=== PATIENT | male | born 1950 | race Caucasian/White ===

== ENCOUNTER 2017-11-10 05:37 | Outpatient (CLI) | payer MEDICARE ==
[~2017-11-10] VITALS: Ht 185.4 cm; Wt 94.3 kg
[~2017-11-10 05:37] MED LIST: AMIT25TA9 PO; DOXA4TAB2 PO; DULO60CA6 PO; GEMF600T3 PO; HYDR-3063 PO; MELO-195 PO; PRAV10TA PO; ROSU5TAB PO
[2017-11-10] MEDS ORDERED: DULO60CA58 PO (13:01)
[2017-11-10] MEDS ORDERED: BUPR150T14 PO (13:01)
[2017-11-10] MEDS ORDERED: GABA-486 PO (13:01)
[2017-11-10] MEDS ORDERED: PRAV40TA2 PO (13:01)
[2017-11-10] MEDS ORDERED: AMIT25TA9 PO (13:01)
[2017-11-10] MEDS ORDERED: MORP30CA16 PO (13:01)
[2017-11-10] MEDS ORDERED: OMEP20TA33 PO (13:03)
== END 2017-11-10 13:07 | disposition home or self-care (01) ==
LOC: PREOP 05:37
PROVIDERS: ATTEND Surgery
DX: Z01.818 Encounter for other preprocedural examination (principal)

== ENCOUNTER 2017-11-17 08:22 | Day surgery (SDC) | payer MEDICARE ==
[~2017-11-17] VITALS: Ht 185.4 cm; Wt 94.3 kg
[~2017-11-17 08:22] MED LIST changes: +BUPR150T14 PO; +DULO60CA58 PO; +GABA-486 PO; +MORP30CA16 PO; +OMEP20TA33 PO; +PRAV40TA2 PO
[2017-11-17] MEDS ORDERED: LACTATED RINGERS 1,000 ML IV ONE (08:30)
[2017-11-17] MEDS ORDERED: LACTATED RINGERS 1,000 ML IV STA (08:40)
[2017-11-17 08:51] VITALS: BP 163/99
--- OUTSIDE RECORDS SUMMARY | 2017-11-17 08:52 | XMS REPORT | Clinical Summary ---
Author Author [facility] Organization [facility] Address Unknown Phone Unavailable Care Team Providers Care Dairy Chemist Name Role Phone Unverified, Unverified PCP Unavailable Jovita Grey MD Unavailable Source Comments Some departments are not documenting in the electronic medical record. If you do not see the information that you expected, contact Release of Information in the Health Information Management department at [phone] for further assistance in locating additional records.[facility] Allergies Active Allergy Reactions Severity Noted Date Comments Metoclopramide Low 06/24/2006 Allergy recorded in SMS: REGLAN~Reactions: ANAPHYLAXIS~NERVOUSNESS Current Medications Prescription Sig. Disp. Refills Start End Date Status Date meloxicam (MOBIC) 7.5 mg Take 7.5 mg by mouth Active tablet daily. DULOXETINE HCL (CYMBALTA Take by mouth. Active PO) BUPROPION HCL (WELLBUTRIN Take by mouth. Active PO) MORPHINE SULFATE Take by mouth. Active (MORPHINE PO) AMITRIPTYLINE HCL Take by mouth. Active (AMITRIPTYLINE PO) PRAVASTATIN SODIUM Take by mouth. Active (PRAVASTATIN PO) DOXIDAN (BISACODYL) PO Take by mouth. 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) 10/31/2014 Pain in joint, pelvic region and thigh 04/14/2007 Closed fracture of unspecified part of femur 04/14/2007 Social History Tobacco Use Types Packs/Day Years Used Date Former Smoker Cigarettes 0.25 40 Smokeless Tobacco: Never Used Alcohol Use Drinks/Week oz/Week Comments Yes 5 Cans of 3.0 beer Sex Assigned at Date Recorded Not on file Last Filed Vital Signs Vital Sign Reading Time Taken Blood Pressure 127/68 10/25/2014 1:57 PM CDT Pulse 85 10/25/2014 1:57 PM CDT Temperature - - Respiratory Rate 16 10/25/2014 1:57 PM CDT Oxygen Saturation - - Inhaled Oxygen - - Concentration Weight 93.4 kg (206 lb) 10/25/2014 1:57 PM CDT Height 185.4 cm (6' 1") 10/25/2014 1:57 PM CDT Body Mass Index 27.18 10/25/2014 1:57 PM CDT Plan of Treatment Health Maintenance Due Date Last Done Comments HEPATITIS C SCREENING 1950 PHYSICAL (COMPREHENSIVE) 1957 EXAM PERTUSSIS VACCINE 1961 TETANUS VACCINE 06/11/1967 COLORECTAL CANCER 2000 SCREENING SHINGLES RECOMBINANT 2000 VACCINE (1 of 2) ABDOMINAL AORTIC ANEURYSM 06/11/2015 SCREENING PNEUMONIA (PCV13/PPSV23) 06/11/2015 VACCINES (1 of 2 - PCV13) INFLUENZA VACCINE 11/30/2017 Results Not on filefrom Last 3 Months
--- OUTSIDE RECORDS SUMMARY | 2017-11-17 08:52 | XMS REPORT ---
Author Author LILIBETH DUARTE Organization [facility] Address [address] [place] [address] Care Team Providers Care Still Operator Name Role Phone LILIBETH DUARTE Unavailable PROBLEMS Type Condition ICD9-CM Code EGH53-DB Code Onset Dates Condition Status SNOMED Code Problem Other chronic pain G89.29 Active 18027462 Problem Reactive depression F32.9 Active 61045036 Problem Back pain M54.9 Active 338070053 Problem Hypertension I10 Active 09696119 Problem Hyperlipidemia E78.5 Active 23876910 ALLERGIES No Information ENCOUNTERS Encounter Location Date Diagnosis [facility] [id number] [place] [address] 37702- 2023 Sep, Back pain M54.9 [facility] [id number] [place] [address] 69961- 6951 Aug, [facility] [id number] [place] [address] 79381- 1285 Aug, [facility] [id number] [place] [address] 17190- 4043 Aug, Back pain M54.9 [facility] [id number] [place] [address] 40452- 1401 Jul, Back pain M54.9 and Medicare annual wellness visit, initial Z00.00 [facility] [id number] [place] [address] 99581- 6350 June, Back pain M54.9 [facility] [id number] [place] [address] 31311- 1734 May, Back pain M54.9 [facility] [id number] [place] [address] 50566- 9564 May, Medicare annual wellness visit, initial Z00.00 ; Hypertension I10 ; Hyperlipidemia E78.5 and Reactive depression F32.9 [facility] [address] 67981- 7716 Apr, Back pain M54.9 [facility] [id number] [place] [address] 58386- 1836 Apr, Back pain M54.9 [facility] [address] 00654- 6932 Apr, Back pain M54.9 ; Other chronic pain G89.29 and Pain in left leg M79.605 [place] [address] 41984- 1243 Mar, Back pain M54.9 [facility] [address] 34732- 7880 Mar, Acute prostatitis N41.0 [facility] [id number] [place] [address] 55352- 2869 Jan, Back pain M54.9 [facility] [address] 15636- 2154 Dec, Back pain M54.[address] [facility] [id number] [place] [address] 39502- 5802 15 Dec, [address] [facility] [id number] [place] [address] 68284- 7694 Nov, Back pain M54.9 [facility] [address] 14171- 8156 22 Oct, [address] [facility] [id number] [place] [address] 23087- 254 19 Oct, [address] [facility] [address] 33483- 6450 Oct, [facility] [id number] [place] [address] 17567- 1557 Sep, Back pain M54.9 ; Acute prostatitis N41.0 ; Hypertension I10 ; Gross hematuria R31.0 and Reactive depression F32.9 [facility] [id number] [place] [address] 47988- 8760 Sep, [facility] [address] 10216- 4581 Sep, Back pain M54.9 [facility] [id number] [place] [address] 84910- 7841 Aug, Back pain M54.9 [facility] [id number] [place] [address] 50891- 9327 Jul, Back pain M54.9 [facility] [address] 91407- 9347 June, Back pain M54.9 [facility] [id number] [place] [address] 39791- 3489 June, Acute prostatitis N41.0 [facility] [id number] [place] [address] 51019- 0479 June, Back pain M54.9 [facility] [id number] [place] [address] 56679- 2645 Apr, Back pain M54.9 [facility] [id number] [place] [address] 20742- 7554 14 Apr, 2016 Hypertension I10 and Back pain M54.9 [facility] [id number] [place] [address] 11529- 3183 07 Apr, [address] [facility] [id number] [place] [address] 78734- 3535 Apr, Back pain M54.9 and Sprain of ligaments of lumbar spine, initial encounter S33.5XXA [facility] [id number] [place] [address] 48295- 9856 08 Apr, [address] [facility] [id number] [place] [address] 51768- 6106 Mar, Acute pain of left hip M25.552 [facility] [id number] [place] [address] 83672- 3316 Mar, [facility] [id number] [place] [address] 57277 2543 Mar, Acute pain of left hip M25.552 [facility] [address] 26340- 1251 Mar, Back pain M54.9 [facility] [id number] [place] [address] 95476- 7626 Jan, Reactive depression F32.9 [facility] [address] 52268- 8029 Jan, Back pain M54.9 ; Hypertension I10 and Reactive depression F32.9 [facility] [id number] [place] [address] 35754- 3640 Jan, Back pain M54.9 [facility] [id number] [place] [address] 70881- 5842 Dec, [facility] [id number] [place] [address] 55535- 8358 Dec, [facility] [id number] [place] [address] 12510- 5382 Nov, [facility] [id number] [place] [address] 45460- 0946 Oct, [facility] [id number] [place] [address] 75747- 5769 Oct, [facility] [id number] [place] [address] 70881- 7233 Oct, [facility] [address] [place] [address] 10632- 4884 Sep, [facility] [id number] [place] [address] 22068- 6701 Sep, [facility] [id number] [place] [address] 80747- 9201 Sep, Visit for TB skin test Z11.1 ; Back pain M54.[address] [facility] [id number] [place] [address] 72729- 1368 Aug, Back pain M54.9 [facility] [id number] [place] [address] 96633- 9336 Jul, Back pain M54.9 [facility] [id number] [place] [address] 98641- 2467 Jul, [facility] [id number] [place] [address] 55536- 6473 Jul, [facility] [id number] [place] [address] 29183- 5713 Jul, Back pain M54.9 [facility] [id number] [place] [address] 27551- 4889 May, Back pain M54.9 [facility] [id number] [place] [address] 60019- 3052 May, Back pain M54.9 ; Hypertension I10 [address]9 [facility] [id number] [place] [address] 32811- 1269 Apr, Back pain M54.9 [facility] [id number] [place] [address] 65219- 9587 Apr, Back pain M54.9 [facility] [id number] [place] [address] 24802- 4337 Apr, [facility] [address] [facility] [id number] [address]- 2763 Mar, Back pain M54.9 [facility] [address] [facility] [id number] [address]- 2115 Jan, [facility] [address] [place] [address] 00878- 5049 Jan, Dyspepsia R10.13 [facility] [address] [facility] [id number][place] [address]- 5538 Jan, [facility] [address] [facility] [id number] [place] [address] 16013- 3907 Jan, [facility] [address] [place] [address] 73450- 6639 Dec, Back pain M54.[address] [facility] [id number] [place] [address] 39337- 3362 Dec, [facility] [address] [address]- 8949 Nov, [facility] [address] [place] [address] 69285- 0775 Oct, [facility] [address] [address]- 9737 Sep, [facility] [address] [address]- 6924 Sep, [facility] [address] [address]- 9045 Sep, Lumbar strain 847.2 [facility] [address] [address]- 1352 Aug, [facility] [address] [address]- 8020 Aug, [facility] [address] [address]- 9444 Aug, [facility] [address] [id number] [address] Jul, Dental examination V72.2 [facility] [address] [id number], [place] [address]- 6642 Jul, [facility] [address] [id number][place] [address]- 5241 Jul, Acute bronchitis 466.0 and Lumbar strain 847.2 [facility] [address] [id number], [place] [address]- 5650 Jul, [facility] [address] [id number], [place] [address]- 6581 Jul, [facility] [address] [id number][place] [address]- 3156 June, Acute bronchitis 466.0 and Lumbar strain 847.2 [facility] [address] [id number][place] [address]- 0165 June, [facility] [address] [id number], [place] [address]- 0770 June, [facility] [address] [id number], [place] [address]- 5943 June, [facility] [address] [id number], [place] [address]- 2473 May, [facility] [address] [id number], [place] [address]- 6210 May, [facility] [address] [id number][place] [address]- 9777 Apr, [facility] [address] [id number], [place] [address]- 3911 Apr, [facility] [address] [id number], [place] [address]- 9537 Apr, [facility] [address] [id number] [place] [address]- 4136 13 Apr, 2014 [facility] [address] [id number] [place] [address]- 4436 17 Apr, 2011 [facility] [address] [id number] [place] [address]- 2546 17 Apr, 2011 [facility] [address] [id number] [place] [address] 2546 15 Apr, 2011 [facility] [address] [facility] [id number] [place] [address] 2546 14 Apr, 2011 [facility] [address] [facility] [id number] [place] [id number] 06 Apr, 2011 [facility] [id number] [address]- 2546 06 Apr, 2011 [facility] [address] [id number] [place] [address] 2546 02 Apr, 2011 [facility] [address] [id number] [place] [address]- 8028 Mar, [facility] [address] [id number] [place] [address]- 2576 Mar, [facility] [address] [id number] [address]- 0776 16 Mar, 2011 [facility] [address] [id number] [place] [address] 2546 16 Mar, 2011 [facility] [address] [id number] [place] [address] 2546 Mar, [facility] [place] [facility] [address] [id number] [place] [address]- 8636 Jan, [facility] [place] [facility] [address] [facility] [id number] [place] [address]- 2546 Jan, [facility] [place] [facility] [address] [id number] [place] [address]- 7155 12 Jan, 2011 [facility] [address] [facility] [id number], [place] [address]- 9344 08 Dec, 2010 [facility] [address] [facility] [id number], [place] [address]- 9278 11 Nov, 2010 [facility] [address] [facility] [id number][place] [address]- 7986 13 Oct, 2010 [facility] [address] [facility] [id number], [place] [address]- 0529 14 Jan, 2010 [facility] [address] [facility] [id number][place] [address]- 6870 [address], 2009 [facility] [address] [facility] [id number], [place] [address]- 0043 15 Nov, 2009 [facility] [address] [facility] [id number], [place] [address]- 1094 15 Nov, 2009 [facility] [address] [facility] [id number][place] [address]- 3937 Sep, [facility] [address] [facility] [id number] [address]- 2799 Jan, [facility] [address] [facility] [id number], [place] [address]- 7188 Dec, [facility] [address] [facility] [id number][place] [address]- 5873 10 Aug, 2008 IMMUNIZATIONS No Known Immunizations SOCIAL HISTORY Never Assessed REASON FOR VISIT Refill request PLAN OF CARE VITAL SIGNS MEDICATIONS Medication Instructions Dosage Frequency Start Date End Date Duration Status Viagra 100 MG TAKE ONE TABLET BY MOUTH ONCE DAILY NEEDED 30 Active RESULTS No Results PROCEDURES No Known procedures INSTRUCTIONS MEDICATIONS ADMINISTERED No Known Medications MEDICAL (GENERAL) HISTORY Type Description Date Medical History hyperlipidemia Medical History impotence Medical History chronic pain Medical History hypertension Medical History osteoarthritis Medical History depression Medical History kidney stones Surgical History tonsillectomy Surgical History bladder surgery Surgical History spine surgery Surgical History ortho surrgeries x7 on hip, back, left leg, left wrist Hospitalization History surgeries
--- OUTSIDE RECORDS SUMMARY | 2017-11-17 08:53 | XMS REPORT ---
Author Author LILIBETH DUARTE Organization [facility] Address [address] [place] [address] Care Team Providers Care Nylon Winder Name Role Phone LILIBETH DUARTE Unavailable PROBLEMS Type Condition ICD9-CM Code HFB22-DZ Code Onset Dates Condition Status SNOMED Code Problem Other chronic pain G89.29 Active 73355996 Problem Reactive depression F32.9 Active 51508259 Problem Back pain M54.9 Active 836472218 Problem Hypertension I10 Active 43666388 Problem Hyperlipidemia E78.5 Active 24861349 ALLERGIES No Information ENCOUNTERS Encounter Location Date Diagnosis [facility] [id number] [place] [address] 48476- 0866 Sep, Back pain M54.9 [facility] [id number] [place] [address] 63020- 6696 Aug, [facility] [id number] [place] [address] 59932- 2762 Aug, [facility] [id number] [place] [address] 40611- 4047 Aug, Back pain M54.9 [facility] [id number] [place] [address] 15446- 0763 Jul, Back pain M54.9 and Medicare annual wellness visit, initial Z00.00 [facility] [id number] [place] [address] 01618- 3636 June, Back pain M54.9 [facility] [id number] [place] [address] 43980- 4112 May, Back pain M54.9 [facility] [id number] [place] [address] 32452- 9159 May, Medicare annual wellness visit, initial Z00.00 ; Hypertension I10 ; Hyperlipidemia E78.5 and Reactive depression F32.9 [facility] [address] 35621- 3343 Apr, Back pain M54.9 [facility] [id number] [place] [address] 09178- 1996 Apr, Back pain M54.9 [facility] [address] 43299- 4589 Apr, Back pain M54.9 ; Other chronic pain G89.29 and Pain in left leg M79.605 [address] 48831- 2121 Mar, Back pain M54.9 [facility] [address] 01488- 8314 Mar, Acute prostatitis N41.0 [facility] [id number] [place] [address] 49611- 5043 Jan, Back pain M54.9 [facility] [address] 83363- 1601 Dec, Back pain M54.9 and Hypertension I10 [facility] [id number] [place] [address] 68233- 3818 15 Dec, 2016 Back pain M54.9 [facility] [id number] [place] [address] 41679- 6768 Nov, Back pain M54.9 [facility] [address] 08928- 6716 22 Oct, 2016 Back pain M54.9 [facility] [id number] [place] [address] 91620- 2540 19 Oct, 2016 Abnormal LFTs R79.89 [facility] [address] 46834- 8155 Oct, [facility] [id number] [place] [address] 65115- 0852 Sep, Back pain M54.9 ; Acute prostatitis N41.0 ; Hypertension I10 ; Gross hematuria R31.0 and Reactive depression F32.9 [facility] [id number] [place] [address] 06167- 5499 Sep, [facility] [address] 59762- 5477 Sep, Back pain M54.9 [facility] [id number] [place] [address] 74524- 0217 Aug, Back pain M54.9 [facility] [id number] [place] [address] 76368- 0479 Jul, Back pain M54.9 [facility] [address] 07031- 4780 June, Back pain M54.9 [facility] [id number] [place] [address] 32803- 7651 June, Acute prostatitis N41.0 [facility] [id number] [place] [address] 89674- 8121 June, Back pain M54.9 [facility] [id number] [place] [address] 56016- 4423 Apr, Back pain M54.9 [facility] [id number] [place] [address] 45295- 4522 14 Apr, 2016 Hypertension I10 and Back pain M54.9 [facility] [id number] [place] [address] 45534- 0871 07 Apr, 2016 Back pain M54.9 [facility] [id number] [place] [address] 72417- 5550 Apr, Back pain M54.9 and Sprain of ligaments of lumbar spine, initial encounter S33.5XXA [facility] [id number] [place] [address] 43392- 3678 08 Apr, 2016 Back pain M54.9 [facility] [id number] [place] [address] 63891- 4746 Mar, Acute pain of left hip M25.552 [facility] [id number] [place] [address] 53255- 6186 Mar, [facility] [id number] [place] [address] 61578 2540 Mar, Acute pain of left hip M25.552 [facility] [address] 36018- 3663 Mar, Back pain M54.9 [facility] [id number] [place] [address] 45640- 8816 Jan, Reactive depression F32.9 [facility] [address] 20407- 1908 Jan, Back pain M54.9 ; Hypertension I10 and Reactive depression F32.9 [facility] [id number] [place] [address] 83498- 2265 Jan, Back pain M54.9 [facility] [id number] [place] [address] 36407- 4453 Dec, [facility] [id number] [place] [address] 24027- 7107 Dec, [facility] [id number] [place] [address] 95295- 0727 Nov, [facility] [id number] [place] [address] 14992- 7016 Oct, [facility] [id number] [place] [address] 29717- 2841 Oct, [facility] [id number] [place] [address] 98185- 9168 Oct, [facility] [address] [place] [address] 16359- 8789 Sep, [facility] [id number] [place] [address] 97486- 5572 Sep, [facility] [id number] [place] [address] 90182- 2225 Sep, Visit for TB skin test Z11.1 ; Back pain M54.9 and Hypertension I10 [facility] [id number] [place] [address] 73983- 7018 Aug, Back pain M54.9 [facility] [id number] [place] [address] 69031- 6728 Jul, Back pain M54.9 [facility] [id number] [place] [address] 08023- 4790 Jul, [facility] [id number] [place] [address] 62833- 9336 Jul, [facility] [id number] [place] [address] 61648- 7903 Jul, Back pain M54.9 [facility] [id number] [place] [address] 52391- 4893 May, Back pain M54.9 [facility] [id number] [place] [address] 07999- 7666 May, Back pain M54.9 ; Hypertension I10 and Eczema L30.9 [facility] [id number] [place] [address] 10042- 7696 Apr, Back pain M54.9 [facility] [id number] [place] [address] 74715- 8161 Apr, Back pain M54.9 [facility] [id number] [place] [address] 43877- 4739 Apr, [facility] [address] [facility] [id number] [address]- 8292 Mar, Back pain M54.9 [facility] [address] [facility] [id number] [address]- 2325 Jan, [facility] [address] [place] [address] 57069- 4450 Jan, Dyspepsia R10.13 [facility] [address] [facility] [id number], [place] [address]- 4571 Jan, [facility] [address] [facility] [id number] [place] [address] 24362- 7269 Jan, [facility] [address] [place] [address] 36254- 4141 Dec, Back pain M54.9 and Hyperlipidemia E78.5 [facility] [id number] [place] [address] 10521- 6292 Dec, [facility] [address] [address]- 9957 Nov, [facility] [address] [place] [address] 48698- 8576 Oct, [facility] [address] [address]- 9687 Sep, [facility] [address] [address]- 2321 Sep, [facility] [address] [address]- 3837 Sep, Lumbar strain 847.2 [facility] [address] [address]- 8040 Aug, [facility] [address] [address]- 6411 Aug, [facility] [address] [address]- 9020 Aug, [facility] [address] [id number] [id number] Jul, Dental examination V72.2 [facility] [address] [id number] [address]- 8707 Jul, [facility] [address] [id number][place] [address]- 2947 Jul, Acute bronchitis 466.0 and Lumbar strain 847.2 [facility] [address] [id number] [address]- 9227 Jul, [facility] [address] [id number] [address]- 5439 Jul, [facility] [address] [id number][place] [address]- 6899 June, Acute bronchitis 466.0 and Lumbar strain 847.2 [facility] [address] [id number][place] [address]- 6179 June, [facility] [address] [id number][place] [address]- 9772 June, [facility] [address] [id number], [place] [address]- 4306 June, [facility] [address] [id number], [place] [address]- 0891 May, [facility] [address] [id number], [place] [address]- 5300 May, [facility] [address] [id number], [place] [address]- 9670 Apr, [facility] [address] [id number][place] [address]- 1280 Apr, [facility] [address] [id number], [place] [address]- 6901 Apr, [facility] [address] [id number] [place] [address]- 5206 13 Apr, 2014 [facility] [address] [id number] [place] [address]- 5106 17 Apr, 2011 [facility] [address] [id number] [place] [address]- 2546 17 Apr, 2011 [facility] [address] [id number] [place] [address] 2546 15 Apr, 2011 [facility] [address] [facility] [id number] [place] [address] 2546 14 Apr, [address] [facility] [address] [facility] [id number] [place] [id number] 06 Apr, 2011 [facility] [address] [id number] [place] [address]- 2546 06 Apr, 2011 [facility] [address] [id number] [place] [address] 2546 02 Apr, 2011 [facility] [address] [id number] [place] [address]- 3433 Mar, [facility] [address] [id number] [place] [address]- 6806 Mar, [facility] [address] [id number] [place] [address]- 5056 16 Mar, 2011 [facility] [address] [id number] [place] [address] 2546 16 Mar, 2011 [facility] [address] [id number] [place] [address] 2546 Mar, [facility] [place] [facility] [address] [id number] [place] [address]- 2496 Jan, [facility] [place] [facility] [address] [facility] [id number] [place] [address]- 2546 Jan, [facility] [place] [facility] [address] [id number] [place] [address]- 4213 12 Jan, 2011 [facility] [address] [address]- 7456 08 Dec, 2010 [facility] [address], [place] [address]- 0542 11 Nov, 2010 [facility] [address], [place] [address]- 0948 13 Oct, 2010 [facility] [id number] [address]- 4669 14 Jan, 2010 [facility] [address], [place] [address]- 3929 15 Dec, 2009 [facility] [id number] [place] [address] 03651- 6590 15 Nov, 2009 [facility] [address] [address]- 0990 Nov, [facility] [id number] [place] [address] 72513- 4815 Sep, [facility] [address], [place] [address]- 4148 Jan, [facility] [address] [address]- 1107 Dec, [facility] [address], [place] [address]- 2386 Aug, IMMUNIZATIONS No Known Immunizations SOCIAL HISTORY Never Assessed REASON FOR VISIT Medication refill request PLAN OF CARE VITAL SIGNS MEDICATIONS Medication Instructions Dosage Frequency Start Date End Date Duration Status Neurontin 100 mg Orally Three times a day 1 capsule 8h 16 May, 2017 30 day(s) Active Amitriptyline HCl 25 MG Orally Once a day 1 tablet 24h 30 Active MS Contin 30 MG Orally, every 12 hrs 1 tablet 12h 22 Jul, 2017 28 days Active RESULTS No Results PROCEDURES No Known [...]
--- OUTSIDE RECORDS SUMMARY | 2017-11-17 08:53 | XMS REPORT ---
Author Author LILIBETH DUARTE Organization [facility] Address [address] [place] [address] Care Team Providers Care Corporate Analyst Name Role Phone LILIBETH DUARTE Unavailable PROBLEMS Type Condition ICD9-CM Code BSM20-ME Code Onset Dates Condition Status SNOMED Code Problem Other chronic pain G89.29 Active 68795994 Problem Reactive depression F32.9 Active 78711627 Problem Back pain M54.9 Active 554090434 Problem Hypertension I10 Active 71326527 Problem Hyperlipidemia E78.5 Active 47374272 ALLERGIES No Information ENCOUNTERS Encounter Location Date Diagnosis [facility] [id number] [place] [address] 54738- 6930 Sep, Back pain M54.9 [facility] [id number] [place] [address] 56325- 6207 Aug, [facility] [id number] [place] [address] 01873- 9038 Aug, [facility] [id number] [place] [address] 73560- 9820 Aug, Back pain M54.9 [facility] [id number] [place] [address] 26685- 3882 Jul, Back pain M54.9 and Medicare annual wellness visit, initial Z00.00 [facility] [id number] [place] [address] 11747- 0125 June, Back pain M54.9 [facility] [id number] [place] [address] 47196- 7567 May, Back pain M54.9 [facility] [id number] [place] [address] 87439- 2262 May, Medicare annual wellness visit, initial Z00.00 ; Hypertension I10 ; Hyperlipidemia E78.5 and Reactive depression F32.9 [facility] [address] 78614- 7794 Apr, Back pain M54.9 [facility] [id number] [place] [address] 13773- 5346 Apr, Back pain M54.9 [facility] [address] 65267- 9404 Apr, Back pain M54.9 ; Other chronic pain G89.29 and Pain in left leg M79.605 [place] [address] 70297- 7893 Mar, Back pain M54.9 [facility] [address] 93430- 0144 Mar, Acute prostatitis N41.0 [facility] [id number] [place] [address] 21279- 0048 Jan, Back pain M54.9 [facility] [address] 31309- 5250 Dec, Back pain M54.9 and Hypertension I10 [facility] [id number] [place] [address] 95307- 9333 15 Dec, 2016 Back pain M54.9 [facility] [id number] [place] [address] 23069- 2884 Nov, Back pain M54.9 [facility] [address] 22376- 0106 22 Oct, 2016 Back pain M54.9 [facility] [id number] [place] [address] 92687- 2541 19 Oct, 2016 Abnormal LFTs R79.89 [facility] [address] 22952- 5482 Oct, [facility] [id number] [place] [address] 09205- 9958 Sep, Back pain M54.9 ; Acute prostatitis N41.0 ; Hypertension I10 ; Gross hematuria R31.0 and Reactive depression F32.9 [facility] [id number] [place] [address] 78819- 3166 Sep, [facility] [address] 52299- 9942 Sep, Back pain M54.9 [facility] [id number] [place] [address] 10575- 9069 Aug, Back pain M54.9 [facility] [id number] [place] [address] 79339- 4215 Jul, Back pain M54.9 [facility] [address] 34504- 7512 June, Back pain M54.9 [facility] [id number] [place] [address] 96853- 6375 June, Acute prostatitis N41.0 [facility] [id number] [place] [address] 55352- 7530 June, Back pain M54.9 [facility] [id number] [place] [address] 84553- 6898 Apr, Back pain M54.9 [facility] [id number] [place] [address] 23154- 9367 14 Apr, 2016 Hypertension I10 and Back pain M54.9 [facility] [id number] [place] [address] 70712- 5533 07 Apr, 2016 Back pain M54.9 [facility] [id number] [place] [address] 76695- 6140 Apr, Back pain M54.9 and Sprain of ligaments of lumbar spine, initial encounter S33.5XXA [facility] [id number] [place] [address] 25821- 9944 08 Apr, 2016 Back pain M54.9 [facility] [id number] [place] [address] 69280- 6226 Mar, Acute pain of left hip M25.552 [facility] [id number] [place] [address] 88154- 0336 Mar, [facility] [id number] [place] [address] 57147 2548 Mar, Acute pain of left hip M25.552 [facility] [address] 91639- 7006 Mar, Back pain M54.9 [facility] [id number] [place] [address] 67900- 7036 Jan, Reactive depression F32.9 [facility] [address] 31849- 1989 Jan, Back pain M54.9 ; Hypertension I10 and Reactive depression F32.9 [facility] [id number] [place] [address] 40785- 2020 Jan, Back pain M54.9 [facility] [id number] [place] [address] 51846- 9946 Dec, [facility] [id number] [place] [address] 89115- 9805 Dec, [facility] [id number] [place] [address] 72446- 3092 Nov, [facility] [id number] [place] [address] 50713- 6616 Oct, [facility] [id number] [place] [address] 73432- 0678 Oct, [facility] [id number] [place] [address] 64417- 7037 Oct, [facility] [id number] [place] [address] 16455- 9655 Sep, [facility] [id number] [place] [address] 00408- 8543 Sep, [facility] [id number] [place] [address] 01917- 5516 Sep, Visit for TB skin test Z11.1 ; Back pain M54.9 and Hypertension I10 [facility] [id number] [place] [address] 19747- 4705 Aug, Back pain M54.9 [facility] [id number] [place] [address] 31459- 1191 Jul, Back pain M54.9 [facility] [id number] [place] [address] 84799- 1452 Jul, [facility] [id number] [place] [address] 98045- 9820 Jul, [facility] [id number] [place] [address] 00889- 1172 Jul, Back pain M54.9 [facility] [id number] [place] [address] 18939- 8190 May, Back pain M54.9 [facility] [id number] [place] [address] 20379- 8928 May, Back pain M54.9 ; Hypertension I10 and Eczema L30.9 [facility] [id number] [place] [address] 61756- 9514 Apr, Back pain M54.9 [facility] [id number] [place] [address] 91489- 7753 Apr, Back pain M54.9 [facility] [id number] [place] [address] 24303- 3738 Apr, [facility] [address] [facility] [id number] [place] [address]- 3326 Mar, Back pain M54.9 [facility] [address] [facility] [id number] [place] [address]- 57[address] Jan, [facility] [id number] [place] [address] 89025- 3149 Jan, Dyspepsia R10.13 [facility] [address] [facility] [id number] [place] [address]- 6613 Jan, [facility] [address] [facility] [id number] [place] [address] 16170- 5625 Jan, [facility] [id number] [place] [address] 14048- 3849 Dec, Back pain M54.9 and Hyperlipidemia E78.5 [facility] [id number] [place] [address] 93725- 3827 Dec, [facility] [address] [address]- 3161 Nov, [facility] [id number] [place] [address] 07310- 4089 Oct, [facility] [address] [address]- 2073 Sep, [facility] [address] [address]- 1145 Sep, [facility] [address] [address]- 2964 Sep, Lumbar strain 847.2 [facility] [address] [address]- 5171 Aug, [facility] [address] [address]- 6527 Aug, [facility] [address] [address]- 8316 Aug, [facility] [address] [id number] [place] [id number] Jul, Dental examination V72.2 [facility] [address] [id number] [place] [address]- 6080 Jul, [facility] [address] [id number] [place] [address]- 4173 Jul, Acute bronchitis 466.0 and Lumbar strain 847.2 [facility] [address] [id number] [place] [address]- 1209 Jul, [facility] [address] [id number] [place] [address]- 1336 Jul, [facility] [address] [id number] [place] [address]- 2831 June, Acute bronchitis 466.0 and Lumbar strain 847.2 [facility] [address] [id number] [place] [address]- 2854 June, [facility] [address] [id number] [place] [address]- 6375 June, [facility] [address] [id number] [place] [address]- 8409 June, [facility] [address] [id number] [place] [address]- 9935 May, [facility] [address] [id number] [place] [address]- 8673 May, [facility] [address] [id number] [place] [address]- 4953 Apr, [facility] [address] [id number] [place] [address]- 8089 Apr, [facility] [address] [id number] [place] [address]- 1237 Apr, [facility] [address] [id number] [place] [address]- 1476 13 Apr, 2014 [facility] [address] [id number] [place] [address]- 2226 17 Apr, 2011 [facility] [address] [id number] [place] [address]- 2546 17 Apr, 2011 [facility] [address] [id number] [place] [address] 2546 15 Apr, 2011 [facility] [address] [facility] [id number] [place] [address] 2546 14 Apr, 2011 [facility] [address] [facility] [id number] [place] [id number] 06 Apr, 2011 [facility] [address] [id number] [address]- 2546 06 Apr, 2011 [facility] [address] [id number] [place] [address] 2546 02 Apr, 2011 [facility] [address] [id number] [place] [address]- 3267 Mar, [facility] [address] [id number] [place] [address]- 8576 Mar, [facility] [address] [id number] [address]- 4606 16 Mar, 2011 [facility] [address] [id number] [place] [address] 2546 16 Mar, 2011 [facility] [address] [id number] [place] [address] 2546 Mar, [facility] [place] [facility] [address] [id number] [place] [address]- 5446 Jan, [facility] [place] [facility] [address] [facility] [id number] [place] [address]- 2546 Jan, [facility] [place] [facility] [address] [id number] [place] [address]- 2315 12 Jan, 2011 [facility] [address] [facility] [id number] [place] [address]- 5474 08 Dec, 2010 [facility] [address] [facility] [id number] [place] [address]- 3051 11 Nov, 2010 [facility] [address] [facility] [id number] [place] [address]- 5771 13 Oct, 2010 [facility] [address] [facility] [id number] [place] [address]- 5493 14 Jan, 2010 [facility] [address] [facility] [id number] [place] [address]- 8054 15 Dec, 2009 [facility] [address] [facility] [id number] [place] [address]- 0641 15 Nov, 2009 [facility] [address] [facility] [id number] [place] [address]- 3819 15 Nov, 2009 [facility] [address] [address]- 9161 Sep, [facility] [address] [facility] [id number] [place] [address]- 1922 Jan, [facility] [address] [address]- 9007 10 Dec, 2008 [facility] [address] [id number] [address]- 1491 10 Aug, 2008 IMMUNIZATIONS No Known Immunizations SOCIAL HISTORY Never Assessed REASON FOR VISIT Needs referral PLAN OF CARE VITAL SIGNS MEDICATIONS Unknown Medications RESULTS No Results PROCEDURES No Known procedures [...]
--- OUTSIDE RECORDS SUMMARY | 2017-11-17 08:53 | XMS REPORT ---
Author Author LILIBETH DUARTE Organization [facility] Address [address] [place] [address] Care Team Providers Care Guest Experience Specialist Name Role Phone LILIBETH DUARTE Unavailable PROBLEMS Type Condition ICD9-CM Code RCZ07-FR Code Onset Dates Condition Status SNOMED Code Problem Other chronic pain G89.29 Active 41898042 Problem Reactive depression F32.9 Active 21607828 Problem Back pain M54.9 Active 402240462 Problem Hypertension I10 Active 30064075 Problem Hyperlipidemia E78.5 Active 31814794 ALLERGIES No Information ENCOUNTERS Encounter Location Date Diagnosis [facility] [id number] [place] [address] 73464- 0377 Sep, Back pain M54.9 [facility] [id number] [place] [address] 08528- 7394 Aug, [facility] [id number] [place] [address] 48414- 6014 Aug, [facility] [id number] [place] [address] 90496- 6976 Aug, Back pain M54.9 [facility] [id number] [place] [address] 05316- 2325 Jul, Back pain M54.9 and Medicare annual wellness visit, initial Z00.00 [facility] [id number] [place] [address] 33873- 8927 June, Back pain M54.9 [facility] [id number] [place] [address] 60677- 4391 May, Back pain M54.9 [facility] [id number] [place] [address] 65864- 6199 May, Medicare annual wellness visit, initial Z00.00 ; Hypertension I10 ; Hyperlipidemia E78.5 and Reactive depression F32.9 [facility] [address] 46274- 2364 Apr, Back pain M54.9 [facility] [id number] [place] [address] 00224- 4946 Apr, Back pain M54.9 [facility] [address] 35574- 0672 Apr, Back pain M54.9 ; Other chronic pain G89.29 and Pain in left leg M79.605 [address] 71976- 0531 Mar, Back pain M54.9 [facility] [address] 53025- 7602 Mar, Acute prostatitis N41.0 [facility] [id number] [place] [address] 06215- 2783 Jan, Back pain M54.9 [facility] [address] 07660- 7829 Dec, Back pain M54.9 and Hypertension I10 [facility] [id number] [place] [address] 05354- 3194 15 Dec, 2016 Back pain M54.9 [facility] [id number] [place] [address] 55705- 3633 Nov, Back pain M54.9 [facility] [address] 81448- 0236 22 Oct, 2016 Back pain M54.9 [facility] [id number] [place] [address] 25059- 2540 19 Oct, 2016 Abnormal LFTs R79.89 [facility] [address] 29490- 8071 Oct, [facility] [id number] [place] [address] 46178- 8334 Sep, Back pain M54.9 ; Acute prostatitis N41.0 ; Hypertension I10 ; Gross hematuria R31.0 and Reactive depression F32.9 [facility] [id number] [place] [address] 41268- 9996 Sep, [facility] [address] 51922- 9320 Sep, Back pain M54.9 [facility] [id number] [place] [address] 24584- 0610 Aug, Back pain M54.9 [facility] [id number] [place] [address] 49886- 3436 Jul, Back pain M54.9 [facility] [address] 53999- 5223 June, Back pain M54.9 [facility] [id number] [place] [address] 88845- 7643 June, Acute prostatitis N41.0 [facility] [id number] [place] [address] 83702- 7958 June, Back pain M54.9 [facility] [id number] [place] [address] 19328- 8763 Apr, Back pain M54.9 [facility] [id number] [place] [address] 73912- 6623 14 Apr, 2016 Hypertension I10 and Back pain M54.9 [facility] [id number] [place] [address] 72350- 2208 07 Apr, 2016 Back pain M54.9 [facility] [id number] [place] [address] 36614- 3234 Apr, Back pain M54.9 and Sprain of ligaments of lumbar spine, initial encounter S33.5XXA [facility] [id number] [place] [address] 87811- 2853 08 Apr, 2016 Back pain M54.9 [facility] [id number] [place] [address] 38605- 3686 Mar, Acute pain of left hip M25.552 [facility] [id number] [place] [address] 71034- 0496 Mar, [facility] [id number] [place] [address] 66260 2548 Mar, Acute pain of left hip M25.552 [facility] [address] 52944- 3191 Mar, Back pain M54.9 [facility] [id number] [place] [address] 12490- 2336 Jan, Reactive depression F32.9 [facility] [address] 37816- 7463 Jan, Back pain M54.9 ; Hypertension I10 and Reactive depression F32.9 [facility] [id number] [place] [address] 76870- 8341 Jan, Back pain M54.9 [facility] [id number] [place] [address] 80901- 9646 Dec, [facility] [id number] [place] [address] 23820- 8408 Dec, [facility] [id number] [place] [address] 51127- 7390 Nov, [facility] [id number] [place] [address] 64791- 3536 Oct, [facility] [id number] [place] [address] 56951- 7089 Oct, [facility] [id number] [place] [address] 23760- 1082 Oct, [facility] [id number] [place] [address] 49913- 0931 Sep, [facility] [id number] [place] [address] 92458- 7324 Sep, [facility] [id number] [place] [address] 72438- 0495 Sep, Visit for TB skin test Z11.1 ; Back pain M54.9 and Hypertension I10 [facility] [id number] [place] [address] 74247- 2307 Aug, Back pain M54.9 [facility] [id number] [place] [address] 51078- 9069 Jul, Back pain M54.9 [facility] [id number] [place] [address] 26947- 5283 Jul, [facility] [id number] [place] [address] 85993- 5119 Jul, [facility] [id number] [place] [address] 91218- 3251 Jul, Back pain M54.9 [facility] [id number] [place] [address] 45883- 5638 May, Back pain M54.9 [facility] [id number] [place] [address] 82443- 2678 May, Back pain M54.9 ; Hypertension I10 and Eczema L30.9 [facility] [id number] [place] [address] 24754- 0064 Apr, Back pain M54.9 [facility] [id number] [place] [address] 28090- 2907 Apr, Back pain M54.9 [facility] [id number] [place] [address] 16839- 8099 Apr, [facility] [address] [facility] [id number] [address]- 9877 Mar, Back pain M54.9 [facility] [address] [facility] [id number] [address]- 2689 Jan, [facility] [id number] [place] [address] 87854- 6400 Jan, Dyspepsia R10.13 [facility] [address] [facility] [id number] [place] [address]- 2724 Jan, [facility] [address] [facility] [id number] [place] [address] 83214- 1512 Jan, [facility] [id number] [place] [address] 46704- 1996 Dec, Back pain M54.9 and Hyperlipidemia E78.5 [facility] [id number] [place] [address] 61916- 1089 Dec, [facility] [address] [address]- 3714 Nov, [facility] [id number] [place] [address] 95418- 7048 Oct, [facility] [address] [address]- 9077 Sep, [facility] [address] [address]- 3556 Sep, [facility] [address] [address]- 3385 Sep, Lumbar strain 847.2 [facility] [address] [address]- 0936 Aug, [facility] [address] [address]- 6483 Aug, [facility] [address] [address]- 1993 Aug, [facility] [address] [id number] [place] [id number] Jul, Dental examination V72.2 [facility] [address] [id number] [place] [address]- 5713 Jul, [facility] [address] [id number] [address]- 3365 Jul, Acute bronchitis 466.0 and Lumbar strain 847.2 [facility] [address] [id number] [place] [address]- 0929 Jul, [facility] [address] [id number] [address]- 4764 Jul, [facility] [address] [id number] [place] [address]- 7376 June, Acute bronchitis 466.0 and Lumbar strain 847.2 [facility] [address] [id number] [place] [address]- 2247 June, [facility] [address] [id number] [place] [address]- 6972 June, [facility] [address] [id number] [place] [address]- 2677 June, [facility] [address] [id number] [place] [address]- 3978 May, [facility] [address] [id number] [place] [address]- 9504 May, [facility] [address] [id number] [address]- 0433 Apr, [facility] [address] [id number] [place] [address]- 3964 Apr, [facility] [address] [id number] [place] [address]- 3792 Apr, [facility] [address] [id number] [place] [address]- 0496 13 Apr, 2014 [facility] [address] [id number] [place] [address]- 1426 17 Apr, 2011 [facility] [address] [id number] [place] [address]- 2546 17 Apr, 2011 [facility] [address] [id number] [place] [address] 2546 15 Apr, 2011 [facility] [address] [facility] [id number] [place] [address] 2546 14 Apr, 2011 [facility] [id number] [place] [id number] 06 Apr, 2011 [facility] [id number] [place] [address]- 2546 06 Apr, 2011 [facility] [address] [id number] [place] [address] 2546 02 Apr, 2011 [facility] [address] [id number] [place] [address]- 2296 Mar, [facility] [address] [id number] [place] [address]- 4896 Mar, [facility] [id number] [place] [address]- 1986 16 Mar, 2011 [facility] [address] [id number] [place] [address] 2546 16 Mar, 2011 [facility] [address] [id number] [place] [address] 2546 Mar, [facility] [place] [facility] [address] [id number] [place] [address]- 6956 Jan, [facility] [place] [facility] [address] [facility] [id number] [place] [address]- 2546 Jan, [facility] [place] [facility] [address] [id number] [place] [address]- 3763 12 Jan, 2011 [facility] [address] [facility] [id number] [place] [address]- 3079 08 Dec, 2010 [facility] [address] [facility] [id number] [place] [address]- 5563 11 Nov, 2010 [facility] [address] [facility] [id number] [address]- 1015 13 Oct, 2010 [facility] [address] [facility] [id number] [address]- 9527 14 Jan, 2010 [facility] [address] [facility] [id number] [place] [address]- 9431 15 Dec, 2009 [facility] [address] [facility] [id number] [place] [address]- 8257 15 Nov, 2009 [facility] [address] [facility] [id number] [address]- 7006 Nov, [facility] [address] [address]- 4712 Sep, [facility] [address] [facility] [id number] [place] [address]- 7147 Jan, [facility] [address] [address]- 6362 Dec, [facility] [id number] [address]- 3829 Aug, IMMUNIZATIONS No Known Immunizations SOCIAL HISTORY Never Assessed REASON FOR VISIT Controlled Med Refill PLAN OF CARE VITAL SIGNS MEDICATIONS Medication Instructions Dosage Frequency Start Date End Date Duration Status MS Contin 30 MG Orally, every 12 hrs 1 tablet 12h 20 Aug, 2017 28 days Active RESULTS No Results [...]
--- OUTSIDE RECORDS SUMMARY | 2017-11-17 08:54 | XMS REPORT ---
Author Author LILIBETH DUARTE Organization [facility] Address [address] [place] [address] Care Team Providers Care Salesperson Parts Name Role Phone LILIBETH DUARTE Unavailable PROBLEMS Type Condition ICD9-CM Code LWR29-HT Code Onset Dates Condition Status SNOMED Code Problem Other chronic pain G89.29 Active 74335588 Problem Reactive depression F32.9 Active 01162212 Problem Back pain M54.9 Active 179793896 Problem Hypertension I10 Active 29137417 Problem Hyperlipidemia E78.5 Active 00566719 ALLERGIES No Information ENCOUNTERS Encounter Location Date Diagnosis [place] [address] [id number] [place] [address] 40058- 8344 Aug, [facility] [id number] [place] [address] 93977- 0476 Aug, [facility] [id number] [place] [address] 63288- 6000 Aug, Back pain M54.9 [facility] [id number] [place] [address] 46013- 7282 Jul, Back pain M54.9 and Medicare annual wellness visit, initial Z00.00 [facility] [id number] [place] [address] 95755- 3354 23 Jun, 2017 Back pain M54.9 [facility] [id number] [place] [address] 44752- 2178 23 May, 2017 Back pain M54.9 [facility] [id number] [place] [address] 00689- 8232 16 May, 2017 Medicare annual wellness visit, initial Z00.00 ; Hypertension I10 ; Hyperlipidemia E78.5 and Reactive depression F32.9 [facility] [id number] [place] [address] 87575- 7572 Apr, Back pain M54.9 [facility] [id number] [place] [address] 31152 2546 Apr, Back pain M54.9 [facility] [id number] [place] [address] 29060 2546 Apr, Back pain M54.9 ; Other chronic pain G89.29 and Pain in left leg M79.605 [facility] [id number] [place] [address] 51405- 3228 Mar, Back pain M54.9 [facility] [id number] [place] [address] 67014- 7706 Mar, Acute prostatitis N41.0 [facility] [id number] [place] [address] 99835- 8002 Jan, Back pain M54.9 [facility] [id number] [place] [address] 44403 2548 Dec, Back pain M54.9 and Hypertension I10 [facility] [id number] [place] [address] 97232- 7909 Dec, Back pain M54.9 [facility] [id number] [place] [address] 05870- 5016 Nov, Back pain M54.9 [facility] [id number] [place] [address] 98866 2546 Oct, Back pain M54.9 [facility] [id number] [place] [address] 59680- 7036 Oct, Abnormal LFTs R79.89 [facility] [id number] [place] [address] 36196- 2546 Oct, [facility] [id number] [place] [address] 11140- 2546 Sep, Back pain M54.9 ; Acute prostatitis N41.0 ; Hypertension I10 ; Gross hematuria R31.0 and Reactive depression F32.9 [facility] [address] 02207- 9218 Sep, [facility] [address] 01509- 0148 Sep, Back pain M54.9 [facility] [address] 43318- 6603 Aug, Back pain M54.9 [facility] [address] 38840- 3542 Jul, Back pain M54.9 [facility] [address] 56379- 7975 June, Back pain M54.9 [facility] [address] 11721- 6199 June, Acute prostatitis N41.0 [facility] [address] 21045- 6194 June, Back pain M54.9 [facility] [address] 46405- 3013 Apr, Back pain M54.9 [facility] [address] [place] [id number] [place] [address] 08116- 9456 Apr, Hypertension I10 and Back pain M54.9 [facility] [id number] [place] [address] 31460- 6805 Apr, Back pain M54.9 [facility] [address] 24478- 3549 Apr, Back pain M54.9 and Sprain of ligaments of lumbar spine, initial encounter S33.5XXA [facility] [address] 70550- 3156 08 Apr, 2016 Back pain M54.9 [facility] [address] [facility] [id number] [place] [address]- 1899 Mar, Acute pain of left hip M25.552 [facility] [address] [place] [id number] [place] [address], [place] [address]- 2416 Mar, [facility] [id number] [place] [address], [place] [address]- 9086 Mar, Acute pain of left hip M25.552 [facility] [address] [place] [id number] [place] [address], [place] [address]- 2038 Mar, Back pain M54.9 [facility] [id number] [place] [address], [place] [address]- 2846 Jan, Reactive depression F32.9 [facility] [id number] [place] [address], [place] [address]- 6046 Jan, Back pain M54.9 ; Hypertension I10 and Reactive depression F32.9 [facility] [id number] [place] [address] 71544- 1705 Jan, Back pain M54.9 [facility] [address] [place] [id number] [place] [address], [place] [address]- 5490 Dec, [facility] [id number] [place] [address] 44495- 9199 Dec, [facility] [id number] [place] [address] 74068- 5552 14 Dec, 2015 [facility] [address] [place] [id number] [place] [address] 69756 2546 29 Nov, 2015 [facility] [address] [place] [id number] [place] [address] 12517 2546 29 Nov, 2015 [facility] [address] [facility] [id number] [place] [address] 00840 2546 16 Nov, 2015 [facility] [address] [place] [id number] [place] [address] 35071- 2720 Sep, [facility] [address] [place] [id number] [place] [address] 21392- 7042 Sep, [facility] [address] [place] [id number] [place] [address] 27436- 4333 Sep, Visit for TB skin test Z11.1 ; Back pain M54.9 and Hypertension I10 [facility] [address] 00711- 2544 Aug, Back pain M54.9 [facility] [address] [place] [id number] [place] [address] 56536- 1001 Jul, Back pain M54.9 [facility] [address] [id number] [place] [address] 21126- 3278 Jul, [facility] [address] [place] [id number] [place] [address] 02023- 0237 Jul, [facility] [id number] [place] [address] 45405- 9021 Jul, Back pain M54.9 [facility] [address] [place] [id number] [place] [address] 65090- 8575 May, Back pain M54.9 [facility] [id number] [place] [address] 24425- 4112 May, Back pain M54.9 ; Hypertension I10 and Eczema L30.9 [facility] [id number] [place] [address] 27313- 2079 Apr, Back pain M54.9 [facility] [address] [place] [id number] [place] [address] 87492- 5250 Apr, Back pain M54.9 [facility] [address] [place] [id number] [place] [address] 47438- 7087 Apr, [facility] [id number] [place] [address] 52916- 3500 Mar, Back pain M54.9 [facility] [address] [facility] [id number] [address]- 5949 Jan, [facility] [address] [facility] [id number] [place] [address] 33170- 6416 Jan, Dyspepsia R10.13 [facility] [address] [facility] [id number], [place] [address]- 6188 Jan, [facility] [address] [facility] [id number] [place] [address] 87579- 5048 Jan, [facility] [address] [facility] [id number] [place] [address] 56669- 2956 Dec, Back pain M54.9 and Hyperlipidemia E78.5 [facility] [address] [place] [id number] [address]- 3123 Dec, [facility] [id number] [place] [address] 49845- 0335 Nov, [facility] [address] [facility] [id number][place] [address]- 4852 Oct, [facility] [id number] [place] [address] 16274- 0793 Sep, [facility] [address] [address] [id number] [address]- 0884 Sep, [facility] [id number] [address]- 0168 Sep, Lumbar strain 847.2 [facility] [address] [facility] [id number][place] [address]- 1692 Aug, [facility] [id number]- 4695 Aug, [facility] [address] [facility] [id number], [place] [address]- 5976 Aug, [facility] [address] [id number] [id number] Jul, Dental examination V72.2 [facility] [address] [id number] [address]- 2333 Jul, [facility] [address] [id number]- 3115 Jul, Acute bronchitis 466.0 and Lumbar strain 847.2 [facility] [address] [id number]- 4223 Jul, [facility] [address] [id number], [place] [address]- 1975 Jul, [facility] [address] [id number], [place] [address]- 8348 June, Acute bronchitis 466.0 and Lumbar strain 847.2 [facility] [address] [id number][place] [address]- 1512 June, [facility] [address] [id number], [place] [address]- 6022 June, [facility] [address] [id number], [place] [address]- 6175 June, [facility] [address] [id number], [place] [address]- 3244 May, [facility] [address] [id number], [place] [address]- 0368 May, [facility] [address] [id number], [place] [address]- 9478 Apr, [facility] [address] [id number], [place] [address]- 7706 Apr, [facility] [address] [id number], [place] [address]- 7187 Apr, [facility] [address] [id number], [place] [address]- 6268 Apr, [facility] [address] [id number] [place] [address]- 9046 17 Apr, 2011 [facility] [address] [id number] [place] [address]- 2196 17 Apr, 2011 [facility] [address] [id number] [place] [address] 2546 15 Apr, 2011 [facility] [address] [id number] [place] [address]- 0746 14 Apr, [address] [facility] [address] [id number] [place] [id number] Apr, [facility] [address] [id number] [place] [address]- 2436 Apr, [facility] [address] [id number] [place] [address]- 2546 Apr, [facility] [address] [id number] [place] [address]- 0919 Mar, [facility] [address] [id number] [place] [address]- 8443 Mar, [facility] [address] [id number] [place] [address]- 0706 Mar, [facility] [address] [id number] [place] [address]- 7764 16 Mar, 2011 [facility] [address] [id number] [place] [address]- 3861 Mar, [facility] [address] [id number] [place] [address]- 6769 Jan, [facility] [place] [facility] [address] [id number] [place] [address]- 9615 Jan, [facility] [place] [facility] [address] [id number] [place] [address]- 3336 12 Jan, 2011 [facility] [address] [id number] [place] [address]- 1373 08 Dec, 2010 [facility] [address] [facility] [id number], [place] [address]- 5432 11 Nov, 2010 [facility] [address] [facility] [id number], [place] [address]- 3506 13 Oct, 2010 [facility] [address] [facility] [id number], [place] [address]- 7500 14 Jan, 2010 [facility] [address] [facility] [id number], [place] [address]- 1474 Dec, [facility] [address] [facility] [id number], [place] [address]- 6708 Nov, [facility] [address] [facility] [id number], [place] [address]- 4509 Nov, [facility] [address] [address]- 9252 Sep, [facility] [address] [address]- 2779 Jan, [facility] [address] [address]- 1665 Dec, [facility] [address] [id number] [address]- 5500 Aug, IMMUNIZATIONS No Known Immunizations SOCIAL HISTORY Never Assessed REASON FOR VISIT Controlled Med Refill PLAN OF CARE VITAL SIGNS MEDICATIONS Medication Instructions Dosage Frequency Start Date End Date Duration Status MS Contin 30 MG Orally, every 12 hrs 1 tablet 12h May, 28 days Active RESULTS No Results PROCEDURES [...]
--- OUTSIDE RECORDS SUMMARY | 2017-11-17 08:54 | XMS REPORT ---
Author Author LILIBETH DUARTE Organization [facility] Address [address] [place] [address] Care Team Providers Care Banking Attorney Name Role Phone LILIBETH DUARTE Unavailable PROBLEMS Type Condition ICD9-CM Code RYA87-DD Code Onset Dates Condition Status SNOMED Code Problem Other chronic pain G89.29 Active 27765414 Problem Reactive depression F32.9 Active 47836112 Problem Back pain M54.9 Active 311523344 Problem Hypertension I10 Active 33473992 Problem Hyperlipidemia E78.5 Active 72042930 ALLERGIES No Information ENCOUNTERS Encounter Location Date Diagnosis [facility] [id number] [place] [address] 70923- 6596 Sep, Back pain M54.9 [facility] [id number] [place] [address] 62245- 9456 Aug, [facility] [id number] [place] [address] 41008- 1946 Aug, [facility] [id number] [place] [address] 70195- 7941 Aug, Back pain M54.9 [facility] [id number] [place] [address] 22042- 8769 Jul, Back pain M54.9 and Medicare annual wellness visit, initial Z00.00 [facility] [id number] [place] [address] 04293- 1434 June, Back pain M54.9 [facility] [id number] [place] [address] 27864- 2031 May, Back pain M54.9 [facility] [id number] [place] [address] 90936- 8283 May, Medicare annual wellness visit, initial Z00.00 ; Hypertension I10 ; Hyperlipidemia E78.5 and Reactive depression F32.9 [facility] [address] 86394- 3096 Apr, Back pain M54.9 [facility] [id number] [place] [address] 54093- 7416 Apr, Back pain M54.9 [facility] [address] 35332- 2175 Apr, Back pain M54.9 ; Other chronic pain G89.29 and Pain in left leg M79.605 [place] [address] 74914- 9611 Mar, Back pain M54.9 [facility] [address] 89845- 4110 Mar, Acute prostatitis N41.0 [facility] [id number] [place] [address] 58144- 9023 Jan, Back pain M54.9 [facility] [address] 82302- 4198 Dec, Back pain M54.9 and Hypertension I10 [facility] [id number] [place] [address] 93972- 9790 15 Dec, 2016 Back pain M54.9 [facility] [id number] [place] [address] 20447- 8001 Nov, Back pain M54.9 [facility] [address] 05471- 9026 22 Oct, 2016 Back pain M54.9 [facility] [id number] [place] [address] 13070- 2540 19 Oct, 2016 Abnormal LFTs R79.89 [facility] [address] 99168- 3501 Oct, [facility] [id number] [place] [address] 09038- 9385 Sep, Back pain M54.9 ; Acute prostatitis N41.0 ; Hypertension I10 ; Gross hematuria R31.0 and Reactive depression F32.9 [facility] [id number] [place] [address] 48866- 4147 Sep, [facility] [address] 76080- 1102 Sep, Back pain M54.9 [facility] [id number] [place] [address] 40050- 3824 Aug, Back pain M54.9 [facility] [id number] [place] [address] 64930- 5242 Jul, Back pain M54.9 [facility] [address] 15595- 1409 June, Back pain M54.9 [facility] [id number] [place] [address] 87177- 4526 June, Acute prostatitis N41.0 [facility] [id number] [place] [address] 28602- 0643 June, Back pain M54.9 [facility] [id number] [place] [address] 14627- 9850 Apr, Back pain M54.9 [facility] [id number] [place] [address] 76365- 3367 14 Apr, 2016 Hypertension I10 and Back pain M54.9 [facility] [id number] [place] [address] 00254- 1082 07 Apr, 2016 Back pain M54.9 [facility] [id number] [place] [address] 05147- 9925 Apr, Back pain M54.9 and Sprain of ligaments of lumbar spine, initial encounter S33.5XXA [facility] [id number] [place] [address] 12948- 2457 08 Apr, 2016 Back pain M54.9 [facility] [id number] [place] [address] 89758- 3136 Mar, Acute pain of left hip M25.552 [facility] [id number] [place] [address] 89332- 9076 Mar, [facility] [id number] [place] [address] 66260 2544 Mar, Acute pain of left hip M25.552 [facility] [address] 98393- 1242 Mar, Back pain M54.9 [facility] [id number] [place] [address] 70363- 4376 Jan, Reactive depression F32.9 [facility] [address] 33081- 4162 Jan, Back pain M54.9 ; Hypertension I10 and Reactive depression F32.9 [facility] [id number] [place] [address] 16136- 9463 Jan, Back pain M54.9 [facility] [id number] [place] [address] 33686- 1807 Dec, [facility] [id number] [place] [address] 78138- 8840 Dec, [facility] [id number] [place] [address] 76779- 7945 Nov, [facility] [id number] [place] [address] 25340- 5336 Oct, [facility] [id number] [place] [address] 99468- 4376 Oct, [facility] [id number] [place] [address] 24257- 8634 Oct, [facility] [id number] [place] [address] 48574- 8963 Sep, [facility] [id number] [place] [address] 24374- 6554 Sep, [facility] [id number] [place] [address] 77883- 8533 Sep, Visit for TB skin test Z11.1 ; Back pain M54.9 and Hypertension I10 [facility] [id number] [place] [address] 63394- 0015 Aug, Back pain M54.9 [facility] [id number] [place] [address] 37661- 1057 Jul, Back pain M54.9 [facility] [id number] [place] [address] 93732- 0760 Jul, [facility] [id number] [place] [address] 61914- 7892 Jul, [facility] [id number] [place] [address] 74597- 8137 Jul, Back pain M54.9 [facility] [id number] [place] [address] 22885- 3874 May, Back pain M54.9 [facility] [id number] [place] [address] 24148- 8087 May, Back pain M54.9 ; Hypertension I10 and Eczema L30.9 [facility] [id number] [place] [address] 91517- 7140 Apr, Back pain M54.9 [facility] [id number] [place] [address] 94848- 2792 Apr, Back pain M54.9 [facility] [id number] [place] [address] 24301- 5696 Apr, [facility] [address] [facility] [id number], [place] [address]- 0697 Mar, Back pain M54.9 [facility] [address] [facility] [id number], [place] [address]- 6225 Jan, [facility] [id number] [place] [address] 46615- 1876 Jan, Dyspepsia R10.13 [facility] [address] [facility] [id number], [place] [address]- 5467 Jan, [facility] [address] [facility] [id number] [place] [address] 99027- 6125 Jan, [facility] [id number] [place] [address] 24556- 2002 Dec, Back pain M54.9 and Hyperlipidemia E78.5 [facility] [id number] [place] [address] 47715- 4587 Dec, [facility] [address] [address]- 6798 Nov, [facility] [id number] [place] [address] 19135- 2259 Oct, [facility] [address] [address]- 1598 Sep, [facility] [address] [address]- 8138 Sep, [facility] [address] [address]- 9593 Sep, Lumbar strain 847.2 [facility] [address] [address]- 1020 Aug, [facility] [address] [address]- 7301 Aug, [facility] [address] [address]- 9480 Aug, [facility] [address] [id number] [id number] Jul, Dental examination V72.2 [facility] [address] [id number], [place] [address]- 2571 Jul, [facility] [address] [id number], [place] [address]- 1344 Jul, Acute bronchitis 466.0 and Lumbar strain 847.2 [facility] [address] [id number], [place] [address]- 9709 Jul, [facility] [address] [id number], [place] [address]- 1283 Jul, [facility] [address] [id number], [place] [address]- 4556 June, Acute bronchitis 466.0 and Lumbar strain 847.2 [facility] [address] [id number], [place] [address]- 5257 June, [facility] [address] [id number], [place] [address]- 5357 June, [facility] [address] [id number], [place] [address]- 0359 June, [facility] [address] [id number], [place] [address]- 6914 May, [facility] [address] [id number], [place] [address]- 9257 May, [facility] [address] [id number], [place] [address]- 2979 Apr, [facility] [address] [id number], [place] [address]- 1511 Apr, [facility] [address] [id number], [place] [address]- 3377 Apr, [facility] [address] [id number] [place] [address]- 9936 13 Apr, 2014 [facility] [address] [id number] [place] [address]- 4406 17 Apr, 2011 [facility] [address] [id number] [place] [address]- 2546 17 Apr, 2011 [facility] [address] [id number] [place] [address] 2546 15 Apr, 2011 [facility] [address] [facility] [id number] [place] [address] 2546 14 Apr, 2011 [facility] [place] [address] [facility] [id number] [place] [id number] 06 Apr, 2011 [facility] [id number] [place] [address]- 2546 06 Apr, 2011 [facility] [address] [id number] [place] [address] 2546 02 Apr, 2011 [facility] [address] [id number] [place] [address]- 9267 Mar, [facility] [address] [id number] [place] [address]- 1736 Mar, [facility] [id number] [place] [address]- 9326 16 Mar, 2011 [facility] [address] [id number] [place] [address] 2546 16 Mar, 2011 [facility] [address] [id number] [place] [address] 2546 Mar, [facility] [place] [facility] [address] [id number] [place] [address]- 9826 Jan, [facility] [place] [facility] [address] [facility] [id number] [place] [address]- 2546 Jan, [facility] [place] [facility] [address] [id number] [place] [address]- 0696 12 Jan, 2011 [facility] [address] [facility] [id number], [place] [address]- 6153 08 Dec, 2010 [facility] [address] [facility] [id number], [place] [address]- 6278 11 Nov, 2010 [facility] [address] [facility] [id number], [place] [address]- 6126 13 Oct, 2010 [facility] [address] [facility] [id number], [place] [address]- 0638 14 Jan, 2010 [facility] [address] [facility] [id number], [place] [address]- 8519 15 Dec, 2009 [facility] [address] [facility] [id number] [place] [address] 05194- 5042 15 Nov, 2009 [facility] [address] [facility] [id number], [place] [address]- 9029 15 Nov, 2009 [facility] [address], [place] [address]- 1196 Sep, [facility] [address] [facility] [id number], [place] [address]- 8100 Jan, [facility] [address], [place] [address]- 4118 Dec, [facility] [id number], [place] [address]- 4525 Aug, IMMUNIZATIONS No Known Immunizations SOCIAL HISTORY Never Assessed REASON FOR VISIT Controlled Med Refill PLAN OF CARE VITAL SIGNS MEDICATIONS Medication Instructions Dosage Frequency Start Date End Date Duration Status MS Contin 30 MG Orally, every 12 hrs 1 tablet 12h June, 28 days Active RESULTS No Results PROCEDURES [...]
--- OUTSIDE RECORDS SUMMARY | 2017-11-17 08:55 | XMS REPORT ---
Author Author BIANCA GALARZA [facility] e[employer] Address Unknown Phone Unavailable Care Team Providers Care Leasing Professional Name Role Phone BIANCA GALARZA Unavailable Allergies No Known Allergies Problems Problem Type Condition Code Onset Dates Condition Status Problem Hypertension I10 Active Problem Hyperlipidemia E78.5 Active Problem Back pain M54.9 Active Medications Medication Code System Code Instructions Start Date End Date Status Dosage MS Contin [facility] [id number] 30 MG Orally, every 12 hrs May 11, 2014 1 tablet Results No Known Results Summary Purpose eClinicalWorks Submission
--- OUTSIDE RECORDS SUMMARY | 2017-11-17 08:55 | XMS REPORT ---
Author Author BIANCA GALARZA Organization [facility] Address [address] [place] [address] Care Team Providers Care Job Placement Counselor Name Role Phone BIANCA GALARZA Unavailable PROBLEMS Type Condition ICD9-CM Code VQW58-MM Code Onset Dates Condition Status SNOMED Code Problem Other chronic pain G89.29 Active 82579037 Problem Reactive depression F32.9 Active 76150344 Problem Back pain M54.9 Active 588099806 Problem Hypertension I10 Active 59717639 Problem Hyperlipidemia E78.5 Active 67048508 ALLERGIES No Information ENCOUNTERS Encounter Location Date Diagnosis [place] [address] [address] May, Back pain M54.9 [place] [address] [place] [id number] [place] [address] 33467- 6878 May, Medicare annual wellness visit, initial Z00.00 ; Hypertension I10 ; Hyperlipidemia E78.5 and Reactive depression F32.9 [place] [id number] [place] [address] 28196- 5809 Apr, Back pain M54.9 [place] [address] [place] [id number] [place] [address] 69176- 9214 Apr, Back pain M54.9 [place] [address] [place] [id number] [place] [address] 75599- 2656 Apr, Back pain M54.9 ; Other chronic pain G89.29 and Pain in left leg M79.605 [place] [address] [place] [id number] [place] [address] 98115- 4621 Mar, Back pain M54.9 [place] [address] [place] [id number] [place] [address] 91220- 0288 Mar, Acute prostatitis N41.0 [facility] [address] [place] [id number] [place] [address] 90714- 2918 Jan, Back pain M54.9 [facility] [address] [place] [id number] [place] [address] 72638- 8917 Dec, Back pain M54.9 and Hypertension I10 [facility] [address] 07986- 8195 Dec, Back pain M54.9 [facility] [address] [place] [id number] [place] [address] 52676- 6080 Nov, Back pain M54.9 [facility] [address] [place] [id number] [place] [address] 15512- 3432 Oct, Back pain M54.9 [facility] [address] [place] [id number] [place] [address] 42689- 8337 Oct, Abnormal LFTs R79.89 [facility] [address] [place] [id number] [place] [address] 02184- 0191 Oct, [facility] [address] [place] [id number] [place] [address] 52739- 2195 Sep, Back pain M54.9 ; Acute prostatitis N41.0 ; Hypertension I10 ; Gross hematuria R31.0 and Reactive depression F32.9 [facility] [address] [place] [id number] [place] [address] 53768- 6110 Sep, [facility] [address] [place] [id number] [place] [address] 64663- 9553 Sep, Back pain M54.9 [facility] [address] [place] [id number] [place] [address] 00882- 1087 Aug, Back pain M54.9 [facility] [address] [place] [id number] [place] [address] 01745- 6268 Jul, Back pain M54.9 [facility] [address] [place] [id number] [place] [address] 85492- 3486 June, Back pain M54.9 [facility] [address] [place] [id number] [place] [address] 85486- 7006 June, Acute prostatitis N41.0 [facility] [address] [place] [id number] [place] [address] 64977 2546 June, Back pain M54.9 [facility] [address] [place] [id number] [place] [address] 09827 2546 Apr, Back pain M54.9 [facility] [address] [place] [id number] [place] [address] 28501- 8196 Apr, Hypertension I10 and Back pain M54.9 [facility] [address] [place] [id number] [place] [address] 45540- 2546 Apr, Back pain M54.9 [facility] [address] 58438- 0690 Apr, Back pain M54.9 and Sprain of ligaments of lumbar spine, initial encounter S33.5XXA [facility] [address] [place] [id number] [place] [address] 25818- 3974 Apr, Back pain M54.9 [facility] [address] [place] [id number] [place] [address] 80618- 7496 Mar, Acute pain of left hip M25.552 [facility] [address] [place] [id number] [place] [address] 76387 2546 Mar, [facility] [address] [place] [id number] [place] [address] 30008 2546 Mar, Acute pain of left hip M25.552 [facility] [address] [place] [id number] [place] [address] 17453 2546 Mar, Back pain M54.9 [facility] [address] [place] [id number] [place] [address] 23875- 3222 Jan, Reactive depression F32.9 [facility] [address] [facility] [id number] [place] [address] 20656- 2193 Jan, Back pain M54.9 ; Hypertension I10 and Reactive depression F32.9 [facility] [address] [facility] [id number] [place] [address] 55259- 2994 Jan, Back pain M54.9 [facility] [address] [facility] [id number] [place] [address] 03948- 7815 Dec, [facility] [address] [facility] [id number] [place] [address] 83733- 5899 Dec, [facility] [address] [place] [id number] [place] [address] 95017- 6062 Nov, [facility] [address] [place] [id number] [place] [address] 08338- 6462 Oct, [facility] [address] [place] [id number] [place] [address] 73967- 2020 Oct, [facility] [address] [place] [id number] [place] [address] 80792- 3640 16 Nov, 2015 [facility] [address] [place] [id number] [place] [address] 61112- 4480 Sep, [facility] [id number] [place] [address] 75645- 2549 Sep, [facility] [address] [place] [id number] [place] [address] 34385- 5594 Sep, Visit for TB skin test Z11.1 ; Back pain M54.9 and Hypertension I10 [facility] [address] [place] [id number] [place] [address] 48860- 5016 Aug, Back pain M54.9 [facility] [address] [place] [id number] [place] [address] 53610- 7890 Jul, Back pain M54.9 [facility] [address] [place] [id number] [place] [address] 79177- 5246 Jul, [facility] [address] [place] [id number] [place] [address] 80066- 6238 Jul, [facility] [address] [place] [id number] [place] [address] 11520- 9601 Jul, Back pain M54.9 [facility] [address] 66728- 0666 May, Back pain M54.9 [facility] [address] 90445- 3905 May, Back pain M54.9 ; Hypertension I10 and Eczema L30.9 [facility] [address] [place] [id number] [place] [address] 37673- 3098 Apr, Back pain M54.9 [facility] [address] [place] [id number] [place] [address] 84051- 9423 Apr, Back pain M54.9 [facility] [address] [place] [id number] [place] [address] 96186- 4789 Apr, [facility] [address] [place] [id number] [place] [address] 92546- 2825 Mar, Back pain M54.9 [facility] [address] [place] [id number] [place] [address] 28337- 9352 Jan, [facility] [address] [place] [id number] [place] [address] 00352- 6116 Jan, Dyspepsia R10.13 [facility] [address] [place] [id number] [place] [address] 60839- 3065 Jan, [facility] [address] [place] [id number] [place] [address] 47134- 0001 Jan, [facility] [address] [place] [id number] [place] [address] 30886- 8653 Dec, Back pain M54.9 and Hyperlipidemia E78.5 [facility] [address] [id number] [address]- 1522 Dec, [facility] [address] [id number] [address]- 7159 Nov, [facility] [address] [id number] [address]- 2260 Oct, [facility] [address] [id number] [address]- 1499 Sep, [facility] [address] [id number] [address]- 8541 Sep, [facility] [address] [id number] [address]- 8463 Sep, Lumbar strain 847.2 [facility] [address] [id number] [address]- 6215 Aug, [facility] [address] [id number] [address]- 8613 Aug, [facility] [address] [id number] [address]- 4721 Aug, [facility] [address] [id number] [id number] Jul, Dental examination V72.2 [facility] [address] [id number] [address]- 6031 Jul, [facility] [address] [id number], [place] [address]- 8612 Jul, Acute bronchitis 466.0 and Lumbar strain 847.2 [facility] [address] [id number] 2262 Jul, [facility] [address] [id number] [address]- 6587 Jul, [facility] [address] [id number], [place] [address]- 5225 June, Acute bronchitis 466.0 and Lumbar strain 847.2 [facility] [address] [id number] [place] [address]- 3182 June, [facility] [address] [id number] [address]- 7908 June, [facility] [address] [id number] [address]- 4951 June, [facility] [address] [id number] [address]- 9345 May, [facility] [address] [id number] [place] [address]- 2268 May, [facility] [address] [id number] [address]- 5761 Apr, [facility] [address] [id number] [address]- 9613 Apr, [facility] [address] [id number] [address]- 8954 Apr, [facility] [address] [id number] [address]- 9902 Apr, [facility] [address] [facility] [id number] [address]- 4157 Apr, [facility] [address] [id number] [address]- 0025 Apr, [facility] [address] [id number] [address]- 6345 Apr, [facility] [address] [facility] [id number] [address]- 8093 Apr, [facility] [address] [id number][place] [id number] Apr, [facility] [address] [place] [id number] [address]- 6278 Apr, [facility] [place] [facility] [address] [id number] [place] [address]- 0256 02 Apr, 2011 [facility] [place] [facility] [address] [id number] [place] [address]- 9669 Mar, [facility] [place] [facility] [address] [id number] [place] [address]- 0766 Mar, [facility] [place] [facility] [address] [id number] [place] [address]- 9346 Mar, [facility] [place] [facility] [address] [id number] [place] [address]- 4346 Mar, [facility] [place] [facility] [address] [id number] [place] [address]- 7626 Mar, [facility] [place] [facility] [address] [id number] [place] [address]- 5138 Jan, [facility] [place] [facility] [address] [id number] [place] [address]- 8509 13 Jan, 2011 [facility] [place] [facility] [address] [id number] [place] [address]- 9707 12 Jan, 2011 [facility] [place] [facility] [address] [id number] [place] [address]- 0753 08 Dec, 2010 [facility] [place] [facility] [address] [id number] [place] [address]- 2257 11 Nov, 2010 [facility] [place] [facility] [address] [id number] [place] [address]- 5870 13 Oct, 2010 [facility] [place] [facility] [address] [id number] [place] [address]- 7416 14 Jan, 2010 [facility] [place] [facility] [address] [id number] [place] [address]- 5657 15 Dec, 2009 [facility] [place] [facility] [address] [id number] [place] [address]- 1956 15 Nov, 2009 [facility] [place] [facility] [address] [id number] [place] [address]- 3996 Nov, [facility] [address] [facility] [id number] [address]- 4533 Sep, [facility] [address] [place] [id number] [address]- 0116 Jan, [facility] [address] [place] [id number] [address]- 1200 Dec, [facility] [address] [place] [id number] [address]- 1326 Aug, IMMUNIZATIONS No Known Immunizations SOCIAL HISTORY Never Assessed REASON FOR VISIT abnormal LFT PLAN OF CARE VITAL SIGNS MEDICATIONS Unknown [...]
--- OUTSIDE RECORDS SUMMARY | 2017-11-17 08:55 | XMS REPORT ---
Author Author LILIBETH DUARTE Organization [facility] Address [address] [place] [address] Care Team Providers Care Physicist [employer] Name Role Phone LILIBETH DUARTE Unavailable PROBLEMS Type Condition ICD9-CM Code MJZ42-KG Code Onset Dates Condition Status SNOMED Code Problem Other chronic pain G89.29 Active 52868225 Problem Reactive depression F32.9 Active 46901315 Problem Back pain M54.9 Active 496045386 Problem Hypertension I10 Active 82660474 Problem Hyperlipidemia E78.5 Active 16159786 ALLERGIES Substance Reaction Event Type Date Status Reglan Unknown Drug Allergy May, Active ENCOUNTERS Encounter Location Date Diagnosis [facility] [id number] [place] [address] 66437- 7665 Aug, [facility] [id number] [place] [address] 18246- 6952 Aug, [facility] [id number] [place] [address] 20016- 3303 Aug, Back pain M54.9 [facility] [id number] [place] [address] 75613- 1820 Jul, Back pain M54.9 and Medicare annual wellness visit, initial Z00.00 [facility] [id number] [place] [address] 82763- 8824 June, Back pain M54.9 [facility] [id number] [place] [address] 45922- 2041 May, Back pain M54.9 [facility] [id number] [place] [address] 46150- 4202 May, Medicare annual wellness visit, initial Z00.00 ; Hypertension I10 ; Hyperlipidemia E78.5 and Reactive depression F32.9 [facility] [id number] [place] [address] 23959- 5963 Apr, Back pain M54.9 [facility] [id number] [place] [address] 68706 2546 Apr, Back pain M54.9 [facility] [id number] [place] [address] 72095- 7977 Apr, Back pain M54.9 ; Other chronic pain G89.29 and Pain in left leg M79.605 [facility] [id number] [place] [address] 95753- 1713 Mar, Back pain M54.9 [facility] [id number] [place] [address] 12860- 1601 Mar, Acute prostatitis N41.0 [facility] [address] 22299- 2907 Jan, Back pain M54.9 [facility] [id number] [place] [address] 49791- 5761 Dec, Back pain M54.9 and Hypertension I10 [facility] [id number] [place] [address] 14162- 9405 15 Dec, 2016 Back pain M54.9 [facility] [id number] [place] [address] 21970- 3656 18 Nov, 2016 Back pain M54.9 [facility] [id number] [place] [address] 47156- 0723 22 Oct, 2016 Back pain M54.9 [facility] [address] 07678- 2547 19 Oct, 2016 Abnormal LFTs R79.89 [facility] [id number] [place] [address] 63533- 2549 06 Oct, 2016 [facility] [address] 47020- 4918 Sep, Back pain M54.9 ; Acute prostatitis N41.0 ; Hypertension I10 ; Gross hematuria R31.0 and Reactive depression F32.9 [facility] [id number] [place] [address] 40814- 9183 Sep, [facility] [address] 08087- 7008 Sep, Back pain M54.9 [facility] [address] 55084- 7212 Aug, Back pain M54.9 [facility] [address] 86001- 9111 Jul, Back pain M54.9 [facility] [address] 64585- 9499 June, Back pain M54.9 [facility] [address] 58889- 4334 June, Acute prostatitis N41.0 [facility] [address] 51153- 1273 June, Back pain M54.9 [facility] [address] 43739- 3187 Apr, Back pain M54.9 [facility] [address] 13460- 7019 14 Apr, 2016 Hypertension I10 and Back pain M54.9 [facility] [address] 88687- 6024 07 Apr, 2016 Back pain M54.9 [facility] [address] 54530- 4193 Apr, Back pain M54.9 and Sprain of ligaments of lumbar spine, initial encounter S33.5XXA [facility] [address] 99049- 2228 Apr, Back pain M54.9 [facility] [id number] [place] [address] 57963- 8776 Mar, Acute pain of left hip M25.552 [facility] [id number] [place] [address] 01407- 5426 Mar, [facility] [id number] [place] [address] 67038- 9580 Mar, Acute pain of left hip M25.552 [facility] [id number] [place] [address] 96855- 6613 Mar, Back pain M54.9 [facility] [id number] [place] [address] 22225- 1995 Jan, Reactive depression F32.9 [facility] [id number] [place] [address] 92280- 2495 Jan, Back pain M54.9 ; Hypertension I10 and Reactive depression F32.9 [facility] [id number] [place] [address] 38916- 2851 Jan, Back pain M54.9 [facility] [id number] [place] [address] 99898- 3698 Dec, [facility] [address] [address]- 9454 Dec, [facility] [id number] [place] [address] 53230- 2836 14 Dec, 2015 [facility] [id number] [place] [address] 64385- 2196 29 Nov, 2015 [facility] [id number] [place] [address] 16977- 4280 29 Nov, 2015 [facility] [address] [address]- 6048 16 Nov, 2015 [facility] [id number] [address]- 6662 Sep, [facility] [id number] [place] [address] 75456- 3478 Sep, [facility] [id number] [place] [address] 56094- 6380 Sep, Visit for TB skin test Z11.1 ; Back pain M54.9 and Hypertension I10 [facility] [id number] [place] [address] 60877- 2631 Aug, Back pain M54.9 [facility] [id number] [place] [address] 96061- 5780 Jul, Back pain M54.9 [facility] [id number] [place] [address] 50339- 9082 Jul, [facility] [id number] [place] [address] 15658- 5437 Jul, [facility] [id number] [place] [address] 76551- 1747 Jul, Back pain M54.9 [facility] [id number] [place] [address] 06920- 8617 May, Back pain M54.9 [facility] [id number] [place] [address] 93953- 9315 May, Back pain M54.9 ; Hypertension I10 and Eczema L30.9 [facility] [id number] [place] [address] 55365- 2076 Apr, Back pain M54.9 [facility] [id number] [place] [address] 77437- 9955 Apr, Back pain M54.9 [facility] [id number] [place] [address] 46476- 0147 Apr, [facility] [id number] [place] [address] 95437- 9057 Mar, Back pain M54.9 [facility] [address] [facility] [id number] [address]- 0425 Jan, [facility] [id number] [place] [address] 62523- 4410 Jan, Dyspepsia R10.13 [facility] [address] [facility] [id number] [place] [address] 56215- 4462 Jan, [facility] [address] [facility] [id number] [place] [address] 19322- 0155 Jan, [facility] [id number] [place] [address] 67514- 6009 Dec, Back pain M54.9 and Hyperlipidemia E78.5 [facility] [address] [address]- 1330 Dec, [facility] [id number] [place] [address] 39562- 8793 Nov, [facility] [id number] [address]- 4424 Oct, [facility] [id number] [place] [address] 57846- 4745 Sep, [facility] [address] [address]- 5648 Sep, [facility] [address] [address]- 9192 Sep, Lumbar strain 847.2 [facility] [id number] [address]- 1409 Aug, [facility] [id number] 1317 Aug, [facility] [id number] [address]- 8915 Aug, [facility] [address] [id number] [address] 29 Jul, 2014 Dental examination V72.2 [facility] [address] [id number] [address]- 8194 Jul, [facility] [address] [id number] [place] [address]- 0774 Jul, Acute bronchitis 466.0 and Lumbar strain 847.2 [facility] [address] [id number] [address]- 4587 Jul, [facility] [address] [id number] [address]- 5122 Jul, [facility] [address] [id number] [address]- 7619 June, Acute bronchitis 466.0 and Lumbar strain 847.2 [facility] [address] [id number] [address]- 5126 June, [facility] [address] [id number] [address]- 8149 June, [facility] [address] [id number] [place] [address]- 6250 June, [facility] [address] [id number] [address]- 1611 May, [facility] [address] [id number] [place] [address]- 1595 May, [facility] [address] [id number] [place] [address]- 7299 Apr, [facility] [address] [id number] [place] [address]- 6263 Apr, [facility] [address] [id number] [place] [address]- 2002 Apr, [facility] [address] [id number] [place] [address]- 9573 Apr, [facility] [place] [facility] [address] [id number] [place] [address]- 4427 17 Apr, 2011 [facility] [place] [facility] [address] [id number] [place] [address]- 6086 17 Apr, 2011 [facility] [address] [id number] [place] [address]- 7616 15 Apr, 2011 [facility] [address] [id number] [place] [address]- 4793 14 Apr, [address] [facility] [address] [id number] [id number] Apr, [facility] [address] [id number] [place] [address]- 2506 Apr, [facility] [address] [id number] [place] [address]- 3619 Apr, [facility] [address] [id number] [place] [address]- 1365 Mar, [facility] [place] [facility] [address] [id number] [place] [address]- 1075 Mar, [facility] [address] [facility] [id number] [place] [address]- 1600 Mar, [facility] [address] [id number] [place] [address]- 1400 Mar, [facility] [place] [facility] [address] [id number] [place] [address]- 7511 Mar, [facility] [place] [facility] [address] [id number] [place] [address]- 2428 Jan, [facility] [place] [facility] [address] [id number] [place] [address]- 5058 Jan, [facility] [place] [facility] [address] [id number] [place] [address]- 8286 Jan, [facility] [place] [facility] [address] [id number] [place] [address]- 9309 08 Dec, 2010 [facility] [address] [address]- 7710 11 Nov, 2010 [facility] [address] [address]- 6089 13 Oct, 2010 [facility] [address] [address]- 2057 14 Jan, 2010 [facility] [id number] [place] [address] 16034- 8979 15 Dec, 2009 [facility] [id number] [place] [address] 31807- 9459 15 Nov, 2009 [facility] [id number] [place] [address] 88890- 6944 15 Nov, 2009 [facility] [id number] [place] [address] 86538- 6396 Sep, [facility] [address] [address]- 1312 Jan, [facility] [address] [address]- 4674 10 Dec, 2008 [facility] [address] [address]- 1023 10 Aug, 2008 IMMUNIZATIONS No Known Immunizations SOCIAL HISTORY Never Assessed REASON FOR VISIT Medicare AWV - Initial Visit----DBennettRN, anxiety and depression since losing son 3 years ago PLAN OF CARE VITAL SIGNS Height 72 in 2017-06-15 Weight 214 lbs 2017-06-15 Temperature 98.0 degrees Fahrenheit 2017-06-15 Heart Rate 110 bpm 2017-06-15 Respiratory Rate 20 2017-06-15 BMI 29.02 kg/m2 2017-06-15 Blood pressure systolic 140 mmHg 2017-06-15 Blood pressure diastolic 84 mmHg 2017-06-15 MEDICATIONS Medication Instructions Dosage Frequency Start Date End Date Duration Status Aspirin 325 MG Orally 3 times a day as needed 1 tablet Active Prevacid 15 mg Orally twice a day 1 capsule 12h Active Multivitamin Adult - Active Diclofenac Sodium 75 MG Orally Twice a day 1 tablet with food or milk 12h 19 Apr, 2017 Jul, 30 day(s) Not-Taking Gemfibrozil 600 MG 1 tablet 12h Active Neurontin 100 mg Orally Three times a day 1 capsule 8h May, 30 day(s) Active MS Contin 30 MG Orally, every 12 hrs 1 tablet 12h Apr, 28 days Active Probiotic - Active Viagra 100 MG TAKE ONE TABLET BY MOUTH ONCE DAILY NEEDED 30 Active Amitriptyline HCl 25 MG Orally Once a day 1 tablet 24h 30 Active BuPROPion HCl ER (SR) 150 MG TAKE ONE TABLET BY MOUTH ONCE DAILY 30 Active Cymbalta 60 mg Orally Twice a day 1 capsule 12h 30 Active Pravastatin Sodium 40 MG TAKE ONE TABLET BY MOUTH ONCE DAILY 30 Active RESULTS No Results PROCEDURES Procedure Date Ordered Result Body Site ANNUAL ALMA DELIA VST; PERSNL PPS INIT June 15, 2017 FALL RISK ASSESSMENT DOCD June 15, 2017 [facility] VISIT ESTABLISHED PATIENT June 15, 2017 PT TOBACCO SCREEN RCVD TLK June 15, 2017 INSTRUCTIONS MEDICATIONS ADMINISTERED No Known Medications MEDICAL [...]
--- OUTSIDE RECORDS SUMMARY | 2017-11-17 08:55 | XMS REPORT ---
Author Author BAINCA GALARZA Organization [facility] Address [address] [place] [address] Care Team Providers Care Order Detailer Name Role Phone BIANCA GALARZA Unavailable PROBLEMS Type Condition ICD9-CM Code UUT72-DC Code Onset Dates Condition Status SNOMED Code Problem Other chronic pain G89.29 Active 68877897 Problem Reactive depression F32.9 Active 93159783 Problem Back pain M54.9 Active 528782457 Problem Hypertension I10 Active 57571864 Problem Hyperlipidemia E78.5 Active 54969902 ALLERGIES No Information ENCOUNTERS Encounter Location Date Diagnosis [place] [address] [address] 21 Jul, 2017 Back pain M54.9 and Medicare annual wellness visit, initial Z00.00 [place] [address] [place] [id number] [place] [address] 13403- 2765 23 Jun, 2017 Back pain M54.9 [facility] [address] [place] [place] [id number] [place] [address] 72304- 7229 23 May, 2017 Back pain M54.9 [place] [address] [place] [id number] [place] [address] 15637- 3826 16 May, 2017 Medicare annual wellness visit, initial Z00.00 ; Hypertension I10 ; Hyperlipidemia E78.5 and Reactive depression F32.9 [facility] [address] [place] [id number] [place] [address] 94455- 8277 Apr, Back pain M54.9 [facility] [address] [address]- [address] 23 Apr, 2017 Back pain M54.9 [place] [address] [address]- 5227 Apr, Back pain M54.9 ; Other chronic pain G89.29 and Pain in left leg M79.605 [facility] [address] [place] [id number] [place] [address] 66790- 9727 Mar, Back pain M54.9 [facility] [address] [place] [id number] [place] [address] 59932- 1711 Mar, Acute prostatitis N41.0 [facility] [address] [address]- [address]23 Jan, Back pain M54.9 [facility] [address] 57894- 1705 Dec, Back pain M54.9 and Hypertension I10 [facility] [address] [address]129- 3137 Dec, Back pain M54.9 [facility] [address] 39166- 7714 Nov, Back pain M54.9 [facility] [address] 08746- 4039 Oct, Back pain M54.9 [facility] [address] [place] [id number] [place] [address] 12907- 9566 Oct, Abnormal LFTs R79.89 [facility] [address] [address]167- 1732 Oct, [facility] [address] [place] [id number] [place] [address] 31044- 5775 Sep, Back pain M54.9 ; Acute prostatitis N41.0 ; Hypertension I10 ; Gross hematuria R31.0 and Reactive depression F32.9 [facility] [address] [place] [id number] [place] [address] 58477- 0596 Sep, [facility] [address] [place] [id number] [place] [address] 69861- 6951 Sep, Back pain M54.9 [facility] [address] [place] [id number] [place] [address] 15048- 3220 Aug, Back pain M54.9 [facility] [address] [place] [id number] [place] [address] 97481- 8220 Jul, Back pain M54.9 [facility] [address] [place] [id number] [place] [address] 22683- 3431 June, Back pain M54.9 [facility] [address] [place] [id number] [place] [address] 06173- 1825 June, Acute prostatitis N41.0 [facility] [address] 86795- 9641 June, Back pain M54.9 [facility] [address] [place] [id number] [place] [address] 14992- 8130 Apr, Back pain M54.9 [facility] [address] [place] [id number] [place] [address] 55692- 6864 Apr, Hypertension I10 and Back pain M54.9 [facility] [address] [place] [id number] [place] [address] 44500- 5035 Apr, Back pain M54.9 [facility] [address] [place] [id number] [place] [address] 71705- 9360 Apr, Back pain M54.9 and Sprain of ligaments of lumbar spine, initial encounter S33.5XXA [facility] [address] [place] [id number] [place] [address] 88566- 1917 Apr, Back pain M54.9 [facility] [address] [place] [id number] [place] [address] 36565- 6232 Mar, Acute pain of left hip M25.552 [facility] [address] [place] [id number] [place] [address] 56427- 4774 Mar, [facility] [address] [place] [id number] [place] [address] 30828- 8416 Mar, Acute pain of left hip M25.552 [facility] [id number] [place] [address] 94645- 0794 Mar, Back pain M54.9 [facility] [address] [place] [id number] [place] [address] 60034- 6863 Jan, Reactive depression F32.9 [facility] [address] [place] [id number] [place] [address] 68010- 1306 Jan, Back pain M54.9 ; Hypertension I10 and Reactive depression F32.9 [facility] [address] [place] [id number] [place] [address] 73813- 6122 Jan, Back pain M54.9 [facility] [address] [place] [id number] [place] [address] 03343- 9852 Dec, [facility] [address] [place] [id number] [place] [address] 52253- 9162 Dec, [facility] [id number] [place] [address] 75802- 5361 Nov, [facility] [address] [place] [id number] [place] [address] 36419- 5758 Oct, [facility] [id number] [place] [address] 62133- 6173 Oct, [facility] [address] [place] [id number] [place] [address] 39450- 2011 16 Nov, 2015 [facility] [id number] [place] [address] 33474- 4403 Sep, [facility] [address] [place] [id number] [place] [address] 78190- 2399 Sep, [facility] [address] [address]- 5309 Sep, Visit for TB skin test Z11.1 ; Back pain M54.9 and Hypertension I10 [facility] [address] [place] [id number] [place] [address] 35250- 3928 Aug, Back pain M54.9 [facility] [address] 14297- 9295 Jul, Back pain M54.9 [facility] [address] [place] [id number] [place] [address] 75770- 8620 Jul, [facility] [address] 58972- 2513 Jul, [facility] [address] [place] [id number] [place] [address] 64842- 0830 Jul, Back pain M54.9 [facility] [address] [place] [id number] [place] [address] 40149- 3960 May, Back pain M54.9 [facility] [address] 37165- 9916 May, Back pain M54.9 ; Hypertension I10 and Eczema L30.9 [facility] [address] [place] [id number] [place] [address] 21621- 7752 Apr, Back pain M54.9 [facility] [address] [place] [id number] [place] [address] 38291- 3546 Apr, Back pain M54.9 [facility] [address] [place] [id number] [place] [address] 19769- 3952 Apr, [facility] [address] [place] [id number] [place] [address] 39056- 2123 Mar, Back pain M54.9 [facility] [address] [place] [id number] [place] [address] 52202- 9854 Jan, [facility] [address] [place] [id number] [place] [address] 36930- 5113 04 Jan, 2015 Dyspepsia R10.13 [facility] [address] [place] [id number] [place] [address] 41013- 1206 Jan, [facility] [address] [facility] [id number] [address]- 4321 Jan, [facility] [address] [facility] [id number] [address]- 1564 Dec, Back pain M54.9 and Hyperlipidemia E78.5 [facility] [address] [id number] [address]- 1340 Dec, [facility] [address] [id number] [address]- 4618 Nov, [facility] [address] [id number] [address]- 6683 Oct, [facility] [address] [id number] [address]- 1070 Sep, [facility] [address] [place] [address] 17011- 0142 Sep, [facility] [address] [address]- 9577 Sep, Lumbar strain 847.2 [facility] [address] [address]- 4493 Aug, [facility] [address] [address]- 8147 Aug, [facility] [address] [id number] [address]- 0277 Aug, [facility] [address] [id number] [place] [id number] Jul, Dental examination V72.2 [facility] [address] [id number] [address]- 5526 Jul, [facility] [address] [place] [id number] [address]- 9951 Jul, Acute bronchitis 466.0 and Lumbar strain 847.2 [facility] [address] [id number] [address]- 5267 Jul, [facility] [address] [id number] [address]- 1857 Jul, [facility] [address] [id number] [address]- 4592 June, Acute bronchitis 466.0 and Lumbar strain 847.2 [facility] [address] [id number] [address]- 5606 June, [facility] [address] [id number] [address]- 6815 June, [facility] [address] [id number] [address]- 1123 June, [facility] [address] [facility] [id number] [address]- 8373 May, [facility] [address] [id number] [address]- 3475 May, [facility] [address] [id number] [address]- 9952 Apr, [facility] [address] [facility] [id number] [address]- 2005 Apr, [facility] [address] [id number] [address]- 3230 Apr, [facility] [address] [id number] [address]- 8357 Apr, [facility] [address] [id number] [place] [address]- 2629 Apr, [facility] [address] [id number] [address]- 3314 17 Apr, 2011 [facility] [address] [id number] [address]- 3373 15 Apr, 2011 [facility] [address] [id number] [place] [address]- 7997 14 Apr, 2011 [facility] [address] [id number] [place] [id number] 06 Apr, 2011 [facility] [address] [facility] [id number] [place] [address]- 9396 06 Apr, 2011 [facility] [address] [facility] [id number] [place] [address]- 9366 02 Apr, 2011 [facility] [address] [id number] [place] [address]- 9175 23 Mar, 2011 [facility] [address] [id number] [place] [address]- 5594 Mar, [facility] [address] [facility] [id number] [place] [address]- 8342 16 Mar, 2011 [facility] [address] [id number] [place] [address]- 5082 16 Mar, 2011 [facility] [address] [id number] [address]- 6320 Mar, [facility] [address] [id number] [place] [address]- 4997 Jan, [facility] [address] [facility] [id number] [address]- 3365 Jan, [facility] [address] [id number] [place] [address]- 5234 12 Jan, 2011 [facility] [place] [facility] [address] [facility] [id number] [address]- 7836 08 Dec, 2010 [facility] [address] [id number] [place] [address]- 0694 11 Nov, 2010 [facility] [place] [facility] [address] [facility] [id number] [address]- 8016 13 Oct, 2010 [facility] [address] [id number] [address]- 5369 14 Jan, 2010 [facility] [address] [place] [place] [id number] [address]- 4146 15 Dec, 2009 [facility] [address] [id number] [address]- 0012 Nov, [facility] [address] [address]- 7587 Nov, [facility] [address] [address]- 2033 Sep, [facility] [address] [id number] [address]- 3098 Jan, [facility] [address] [id number] [address]- 5223 Dec, [facility] [address] [id number] [address]- 1958 Aug, IMMUNIZATIONS No Known Immunizations SOCIAL HISTORY Never Assessed REASON FOR VISIT Controlled Med Refill PLAN OF CARE VITAL SIGNS MEDICATIONS Medication Instructions Dosage Frequency Start Date End Date Duration Status MS Contin 30 MG Orally, every 12 hrs 1 tablet 12h Apr, 28 days Active RESULTS No Results PROCEDURES [...]
--- OUTSIDE RECORDS SUMMARY | 2017-11-17 08:55 | XMS REPORT ---
Author Author BIANCA GALARZA [facility] e[employer] Address Unknown Phone Unavailable Care Team Providers Care Syrup Machine Laborer Name Role Phone BIANCA GALARZA Unavailable Allergies No Known Allergies Problems Problem Type Condition Code Onset Dates Condition Status Problem Hypertension I10 Active Problem Hyperlipidemia E78.5 Active Problem Back pain M54.9 Active Medications Medication Code System Code Instructions Start Date End Date Status Dosage MS Contin [facility] [address]-45 30 MG Orally, every 12 hrs May 11, 2014 1 tablet Results No Known Results Summary Purpose eClinicalWorks Submission
--- OUTSIDE RECORDS SUMMARY | 2017-11-17 08:55 | XMS REPORT ---
Author Author BIANCA GALARZA [facility] e[employer] Address Unknown Phone Unavailable Care Team Providers Care Vp Revenue Cycle Name Role Phone BIANCA GALARZA Unavailable Allergies No Known Allergies Problems Problem Type Condition Code Onset Dates Condition Status Problem Hypertension I10 Active Problem Hyperlipidemia E78.5 Active Problem Back pain M54.9 Active Medications Medication Code System Code Instructions Start Date End Date Status Dosage MS Contin [facility] [address]-91 30 MG Orally, every 12 hrs May 11, 2014 1 tablet Results No Known Results Summary Purpose eClinicalWorks Submission
--- OUTSIDE RECORDS SUMMARY | 2017-11-17 08:55 | XMS REPORT ---
Author Author BIANCA GALARZA [facility] Address [address] [place] [address] Care Team Providers Care Porcelain Enamel Installer Name Role Phone BIANCA GALARZA Unavailable PROBLEMS Type Condition ICD9-CM Code [id number] Code Onset Dates Condition Status SNOMED Code Problem Reactive depression F32.9 Active 29640508 Problem Hypertension I10 Active 86340122 Problem Hyperlipidemia E78.5 Active 43074765 Problem Back pain M54.9 Active 938461864 ALLERGIES No Information SOCIAL HISTORY Never Assessed PLAN OF CARE VITAL SIGNS MEDICATIONS Medication Instructions Dosage Frequency Start Date End Date Duration Status MS Contin 30 MG Orally, every 12 hrs 1 tablet 12h June, 28 days Active RESULTS No Results PROCEDURES No Known procedures IMMUNIZATIONS No Known Immunizations MEDICAL (GENERAL) HISTORY Type Description Date Medical History hyperlipidemia Medical History impotence Medical History chronic pain Medical History hypertension Medical History osteoarthritis Medical History depression Surgical History tonsillectomy Surgical History bladder surgery Surgical History spine surgery Surgical History ortho surrgeries x7 on hip, back, left leg, left wrist Hospitalization History surgeries
--- OUTSIDE RECORDS SUMMARY | 2017-11-17 08:56 | XMS REPORT ---
Author Author LILIBETH DUARTE Organization [facility] Address [address] [place] [address] Care Team Providers Care Residential Manager Name Role Phone LILIBETH DUARTE Unavailable PROBLEMS Type Condition ICD9-CM Code [id number] Code Onset Dates Condition Status SNOMED Code Problem Other chronic pain G89.29 Active 53866267 Problem Reactive depression F32.9 Active 00780751 Problem Back pain M54.9 Active 115492027 Problem Hypertension I10 Active 33143047 Problem Hyperlipidemia E78.5 Active 64750566 ALLERGIES No Information ENCOUNTERS Encounter Location Date Diagnosis [place] [id number] [place] [address] 49398- 3955 Jul, Back pain M54.9 and Medicare annual wellness visit, initial Z00.00 [place] [id number] [place] [address] 23060- 9386 23 Jun, 2017 Back pain M54.9 [place] [address] [place] [id number] [place] [address] 73677- 2228 23 May, 2017 Back pain M54.9 [place] [id number] [place] [address] 69502- 7926 16 May, 2017 Medicare annual wellness visit, initial Z00.00 ; Hypertension I10 ; Hyperlipidemia E78.5 and Reactive depression F32.9 [facility] [address] [place] [address] 81153- 0457 Apr, Back pain M54.9 [facility] [address] [place] [id number] [place] [address] 60105- 0889 Apr, Back pain M54.9 [place] [address] [place] [id number] [place] [address] 01607- 9229 Apr, Back pain M54.9 ; Other chronic pain G89.29 and Pain in left leg M79.605 [facility] [address] [address]37- 9358 Mar, Back pain M54.9 [facility] [address] 88926- 0636 Mar, Acute prostatitis N41.0 [facility] [address] 29138- 9361 Jan, Back pain M54.9 [facility] [address] 31092- 5582 Dec, Back pain M54.9 and Hypertension I10 [facility] [address] 43122- 2264 Dec, Back pain M54.9 [facility] [address] 00511- 0443 Nov, Back pain M54.9 [facility] [address] 05609- 9957 Oct, Back pain M54.9 [facility] [address] 30049- 2857 Oct, Abnormal LFTs R79.89 [place] [address] 88696- 4038 Oct, [facility] [address] 44475- 1859 Sep, Back pain M54.9 ; Acute prostatitis N41.0 ; Hypertension I10 ; Gross hematuria R31.0 and Reactive depression F32.9 [facility] [address] 83733- 2135 Sep, [facility] [address] 63323- 5614 Sep, Back pain M54.9 [facility] [address] [place] [id number] [place] [address] 99406- 4676 Aug, Back pain M54.9 [facility] [address] [place] [id number] [place] [address] 43740- 7666 Jul, Back pain M54.9 [facility] [address] [place] [id number] [place] [address] 73289- 3426 June, Back pain M54.9 [facility] [address] [place] [id number] [place] [address] 35207- 1374 June, Acute prostatitis N41.0 [facility] [address] 68819- 3424 June, Back pain M54.9 [facility] [address] [place] [id number] [place] [address] 44696- 1696 Apr, Back pain M54.9 [facility] [address] 87997- 6612 Apr, Hypertension I10 and Back pain M54.9 [facility] [address] 98933- 1963 Apr, Back pain M54.9 [facility] [address] [place] [id number] [place] [address] 84961- 3908 Apr, Back pain M54.9 and Sprain of ligaments of lumbar spine, initial encounter S33.5XXA [facility] [address] [place] [id number] [place] [address] 47483- 7761 Apr, Back pain M54.9 [facility] [address] [place] [id number] [place] [address] 02418- 5380 Mar, Acute pain of left hip M25.552 [facility] [address] [place] [id number] [place] [address] 45308- 3439 Mar, [facility] [address] 11185- 4331 Mar, Acute pain of left hip M25.552 [facility] [address] [place] [address] 57370- 6747 Mar, Back pain M54.9 [facility] [address] [place] [id number] [place] [address] 03371- 7717 Jan, Reactive depression F32.9 [facility] [address] [place] [id number] [place] [address] 74334- 5799 Jan, Back pain M54.9 ; Hypertension I10 and Reactive depression F32.9 [facility] [address] [place] [id number] [place] [address] 29923- 9779 Jan, Back pain M54.9 [facility] [address] [place] [id number] [place] [address] 88492- 3680 Dec, [facility] [address] [place] [id number] [place] [address] 55284- 7323 Dec, [facility] [address] [place] [id number] [place] [address] 63671- 5260 Nov, [facility] [address] [place] [id number] [place] [address] 48377- 1343 Oct, [facility] [address] [place] [address] 42441- 0988 Oct, [facility] [address] [place] [address] 95163- 5272 16 Nov, 2015 [facility] [address] [place] [address] 48671- 7494 Sep, [facility] [address] [place] [id number] [place] [address] 40994- 4870 Sep, [facility] [address] [place] [address] 21122- 5673 Sep, Visit for TB skin test Z11.1 ; Back pain M54.9 and Hypertension I10 [facility] [address] [place] [id number] [place] [address] 12381- 6029 Aug, Back pain M54.9 [facility] [address] [place] [id number] [place] [address] 25742- 5968 Jul, Back pain M54.9 [facility] [address] [place] [address] 37815- 5559 Jul, [facility] [address] [place] [id number] [place] [address] 24592- 4064 Jul, [facility] [address] [place] [id number] [place] [address] 70687- 8121 Jul, Back pain M54.9 [facility] [address] [place] [id number] [place] [address] 75570- 0386 May, Back pain M54.9 [facility] [address] [place] [id number] [place] [address] 24750- 9357 May, Back pain M54.9 ; Hypertension I10 and Eczema L30.9 [facility] [address] [place] [id number] [place] [address] 39973- 0433 Apr, Back pain M54.9 [facility] [address] [place] [id number] [place] [address] 76588- 8637 Apr, Back pain M54.9 [facility] [address] [place] [id number] [place] [address] 70974- 8953 Apr, [facility] [address] [place] [id number] [place] [address] 90021- 8814 Mar, Back pain M54.9 [facility] [address] [place] [id number] [place] [address] 15448- 6000 Jan, [facility] [address] [place] [id number] [place] [address] 70840- 6187 Jan, Dyspepsia R10.13 [facility] [address] [place] [id number] [place] [address] 25636- 6032 Jan, [facility] [address] [facility] [id number], [place] [address]- 7922 Jan, [facility] [address] [id number][place] 5520 Dec, Back pain M54.9 and Hyperlipidemia E78.5 [facility] [address] [id number], [place] [address]- 6350 Dec, [facility] [address] [id number], [place] [address]- 6267 Nov, [facility] [address] [id number] 2856 Oct, [facility] [address] [id number]- 9687 Sep, [facility] [address] [id number], [place] [address]- 9513 Sep, [facility] [address] [id number], [place] [address]- 0262 Sep, Lumbar strain 847.2 [facility] [address] [address]- 0048 Aug, [facility] [address], [place] [address]- 8862 Aug, [facility] [address] [id number], [place] [address]- 6451 Aug, [facility] [address] [id number][place] [id number] Jul, Dental examination V72.2 [facility] [address] [id number], [place] [address]- 1429 Jul, [facility] [address] [id number], [place] [address]- 1387 Jul, Acute bronchitis 466.0 and Lumbar strain 847.2 [facility] [address] [id number], [place] [address]- 5572 Jul, [facility] [address] [id number], [place] [address]- 9000 Jul, [facility] [address], [place] [address]- 4576 June, Acute bronchitis 466.0 and Lumbar strain 847.2 [facility] [address] [id number], [place] [address]- 9064 June, [facility] [address] [id number], [place] [address]- 3391 June, [facility] [address], [place] [address]- 2903 June, [facility] [address], [place] [address]- 9692 May, [facility] [address], [place] [address]- 5640 May, [facility] [address] [place] [id number] [address]- 0947 Apr, [facility] [address], [place] [address]- 9012 Apr, [facility] [address], [place] [address]- 2750 Apr, [facility] [address], [place] [address]- 2368 Apr, [facility] [address] [facility] [id number], [place] [address]- 0676 Apr, [facility] [address] [facility] [id number], [place] [address]- 2545 Apr, [facility] [address] [place] [id number] [address]- 9808 15 Apr, 2011 [facility] [address], [place] [address]- 5764 14 Apr, 2011 [facility] [address] [id number] [id number] Apr, [facility] [address] [facility] [id number], [place] [address]- 3786 06 Apr, 2011 [facility] [address] [facility] [id number] [place] [address]- 4976 Apr, [facility] [address] [facility] [id number], [place] [address]- 1606 Mar, [facility] [address] [id number] [place] [address]- 4920 Mar, [facility] [address] [facility] [id number], [place] [address]- 5670 Mar, [facility] [address] [place] [id number], [place] [address]- 6408 Mar, [facility] [address] [place] [id number], [place] [address]- 3476 Mar, [facility] [address] [place] [id number], [place] [address]- 6211 Jan, [facility] [address] [place] [id number], [place] [address]- 4314 Jan, [facility] [address] [place] [id number], [place] [address]- 4856 12 Jan, 2011 [facility] [place] [facility] [address] [facility] [id number], [place] [address]- 7245 08 Dec, 2010 [facility] [place] [facility] [address] [facility] [id number], [place] [address]- 2896 11 Nov, 2010 [facility] [place] [facility] [address] [facility] [id number], [place] [address]- 0136 13 Oct, 2010 [facility] [place] [facility] [address] [facility] [id number], [place] [address]- 7970 14 Jan, 2010 [facility] [place] [facility] [address] [place] [id number] [address]- 8936 15 Dec, 2009 [facility] [address] [place] [id number], [place] [address]- 0501 15 Nov, 2009 [facility] [address] [place] [id number], [place] [address]- 5369 Nov, [facility] [address] [place] [id number], [place] [address]- 1525 Sep, [facility] [address] [place] [id number], [place] [address]- 4878 Jan, [facility] [address], [place] [address]- 9922 Dec, [facility] [address] [place] [id number], [place] [address]- 7979 Aug, IMMUNIZATIONS No Known Immunizations SOCIAL HISTORY Never Assessed REASON FOR VISIT Controlled Med Refill 04/24/17 PLAN OF CARE VITAL SIGNS MEDICATIONS Medication [...]
--- OUTSIDE RECORDS SUMMARY | 2017-11-17 08:56 | XMS REPORT ---
Author Author BIANCA GALARZA [facility] eClinicalWorks Address Unknown Phone Unavailable Care Team Providers Care Costumer Assistant Name Role Phone BIANCA GALARZA Unavailable Allergies, Adverse Reactions, Alerts Substance Reaction Event Type Reglan Info Not Available Drug Allergy Problems Problem Type Condition Code Onset Dates Condition Status Problem Hypertension I10 Active Problem Hyperlipidemia E78.5 Active Problem Back pain M54.9 Active Assessment Dyspepsia R10.13 Active Medications Medication Code System Code Instructions Start Date End Date Status Dosage Gemfibrozil [facility] 29179029846 600 MG TAKE ONE TABLET BY MOUTH TWICE DAILY Amitriptyline HCl [facility] 39437180197 25 MG TAKE ONE TABLET BY MOUTH DAILY Meloxicam [facility] 68627393316 15 MG TAKE ONE TABLET BY MOUTH DAILY ProAir HFA [facility] [address]-05 108 (90 Base) MCG/ACT Inhalation every 4 hrs August 03, 2014 2 puffs as needed pravastatin [facility] [address]-34 40 mg Apr 14, 2014 1 tablet by Oral route 1 time per day MS Contin [facility] [address]-16 30 MG Orally, every 12 hrs May 11, 2014 1 tablet Wellbutrin SR [facility] [address]-39 150 MG Orally Apr 14, 2014 1 Tablet Cymbalta [facility] 39176155103 60 MG TAKE ONE CAPSULE BY MOUTH TWICE DAILY Lopid [facility] [address]-75 600 mg Apr 14, 2014 1 tablet by Oral route 2 times per day Nexium [facility] [address]-73 40 MG Orally Once a day Feb 02, 2015 1 capsule Viagra [facility] 54305368341 100 Orally Once a day 1 tablet as needed Procedures Procedure Coding System Code Date Office Visit, Est Pt., Level 2 CPT-4 05364 Feb 02, 2015 [facility] VISIT ESTABLISHED PATIENT CPT-4 G0467 Feb 02, 2015 Vital Signs Date/Time: Feb 02, 2015 Temperature 98.0 F Weight 200.0 lbs Height 72 in BMI 27.12 Index Blood Pressure Diastolic 90 mmHg Blood Pressure Systolic 170 mmHg Cardiac Monitoring Heart Rate 112 bpm Results No Known Results Summary Purpose eClinicalWorks Submission
--- OUTSIDE RECORDS SUMMARY | 2017-11-17 08:56 | XMS REPORT ---
Author Author BIANCA GALARZA [facility] eClinicalWorks Address Unknown Phone Unavailable Care Team Providers Care Plc Programmer Name Role Phone BIANCA GALARZA CP Unavailable Allergies No Known Allergies Problems Problem Type Condition Code Onset Dates Condition Status Problem Hypertension I10 Active Problem Hyperlipidemia E78.5 Active Problem Back pain M54.9 Active Medications No Known Medications Results No Known Results Summary Purpose eClinicalWorks Submission
--- OUTSIDE RECORDS SUMMARY | 2017-11-17 08:56 | XMS REPORT ---
Author Author BIANCA GALARZA [facility] eClinicalWorks Address Unknown Phone Unavailable Care Team Providers Care Spaghetti Press Helper Name Role Phone BIANCA GALARZA Unavailable Allergies No Known Allergies Problems Problem Type Condition Code Onset Dates Condition Status Problem Hypertension I10 Active Problem Hyperlipidemia E78.5 Active Problem Back pain M54.9 Active Medications Medication Code System Code Instructions Start Date End Date Status Dosage MS Contin [facility] [address]-02 30 MG Orally, every 12 hrs May 11, 2014 1 tablet Results No Known Results Summary Purpose eClinicalWorks Submission
--- OUTSIDE RECORDS SUMMARY | 2017-11-17 08:56 | XMS REPORT ---
Author Author BIANCA GALARZA [facility] eClinicalWorks Address Unknown Phone Unavailable Care Team Providers Care Accounting Reconciliation Clerk Name Role Phone BIANCA GALARZA CP Unavailable Allergies No Known Allergies Problems Problem Type Condition Code Onset Dates Condition Status Problem Hypertension I10 Active Problem Hyperlipidemia E78.5 Active Problem Back pain M54.9 Active Medications No Known Medications Results No Known Results Summary Purpose eClinicalWorks Submission
--- OUTSIDE RECORDS SUMMARY | 2017-11-17 08:56 | XMS REPORT ---
Author Author BIANCA GALARZA [facility] Address [address] [place] [address] Care Team Providers Care Jewel Waxer Name Role Phone BIANCA GALARZA Unavailable PROBLEMS Type Condition ICD9-CM Code IOD76-HQ Code Onset Dates Condition Status SNOMED Code Problem Back pain M54.9 Active 243317439 Problem Hypertension I10 Active 45702756 Problem Hyperlipidemia E78.5 Active 24074081 ALLERGIES Unknown Allergies SOCIAL HISTORY No smoking Hx information available PLAN OF CARE VITAL SIGNS MEDICATIONS Medication Instructions Dosage Frequency Start Date End Date Duration Status Amitriptyline HCl 25 MG Orally Once a day 1 tablet 24h Active RESULTS No Results PROCEDURES No Known procedures IMMUNIZATIONS No Known Immunizations
--- OUTSIDE RECORDS SUMMARY | 2017-11-17 08:56 | XMS REPORT ---
Author Author BIANCA GALARZA [facility] eClinicalWorks Address Unknown Phone Unavailable Care Team Providers Care Superintendent [employer] Name Role Phone BIANCA GALARZA CP Unavailable Allergies No Known Allergies Problems Problem Type Condition Code Onset Dates Condition Status Problem Hypertension I10 Active Problem Hyperlipidemia E78.5 Active Problem Back pain M54.9 Active Medications No Known Medications Results No Known Results Summary Purpose eClinicalWorks Submission
--- OUTSIDE RECORDS SUMMARY | 2017-11-17 08:56 | XMS REPORT ---
Author Author BIANCA GALARZA Organization [employer] Address Unknown Phone Unavailable Care Team Providers Care Digital Media Associate Name Role Phone BIANCA GALARZA CP Unavailable Allergies No Known Allergies Problems Problem Type Condition Code Onset Dates Condition Status Problem Hypertension I10 Active Problem Hyperlipidemia E78.5 Active Problem Back pain M54.9 Active Assessment Back pain M54.9 Active Medications Medication Code System Code Instructions Start Date End Date Status Dosage MS Contin [facility] [address]-85 30 MG Orally, every 12 hrs May 11, 2014 1 tablet Results No Known Results Summary Purpose eClinicalWorks Submission
--- OUTSIDE RECORDS SUMMARY | 2017-11-17 08:56 | XMS REPORT ---
Author Author BIANCA GALARZA [facility] eClinicalWorks Address Unknown Phone Unavailable Care Team Providers Care Counseling Director Name Role Phone BIANCA GALARZA Unavailable Allergies, Adverse Reactions, Alerts Substance Reaction Event Type Reglan Info Not Available Drug Allergy Problems Problem Type Condition Code Onset Dates Condition Status Problem Hypertension I10 Active Problem Hyperlipidemia E78.5 Active Problem Back pain M54.9 Active Assessment Back pain M54.9 Active Assessment Hyperlipidemia E78.5 Active Medications Medication Code System Code Instructions Start Date End Date Status Dosage Lopid [facility] [address]-46 600 mg Apr 14, 2014 1 tablet by Oral route 2 times per day pravastatin [facility] [address]-44 40 mg Apr 14, 2014 1 tablet by Oral route 1 time per day Meloxicam [facility] 10189396359 15 MG TAKE ONE TABLET BY MOUTH DAILY Cymbalta [facility] 95298470910 60 MG TAKE ONE CAPSULE BY MOUTH TWICE DAILY Viagra [facility] [address]-08 100 MG Orally Once a day July 14, 2014 1 tablet as needed ProAir HFA [facility] [address]-30 108 (90 Base) MCG/ACT Inhalation every 4 hrs August 03, 2014 2 puffs as needed Amitriptyline HCl [facility] 69608922380 25 MG TAKE ONE TABLET BY MOUTH DAILY Wellbutrin SR [facility] [address]-25 150 MG Orally Apr 14, 2014 1 Tablet Gemfibrozil [facility] 34130227110 600 MG TAKE ONE TABLET BY MOUTH TWICE DAILY MS Contin [facility] [address]-09 30 MG Orally, must be seen for more refills every 12 hrs May 11, 2014 1 tablet Procedures Procedure Coding System Code Date Office Visit, Est Pt., Level 3 CPT-4 77052 Jan 15, 2015 [facility] VISIT ESTABLISHED PATIENT CPT-4 G0467 Jan 15, 2015 Vital Signs Date/Time: Jan 15, 2015 Temperature 97.4 F Weight 202.9 lbs Height 72 in BMI 27.52 Index Blood Pressure Diastolic 80 mmHg Blood Pressure Systolic 140 mmHg Cardiac Monitoring Heart Rate 100 bpm Results No Known Results Summary Purpose eClinicalWorks Submission
--- OUTSIDE RECORDS SUMMARY | 2017-11-17 08:56 | XMS REPORT ---
Author Author LILIBETH DUARTE [facility] Address [address] [place] [address] Care Team Providers Care Financial Engineer Name Role Phone LILIBETH DUARTE Unavailable PROBLEMS Type Condition ICD9-CM Code BZV04-LH Code Onset Dates Condition Status SNOMED Code Problem Reactive depression F32.9 Active 79133011 Problem Hypertension I10 Active 96537680 Problem Hyperlipidemia E78.5 Active 33422291 Problem Back pain M54.9 Active 255250746 ALLERGIES Unknown Allergies SOCIAL HISTORY No smoking Hx information available PLAN OF CARE VITAL SIGNS MEDICATIONS Unknown Medications RESULTS No Results PROCEDURES No Known procedures IMMUNIZATIONS No Known Immunizations
--- OUTSIDE RECORDS SUMMARY | 2017-11-17 08:56 | XMS REPORT ---
Author Author BIANCA GALARZA Organization eClinicalWorks Address Unknown Phone Unavailable Care Team Providers Care Signal Inspector Name Role Phone BIANCA GALARZA Unavailable Allergies No Known Allergies Problems Problem Type Condition Code Onset Dates Condition Status Problem Hypertension I10 Active Problem Hyperlipidemia E78.5 Active Problem Back pain M54.9 Active Assessment Back pain M54.9 Active Medications Medication Code System Code Instructions Start Date End Date Status Dosage MS Contin [facility] [address]-51 30 MG Orally, must be seen for more refills every 12 hrs May 11, 2014 1 tablet Results No Known Results Summary Purpose eClinicalWorks Submission
--- OUTSIDE RECORDS SUMMARY | 2017-11-17 08:57 | XMS REPORT ---
Author Author BIANCA GALARZA Organization [facility] Address [address] [place] [address] Care Team Providers Care Special Assets Officer Name Role Phone BIANCA GALARZA Unavailable PROBLEMS Type Condition ICD9-CM Code VUP36-VN Code Onset Dates Condition Status SNOMED Code Problem Other chronic pain G89.29 Active 52726521 Problem Reactive depression F32.9 Active 26150216 Problem Back pain M54.9 Active 557109109 Problem Hypertension I10 Active 59095752 Problem Hyperlipidemia E78.5 Active 21542059 ALLERGIES Substance Reaction Event Type Date Status Reglan Unknown Drug Allergy Sep, Active ENCOUNTERS Encounter Location Date Diagnosis [place] [id number] [place] [address] 78381- 9339 May, Back pain M54.9 [place] [address] [place] [id number] [place] [address] 59061- 9157 May, Medicare annual wellness visit, initial Z00.00 ; Hypertension I10 ; Hyperlipidemia E78.5 and Reactive depression F32.9 [place] [address] [address] Apr, Back pain M54.9 [facility] [id number] [place] [address] 78144- 0600 Apr, Back pain M54.9 [facility] [id number] [place] [address] 52657- 3903 Apr, Back pain M54.9 ; Other chronic pain G89.29 and Pain in left leg M79.605 [facility] [address] [place] [address] 84482- 9740 Mar, Back pain M54.9 [place] [address] [place] [address] [id number] [place] [address] 42958- 5101 Mar, Acute prostatitis N41.0 [facility] [address] [address]- 0932 Jan, Back pain M54.9 [facility] [address] 8[address]- 8554 Dec, Back pain M54.9 and Hypertension I10 [facility] [address] 54957- 2271 Dec, Back pain M54.9 [facility] [address] [address]- 1647 Nov, Back pain M54.9 [facility] [address] 89429- 5860 Oct, Back pain M54.9 [facility] [address] 41067- 4674 Oct, Abnormal LFTs R79.89 [facility] [address] 90363- 5399 Oct, [facility] [address] 62878- 9757 Sep, Back pain M54.9 ; Acute prostatitis N41.0 ; Hypertension I10 ; Gross hematuria R31.0 and Reactive depression F32.9 [facility] [id number] [place] [address] 78446- 9487 Sep, [facility] [id number] [place] [address] 66845- 2509 Sep, Back pain M54.9 [facility] [id number] [place] [address] 46367- 7965 Aug, Back pain M54.9 [facility] [address] 83250- 1623 Jul, Back pain M54.9 [facility] [id number] [place] [address] 56444- 9052 June, Back pain M54.9 [facility] [id number] [place] [address] 43679- 2146 June, Acute prostatitis N41.0 [facility] [id number] [place] [address] 14955- 9096 June, Back pain M54.9 [facility] [id number] [place] [address] 16216- 9016 Apr, Back pain M54.9 [facility] [id number] [place] [address] 73768- 2426 Apr, Hypertension I10 and Back pain M54.9 [facility] [id number] [place] [address] 27294- 4565 Apr, Back pain M54.9 [facility] [id number] [place] [address] 08561- 6347 Apr, Back pain M54.9 and Sprain of ligaments of lumbar spine, initial encounter S33.5XXA [facility] [id number] [place] [address] 84578- 3474 Apr, Back pain M54.9 [facility] [id number] [place] [address] 14460- 0636 Mar, Acute pain of left hip M25.552 [facility] [id number] [place] [address] 77685- 2549 Mar, [facility] [id number] [place] [address] 14207- 5599 Mar, Acute pain of left hip M25.552 [facility] [address] [place] [address] 65483- 0089 Mar, Back pain M54.9 [facility] [address] [place] [address] [place] [address] 3472 Jan, Reactive depression F32.9 [facility] [id number] [place] [address] 16346- 8347 Jan, Back pain M54.9 ; Hypertension I10 and Reactive depression F32.9 [facility] [address] [place] [address] 11946- 0206 Jan, Back pain M54.9 [facility] [id number] [place] [address] 48684- 3064 Dec, [facility] [address] [place] [address] [id number] [place] [address], [place] [address]- 8004 Dec, [facility] [id number] [place] [address] 56664- 4034 Nov, [facility] [id number] [place] [address] 16420- 5325 Oct, [facility] [id number] [place] [address] 42805- 2545 Oct, [facility] [id number] [place] [address], [place] [address]- 5504 16 Nov, 2015 [facility] [address] [address]- 8928 Sep, [facility] [address] [place] [address] 85619- 9250 Sep, [facility] [address] [address]- 2549 Sep, Visit for TB skin test Z11.1 ; Back pain M54.9 and Hypertension I10 [facility] [address] [id number] [address]- 2663 Aug, Back pain M54.9 [facility] [address] [address]- 0253 Jul, Back pain M54.9 [facility] [address] [address]- 6545 Jul, [facility] [id number] [place] [address] 23542- 3418 Jul, [facility] [id number] [place] [address] 60007 2546 Jul, Back pain M54.9 [facility] [address] [id number] [place] [address] 10475 2546 May, Back pain M54.9 [facility] [id number] [place] [address] 84237- 9123 May, Back pain M54.9 ; Hypertension I10 and Eczema L30.9 [facility] [id number] [place] [address] 34060- 2365 Apr, Back pain M54.9 [facility] [id number] [place] [address] 85226- 7496 Apr, Back pain M54.9 [facility] [id number] [place] [address] 72245- 3799 Apr, [facility] [id number] [place] [address] 60345- 3801 Mar, Back pain M54.9 [facility] [address] [place] [address] 42073- 3521 Jan, [facility] [id number] [place] [address] 23505- 0200 Jan, Dyspepsia R10.13 [facility] [address] [place] [address] 56459- 6565 Jan, [facility] [address] [place] [address] 37757- 0149 Jan, [facility] [address] [place] [address] 20780- 2445 Dec, Back pain M54.9 and Hyperlipidemia E78.5 [facility] [address] [id number] [address]- 2339 Dec, [facility] [address] [id number], [place] [address]- 3204 Nov, [facility] [address] [id number], [place] [address]- 9079 Oct, [facility] [address] [id number], [place] [address]- 6021 Sep, [facility] [address] [id number], [place] [address]- 1341 Sep, [facility] [id number] [address]- 2411 Sep, Lumbar strain 847.2 [facility] [address], [place] [address]- 7317 Aug, [facility] [address] [id number], [place] [address]- 1089 Aug, [facility] [address], [place] [address]- 6205 Aug, [facility] [id number] [id number] Jul, Dental examination V72.2 [facility] [address] [id number], [place] [address]- 9636 Jul, [facility] [id number], [place] [address]- 4601 Jul, Acute bronchitis 466.0 and Lumbar strain 847.2 [facility] [address] [id number], [place] [address]- 9364 Jul, [facility] [id number], [place] [address]- 1709 Jul, [facility] [address] [id number], [place] [address]- 8555 June, Acute bronchitis 466.0 and Lumbar strain 847.2 [facility] [address], [place] [address]- 3904 June, [facility] [address], [place] [address]- 7185 June, [facility] [address], [place] [address]- 2984 June, [facility] [address] [facility] [id number][place] [address]- 6097 May, [facility] [address], [place] [address]- 2390 May, [facility] [address], [place] [address]- 7145 Apr, [facility] [address], [place] [address]- 3838 Apr, [facility] [id number] [address]- 5530 Apr, [facility] [address], [place] [address]- 7454 Apr, [facility] [address], [place] [address]- 3491 Apr, [facility] [address], [place] [address]- 0588 Apr, [facility] [id number], [place] [address]- 0966 15 Apr, 2011 [facility] [id number], [place] [address]- 0265 14 Apr, 2011 [facility] [address] [id number] [id number] Apr, [facility] [id number], [place] [address]- 7860 06 Apr, 2011 [facility] [place] [facility] [address] [id number] [place] [address]- 3611 Apr, [facility] [place] [facility] [address] [id number] [place] [address]- 0386 Mar, [facility] [place] [facility] [address] [facility] [id number] [place] [address]- 9046 Mar, [facility] [place] [facility] [address] [id number] [place] [address]- 3064 Mar, [facility] [place] [facility] [address] [id number] [place] [address]- 4641 Mar, [facility] [place] [facility] [address] [facility] [id number] [place] [address]- 9513 Mar, [facility] [place] [facility] [address] [id number] [place] [address]- 1946 Jan, [facility] [place] [facility] [address] [id number], [place] [address]- 4557 13 Jan, 2011 [facility] [place] [facility] [address] [id number], [place] [address]- 0472 12 Jan, 2011 [facility] [place] [facility] [address] [facility] [id number] [place] [address]- 1366 08 Dec, 2010 [facility] [place] [facility] [address] [id number], [place] [address]- 0339 11 Nov, 2010 [facility] [place] [facility] [address] [id number], [place] [address]- 5083 13 Oct, 2010 [facility] [place] [facility] [address] [id number], [place] [address]- 7503 14 Jan, 2010 [facility] [place] [facility] [address] [facility] [id number], [place] [address]- 9936 15 Dec, 2009 [facility] [place] [facility] [address] [facility] [id number], [place] [address]- 4246 15 Nov, 2009 [facility] [place] [facility] [address] [facility] [id number][place] [address] 5894 15 Nov, 2009 [facility] [address] [facility] [id number], [place] [address]- 4889 Sep, [facility] [address] [facility] [id number], [place] [address]- 8923 Jan, [place] [address] [facility] [id number], [place] [address]- 9145 Dec, [facility] [address] [facility] [id number], [place] [address]- 8251 10 Aug, 2008 IMMUNIZATIONS No Known Immunizations SOCIAL HISTORY Never Assessed REASON FOR VISIT blood in urine- Jovani. Phillip STOCKTON, Stated he has been taking Mobic and a lot of ibuproben, educated pt not to do both Motrin and mobic-states having a lot of break through pain--- Meaghan Fisher RN, Pt also c/o depression- PLAN OF CARE Activity Details Follow Up 3 Months Reason: VITAL SIGNS Height 72 in 2016-10-28 Weight 211 lbs 2016-10-28 Temperature 97.9 degrees Fahrenheit 2016-10-28 Heart Rate 90 bpm 2016-10-28 Respiratory Rate 24 2016-10-28 BMI 28.61 kg/m2 2016-10-28 Blood pressure systolic 152 mmHg 2016-10-28 Blood pressure diastolic 80 mmHg 2016-10-28 MEDICATIONS Medication Instructions Dosage Frequency Start Date End Date Duration Status Meloxicam 15 MG Orally Once a day 1 tablet 24h 30 Active Bactrim DS 800-160 MG Orally Twice a day 1 tablet 12h June, 14 days Active Viagra 100 Orally Once a day 1 tablet as needed 24h 3 Active MS Contin 30 MG Orally, every 12 hrs 1 tablet 12h Sep, 28 days Active Amitriptyline HCl 25 MG Orally Once a day 1 tablet 24h 30 Active Gemfibrozil 600 MG TAKE ONE TABLET BY MOUTH TWICE DAILY 30 Active pravastatin 40 mg by oral route Once a day 1 tablet 24h Apr, Active Wellbutrin SR 150 MG Orally Once a day 1 Tablet 24h 13 Apr, 2014 Active Triamcinolone Acetonide 0.1 % Externally Twice a day 1 application to affected area 12h May, Active Nexium 40 MG Orally Once a day 1 capsule 24h 30 Active Cymbalta 60 mg Orally Twice a day 1 capsule 12h 30 Active RESULTS Name Result Date Reference Range AMERITOX 2016-10-28 CMP 2016-10-28 Glucose, Serum 114 65-99 BUN 21 8-27 Creatinine, Serum 0.79 0.76-1.27 eGFR If NonAfricn Am 94 >59 eGFR If Africn Am 108 >59 BUN/Creatinine Ratio 27 10-24 Sodium, Serum 138 134-144 Potassium, Serum 4.9 3.5-5.2 Chloride, Serum 94 96-106 Carbon Dioxide, Total 26 18-29 Calcium, Serum 10.5 8.6-10.2 Protein, Total, Serum 8.0 6.0-8.5 Albumin, Serum 5.0 3.6-4.8 Globulin, Total 3.0 1.5-4.5 A/G Ratio 1.7 1.2-2.2 Bilirubin, Total 0.3 0.0-1.2 Alkaline Phosphatase, S 79 39-117 AST (SGOT) 44 0-40 ALT (SGPT) 50 0-44 PROCEDURES Procedure Date Ordered Result Body Site No Charge Oct 28, 2016 URINALYSIS, AUTO, W/O SCOPE Oct 28, 2016 VENIPUNCT, ROUTINE* Oct 28, 2016 LAB [facility] Oct 28, 2016 [facility] VISIT ESTABLISHED PATIENT Oct 28, 2016 INSTRUCTIONS MEDICATIONS ADMINISTERED No Known Medications MEDICAL [...]
--- OUTSIDE RECORDS SUMMARY | 2017-11-17 08:57 | XMS REPORT ---
Author Author BIANCA GALARZA Organization [employer] Address Unknown Phone Unavailable Care Team Providers Care Cane Piler Name Role Phone BIANCA GALARZA CP Unavailable Allergies No Known Allergies Problems Problem Type Condition Code Onset Dates Condition Status Problem Hypertension I10 Active Problem Hyperlipidemia E78.5 Active Problem Back pain M54.9 Active Assessment Back pain M54.9 Active Medications Medication Code System Code Instructions Start Date End Date Status Dosage MS Contin [facility] [address]-82 30 MG Orally, every 12 hrs May 11, 2014 1 tablet Results No Known Results Summary Purpose [employer] Submission
--- OUTSIDE RECORDS SUMMARY | 2017-11-17 08:57 | XMS REPORT ---
Author Author LILIBETH DUARTE [facility] Address [address] [place] [address] Care Team Providers Care Learning Services Coordinator Name Role Phone LILIBETH DUARTE Unavailable PROBLEMS Type Condition ICD9-CM Code ZSO69-SE Code Onset Dates Condition Status SNOMED Code Problem Reactive depression F32.9 Active 42461957 Problem Hypertension I10 Active 15960524 Problem Hyperlipidemia E78.5 Active 41484854 Problem Back pain M54.9 Active 593294299 ALLERGIES Unknown Allergies SOCIAL HISTORY No smoking Hx information available PLAN OF CARE VITAL SIGNS MEDICATIONS Medication Instructions Dosage Frequency Start Date End Date Duration Status Sadler 5-325 MG Orally every 6 hrs 1 tablet as needed 6h Mar, Active RESULTS No Results PROCEDURES No Known procedures IMMUNIZATIONS No Known Immunizations
--- OUTSIDE RECORDS SUMMARY | 2017-11-17 08:57 | XMS REPORT ---
Author Author BIANCA GALARZA [facility] Address [address] [place] [address] Care Team Providers Care Gate Attendant Name Role Phone BIANCA GALARZA Unavailable PROBLEMS Type Condition ICD9-CM Code XAV13-UD Code Onset Dates Condition Status SNOMED Code Problem Reactive depression F32.9 Active 60813144 Problem Back pain M54.9 Active 459189132 Problem Hypertension I10 Active 85582183 Problem Hyperlipidemia E78.5 Active 93682514 ALLERGIES Substance Reaction Event Type Date Status Reglan Unknown Drug Allergy Jan, Active SOCIAL HISTORY No smoking Hx information available PLAN OF CARE Activity Details Follow Up 3 Months Reason: VITAL SIGNS Height 72 in 2016-02-19 Weight 207 lbs 2016-02-19 Temperature 98.6 degrees Fahrenheit 2016-02-19 Heart Rate 94 bpm 2016-02-19 Respiratory Rate 18 2016-02-19 BMI 28.07 kg/m2 2016-02-19 Blood pressure systolic 164 mmHg 2016-02-19 Blood pressure diastolic 86 mmHg 2016-02-19 MEDICATIONS Medication Instructions Dosage Frequency Start Date End Date Duration Status ProAir HFA 108 (90 Base) MCG/ACT Inhalation every 4 hrs 2 puffs as needed 4h 04 Jul, 2014 Active Amitriptyline HCl 25 MG Orally Once a day 1 tablet 24h Active BuPROPion HCl (SR) 150 MG Orally Twice a day 1 tablet 12h 30 Active Pravastatin Sodium 40 MG TAKE ONE TABLET BY MOUTH ONCE DAILY 30 Active Viagra 100 Orally Once a day 1 tablet as needed 24h 3 Active Cymbalta 60 MG TAKE ONE CAPSULE BY MOUTH TWICE DAILY 30 Active MS Contin 30 MG Orally, must be seen for more refills every 12 hrs 1 tablet 12h 15 Jan, 2016 Active Nexium 40 MG Orally Once a day 1 capsule 24h 30 Active Meloxicam 15 MG TAKE ONE TABLET BY MOUTH ONCE DAILY 30 Active Gemfibrozil 600 MG TAKE ONE TABLET BY MOUTH TWICE DAILY 30 Active RESULTS No Results PROCEDURES Procedure Date Ordered Related Diagnosis Body Site [facility] VISIT ESTABLISHED PATIENT Feb 19, 2016 Office Visit, Est Pt., Level 3 Feb 19, 2016 IMMUNIZATIONS No Known Immunizations
--- OUTSIDE RECORDS SUMMARY | 2017-11-17 08:57 | XMS REPORT ---
Author Author BIANCA GALARZA [facility] [employer] Address Unknown Phone Unavailable Care Team Providers Care Marble Helper Name Role Phone BIANCA GALARZA Unavailable Allergies, Adverse Reactions, Alerts Substance Reaction Event Type Reglan Info Not Available Drug Allergy Problems Problem Type Condition Code Onset Dates Condition Status Problem Hypertension I10 Active Problem Hyperlipidemia E78.5 Active Problem Back pain M54.9 Active Assessment Hypertension I10 Active Assessment Visit for TB skin test Z11.1 Active Assessment Back pain M54.9 Active Medications Medication Code System Code Instructions Start Date End Date Status Dosage Amitriptyline HCl [facility] 49510063484 25 MG TAKE ONE TABLET BY MOUTH ONCE DAILY ProAir HFA [facility] [address]-12 108 (90 Base) MCG/ACT Inhalation every 4 hrs August 03, 2014 2 puffs as needed Nexium ND 24025626041 40 MG Orally Once a day 1 capsule Meloxicam [facility] 40986876166 15 MG TAKE ONE TABLET BY MOUTH ONCE DAILY MS Contin [facility] [address]-67 30 MG Orally, must be seen for more refills every 12 hrs May 11, 2014 1 tablet Pravastatin Sodium ND 90719112719 40 MG TAKE ONE TABLET BY MOUTH ONCE DAILY Gemfibrozil ND 09676760096 600 MG TAKE ONE TABLET BY MOUTH TWICE DAILY BuPROPion HCl (SR) ND 48090632855 150 MG TAKE ONE TABLET BY MOUTH ONCE DAILY Viagra ND 60967108373 100 Orally Once a day 1 tablet as needed Cymbalta ND 61827773040 60 MG TAKE ONE CAPSULE BY MOUTH TWICE DAILY Procedures Procedure Coding System Code Date [facility] VISIT ESTABLISHED PATIENT CPT-4 G0467 Oct 02, 2015 Office Visit, Est Pt., Level 2 CPT-4 79123 Oct 02, 2015 TB INTRADERMAL TEST CPT-4 50012 Oct 02, 2015 Vital Signs Date/Time: Oct 02, 2015 Cardiac Monitoring Heart Rate 88 bpm Weight 210 lbs Height 72 in BMI 28.48 Index Blood Pressure Diastolic 88 mmHg Blood Pressure Systolic 162 mmHg Results No Known Results Summary Purpose [employer] Submission
--- OUTSIDE RECORDS SUMMARY | 2017-11-17 08:57 | XMS REPORT ---
Author Author BIANCA GALARZA [facility] Address [address] [place] [address] Care Team Providers Care Flatbed Press Operator Name Role Phone BIANCA GALARZA Unavailable PROBLEMS Type Condition ICD9-CM Code [id number] Code Onset Dates Condition Status SNOMED Code Problem Reactive depression F32.9 Active 87156134 Problem Hypertension I10 Active 84626490 Problem Hyperlipidemia E78.5 Active 64843748 Problem Back pain M54.9 Active 725878299 ALLERGIES Substance Reaction Event Type Date Status Reglan Unknown Drug Allergy June, Active SOCIAL HISTORY Never Assessed PLAN OF CARE Activity Details Follow Up Regular appt Reason: VITAL SIGNS Height 72 in 2016-07-11 Weight 208.0 lbs 2016-07-11 Temperature 98.4 degrees Fahrenheit 2016-07-11 Heart Rate 100 bpm 2016-07-11 Respiratory Rate 22 2016-07-11 BMI 28.21 kg/m2 2016-07-11 Blood pressure systolic 144 mmHg 2016-07-11 Blood pressure diastolic 85 mmHg 2016-07-11 MEDICATIONS Medication Instructions Dosage Frequency Start Date End Date Duration Status Meloxicam 15 MG Orally Once a day 1 tablet 24h Active pravastatin 40 mg by oral route Once a day 1 tablet 24h Apr, Active Pravastatin Sodium 40 MG TAKE ONE TABLET BY MOUTH ONCE DAILY 30 Active Triamcinolone Acetonide 0.1 % Externally Twice a day 1 application to affected area 12h May, Active Nexium 40 MG Orally Once a day 1 capsule 24h 30 Active Gemfibrozil 600 MG TAKE ONE TABLET BY MOUTH TWICE DAILY 30 Active Amitriptyline HCl 25 MG Orally Once a day 1 tablet 24h 30 Active MS Contin 30 MG Orally, every 12 hrs 1 tablet 12h June, 28 days Active Cymbalta 60 mg Orally Twice a day 1 capsule 12h 30 Active Viagra 100 Orally Once a day 1 tablet as needed 24h 3 Active Wellbutrin SR 150 MG Orally Once a day 1 Tablet 24h Apr, Active Bactrim DS 800-160 MG Orally Twice a day 1 tablet 12h 12 Jun, 2016June 14 days Active BuPROPion HCl (SR) 150 MG Orally Twice a day 1 tablet 12h 30 Active RESULTS Name Result Date Reference Range UA LONG DIP (IN HOUSE) 2016-07-11 Lot # [id number] Exp date 04/2017 Clarity Clear Color Yellow Odor No GLU Negative AISHWARYA Negative KET Negative SG 1.025 BLO Negative pH 6.0 Protein Negative URO 0.2 NIT Negative ÓSCAR Negative Lot # [id number] Exp date PROCEDURES Procedure Date Ordered Result Body Site [facility] VISIT ESTABLISHED PATIENT July 11, 2016 URINALYSIS, AUTO, W/O SCOPE July 11, 2016 IMMUNIZATIONS No Known Immunizations MEDICAL (GENERAL) HISTORY Type Description Date Medical History hyperlipidemia Medical History impotence Medical History chronic pain Medical History hypertension Medical History osteoarthritis Medical History depression Surgical History tonsillectomy Surgical History bladder surgery Surgical History spine surgery Surgical History ortho surrgeries x7 on hip, back, left leg, left wrist Hospitalization History surgeries
--- OUTSIDE RECORDS SUMMARY | 2017-11-17 08:57 | XMS REPORT ---
Author Author WESLY RENNER [facility] Address [address] [place] [address] Care Team Providers Care Lead Java Software Engineer Name Role Phone WESLY RENNER Unavailable PROBLEMS Type Condition ICD9-CM Code [id number] Code Onset Dates Condition Status SNOMED Code Problem Reactive depression F32.9 Active 24054631 Problem Back pain M54.9 Active 243744509 Problem Hypertension I10 Active 20812192 Problem Hyperlipidemia E78.5 Active 48297594 ALLERGIES Unknown Allergies SOCIAL HISTORY No smoking Hx information available PLAN OF CARE Activity Details Follow Up prn Reason:Depression VITAL SIGNS MEDICATIONS Unknown Medications RESULTS No Results PROCEDURES Procedure Date Ordered Related Diagnosis Body Site Psych diagnostic evaluation, new patient Feb 19, 2016 IMMUNIZATIONS No Known Immunizations
--- OUTSIDE RECORDS SUMMARY | 2017-11-17 08:58 | XMS REPORT ---
Author Author LILIBETH DUARTE Organization [facility] Address [address] [place] [address] Care Team Providers Care Perfume Compounder Name Role Phone LILIBETH DUARTE Unavailable PROBLEMS Type Condition ICD9-CM Code GGI61-FM Code Onset Dates Condition Status SNOMED Code Problem Other chronic pain G89.29 Active 35670040 Problem Reactive depression F32.9 Active 00757692 Problem Back pain M54.9 Active 646084999 Problem Hypertension I10 Active 00492730 Problem Hyperlipidemia E78.5 Active 94080845 ALLERGIES Substance Reaction Event Type Date Status Reglan Unknown Drug Allergy Dec, Active ENCOUNTERS Encounter Location Date Diagnosis [place] [address] [place] [address] 69468- 7884 June, Back pain M54.9 [place] [address] [place] [address] 57656- 9641 May, Back pain M54.9 [place] [address] [place] [id number] [place] [address] 02650- 7817 May, Medicare annual wellness visit, initial Z00.00 ; Hypertension I10 ; Hyperlipidemia E78.5 and Reactive depression F32.9 [place] [address] [place] [address] 34409- 9988 Apr, Back pain M54.9 [place] [address] [place] [address] 80502- 3834 Apr, Back pain M54.9 [place] [address] [place] [id number] [place] [address] 36286- 5173 Apr, Back pain M54.9 ; Other chronic pain G89.29 and Pain in left leg M79.605 [place] [address] [place] [id number] [place] [address] 57991- 0515 Mar, Back pain M54.9 [facility] [address] [place] [id number] [place] [address] 93859- 2662 Mar, Acute prostatitis N41.0 [facility] [address] [place] [id number] [place] [address] 20465- 3374 Jan, Back pain M54.9 [facility] [address] [address]35- 1368 Dec, Back pain M54.9 and Hypertension I10 [facility] [address] [place] [id number] [place] [address] 94408- 0439 Dec, Back pain M54.9 [facility] [address] [place] [id number] [place] [address] 80096- 7463 Nov, Back pain M54.9 [facility] [address] [place] [id number] [place] [address] 80327- 3211 Oct, Back pain M54.9 [facility] [address] [place] [id number] [place] [address] 19943- 5450 Oct, Abnormal LFTs R79.89 [facility] [address] [place] [id number] [place] [address] 14444- 7173 Oct, [facility] [address] [place] [id number] [place] [address] 67120- 0729 Sep, Back pain M54.9 ; Acute prostatitis N41.0 ; Hypertension I10 ; Gross hematuria R31.0 and Reactive depression F32.9 [facility] [address] [place] [id number] [place] [address] 20325- 3146 Sep, [facility] [address] [place] [id number] [place] [address] 30848- 5796 Sep, Back pain M54.9 [facility] [address] [place] [id number] [place] [address] 91867- 0972 Aug, Back pain M54.9 [facility] [address] [place] [id number] [place] [address] 74356- 9584 Jul, Back pain M54.9 [facility] [address] [place] [id number] [place] [address] 93408- 2896 June, Back pain M54.9 [facility] [address] [place] [id number] [place] [address] 90982- 2236 June, Acute prostatitis N41.0 [facility] [address] [place] [id number] [place] [address] 01538- 2386 June, Back pain M54.9 [facility] [address] 35733- 3946 Apr, Back pain M54.9 [facility] [address] [place] [id number] [place] [address] 76869- 9711 Apr, Hypertension I10 and Back pain M54.9 [facility] [address] [place] [id number] [place] [address] 08974- 7218 Apr, Back pain M54.9 [facility] [address] [place] [id number] [place] [address] 71111- 5818 Apr, Back pain M54.9 and Sprain of ligaments of lumbar spine, initial encounter S33.5XXA [facility] [address] [place] [id number] [place] [address] 97400- 4380 Apr, Back pain M54.9 [facility] [address] [place] [id number] [place] [address] 31257- 2541 Mar, Acute pain of left hip M25.552 [facility] [address] [place] [id number] [place] [address] 44314- 9806 Mar, [facility] [address] [place] [id number] [place] [address] 81738- 5816 Mar, Acute pain of left hip M25.552 [facility] [address] [place] [id number] [place] [address] 78135- 6510 Mar, Back pain M54.9 [facility] [address] [place] [id number] [place] [address] 20127- 6142 Jan, Reactive depression F32.9 [facility] [address] [place] [id number] [place] [address] 61112- 3486 Jan, Back pain M54.9 ; Hypertension I10 and Reactive depression F32.9 [facility] [address] [place] [id number] [place] [address] 89055- 2026 Jan, Back pain M54.9 [facility] [address] [place] [id number] [place] [address] 80274- 8896 Dec, [facility] [address] [place] [id number] [place] [address] 00365- 3222 Dec, [facility] [address] [place] [id number] [place] [address] 94619- 2322 Nov, [facility] [address] [place] [id number] [place] [address] 91718- 0206 Oct, [facility] [address] [place] [id number] [place] [address] 86249- 9422 29 Nov, 2015 [facility] [address] [place] [address] 55782- 7641 16 Nov, 2015 [facility] [address] [place] [address] 34920- 8993 Sep, [facility] [address] [place] [address] 93800- 6663 Sep, [facility] [address] [place] [id number] [place] [address] 49792- 5090 Sep, Visit for TB skin test Z11.1 ; Back pain M54.9 and Hypertension I10 [facility] [address] [place] [address] 68866- 8235 Aug, Back pain M54.9 [facility] [address] [place] [id number] [place] [address] 87701- 9546 28 Aug, 2015 Back pain M54.9 [facility] [address] [place] [id number] [place] [address] 79654- 9616 Jul, [facility] [address] [place] [id number] [place] [address] 14053- 4312 Jul, [facility] [address] 77534- 9844 Jul, Back pain M54.9 [facility] [address] [place] [id number] [place] [address] 16499- 4171 May, Back pain M54.9 [facility] [address] [place] [id number] [place] [address] 04261- 9339 May, Back pain M54.9 ; Hypertension I10 and Eczema L30.9 [facility] [address] [place] [id number] [place] [address] 70115- 3942 Apr, Back pain M54.9 [facility] [address] [place] [id number] [place] [address] 64418- 3272 Apr, Back pain M54.9 [facility] [address] [place] [id number] [place] [address] 72243- 5244 Apr, [facility] [address] [place] [id number] [place] [address] 46049- 7097 Mar, Back pain M54.9 [facility] [address] [place] [id number] [place] [address] 93583- 3207 Jan, [facility] [address] [place] [id number] [place] [address] 71845- 2094 Jan, Dyspepsia R10.13 [facility] [address] [place] [id number] [place] [address] 77230- 1247 Jan, [facility] [address] [place] [id number] [place] [address] 07204- 8918 Jan, [facility] [address] [id number], [place] [address]- 9115 Dec, Back pain M54.9 and Hyperlipidemia E78.5 [facility] [address] [id number], [place] [address]- 7167 Dec, [facility] [address] [id number][place] [address]- 6118 Nov, [facility] [address] [id number], [place] [address]- 1124 Oct, [facility] [address] [id number], [place] [address]- 2415 Sep, [facility] [address] [id number], [place] [address]- 7634 Sep, [facility] [address] [id number], [place] [address]- 8627 Sep, Lumbar strain 847.2 [facility] [address] [id number], [place] [address]- 1038 Aug, [facility] [address] [place] [address] 74291- 6063 Aug, [facility] [address] [place] [address] [id number], [place] [address]- 1529 Aug, [facility] [address] [id number][place] [id number] Jul, Dental examination V72.2 [facility] [address] [id number], [place] [address]- 0020 Jul, [facility] [address] [id number], [place] [address]- 4626 Jul, Acute bronchitis 466.0 and Lumbar strain 847.2 [facility] [address] [id number], [place] [address]- 4254 Jul, [facility] [address] [id number], [place] [address]- 6885 Jul, [facility] [address] [id number], [place] [address]- 4484 June, Acute bronchitis 466.0 and Lumbar strain 847.2 [facility] [address] [id number], [place] [address]- 6056 June, [facility] [address] [id number], [place] [address]- 0055 June, [facility] [address] [id number] [address] 67[address] June, [facility] [address] [id number] [address]- 3795 May, [facility] [address] [address] [id number] [address]- 6528 May, [facility] [address] [id number] [address]- 4834 Apr, [facility] [address] [id number] [address]- 4216 Apr, [facility] [address] [id number] [address]- 5309 Apr, [facility] [address] [id number] [address]- 5850 Apr, [facility] [address] [facility] [id number], [place] [address]- 9958 Apr, [facility] [address] [facility] [id number]- 9329 17 Apr, [address] [facility] [address] [facility] [id number], [place] [address]- 9990 15 Apr, [address] [facility] [address] [place] [id number] 6534 14 Apr, 2011 [facility] [address] [id number] [id number] Apr, [facility] [place] [facility] [address] [id number] [place] [address]- 4260 Apr, [facility] [place] [facility] [address] [id number] [place] [address]- 6506 Apr, [facility] [place] [facility] [address] [id number] [place] [address]- 4598 Mar, [facility] [place] [facility] [address] [id number] [place] [address]- 7738 Mar, [facility] [place] [facility] [address] [id number] [place] [address]- 9985 Mar, [facility] [place] [facility] [address] [id number] [place] [address]- 2354 Mar, [facility] [place] [facility] [address] [id number] [place] [address]- 7467 Mar, [facility] [place] [facility] [address] [id number] [place] [address]- 5095 Jan, [facility] [place] [facility] [address] [id number] [place] [address]- 8157 Jan, [facility] [place] [facility] [address] [id number] [place] [address]- 7543 Jan, [facility] [place] [facility] [address] [id number], [place] [address]- 7254 08 Dec, 2010 [facility] [place] [facility] [address] [id number], [place] [address]- 6567 11 Nov, 2010 [facility] [place] [facility] [address] [id number] [place] [address]- 1182 13 Oct, 2010 [facility] [place] [facility] [address] [id number], [place] [address]- 3143 14 Jan, 2010 [facility] [place] [facility] [address] [id number] [place] [address]- 0529 15 Dec, 2009 [facility] [place] [facility] [address] [facility] [id number][place] [address] 3040 Nov, [facility] [address] [id number], [place] [address]- 9103 Nov, [facility] [address]65100[place], [place] [address]- 9088 Sep, [facility] [address] [id number], [place] [address]- 7612 Jan, [facility] [address] [id number], [place] [address]- 3610 Dec, [facility] [address]65[address], [place] [address]- 2730 Aug, IMMUNIZATIONS No Known Immunizations SOCIAL HISTORY Never Assessed REASON FOR VISIT Transition of Care, PT saw an Urioligist in [place] and was told he has some small kidney stones-Jorge A GUTIERREZ PLAN OF CARE VITAL SIGNS Height 72 in 2017-01-26 Weight 214.2 lbs 2017-01-26 Temperature 98.6 degrees Fahrenheit 2017-01-26 Heart Rate 74 bpm 2017-01-26 Respiratory Rate 22 2017-01-26 BMI 29.05 kg/m2 2017-01-26 Blood pressure systolic 138 mmHg 2017-01-26 Blood pressure diastolic 78 mmHg 2017-01-26 MEDICATIONS Medication Instructions Dosage Frequency Start Date End Date Duration Status BuPROPion HCl ER (SR) 150 MG 1 tablet in the morning 24h 30 Active Gemfibrozil 600 MG 1 tablet 12h Active Nexium 40 MG Orally Once a day 1 capsule 24h 30 Active Amitriptyline HCl 25 MG Orally Once a day 1 tablet 24h 30 Active Meloxicam 15 MG Orally Once a day 1 tablet 24h 30 Not-Taking Cymbalta 60 mg Orally Twice a day 1 capsule 12h 30 Active Viagra 100 mg 1 tablet as needed 24h 3 Active Pravastatin Sodium 40 mg Orally Once a day 1 tablet 24h 27 Dec, 2016 30 day(s) Active MS Contin 30 MG Orally, every 12 hrs 1 tablet 12h 16 Dec, 2016 28 days Active RESULTS No Results PROCEDURES Procedure Date Ordered Result Body Site [facility] VISIT ESTABLISHED PATIENT Jan 26, 2017 INSTRUCTIONS MEDICATIONS ADMINISTERED No Known Medications [...]
--- OUTSIDE RECORDS SUMMARY | 2017-11-17 08:58 | XMS REPORT ---
Author Author BIANCA GALARZA [facility] Address [address] [place] [address] Care Team Providers Care Pattern Ruler Name Role Phone BIANCA GALARZA Unavailable PROBLEMS Type Condition ICD9-CM Code IAQ60-FP Code Onset Dates Condition Status SNOMED Code Problem Back pain M54.9 Active 709185447 Problem Hypertension I10 Active 25738561 Problem Hyperlipidemia E78.5 Active 20963820 ALLERGIES Unknown Allergies SOCIAL HISTORY No smoking Hx information available PLAN OF CARE VITAL SIGNS MEDICATIONS Medication Instructions Dosage Frequency Start Date End Date Duration Status MS Contin 30 MG Orally, every 12 hrs 1 tablet 12h 12 Apr, 2014 Active RESULTS No Results PROCEDURES No Known procedures IMMUNIZATIONS No Known Immunizations
--- OUTSIDE RECORDS SUMMARY | 2017-11-17 08:58 | XMS REPORT ---
Author Author BIANCA GALARZA Organization [facility] Address [address] [place] [address] Care Team Providers Care Associate Art Director Name Role Phone BIANCA GALARZA Unavailable PROBLEMS Type Condition ICD9-CM Code BBM90-OK Code Onset Dates Condition Status SNOMED Code Problem Other chronic pain G89.29 Active 48907552 Problem Reactive depression F32.9 Active 71369594 Problem Back pain M54.9 Active 535959156 Problem Hypertension I10 Active 76316530 Problem Hyperlipidemia E78.5 Active 79107651 ALLERGIES No Information ENCOUNTERS Encounter Location Date Diagnosis [place] [address] [address]- [address] May, Medicare annual wellness visit, initial Z00.00 [place] [address] [place] [id number] [place] [address] 03368- 8428 Apr, Back pain M54.9 [place] [address] [place] [id number] [place] [address] 48449- 7674 Apr, Back pain M54.9 [facility] [address] [place] [id number] [place] [address] 38875- 0886 Apr, Back pain M54.9 ; Other chronic pain G89.29 and Pain in left leg M79.605 [facility] [id number] [place] [address] 14984- 4883 Mar, Back pain M54.9 [facility] [address] 20977- 1217 Mar, Acute prostatitis N41.0 [facility] [address] [place] [id number] [place] [address] 11476- 1642 Jan, Back pain M54.9 [facility] [address] [place] [id number] [place] [address] 70981- 1357 27 Dec, 2016 Back pain M54.9 and Hypertension I10 [facility] [address] [place] [id number] [place] [address] 20234- 3825 15 Dec, 2016 Back pain M54.9 [facility] [address] [place] [id number] [place] [address] 47310- 3584 18 Nov, 2016 Back pain M54.9 [facility] [address] 70091- 1847 22 Oct, 2016 Back pain M54.9 [facility] [address] 68656- 1281 19 Oct, 2016 Abnormal LFTs R79.89 [facility] [address] 74376- 8237 Oct, [facility] [address] 33575- 8099 Sep, Back pain M54.9 ; Acute prostatitis N41.0 ; Hypertension I10 ; Gross hematuria R31.0 and Reactive depression F32.9 [facility] [address] [place] [id number] [place] [address] 65448- 6057 Sep, [facility] [address] [place] [id number] [place] [address] 96270- 7791 Sep, Back pain M54.9 [facility] [address] [place] [id number] [place] [address] 13552- 1079 Aug, Back pain M54.9 [facility] [address] [place] [id number] [place] [address] 05861- 0221 Jul, Back pain M54.9 [facility] [address] [place] [id number] [place] [address] 74811- 5544 June, Back pain M54.9 [facility] [address] [place] [id number] [place] [address] 69062- 9545 June, Acute prostatitis N41.0 [facility] [address] [place] [id number] [place] [address] 75658- 5867 June, Back pain M54.9 [facility] [address] [place] [id number] [place] [address] 61351- 5756 Apr, Back pain M54.9 [facility] [address] [place] [id number] [place] [address] 32009- 0729 Apr, Hypertension I10 and Back pain M54.9 [facility] [address] [place] [id number] [place] [address] 73892- 9411 Apr, Back pain M54.9 [facility] [address] [place] [id number] [place] [address] 36039- 5470 Apr, Back pain M54.9 and Sprain of ligaments of lumbar spine, initial encounter S33.5XXA [facility] [address] 59410- 8518 Apr, Back pain M54.9 [facility] [address] [place] [id number] [place] [address] 59238- 5034 Mar, Acute pain of left hip M25.552 [facility] [address] [place] [id number] [place] [address] 27769- 8158 Mar, [facility] [address] [place] [id number] [place] [address] 99359- 7851 Mar, Acute pain of left hip M25.552 [facility] [address] [place] [id number] [place] [address] 48782- 3956 Mar, Back pain M54.9 [facility] [address] [place] [id number] [place] [address] 96548- 6506 Jan, Reactive depression F32.9 [facility] [address] [place] [id number] [place] [address] 52091- 2546 Jan, Back pain M54.9 ; Hypertension I10 and Reactive depression F32.9 [facility] [address] [facility] [id number] [address]- 9902 Jan, Back pain M54.9 [facility] [address] [facility] [id number] [address]- 0968 Dec, [facility] [address] [id number] [address]- 5331 Dec, [facility] [address] [facility] [id number] [place] [address] 61705- 4946 Nov, [facility] [address] [facility] [id number] [place] [address] 58001- 1893 Oct, [facility] [address] [place] [id number] [place] [address] 39311- 7980 Oct, [facility] [address] [place] [id number] [place] [address] 73883- 1142 Oct, [facility] [id number] [place] [address] 41744- 0830 Sep, [facility] [id number] [place] [address] 73385- 3127 Sep, [facility] [address] [address]- 9023 Sep, Visit for TB skin test Z11.1 ; Back pain M54.9 and Hypertension I10 [facility] [address] [address]- 2484 Aug, Back pain M54.9 [facility] [address] [place] [id number] [address]- 2208 Jul, Back pain M54.9 [facility] [address] [place] [id number] [address]- 8394 Jul, [facility] [address] [address]- 8892 Jul, [facility] [address] [place] [id number] [place] [address] 63292- 1984 Jul, Back pain M54.9 [facility] [address] 09939- 0146 May, Back pain M54.9 [facility] [address] [place] [id number] [place] [address] 20092 254 May, Back pain M54.9 ; Hypertension I10 and Eczema L30.9 [facility] [address] [place] [id number] [place] [address] 67223 2543 Apr, Back pain M54.9 [facility] [address] 11077- 7703 Apr, Back pain M54.9 [facility] [address] 52013- 5815 Apr, [facility] [address] 91507- 7240 Mar, Back pain M54.9 [facility] [address] [place] [id number] [place] [address] 30437- 7962 Jan, [facility] [address] [place] [id number] [place] [address] 35351- 9758 Jan, Dyspepsia R10.13 [facility] [address] [place] [id number] [place] [address] 50899 2547 Jan, [facility] [address] [place] [id number] [place] [address] 85450- 2542 Jan, [facility] [address] [place] [id number] [place] [address] 00809- 7340 Dec, Back pain M54.9 and Hyperlipidemia E78.5 [facility] [address] [place] [id number] [place] [address] 07086- 254 Dec, [facility] [address] [place] [id number] [place] [address] 85696- 9853 Nov, [facility] [address] [id number] [address]- 6911 Oct, [facility] [address] [id number] [address]- 3469 Sep, [facility] [address] [id number] [address]- 1540 Sep, [facility] [address] [id number] [place] [address]- 7697 Sep, Lumbar strain 847.2 [facility] [address] [id number] [address]- 2320 Aug, [facility] [address] [id number] [place] [address]- 1652 Aug, [facility] [address] [id number] [place] [address]- 7992 Aug, [facility] [address] [id number] [id number] Jul, Dental examination V72.2 [facility] [address] [id number] [place] [address]- 5814 Jul, [facility] [address] [id number] [place] [address]- 9030 Jul, Acute bronchitis 466.0 and Lumbar strain 847.2 [facility] [address] [id number] [place] [address]- 9405 Jul, [facility] [address] [id number] [place] [address]- 6435 Jul, [facility] [address] [id number] [place] [address]- 2703 June, Acute bronchitis 466.0 and Lumbar strain 847.2 [facility] [address] [id number] [place] [address]- 6053 June, [facility] [address] [id number] [place] [address]- 6056 June, [facility] [address] [id number] [place] [address]- 6589 June, [facility] [address] [id number] [place] 8182 14 May, 2014 [facility] [address] [id number] [place] [address]- 9856 May, [facility] [address] [id number] [place] [address]- 1622 Apr, [facility] [address] [id number] [place] [address]- 9966 Apr, [facility] [address] [facility] [id number] [place] [address]- 3576 Apr, [facility] [address] [place] [address]- 3946 Apr, [facility] [address] [facility] [id number] [place] [address]- 5596 Apr, [facility] [address] [place] [address]- 0397 Apr, [facility] [address] [place] [id number] [place] [address]- 8328 15 Apr, 2011 [facility] [address] [place] [id number] [place] [address]- 4516 14 Apr, [address] [facility] [address] [id number] [id number] Apr, [facility] [address] [place] [id number] [place] [address]- 6126 Apr, [facility] [place] [facility] [address] [facility] [id number] [place] [address]- 3066 Apr, [facility] [address] [place] [id number] [address]- 0669 Mar, [facility] [place] [facility] [address] [id number] [place] [address]- 1432 Mar, [facility] [place] [facility] [address] [id number] [place] [address]- 0200 Mar, [facility] [place] [facility] [address] [id number] [place] [address]- 5679 16 Mar, 2011 [facility] [place] [facility] [address] [id number] [place] [address]- 7101 Mar, [facility] [place] [facility] [address] [id number] [place] [address]- 0704 23 Jan, 2011 [facility] [place] [facility] [address] [id number] [place] [address]- 9256 13 Jan, 2011 [facility] [place] [facility] [address] [id number] [place] [address]- 9263 12 Jan, 2011 [facility] [place] [facility] [address] [id number] [place] [address]- 0548 08 Dec, 2010 [facility] [place] [facility] [address] [id number] [place] [address]- 3539 11 Nov, 2010 [facility] [place] [facility] [address] [id number] [place] [address]- 4016 13 Oct, 2010 [facility] [place] [facility] [address] [id number] [place] [address]- 5992 14 Jan, 2010 [facility] [place] [facility] [address] [id number] [place] [address]- 4465 15 Dec, 2009 [facility] [place] [facility] [address] [id number] [place] [address]- 0937 15 Nov, 2009 [facility] [place] [facility] [address] [id number] [place] [address]- 6575 15 Nov, 2009 [facility] [place] [facility] [address] [id number] [place] [address]- 8012 11 Sep, 2009 [facility] [place] [facility] [address] [id number] [place] [address]- 7737 Jan, [facility] [address] [facility] [id number] [place] 3467 Dec, [facility] [address] [facility] [id number] [place] [address]- 2090 10 Aug, 2008 IMMUNIZATIONS No Known Immunizations SOCIAL HISTORY Never Assessed REASON FOR VISIT Morphine 08/28 PLAN OF CARE VITAL SIGNS MEDICATIONS Medication Instructions Dosage Frequency Start Date End Date Duration Status MS Contin 30 MG Orally, every 12 hrs 1 tablet 12h 29 Jul, 2016 28 days Active RESULTS No Results [...]
--- OUTSIDE RECORDS SUMMARY | 2017-11-17 08:58 | XMS REPORT ---
Author Author LILIBETH DUARTE Organization [facility] Address [address] [place] [address] Care Team Providers Care Art Education Professor Name Role Phone LILIBETH DUARTE Unavailable PROBLEMS Type Condition ICD9-CM Code [id number] Code Onset Dates Condition Status SNOMED Code Problem Other chronic pain G89.29 Active 00809402 Problem Reactive depression F32.9 Active 47452507 Problem Back pain M54.9 Active 695170517 Problem Hypertension I10 Active 16977626 Problem Hyperlipidemia E78.5 Active 04121748 ALLERGIES No Information ENCOUNTERS Encounter Location Date Diagnosis [place] [id number] [place] [address] 50502- 0874 June, Back pain M54.9 [place] [id number] [place] [address] 05873- 1763 May, Back pain M54.9 [place] [id number] [place] [address] 95882- 5547 May, Medicare annual wellness visit, initial Z00.00 ; Hypertension I10 ; Hyperlipidemia E78.5 and Reactive depression F32.9 [place] [id number] [place] [address] 13040- 9725 Apr, Back pain M54.9 [place] [id number] [place] [address] 22824- 2608 Apr, Back pain M54.9 [place] [id number] [place] [address] 29896- 4261 Apr, Back pain M54.9 ; Other chronic pain G89.29 and Pain in left leg M79.605 [place] [id number] [place] [address] 74712- 8489 Mar, Back pain M54.9 [facility] [id number] [place] [address] 16792- 1197 Mar, Acute prostatitis N41.0 [facility] [id number] [place] [address] 37614- 1791 Jan, Back pain M54.9 [facility] [id number] [place] [address] 57600- 2974 Dec, Back pain M54.9 and Hypertension I10 [facility] [id number] [place] [address] 06475- 1891 Dec, Back pain M54.9 [facility] [id number] [place] [address] 64062- 7732 Nov, Back pain M54.9 [facility] [id number] [place] [address] 27645- 6374 Oct, Back pain M54.9 [facility] [id number] [place] [address] 89986- 8660 Oct, Abnormal LFTs R79.89 [facility] [address] [address]- 7341 06 Oct, 2016 [facility] [id number] [place] [address] 85137- 4972 Sep, Back pain M54.9 ; Acute prostatitis N41.0 ; Hypertension I10 ; Gross hematuria R31.0 and Reactive depression F32.9 [facility] [id number] [place] [address] 50021- 0826 Sep, [facility] [id number] [place] [address] 74584- 9922 Sep, Back pain M54.9 [facility] [id number] [place] [address] 67255- 3548 Aug, Back pain M54.9 [facility] [id number] [place] [address] 46254- 4645 Jul, Back pain M54.9 [facility] [id number] [place] [address] 10809- 1556 June, Back pain M54.9 [facility] [id number] [place] [address] 60457- 4276 June, Acute prostatitis N41.0 [facility] [id number] [place] [address] 30129- 5253 June, Back pain M54.9 [facility] [id number] [place] [address] 11470- 2886 Apr, Back pain M54.9 [facility] [id number] [place] [address] 34487- 3605 Apr, Hypertension I10 and Back pain M54.9 [facility] [id number] [place] [address] 86677- 1343 Apr, Back pain M54.9 [facility] [id number] [place] [address] 87449- 3476 Apr, Back pain M54.9 and Sprain of ligaments of lumbar spine, initial encounter S33.5XXA [facility] [id number] [place] [address] 27895- 6267 Apr, Back pain M54.9 [facility] [id number] [place] [address] 02072- 5077 Mar, Acute pain of left hip M25.552 [facility] [id number] [place] [address] 89535- 8086 Mar, [facility] [id number] [place] [address] 88137- 6744 Mar, Acute pain of left hip M25.552 [facility] [id number] [place] [address] 83352- 9207 Mar, Back pain M54.9 [facility] [id number] [place] [address] 06921- 7455 Jan, Reactive depression F32.9 [facility] [id number] [place] [address] 59781- 3063 Jan, Back pain M54.9 ; Hypertension I10 and Reactive depression F32.9 [facility] [id number] [place] [address] 86996- 5024 Jan, Back pain M54.9 [facility] [id number] [place] [address] 23916- 7828 Dec, [facility] [id number] [place] [address] 85074- 0395 Dec, [facility] [id number] [place] [address] 17088- 8907 Nov, [facility] [id number] [place] [address] 10630- 4404 Oct, [facility] [id number] [place] [address] 44433- 9196 Oct, [facility] [id number] [place] [address] 45569- 1038 16 Nov, 2015 [facility] [id number] [place] [address] 91189- 1620 Sep, [facility] [id number] [place] [address] 52483- 7763 Sep, [facility] [id number] [place] [address] 05382- 6791 Sep, Visit for TB skin test Z11.1 ; Back pain M54.9 and Hypertension I10 [facility] [id number] [place] [address] 28457- 8323 Aug, Back pain M54.9 [facility] [id number] [place] [address] 83648- 0630 Jul, Back pain M54.9 [facility] [id number] [place] [address] 11278- 6309 Jul, [facility] [id number] [place] [address] 26207- 6866 Jul, [facility] [id number] [place] [address] 36977- 0086 Jul, Back pain M54.9 [facility] [id number] [place] [address] 66436- 1342 May, Back pain M54.9 [facility] [address] 48999- 1576 May, Back pain M54.9 ; Hypertension I10 and Eczema L30.9 [facility] [id number] [place] [address] 83907- 7535 Apr, Back pain M54.9 [facility] [id number] [place] [address] 53729- 9513 Apr, Back pain M54.9 [facility] [id number] [place] [address] 30609- 9722 Apr, [facility] [id number] [place] [address] 88883- 8870 Mar, Back pain M54.9 [facility] [id number] [place] [address] 59985- 3363 Jan, [facility] [id number] [place] [address] 11718- 2899 Jan, Dyspepsia R10.13 [facility] [id number] [place] [address] 13544- 7578 Jan, [facility] [id number] [place] [address] 10541- 1372 Jan, [facility] [address] [place] [address]- 4653 Dec, Back pain M54.9 and Hyperlipidemia E78.5 [facility] [id number] [place] [address] 01442- 6437 Dec, [facility] [address] [id number] [address]- 0780 Nov, [facility] [id number] [place] [address] 66019- 7371 Oct, [facility] [id number] [place] [address] 97245- 9905 Sep, [facility] [id number] [place] [address] 65878- 8518 Sep, [facility] [address] [address]- 9438 Sep, Lumbar strain 847.2 [facility] [id number] [place] [address] 41016- 2361 Aug, [facility] [id number] [place] [address] 45630- 3069 Aug, [facility] [address] [address]- 4150 Aug, [facility] [address] [id number] [id number] Jul, Dental examination V72.2 [facility] [address] [id number], [place] [address]- 4537 Jul, [facility] [address] [id number], [place] [address]- 5055 Jul, Acute bronchitis 466.0 and Lumbar strain 847.2 [facility] [address] [id number], [place] [address]- 2451 Jul, [facility] [address], [place] [address]- 4187 Jul, [facility] [address] [facility] [id number][place] [address]- 1641 June, Acute bronchitis 466.0 and Lumbar strain 847.2 [facility] [address] [facility] [id number][place] [address]- 9969 June, [facility] [address] [address]- 1538 June, [facility] [address] [facility] [id number][place] [address]- 8357 June, [facility] [address] [facility] [id number][place] [address]- 2422 May, [facility] [address], [place] [address]- 9552 May, [facility] [address], [place] [address]- 9739 Apr, [facility] [address], [place] [address]- 9060 Apr, [facility] [address], [place] [address]- 8859 Apr, [facility] [address], [place] [address]- 3007 Apr, [facility] [address], [place] [address]- 9009 Apr, [facility] [id number] [address]- 1769 Apr, [facility] [id number], [place] [address]- 6625 Apr, [facility] [id number], [place] [address]- 6119 14 Apr, 2011 [place] [address] [facility] [id number] [id number] 06 Apr, 2011 [facility] [address] [id number] [place] [address]- 7012 06 Apr, 2011 [facility] [place] [facility] [address] [id number] [place] [address]- 7576 Apr, [facility] [place] [facility] [address] [id number] [place] [address]- 2205 Mar, [facility] [place] [facility] [address] [id number] [place] [address]- 7507 Mar, [facility] [place] [facility] [address] [id number] [place] [address]- 2233 Mar, [facility] [place] [facility] [address] [id number] [place] [address]- 5541 Mar, [facility] [address] [id number] [place] [address]- 8120 Mar, [facility] [address] [id number] [place] [address]- 2498 Jan, [facility] [address] [id number] [place] [address]- 9037 Jan, [facility] [address] [id number] [place] [address]- 7607 Jan, [facility] [place] [facility] [address] [id number] [place] [address]- 2073 08 Dec, 2010 [facility] [address] [id number] [place] [address]- 0289 11 Nov, 2010 [facility] [place] [facility] [address] [id number] [place] [address]- 6131 13 Oct, 2010 [facility] [place] [facility] [address] [id number] [place] [address]- 9751 14 Jan, 2010 [facility] [place] [facility] [address] [id number] [place] [address]- 3997 15 Dec, 2009 [facility] [place] [facility] [address] [id number] [place] [address]- 7312 Nov, [facility] [address] [facility] [id number] [place] [address]- 2546 Nov, [facility] [id number] [address]- 2546 Sep, [facility] [address] [facility] [id number][place] [address]- 2546 Jan, [facility] [id number], [place] [address]- 2546 Dec, [facility] [address] [facility] [id number][place] [address]- 2546 Aug, IMMUNIZATIONS No Known Immunizations SOCIAL HISTORY Never Assessed REASON FOR VISIT Controlled Med Refill PLAN OF CARE VITAL SIGNS MEDICATIONS Medication Instructions Dosage Frequency Start Date End Date Duration Status MS Contin 30 MG Orally, every 12 hrs 1 tablet 12h Jan, 28 days Active RESULTS No Results PROCEDURES [...]
--- OUTSIDE RECORDS SUMMARY | 2017-11-17 08:59 | XMS REPORT ---
Author Author BIANCA GALARZA [facility] Address [address] [place] [address] Care Team Providers Care Automobile Radio Repairer Name Role Phone BIANCA GALARZA Unavailable PROBLEMS Type Condition ICD9-CM Code HTX71-SN Code Onset Dates Condition Status SNOMED Code Problem Reactive depression F32.9 Active 22783034 Problem Hypertension I10 Active 64881953 Problem Hyperlipidemia E78.5 Active 80063040 Problem Back pain M54.9 Active 539618039 ALLERGIES No Information SOCIAL HISTORY Never Assessed PLAN OF CARE VITAL SIGNS MEDICATIONS Medication Instructions Dosage Frequency Start Date End Date Duration Status MS Contin 30 MG Orally, every 12 hrs 1 tablet 12h Jul, 28 days Active RESULTS No Results PROCEDURES [...]
--- OUTSIDE RECORDS SUMMARY | 2017-11-17 08:59 | XMS REPORT ---
Author Author LILIBETH DUARTE Organization [facility] Address [address] [place] [address] Care Team Providers Care Mold Release Worker Name Role Phone LILIBETH DUARTE Unavailable PROBLEMS Type Condition ICD9-CM Code PNS60-BW Code Onset Dates Condition Status SNOMED Code Problem Other chronic pain G89.29 Active 85885757 Problem Reactive depression F32.9 Active 26844809 Problem Back pain M54.9 Active 803078250 Problem Hypertension I10 Active 67343201 Problem Hyperlipidemia E78.5 Active 34414344 ALLERGIES No Information ENCOUNTERS Encounter Location Date Diagnosis [place] [address] [place] [address] 06738- 8611 Jul, Back pain M54.9 and Medicare annual wellness visit, initial Z00.00 [place] [address] [place] [address] 17720- 7092 23 Jun, 2017 Back pain M54.9 [facility] [address] [place] [id number] [place] [address] 40809- 9618 23 May, 2017 Back pain M54.9 [place] [address] [place] [address] 11169- 5500 16 May, 2017 Medicare annual wellness visit, initial Z00.00 ; Hypertension I10 ; Hyperlipidemia E78.5 and Reactive depression F32.9 [facility] [address] [place] [address] 29833- 5381 Apr, Back pain M54.9 [facility] [address] [place] [id number] [place] [address] 76571- 7599 Apr, Back pain M54.9 [place] [address] [place] [id number] [place] [address] 62450- 2654 Apr, Back pain M54.9 ; Other chronic pain G89.29 and Pain in left leg M79.605 [facility] [address] 20138- 5200 Mar, Back pain M54.9 [facility] [address] 38735- 3492 Mar, Acute prostatitis N41.0 [facility] [address] 09416- 9397 Jan, Back pain M54.9 [facility] [address] 55303- 2227 Dec, Back pain M54.9 and Hypertension I10 [facility] [address] 65416- 9846 Dec, Back pain M54.9 [facility] [address] 60474- 8828 Nov, Back pain M54.9 [facility] [address] 45054- 1632 Oct, Back pain M54.9 [facility] [address] 05854- 7636 Oct, Abnormal LFTs R79.89 [place] [address] 20512- 3485 Oct, [facility] [address] 96050- 3366 Sep, Back pain M54.9 ; Acute prostatitis N41.0 ; Hypertension I10 ; Gross hematuria R31.0 and Reactive depression F32.9 [facility] [address] 94558- 6599 Sep, [facility] [address] 11244- 8666 Sep, Back pain M54.9 [facility] [address] [place] [id number] [place] [address] 08608- 7994 Aug, Back pain M54.9 [facility] [address] [place] [id number] [place] [address] 66040- 0396 Jul, Back pain M54.9 [facility] [address] [place] [id number] [place] [address] 95037- 1486 June, Back pain M54.9 [facility] [address] [place] [id number] [place] [address] 15826- 6405 June, Acute prostatitis N41.0 [facility] [address] 16972- 7180 June, Back pain M54.9 [facility] [address] [place] [id number] [place] [address] 00802- 9486 Apr, Back pain M54.9 [facility] [address] 71534- 2485 Apr, Hypertension I10 and Back pain M54.9 [facility] [address] 86956- 5546 Apr, Back pain M54.9 [facility] [address] [place] [id number] [place] [address] 74854- 9938 Apr, Back pain M54.9 and Sprain of ligaments of lumbar spine, initial encounter S33.5XXA [facility] [address] [place] [id number] [place] [address] 53971- 0633 Apr, Back pain M54.9 [facility] [address] [place] [id number] [place] [address] 68542- 5248 Mar, Acute pain of left hip M25.552 [facility] [address] [place] [id number] [place] [address] 47634- 2116 Mar, [facility] [address] 88315- 9836 Mar, Acute pain of left hip M25.552 [facility] [address] [place] [address] 28252- 2332 Mar, Back pain M54.9 [facility] [address] [place] [id number] [place] [address] 74434- 8973 Jan, Reactive depression F32.9 [facility] [address] [place] [id number] [place] [address] 77653- 3737 Jan, Back pain M54.9 ; Hypertension I10 and Reactive depression F32.9 [facility] [address] [place] [id number] [place] [address] 89286- 0102 Jan, Back pain M54.9 [facility] [address] [place] [id number] [place] [address] 06112- 3651 Dec, [facility] [address] [place] [id number] [place] [address] 10472- 3421 Dec, [facility] [address] [place] [id number] [place] [address] 61222- 4924 Nov, [facility] [address] [place] [id number] [place] [address] 05995- 0209 Oct, [facility] [address] [place] [address] 91350- 4979 Oct, [facility] [address] [place] [address] 97300- 9547 16 Nov, 2015 [facility] [address] [place] [address] 10418- 2724 Sep, [facility] [address] [place] [id number] [place] [address] 54935- 0943 Sep, [facility] [address] [place] [address] 10189- 5358 Sep, Visit for TB skin test Z11.1 ; Back pain M54.9 and Hypertension I10 [facility] [address] [place] [id number] [place] [address] 72424- 2677 Aug, Back pain M54.9 [facility] [address] [place] [id number] [place] [address] 31323- 1214 Jul, Back pain M54.9 [facility] [address] [place] [address] 42345- 3587 Jul, [facility] [address] [place] [id number] [place] [address] 46236- 3956 Jul, [facility] [address] [place] [id number] [place] [address] 04617- 2751 Jul, Back pain M54.9 [facility] [address] [place] [id number] [place] [address] 83539- 4667 May, Back pain M54.9 [facility] [address] [place] [id number] [place] [address] 94762- 3108 May, Back pain M54.9 ; Hypertension I10 and Eczema L30.9 [facility] [address] [place] [id number] [place] [address] 09566- 4234 Apr, Back pain M54.9 [facility] [address] [place] [id number] [place] [address] 80670- 1537 Apr, Back pain M54.9 [facility] [address] [place] [id number] [place] [address] 27435- 8883 Apr, [facility] [address] [place] [id number] [place] [address] 50171- 7061 Mar, Back pain M54.9 [facility] [address] [place] [id number] [place] [address] 93084- 0683 Jan, [facility] [address] [place] [id number] [place] [address] 50842- 5906 Jan, Dyspepsia R10.13 [facility] [address] [place] [id number] [place] [address] 52869- 2593 Jan, [facility] [address] [facility] [id number] [address]- 7487 Jan, [facility] [address] [id number] 8750 Dec, Back pain M54.9 and Hyperlipidemia E78.5 [facility] [address] [id number] [address]- 7542 Dec, [facility] [address] [id number] [address]- 5276 Nov, [facility] [address] [id number] 9365 Oct, [facility] [address] [id number] 8364 Sep, [facility] [address] [id number][place] [address]- 6522 Sep, [facility] [address] [id number] [address]- 7218 Sep, Lumbar strain 847.2 [facility] [address] [address]- 2746 Aug, [facility] [address] [address]- 3635 Aug, [facility] [address] [id number] [address]- 8449 Aug, [facility] [address] [id number][place] [id number] Jul, Dental examination V72.2 [facility] [address] [id number] [address]- 9496 Jul, [facility] [address] [id number] [address]- 4225 Jul, Acute bronchitis 466.0 and Lumbar strain 847.2 [facility] [address] [id number][place] [address]- 8844 Jul, [facility] [address] [id number][place] [address]- 2026 Jul, [facility] [address] [address]- 4481 June, Acute bronchitis 466.0 and Lumbar strain 847.2 [facility] [address] [id number] [address]- 1579 June, [facility] [address] [id number][place] [address]- 4530 June, [facility] [address] [address]- 9080 June, [facility] [address] [address]- 7369 May, [facility] [address] [address]- 9507 May, [facility] [address] [place] [id number] [address]- 3065 Apr, [facility] [address] [address]- 7982 Apr, [facility] [address] [address]- 5430 Apr, [facility] [address] [address]- 1592 Apr, [facility] [address] [facility] [id number][place] [address]- 7412 Apr, [facility] [address] [facility] [id number][place] [address]- 7928 Apr, [facility] [address] [place] [address] [id number] [address]- 2902 15 Apr, 2011 [facility] [address] [address]- 1571 14 Apr, 2011 [facility] [address] [id number][place] [id number] Apr, [facility] [address] [facility] [id number][place] [address]- 7816 06 Apr, 2011 [facility] [address] [facility] [id number] [place] [address]- 8346 Apr, [facility] [address] [facility] [id number][place] [address]- 2314 Mar, [facility] [address] [id number] [place] [address]- 3642 Mar, [facility] [address] [facility] [id number][place] [address]- 6478 Mar, [facility] [address] [place] [id number] [address]- 6732 Mar, [facility] [address] [place] [id number] [address]- 9162 Mar, [facility] [address] [place] [id number] [address]- 1940 Jan, [facility] [address] [place] [id number] [address]- 8925 Jan, [facility] [address] [place] [address] [id number] [address]- 2634 12 Jan, 2011 [facility] [place] [facility] [address] [facility] [id number] [address]- 9016 08 Dec, 2010 [facility] [place] [facility] [address] [facility] [id number][place] [address]- 2059 11 Nov, 2010 [facility] [place] [facility] [address] [facility] [id number] [address]- 8115 13 Oct, 2010 [facility] [place] [facility] [address] [facility] [id number][place] [address]- 5840 14 Jan, 2010 [facility] [place] [facility] [address] [place] [address] [id number] [address]- 3686 15 Dec, 2009 [facility] [address] [address] [id number] [address]- 4138 15 Nov, 2009 [facility] [address] [place] [address] [id number] [address]- 2329 Nov, [facility] [address] [place] [address] [id number] [address]- 5080 Sep, [facility] [address] [address] [id number] [address]- 0554 Jan, [facility] [address] [address]- 3105 Dec, [facility] [address] [place] [address] [id number] [address]- 4502 10 Aug, 2008 IMMUNIZATIONS No Known Immunizations SOCIAL HISTORY Never Assessed REASON FOR VISIT Triage PLAN OF CARE VITAL SIGNS MEDICATIONS Medication Instructions Dosage Frequency Start Date End Date Duration Status Bactrim DS 800-160 MG Orally Twice a day 1 tablet 12h 12 Jun, 2016 7 Apr, 2017 14 days Active RESULTS No Results PROCEDURES No [...]
--- OUTSIDE RECORDS SUMMARY | 2017-11-17 08:59 | XMS REPORT ---
Author Author BIANCA GALARZA [facility] eClinicalWorks Address Unknown Phone Unavailable Care Team Providers Care Blow Mold Operator Name Role Phone BIANCA GALARZA CP Unavailable Allergies, Adverse Reactions, Alerts Substance Reaction Event Type Reglan Info Not Available Drug Allergy Problems Problem Type Condition Code Onset Dates Condition Status Problem Hypertension I10 Active Problem Hyperlipidemia E78.5 Active Problem Back pain M54.9 Active Assessment Eczema L30.9 Active Assessment Back pain M54.9 Active Assessment Hypertension I10 Active Medications Medication Code System Code Instructions Start Date End Date Status Dosage Gemfibrozil FORMERLY NAMED [facility] 96327349168 600 MG TAKE ONE TABLET BY MOUTH TWICE DAILY BuPROPion HCl (SR) FORMERLY NAMED [facility] 85204870712 150 MG TAKE ONE TABLET BY MOUTH ONCE DAILY Wellbutrin SR FORMERLY NAMED [facility] [address]-92 150 MG Orally Apr 14, 2014 1 Tablet Cymbalta FORMERLY NAMED [facility] 76538002280 60 MG TAKE ONE CAPSULE BY MOUTH TWICE DAILY MS Contin FORMERLY NAMED [facility] [address]-06 30 MG Orally, every 12 hrs May 11, 2014 1 tablet Meloxicam FORMERLY NAMED [facility] 18052467075 15 MG TAKE ONE TABLET BY MOUTH ONCE DAILY Nexium ND 73433584883 40 MG Orally Once a day 1 capsule ProAir HFA FORMERLY NAMED [facility] [address]-09 108 (90 Base) MCG/ACT Inhalation every 4 hrs August 03, 2014 2 puffs as needed Triamcinolone Acetonide FORMERLY NAMED [facility] [address]-01 0.1 % Externally Twice a day June 08, 2015 1 application to affected area Amitriptyline HCl ND 54611956079 25 MG TAKE ONE TABLET BY MOUTH ONCE DAILY Pravastatin Sodium ND 56800308177 40 MG TAKE ONE TABLET BY MOUTH ONCE DAILY Viagra ND 32794696616 100 Orally Once a day 1 tablet as needed Procedures Procedure Coding System Code Date Office Visit, Est Pt., Level 3 CPT-4 72941 June 08, 2015 [facility] VISIT ESTABLISHED PATIENT CPT-4 G0467 June 08, 2015 Vital Signs Date/Time: June 08, 2015 Temperature 98.1 F Weight 203 lbs Height 72 in BMI 27.53 Index Blood Pressure Diastolic 90 mmHg Blood Pressure Systolic 178 mmHg Cardiac Monitoring Heart Rate 100 bpm Results No Known Results Summary Purpose eClinicalWorks Submission
--- OUTSIDE RECORDS SUMMARY | 2017-11-17 08:59 | XMS REPORT ---
Author Author LILIBETH DUARTE Organization [facility] Address [address] [place] [address] Care Team Providers Care Second Butler Name Role Phone LILIBETH DUARTE Unavailable PROBLEMS Type Condition ICD9-CM Code JQC11-CK Code Onset Dates Condition Status SNOMED Code Problem Other chronic pain G89.29 Active 44546863 Problem Reactive depression F32.9 Active 38144898 Problem Back pain M54.9 Active 227394968 Problem Hypertension I10 Active 65710089 Problem Hyperlipidemia E78.5 Active 80020688 ALLERGIES No Information ENCOUNTERS Encounter Location Date Diagnosis [place] [id number] [place] [address] 24357- 3478 Jul, Back pain M54.9 and Medicare annual wellness visit, initial Z00.00 [place] [id number] [place] [address] 92831- 2565 23 Jun, 2017 Back pain M54.9 [facility] [address] [place] [id number] [place] [address] 79026- 5103 23 May, 2017 Back pain M54.9 [place] [id number] [place] [address] 60652- 7801 16 May, 2017 Medicare annual wellness visit, initial Z00.00 ; Hypertension I10 ; Hyperlipidemia E78.5 and Reactive depression F32.9 [facility] [id number] [place] [address] 93072- 4720 Apr, Back pain M54.9 [facility] [id number] [place] [address] 33175- 9509 Apr, Back pain M54.9 [place] [address] [place] [id number] [place] [address] 68784- 0093 Apr, Back pain M54.9 ; Other chronic pain G89.29 and Pain in left leg M79.605 [facility] [address] 52373- 8210 Mar, Back pain M54.9 [facility] [address] 26193- 4540 Mar, Acute prostatitis N41.0 [facility] [address] 29419- 8706 Jan, Back pain M54.9 [facility] [address] 36766- 0157 Dec, Back pain M54.9 and Hypertension I10 [facility] [address] 27882- 6344 Dec, Back pain M54.9 [facility] [address] 28534- 9595 Nov, Back pain M54.9 [facility] [address] 47339- 9261 Oct, Back pain M54.9 [facility] [address] 43511- 2157 Oct, Abnormal LFTs R79.89 [place] [address] 10035- 1224 Oct, [facility] [address] 78241- 1511 Sep, Back pain M54.9 ; Acute prostatitis N41.0 ; Hypertension I10 ; Gross hematuria R31.0 and Reactive depression F32.9 [facility] [address] 07755- 7621 Sep, [facility] [address] 66884- 7700 Sep, Back pain M54.9 [facility] [address] [id number] [place] [address] 10801- 3987 Aug, Back pain M54.9 [facility] [id number] [place] [address] 34396- 7266 Jul, Back pain M54.9 [facility] [id number] [place] [address] 60487- 6126 June, Back pain M54.9 [facility] [id number] [place] [address] 38185- 2681 June, Acute prostatitis N41.0 [facility] [address] 34452- 7701 June, Back pain M54.9 [facility] [id number] [place] [address] 54736- 4879 Apr, Back pain M54.9 [facility] [address] 23996- 7586 Apr, Hypertension I10 and Back pain M54.9 [facility] [address] 15759- 5803 Apr, Back pain M54.9 [facility] [id number] [place] [address] 03632- 9543 Apr, Back pain M54.9 and Sprain of ligaments of lumbar spine, initial encounter S33.5XXA [facility] [address] [id number] [place] [address] 22776- 8917 Apr, Back pain M54.9 [facility] [id number] [place] [address] 16243- 3038 Mar, Acute pain of left hip M25.552 [facility] [address] [id number] [place] [address] 67032- 9234 Mar, [facility] [address] 28812- 3905 Mar, Acute pain of left hip M25.552 [facility] [id number] [place] [address] 95346- 0024 Mar, Back pain M54.9 [facility] [address] [id number] [place] [address] 47590- 0419 Jan, Reactive depression F32.9 [facility] [address] [id number] [place] [address] 63339- 2216 Jan, Back pain M54.9 ; Hypertension I10 and Reactive depression F32.9 [facility] [address] [place] [id number] [place] [address] 17586- 4904 Jan, Back pain M54.9 [facility] [address] [id number] [place] [address] 67441- 4262 Dec, [facility] [address] [id number] [place] [address] 20242- 9797 Dec, [facility] [address] [id number] [place] [address] 12565- 4265 Nov, [facility] [id number] [place] [address] 84501- 1078 Oct, [facility] [id number] [place] [address] 48676- 8502 Oct, [facility] [address] [place] [address] 33296- 6098 16 Nov, 2015 [facility] [id number] [place] [address] 60227- 8076 Sep, [facility] [address] [id number] [place] [address] 17521- 8853 Sep, [facility] [address] [place] [address] 99422- 0155 Sep, Visit for TB skin test Z11.1 ; Back pain M54.9 and Hypertension I10 [facility] [address] [place] [id number] [place] [address] 07340- 2982 Aug, Back pain M54.9 [facility] [id number] [place] [address] 60130- 1688 Jul, Back pain M54.9 [facility] [address] [place] [address] 26477- 0434 Jul, [facility] [address] [id number] [place] [address] 89599- 2639 Jul, [facility] [address] [id number] [place] [address] 72875- 1684 Jul, Back pain M54.9 [facility] [address] [id number] [place] [address] 48341- 7220 May, Back pain M54.9 [facility] [address] [id number] [place] [address] 97670- 7227 May, Back pain M54.9 ; Hypertension I10 and Eczema L30.9 [facility] [address] [place] [id number] [place] [address] 25607- 6476 Apr, Back pain M54.9 [facility] [address] [id number] [place] [address] 22427- 6209 Apr, Back pain M54.9 [facility] [address] [place] [id number] [place] [address] 09652- 5029 Apr, [facility] [id number] [place] [address] 74575- 6479 Mar, Back pain M54.9 [facility] [id number] [place] [address] 26885- 4867 Jan, [facility] [id number] [place] [address] 55202- 4160 Jan, Dyspepsia R10.13 [facility] [address] [id number] [place] [address] 00201- 1191 Jan, [facility] [address] [facility] [id number] [address]- 3708 Jan, [facility] [id number] [address] [place] [address]24 Dec, Back pain M54.9 and Hyperlipidemia E78.5 [facility] [address] [id number] [address]- 3675 Dec, [facility] [address] [id number] [address]- 0562 Nov, [facility] [id number] [address] [place] 6257 Oct, [facility] [id number] [address] [place] 3358 Sep, [facility] [address] [id number] [address]- 6406 Sep, [facility] [address] [id number] [address]- 0242 Sep, Lumbar strain 847.2 [facility] [address] [address]- 4341 Aug, [facility] [address] [address]- 9468 Aug, [facility] [address] [id number] [address]- [address] Aug, [facility] [id number] COURT [place] [id number] Jul, Dental examination V72.2 [facility] [address] [id number] [address]- 5202 Jul, [facility] [address] [id number] [address]- 2845 Jul, Acute bronchitis 466.0 and Lumbar strain 847.2 [facility] [address] [id number] [address]- 0083 Jul, [facility] [address] [id number] [address]- 0711 Jul, [facility] [address] [address]- 7592 June, Acute bronchitis 466.0 and Lumbar strain 847.2 [facility] [address] [id number] [address]- 6695 June, [facility] [address] [id number] [address]- 0355 June, [facility] [address] [address]- 2592 June, [facility] [address] [address]- 0260 May, [facility] [address] [address]- 2369 May, [facility] [address] [place] [id number] [address]- 4556 Apr, [facility] [address] [address]- 3550 Apr, [facility] [address] [address]- 2733 Apr, [facility] [address] [address]- 8578 Apr, [facility] [address] [facility] [id number] [address]- 1208 Apr, [facility] [address] [facility] [id number] [address]- 8670 Apr, [facility] [address] [place] [id number] [address]- 2101 15 Apr, 2011 [facility] [address] [address]- 3068 14 Apr, 2011 [facility] [address] [id number] [place] [id number] Apr, [facility] [address] [facility] [id number] [place] [address]- 0656 06 Apr, 2011 [facility] [address] [facility] [id number] [place] [address]- 3456 Apr, [facility] [address] [facility] [id number] [address]- 4382 Mar, [facility] [address] [id number] [place] [address]- 8583 Mar, [facility] [address] [facility] [id number] [address]- 5874 Mar, [facility] [address] [place] [place] [id number] [address]- 4174 Mar, [facility] [address] [place] [id number] [address]- 7847 Mar, [facility] [address] [place] [id number] [address]- 5894 Jan, [facility] [address] [id number] [address]- 7083 Jan, [facility] [address] [id number] [address]- 4617 12 Jan, 2011 [facility] [place] [facility] [address] [facility] [id number] [place] [address]- 2225 08 Dec, 2010 [facility] [place] [facility] [address] [facility] [id number] [address]- 8502 11 Nov, 2010 [facility] [place] [facility] [address] [facility] [id number] [address]- 9029 13 Oct, 2010 [facility] [place] [facility] [address] [facility] [id number] [address]- 8302 14 Jan, 2010 [facility] [place] [facility] [id number] [address]- 8546 15 Dec, 2009 [facility] [address] [id number] [address]- 0938 15 Nov, 2009 [facility] [address] [address]- 1166 Nov, [facility] [address] [place] [place] [id number] [address]- 2282 Sep, [facility] [address] [address]- 6579 Jan, [facility] [address] [address]- 0641 Dec, [facility] [address] [id number] [address]- 9401 10 Aug, 2008 IMMUNIZATIONS No Known Immunizations SOCIAL HISTORY Never Assessed REASON FOR VISIT Controlled Refill Request PLAN OF CARE VITAL SIGNS MEDICATIONS Medication Instructions Dosage Frequency Start Date End Date Duration Status MS Contin 30 MG Orally, every 12 hrs 1 tablet 12h 25 Mar, 2017 28 days Active RESULTS No Results [...]
--- OUTSIDE RECORDS SUMMARY | 2017-11-17 08:59 | XMS REPORT ---
Author Author BIANCA GALARZA Organization [facility] Address [address] [place] [address] Care Team Providers Care Housekeeping/Laundry Name Role Phone BIANCA GALARZA Unavailable PROBLEMS Type Condition ICD9-CM Code FDL83-CT Code Onset Dates Condition Status SNOMED Code Problem Other chronic pain G89.29 Active 46261833 Problem Reactive depression F32.9 Active 55579266 Problem Back pain M54.9 Active 937007048 Problem Hypertension I10 Active 78710175 Problem Hyperlipidemia E78.5 Active 74102646 ALLERGIES No Information ENCOUNTERS Encounter Location Date Diagnosis [place] [address] [address] May, Medicare annual wellness visit, initial Z00.00 [place] [address] [place] [id number] [place] [address] 29010- 6600 Apr, Back pain M54.9 [place] [address] [address]- [address]27 Apr, Back pain M54.9 [facility] [address] [place] [id number] [place] [address] 57030- 6341 Apr, Back pain M54.9 ; Other chronic pain G89.29 and Pain in left leg M79.605 [facility] [id number] [place] [address] 71115- 4243 Mar, Back pain M54.9 [facility] [address] [address]- 1606 Mar, Acute prostatitis N41.0 [facility] [address] [place] [id number] [place] [address] 26545- 0627 Jan, Back pain M54.9 [facility] [address] [place] [id number] [place] [address] 16361- 3674 27 Dec, 2016 Back pain M54.9 and Hypertension I10 [facility] [address] [place] [id number] [place] [address] 92541- 5409 15 Dec, 2016 Back pain M54.9 [facility] [address] [place] [id number] [place] [address] 17738- 9546 18 Nov, 2016 Back pain M54.9 [facility] [address] 40275- 7569 22 Oct, 2016 Back pain M54.9 [facility] [address] 03544- 6369 19 Oct, 2016 Abnormal LFTs R79.89 [facility] [address] [address]- 4229 Oct, [facility] [address] 20697- 0238 Sep, Back pain M54.9 ; Acute prostatitis N41.0 ; Hypertension I10 ; Gross hematuria R31.0 and Reactive depression F32.9 [facility] [address] [place] [id number] [place] [address] 85962- 8176 Sep, [facility] [address] [place] [id number] [place] [address] 05340- 8590 Sep, Back pain M54.9 [facility] [address] [place] [id number] [place] [address] 78025- 3912 Aug, Back pain M54.9 [facility] [address] [place] [id number] [place] [address] 82504- 3914 Jul, Back pain M54.9 [facility] [address] [place] [id number] [place] [address] 07568- 6670 June, Back pain M54.9 [facility] [address] [place] [id number] [place] [address] 39031- 3479 June, Acute prostatitis N41.0 [facility] [address] [place] [id number] [place] [address] 11627- 3368 June, Back pain M54.9 [facility] [address] [place] [id number] [place] [address] 82994- 8546 Apr, Back pain M54.9 [facility] [address] [place] [id number] [place] [address] 33209- 4041 Apr, Hypertension I10 and Back pain M54.9 [facility] [address] [place] [id number] [place] [address] 93326- 1005 Apr, Back pain M54.9 [facility] [address] [place] [id number] [place] [address] 53214- 2563 Apr, Back pain M54.9 and Sprain of ligaments of lumbar spine, initial encounter S33.5XXA [facility] [address] [address]- 1978 Apr, Back pain M54.9 [facility] [address] [place] [id number] [place] [address] 78330- 6665 Mar, Acute pain of left hip M25.552 [facility] [address] [place] [id number] [place] [address] 67141- 3892 Mar, [facility] [address] [place] [id number] [place] [address] 66572- 0162 Mar, Acute pain of left hip M25.552 [facility] [address] [place] [id number] [place] [address] 48341- 5623 Mar, Back pain M54.9 [facility] [address] [place] [id number] [place] [address] 28154- 9026 Jan, Reactive depression F32.9 [facility] [address] [place] [id number] [place] [address] 87479- 2546 Jan, Back pain M54.9 ; Hypertension I10 and Reactive depression F32.9 [facility] [address] [facility] [id number] [address]- 0638 Jan, Back pain M54.9 [facility] [address] [facility] [id number] [address]- 8292 Dec, [facility] [address] [id number] [address]- 2616 Dec, [facility] [address] [facility] [id number] [place] [address] 63326- 8574 Nov, [facility] [address] [facility] [id number] [place] [address] 16042- 7156 Oct, [facility] [address] [place] [id number] [place] [address] 25966- 0358 Oct, [facility] [address] [place] [id number] [place] [address] 74517- 6624 Oct, [facility] [address] [place] [address] 47659- 5945 Sep, [facility] [address] [place] [address] 21144- 0693 Sep, [facility] [address] [address]- 9520 Sep, Visit for TB skin test Z11.1 ; Back pain M54.9 and Hypertension I10 [facility] [address] [address]- 5476 Aug, Back pain M54.9 [facility] [address] [id number] [address]- 6493 Jul, Back pain M54.9 [facility] [address] [id number] [address]- 8671 Jul, [facility] [address] [address]- 5434 Jul, [facility] [address] [place] [id number] [place] [address] 41635- 0173 Jul, Back pain M54.9 [facility] [address] 93410- 9306 May, Back pain M54.9 [facility] [address] [place] [id number] [place] [address] 14783 2547 May, Back pain M54.9 ; Hypertension I10 and Eczema L30.9 [facility] [address] [place] [id number] [place] [address] 00192 254 Apr, Back pain M54.9 [facility] [address] 02916- 2063 Apr, Back pain M54.9 [facility] [address] 60181- 5206 Apr, [facility] [address] 85351- 0553 Mar, Back pain M54.9 [facility] [address] [place] [id number] [place] [address] 75611- 3484 Jan, [facility] [address] [place] [id number] [place] [address] 08179- 9434 Jan, Dyspepsia R10.13 [facility] [address] [place] [id number] [place] [address] 18738 2544 Jan, [facility] [address] [place] [id number] [place] [address] 38004- 2543 Jan, [facility] [address] [place] [id number] [place] [address] 91147- 8214 Dec, Back pain M54.9 and Hyperlipidemia E78.5 [facility] [address] [place] [id number] [place] [address] 99883- 254 Dec, [facility] [address] [place] [id number] [place] [address] 11079- 8751 Nov, [facility] [address] [id number] [address]- 8751 Oct, [facility] [address] [id number] [address]- 9107 Sep, [facility] [address] [id number] [address]- 4071 Sep, [facility] [address] [id number] [address]- 8903 Sep, Lumbar strain 847.2 [facility] [address] [id number] [place] [address]- 7407 Aug, [facility] [address] [id number] [address]- 7152 Aug, [facility] [address] [id number] [address]- 4725 Aug, [facility] [address] [id number] [place] [address] Jul, Dental examination V72.2 [facility] [address] [id number] [address]- 2011 Jul, [facility] [address] [id number] [address]- 7771 Jul, Acute bronchitis 466.0 and Lumbar strain 847.2 [facility] [address] [id number] [place] [address]- 8483 Jul, [facility] [address] [id number] [address]- 0021 Jul, [facility] [address] [id number] [place] [address]- 3788 June, Acute bronchitis 466.0 and Lumbar strain 847.2 [facility] [address] [id number] [address]- 9004 June, [facility] [address] [id number] [place] [address]- 3614 June, [facility] [address] [id number] [place] [address]- 0064 June, [facility] [address] [id number] [place] [address]482 14 May, 2014 [facility] [address] [id number] [place] [address]- 2145 May, [facility] [address] [id number] [place] [address]- 0915 Apr, [facility] [address] [id number] [place] [address]- 6290 Apr, [facility] [address] [facility] [id number] [place] [address]- 4819 Apr, [facility] [address] [place] [address]- 6374 Apr, [facility] [address] [facility] [id number] [place] [address]- 4935 Apr, [facility] [address] [place] [address]- 5272 Apr, [facility] [address] [place] [id number] [place] [address]- 1788 15 Apr, 2011 [facility] [address] [place] [id number] [place] [address]- 2316 14 Apr, [address] [facility] [address] [id number] Apr, [facility] [address] [place] [id number] [place] [address]- 8316 Apr, [facility] [place] [facility] [address] [facility] [id number] [place] [address]- 3336 Apr, [facility] [address] [address] [id number] [address]- 2737 Mar, [facility] [place] [facility] [address] [id number] [place] [address]- 9390 Mar, [facility] [place] [facility] [address] [id number] [place] [address]- 0731 Mar, [facility] [place] [facility] [address] [id number] [place] [address]- 4493 16 Mar, 2011 [facility] [place] [facility] [address] [id number] [place] [address]- 4949 Mar, [facility] [place] [facility] [address] [id number] [place] [address]- 0831 23 Jan, 2011 [facility] [place] [facility] [address] [id number] [place] [address]- 7371 13 Jan, 2011 [facility] [place] [facility] [address] [id number] [place] [address]- 9323 12 Jan, 2011 [facility] [place] [facility] [address] [id number] [place] [address]- 2316 08 Dec, 2010 [facility] [place] [facility] [address] [id number] [place] [address]- 5751 11 Nov, 2010 [facility] [place] [facility] [address] [id number] [address]- 0475 13 Oct, 2010 [facility] [place] [facility] [address] [id number] [place] [address]- 3528 14 Jan, 2010 [facility] [place] [facility] [address] [id number] [address]- 1488 15 Dec, 2009 [facility] [place] [facility] [address] [id number] [place] [address]- 2013 15 Nov, 2009 [facility] [place] [facility] [address] [id number] [place] [address]- 8039 15 Nov, 2009 [facility] [place] [facility] [address] [id number] [place] [address]- 8362 11 Sep, 2009 [facility] [place] [facility] [address] [id number] [place] [address]89 Jan, [facility] [address] [facility] [id number] [place] [address]- 5115 Dec, [facility] [address] [facility] [id number] [address]- 2996 Aug, IMMUNIZATIONS No Known Immunizations SOCIAL HISTORY Never Assessed REASON FOR VISIT Morphine 09/25 PLAN OF CARE VITAL SIGNS MEDICATIONS Medication Instructions Dosage Frequency Start Date End Date Duration Status MS Contin 30 MG Orally, every 12 hrs 1 tablet 12h 27 Aug, 2016 28 days Active RESULTS No Results [...]
[2017-11-17] MEDS ORDERED: ceFAZolin 2 GM IV Premixed 50 ML IV ONE (09:00)
--- OUTSIDE RECORDS SUMMARY | 2017-11-17 09:00 | XMS REPORT ---
Author Author BIANCA GALARZA Organization [facility] Address [address] [place] [address] Care Team Providers Care Boom Truck Driver Name Role Phone BIANCA GALARZA Unavailable PROBLEMS Type Condition ICD9-CM Code [id number] Code Onset Dates Condition Status SNOMED Code Problem Other chronic pain G89.29 Active 54855271 Problem Reactive depression F32.9 Active 97221843 Problem Back pain M54.9 Active 210099301 Problem Hypertension I10 Active 18811809 Problem Hyperlipidemia E78.5 Active 48743608 ALLERGIES No Information ENCOUNTERS Encounter Location Date Diagnosis [place] [address] [address] May, Back pain M54.9 [place] [address] [place] [id number] [place] [address] 79109- 7288 May, Medicare annual wellness visit, initial Z00.00 ; Hypertension I10 ; Hyperlipidemia E78.5 and Reactive depression F32.9 [place] [id number] [place] [address] 47564- 5583 Apr, Back pain M54.9 [place] [address] [place] [id number] [place] [address] 35675- 9712 Apr, Back pain M54.9 [place] [address] [place] [id number] [place] [address] 99922- 5490 Apr, Back pain M54.9 ; Other chronic pain G89.29 and Pain in left leg M79.605 [place] [address] [place] [id number] [place] [address] 89828- 4873 Mar, Back pain M54.9 [place] [address] [place] [id number] [place] [address] 83981- 2435 Mar, Acute prostatitis N41.0 [facility] [address] [place] [id number] [place] [address] 58128- 5969 Jan, Back pain M54.9 [facility] [address] [place] [id number] [place] [address] 46886- 0730 Dec, Back pain M54.9 and Hypertension I10 [facility] [address] [address]- 4530 Dec, Back pain M54.9 [facility] [address] [place] [id number] [place] [address] 98681- 2218 Nov, Back pain M54.9 [facility] [address] [place] [id number] [place] [address] 14885- 1294 Oct, Back pain M54.9 [facility] [address] [place] [id number] [place] [address] 04239- 5825 Oct, Abnormal LFTs R79.89 [facility] [address] [place] [id number] [place] [address] 66948- 9446 Oct, [facility] [address] [place] [id number] [place] [address] 83177- 3683 Sep, Back pain M54.9 ; Acute prostatitis N41.0 ; Hypertension I10 ; Gross hematuria R31.0 and Reactive depression F32.9 [facility] [address] [place] [id number] [place] [address] 50878- 6266 Sep, [facility] [address] [place] [id number] [place] [address] 81667- 0090 Sep, Back pain M54.9 [facility] [address] [place] [id number] [place] [address] 52589- 0793 Aug, Back pain M54.9 [facility] [address] [place] [id number] [place] [address] 83428- 9903 Jul, Back pain M54.9 [facility] [address] [place] [id number] [place] [address] 21733- 4328 June, Back pain M54.9 [facility] [address] [place] [id number] [place] [address] 25983- 1596 June, Acute prostatitis N41.0 [facility] [address] [place] [id number] [place] [address] 09356 2546 June, Back pain M54.9 [facility] [address] [place] [id number] [place] [address] 47772 2546 Apr, Back pain M54.9 [facility] [address] [place] [id number] [place] [address] 97318- 3286 Apr, Hypertension I10 and Back pain M54.9 [facility] [address] [place] [id number] [place] [address] 85740- 2546 Apr, Back pain M54.9 [facility] [address] 49531- 7555 Apr, Back pain M54.9 and Sprain of ligaments of lumbar spine, initial encounter S33.5XXA [facility] [address] [place] [id number] [place] [address] 22190- 6781 Apr, Back pain M54.9 [facility] [address] [place] [id number] [place] [address] 27597- 0156 Mar, Acute pain of left hip M25.552 [facility] [address] [place] [id number] [place] [address] 93161 2546 Mar, [facility] [address] [place] [id number] [place] [address] 02977 2546 Mar, Acute pain of left hip M25.552 [facility] [address] [place] [id number] [place] [address] 85283 2546 Mar, Back pain M54.9 [facility] [address] [place] [id number] [place] [address] 10429- 9045 Jan, Reactive depression F32.9 [facility] [address] [facility] [id number] [place] [address] 41832- 1415 Jan, Back pain M54.9 ; Hypertension I10 and Reactive depression F32.9 [facility] [address] [facility] [id number] [place] [address] 76499- 4778 Jan, Back pain M54.9 [facility] [address] [facility] [id number] [place] [address] 58572- 7451 Dec, [facility] [address] [facility] [id number] [place] [address] 81052- 5996 Dec, [facility] [address] [place] [id number] [place] [address] 43929- 5082 Nov, [facility] [address] [place] [id number] [place] [address] 70698- 3872 Oct, [facility] [address] [place] [id number] [place] [address] 86103- 9737 Oct, [facility] [address] [place] [id number] [place] [address] 89800- 9727 16 Nov, 2015 [facility] [address] [place] [id number] [place] [address] 92877- 3901 Sep, [facility] [id number] [place] [address] 55036- 5365 Sep, [facility] [address] [place] [id number] [place] [address] 85651- 2629 Sep, Visit for TB skin test Z11.1 ; Back pain M54.9 and Hypertension I10 [facility] [address] [place] [id number] [place] [address] 17517- 1195 Aug, Back pain M54.9 [facility] [address] [place] [id number] [place] [address] 38203- 5520 Jul, Back pain M54.9 [facility] [address] [place] [id number] [place] [address] 80271- 4298 Jul, [facility] [address] [place] [id number] [place] [address] 42017- 3221 Jul, [facility] [address] [place] [id number] [place] [address] 16362- 9874 Jul, Back pain M54.9 [facility] [address] 75268- 8533 May, Back pain M54.9 [facility] [address] 77405- 3160 May, Back pain M54.9 ; Hypertension I10 and Eczema L30.9 [facility] [address] [place] [id number] [place] [address] 58241- 0350 Apr, Back pain M54.9 [facility] [address] [place] [id number] [place] [address] 41363- 9733 Apr, Back pain M54.9 [facility] [address] [place] [id number] [place] [address] 88964- 1487 Apr, [facility] [address] [place] [id number] [place] [address] 44059- 2141 Mar, Back pain M54.9 [facility] [address] [place] [id number] [place] [address] 75886- 2752 Jan, [facility] [address] [place] [id number] [place] [address] 75710- 8468 Jan, Dyspepsia R10.13 [facility] [address] [place] [id number] [place] [address] 66120- 3608 Jan, [facility] [address] [place] [id number] [place] [address] 76028- 0550 Jan, [facility] [address] [place] [id number] [place] [address] 83158- 9926 Dec, Back pain M54.9 and Hyperlipidemia E78.5 [facility] [address] [id number] [address]- 0487 Dec, [facility] [address] [id number] [place] [address]- 1887 Nov, [facility] [address] [id number] [place] [address]- 9784 Oct, [facility] [address] [id number] [place] [address]- 7557 Sep, [facility] [address] [id number] [place] [address]- 0912 Sep, [facility] [address] [id number] [place] [address]- 0352 Sep, Lumbar strain 847.2 [facility] [address] [id number] [place] [address]- 3614 Aug, [facility] [address] [id number] [place] [address]- 2222 Aug, [facility] [address] [id number] [place] [address]- 2389 Aug, [facility] [address] [id number] [place] [id number] Jul, Dental examination V72.2 [facility] [address] [id number] [place] [address]- 4929 Jul, [facility] [address] [id number] [place] [address]- 2915 Jul, Acute bronchitis 466.0 and Lumbar strain 847.2 [facility] [address] [id number] [place] 7887 Jul, [facility] [address] [id number] [place] [address]- 4931 Jul, [facility] [address] [id number] [place] [address]- 8169 June, Acute bronchitis 466.0 and Lumbar strain 847.2 [facility] [address] [id number] [place] [address]- 7846 June, [facility] [address] [id number] [place] [address]- 1819 June, [facility] [address] [id number] [place] [address]- 0114 June, [facility] [address] [id number] [place] [address]- 1617 May, [facility] [address] [id number] [place] [address]- 0533 May, [facility] [address] [id number] [place] [address]- 2937 Apr, [facility] [address] [id number] [place] [address]- 2145 Apr, [facility] [address] [id number] [place] [address]- 9333 Apr, [facility] [address] [id number] [place] [address]- 1917 Apr, [facility] [address] [facility] [id number] [place] [address]- 2644 Apr, [facility] [address] [id number] [place] [address]- 1188 Apr, [facility] [address] [id number] [place] [address]- 8084 Apr, [facility] [address] [facility] [id number] [place] [address]- 2704 Apr, [facility] [address] [id number] [id number] Apr, [facility] [address] [place] [id number] [place] [address]- 8943 Apr, [facility] [place] [facility] [address] [id number] [place] [address]- 2846 02 Apr, 2011 [facility] [place] [facility] [address] [id number] [place] [address]- 0577 Mar, [facility] [place] [facility] [address] [id number] [place] [address]- 3016 Mar, [facility] [place] [facility] [address] [id number] [place] [address]- 4056 Mar, [facility] [place] [facility] [address] [id number] [place] [address]- 2386 Mar, [facility] [place] [facility] [address] [id number] [place] [address]- 2135 Mar, [facility] [place] [facility] [address] [id number] [place] [address]- 6365 Jan, [facility] [place] [facility] [address] [id number] [place] [address]- 3350 13 Jan, 2011 [facility] [place] [facility] [address] [id number] [place] [address]- 6781 12 Jan, 2011 [facility] [place] [facility] [address] [id number] [place] [address]- 2611 08 Dec, 2010 [facility] [place] [facility] [address] [id number] [place] [address]- 0253 11 Nov, 2010 [facility] [place] [facility] [address] [id number] [place] [address]- 7133 13 Oct, 2010 [facility] [place] [facility] [address] [id number] [place] [address]- 4774 14 Jan, 2010 [facility] [place] [facility] [address] [id number] [place] [address]- 1308 15 Dec, 2009 [facility] [place] [facility] [address] [id number] [place] [address]- 1856 15 Nov, 2009 [facility] [place] [facility] [address] [id number] [place] [address]- 0678 Nov, [facility] [address] [facility] [id number] [place] [address]- 3802 Sep, [facility] [address] [place] [id number] [place] [address]- 3206 Jan, [facility] [address] [place] [id number] [place] [address]- 0959 Dec, [facility] [address] [place] [id number] [place] [address]- 6048 Aug, IMMUNIZATIONS No Known Immunizations SOCIAL HISTORY Never Assessed REASON FOR VISIT Lab Results PLAN OF CARE VITAL SIGNS MEDICATIONS Unknown [...]
--- OUTSIDE RECORDS SUMMARY | 2017-11-17 09:00 | XMS REPORT ---
Author Author LILIBETH DUARTE [facility] [address] Address [address] [place] [address] Care Team Providers Care Animal Care Specialist Name Role Phone FELICIA LILIBETH Unavailable PROBLEMS Type Condition ICD9-CM Code [id number] Code Onset Dates Condition Status SNOMED Code Problem Reactive depression F32.9 Active 79839132 Problem Hypertension I10 Active 48190397 Problem Hyperlipidemia E78.5 Active 53638820 Problem Back pain M54.9 Active 772245595 ALLERGIES Substance Reaction Event Type Date Status Reglan Unknown Drug Allergy Mar, Active SOCIAL HISTORY No smoking Hx information available PLAN OF CARE VITAL SIGNS Height 72 in 2016-03-24 Weight 212 lbs 2016-03-24 Temperature 98.4 degrees Fahrenheit 2016-03-24 Heart Rate 84 bpm 2016-03-24 Respiratory Rate 18 2016-03-24 BMI 28.75 kg/m2 2016-03-24 Blood pressure systolic 160 mmHg 2016-03-24 Blood pressure diastolic 102 mmHg 2016-03-24 MEDICATIONS Medication Instructions Dosage Frequency Start Date End Date Duration Status Triamcinolone Acetonide 0.1 % Externally Twice a day 1 application to affected area 12h 08 Jun, 2015 Active BuPROPion HCl (SR) 150 MG Orally Twice a day 1 tablet 12h 30 Active Gemfibrozil 600 MG TAKE ONE TABLET BY MOUTH TWICE DAILY 30 Active Viagra 100 Orally Once a day 1 tablet as needed 24h 3 Active Cymbalta 60 MG TAKE ONE CAPSULE BY MOUTH TWICE DAILY 30 Active Amitriptyline HCl 25 MG Orally Once a day 1 tablet 24h 30 Active Meloxicam 15 MG TAKE ONE TABLET BY MOUTH ONCE DAILY 30 Active MS Contin 30 MG Orally, every 12 hrs 1 tablet 12h Mar, Active Pravastatin Sodium 40 MG TAKE ONE TABLET BY MOUTH ONCE DAILY 30 Active Nexium 40 MG Orally Once a day 1 capsule 24h 30 Active [place] 5-325 MG Orally every 6 hrs 1 tablet as needed 6h Mar, Active RESULTS Name Result Date Reference Range Xray : Hip, Left 2 views (IN HOUSE) 2016-03-24 PROCEDURES Procedure Date Ordered Related Diagnosis Body Site X-RAY EXAM HIP UNI 2-3 VIEWS Mar 24, 2016 [facility] V[facility]IT ESTABLISHED PATIENT Mar 24, 2016 Office Visit, Est Pt., Level 3 Mar 24, 2016 IMMUNIZATIONS No Known Immunizations
--- OUTSIDE RECORDS SUMMARY | 2017-11-17 09:00 | XMS REPORT ---
Author Author BIANCA GALARZA [facility] [employer] Address Unknown Phone Unavailable Care Team Providers Care Frothing Machine Operator Name Role Phone BIANCA GALARZA CP Unavailable Allergies No Known Allergies Problems Problem Type Condition Code Onset Dates Condition Status Problem Hypertension I10 Active Problem Hyperlipidemia E78.5 Active Problem Back pain M54.9 Active Medications No Known Medications Results No Known Results Summary Purpose eClinicalWorks Submission
--- OUTSIDE RECORDS SUMMARY | 2017-11-17 09:00 | XMS REPORT ---
Author Author BIANCA GALARZA Organization [facility] Address [address] [place] [address] Care Team Providers Care Barrel Tester And Drainer Name Role Phone BIANCA GALARZA Unavailable PROBLEMS Type Condition ICD9-CM Code [id number] Code Onset Dates Condition Status SNOMED Code Problem Reactive depression F32.9 Active 15788173 Problem Hypertension I10 Active 07457402 Problem Hyperlipidemia E78.5 Active 73900571 Problem Back pain M54.9 Active 466237780 ALLERGIES No Information SOCIAL HISTORY Never Assessed PLAN OF CARE VITAL SIGNS MEDICATIONS Medication Instructions Dosage Frequency Start Date End Date Duration Status Wellbutrin SR 150 MG Orally Once a day 1 Tablet 24h Apr, Active pravastatin 40 mg by oral route Once a day 1 tablet 24h Apr, Active Amitriptyline HCl 25 MG Orally Once a day 1 tablet 24h 30 Active Lopid 600 MG Orally Twice a day 1 tablet 12h Apr, Active Cymbalta 60 mg Orally Twice a day 1 capsule 12h 30 Active Meloxicam 15 MG Orally Once [...]
--- OUTSIDE RECORDS SUMMARY | 2017-11-17 09:00 | XMS REPORT ---
Author Author BIANCA GALARZA [facility] [employer] Address Unknown Phone Unavailable Care Team Providers Care Cherry Picker Operator Name Role Phone BIANCA GALARZA Unavailable Allergies No Known Allergies Problems Problem Type Condition Code Onset Dates Condition Status Problem Hypertension I10 Active Problem Hyperlipidemia E78.5 Active Problem Back pain M54.9 Active Medications Medication Code System Code Instructions Start Date End Date Status Dosage MS Contin [facility] [id number] 30 MG Orally, every 12 hrs May 11, 2014 1 tablet Results No Known Results Summary Purpose eClinicalWorks Submission
--- OUTSIDE RECORDS SUMMARY | 2017-11-17 09:00 | XMS REPORT ---
Author Author BIANCA GALARZA [facility] Address [address] [place] [address] Care Team Providers Care Fractionation Supervisor Name Role Phone BIANCA GALARZA Unavailable PROBLEMS Type Condition ICD9-CM Code [id number] Code Onset Dates Condition Status SNOMED Code Problem Back pain M54.9 Active 869956785 Problem Hypertension I10 Active 46774951 Problem Hyperlipidemia E78.5 Active 60870880 ALLERGIES Unknown Allergies SOCIAL HISTORY No smoking Hx information available PLAN OF CARE VITAL SIGNS MEDICATIONS Medication Instructions Dosage Frequency Start Date End Date Duration Status BuPROPion HCl (SR) 150 MG Orally Twice a day 1 tablet 12h 30 Active Meloxicam 15 MG TAKE ONE TABLET BY MOUTH ONCE DAILY 30 Active RESULTS No Results PROCEDURES No Known procedures IMMUNIZATIONS No Known Immunizations
--- OUTSIDE RECORDS SUMMARY | 2017-11-17 09:00 | XMS REPORT ---
Author Author BIANCA GALARZA [facility] Address [address] [place] [address] Care Team Providers Care Saw Runner Name Role Phone BIANCA GALARZA Unavailable PROBLEMS Type Condition ICD9-CM Code OMM73-CD Code Onset Dates Condition Status SNOMED Code Problem Reactive depression F32.9 Active 74947720 Problem Hypertension I10 Active 02840213 Problem Hyperlipidemia E78.5 Active 44449843 Problem Back pain M54.9 Active 462378967 ALLERGIES No Information SOCIAL HISTORY Never Assessed PLAN OF CARE VITAL SIGNS MEDICATIONS Medication Instructions Dosage Frequency Start Date End Date Duration Status MS Contin 30 MG Orally, every 12 hrs 1 tablet 12h Apr, May, 28 days Active RESULTS No Results [...]
--- OUTSIDE RECORDS SUMMARY | 2017-11-17 09:01 | XMS REPORT | Continuity of Care Document ---
Author Author [facility] Address Unknown Phone Unavailable Allergies Active Description Code Type Severity Reaction Onset Reported/Identified Relationship to Patient Clinical Status Yes Reglan Drug Allergy N/A N/A 10/10/2009 Yes metoclopramide [id number] Drug Allergy Mild N/A 03/08/2013 Medications There is no data. Problems Date Dx Coded Attending Type Code Diagnosis Diagnosed By 10/14/2007 MICHELL DURBIN, BIANCA V74.1 Screening Examination For Pulmonary Tuberculosis 10/14/2007 BIANCA GALARZA MD V74.1 Screening Examination For Pulmonary Tuberculosis 10/15/2007 MICHELL DURBIN, BIANCA 272.4 HYPERLIPIDEMIA UNSPECIFIED 10/15/2007 MICHELL DURBIN, BIANCA 272.4 HYPERLIPIDEMIA UNSPECIFIED 10/29/2007 MICHELL DURBIN, BIANCA 272.0 HYPERCHOLESTEROLEMIA PURE 10/29/2007 MICHELL DURBIN, BIANCA 465.9 Upper Respiratory Infection 10/29/2007 MICHELL DURBIN, BIANCA 272.0 HYPERCHOLESTEROLEMIA PURE 10/29/2007 MICHELL DURBIN, BIANCA 465.9 Upper Respiratory Infection 11/29/2007 MICHELL DURBIN, BIANCA 486 Pneumonia Unspecified 11/29/2007 MICHELL DURBIN, BIANCA 486 Pneumonia Unspecified 12/09/2007 BIANCA GALARZA MD 786.50 Chest Pain 12/09/2007 MICHELL DURBIN, BIANCA 786.50 Chest Pain 09/08/2008 MICHELL DURBIN, BIANCA 296.90 MOOD DISORDER 09/08/2008 MICHELL DURBIN, BIANCA 302.72 IMPOTENCE 09/08/2008 BIANCA GALARZA MD 296.90 MOOD DISORDER 09/08/2008 MICHELL DURBIN, BIANCA 302.72 IMPOTENCE 03/28/2009 MICHELL DURBIN, BIANCA V58.69 MEDICATION HIGH RISK 03/28/2009 MICHELL DURBIN, BIANCA V58.69 MEDICATION HIGH RISK 10/10/2009 BIANCA GALARZA MD 338.4 PAIN CHRONIC SYNDROME 10/10/2009 MICHELL DURBIN, BIANCA 338.4 PAIN CHRONIC SYNDROME 12/14/2009 MICHELL DURBIN, BIANCA 401.9 HYPERTENSION, UNSPECIFIED ESSENTIAL 12/14/2009 MICHELL DURBIN, BIANCA 401.9 HYPERTENSION, UNSPECIFIED ESSENTIAL 11/12/2010 MICHELL DURBIN, BIANCA 599.0 URINARY TRACT INFECTION SITE NOT SPECIFIED 11/12/2010 MICHELL DURBIN, BIANCA 599.0 URINARY TRACT INFECTION SITE NOT SPECIFIED 03/12/2011 MICHELL DURBIN, BIANCA 466.0 ACUTE BRONCHITIS 03/12/2011 MICHELL DURBIN, BIANCA 466.0 ACUTE BRONCHITIS 03/08/2013 HARRISON NUÑEZ DO Ot 562.10 03/08/2013 HARRISON NUÑEZ DO Ot V76.51 10/14/2013 GALEN DURBIN, ALEX Robert Ot V54.9 10/14/2013 GALEN DURBIN, ALEX Robert Ot V57.1 09/11/2014 HARSHAL DC, LARA Hahn Ot 722.51 09/11/2014 HARSHAL DC, LARA J Ot 722.52 09/11/2014 HARSHAL DC, LARA J Ot 737.30 09/11/2014 HARSHAL DC, LARA J Ot 756.12 09/11/2014 HARRISON NUÑEZ DO Ot V72.84 09/11/2014 LIBBY DURBIN, HARRY R Ot 786.2 09/11/2014 LIBBY DURBIN, HARRY R Ot 793.19 09/11/2014 LIBBY DURBIN, HARRY R Ot 356.9 09/11/2014 LIBBY DURBIN, HARRY R Ot 723.4 09/11/2014 LIBBY DURBIN, HARRY R Ot 353.2 09/11/2014 MICHELL DURBIN, BIANCA Ashby Ot 847.2 09/11/2014 MICHELL DURBIN, BIANCA Ashby Ot E000.8 09/11/2014 MICHELL DURBIN, BIANCA Ashby Ot E928.9 09/11/2014 MICHELL DURBIN, BIANCA Ashby Ot V57.1 09/11/2014 MICHELL DURBIN, BIANCA Ashby Ot 847.2 09/11/2014 MICHELL DURBIN, BIANCA Ashby Ot E000.8 09/11/2014 MICHELL DURBIN, BIANCA Ashby Ot E928.9 09/11/2014 MICHELL DURBIN, BIANCA Ashby Ot V57.1 09/12/2014 MICHELL DURBIN, BIANCA Ashby Ot 847.2 09/12/2014 MICHELL DURBIN, BIANCA Ashby Ot E000.8 09/12/2014 MICHELL DURBIN, BIANCA Ashby Ot E928.9 09/12/2014 MICHELL DURBIN, BIANCA Ashby Ot V57.1 10/06/2014 MICHELL DURBIN, BIANCA Ashby Ot 847.2 10/06/2014 MICHELL DURBIN, BIANCA Ashby Ot E000.8 10/06/2014 MICHELL DURBIN, BIANCA Ashby Ot E928.9 10/06/2014 MICHELL DURBIN, BIANCA Ashby Ot V57.1 11/10/2017 NUÑEZHARRISON ARIAS DO Ot Z01.818 ENCOUNTER FOR OTHER PREPROCEDURAL EXAMIN Procedures There is no data. Results Test Result Range Comp. Metabolic Panel (14) - 10/28/16 12:00 Glucose, Serum 114 mg/dL 65-99 BUN 21 mg/dL 8-27 Creatinine, Serum 0.79 mg/dL 0.76-1.27 eGFR If NonAfricn Am 94 mL/min/1.73 >59 eGFR If Africn Am 108 mL/min/1.73 >59 BUN/Creatinine Ratio 27 10-24 Sodium, Serum 138 mmol/L 134-144 Potassium, Serum 4.9 mmol/L 3.5-5.2 Chloride, Serum 94 mmol/L 96-106 Carbon Dioxide, Total 26 mmol/L 18-29 Calcium, Serum 10.5 mg/dL 8.6-10.2 Protein, Total, Serum 8.0 g/dL 6.0-8.5 Albumin, Serum 5.0 g/dL 3.6-4.8 Globulin, Total 3.0 g/dL 1.5-4.5 A/G Ratio 1.7 1.2-2.2 Bilirubin, Total 0.3 mg/dL 0.0-1.2 Alkaline Phosphatase, S 79 IU/L 39-117 AST (SGOT) 44 IU/L 0-40 ALT (SGPT) 50 IU/L 0-44 CMP - 10/28/16 12:00 Glucose, Serum 114 mg/dL 65-99 BUN 21 mg/dL 8-27 Creatinine, Serum 0.79 mg/dL 0.76-1.27 eGFR If NonAfricn Am 94 mL/min/1.73 >59 eGFR If Africn Am 108 mL/min/1.73 >59 BUN/Creatinine Ratio 27 10-24 Sodium, Serum 138 mmol/L 134-144 Potassium, Serum 4.9 mmol/L 3.5-5.2 Chloride, Serum 94 mmol/L 96-106 Carbon Dioxide, Total 26 mmol/L 18-29 Calcium, Serum 10.5 mg/dL 8.6-10.2 Protein, Total, Serum 8.0 g/dL 6.0-8.5 Albumin, Serum 5.0 g/dL 3.6-4.8 Globulin, Total 3.0 g/dL 1.5-4.5 A/G Ratio 1.7 1.2-2.2 Bilirubin, Total 0.3 mg/dL 0.0-1.2 Alkaline Phosphatase, S 79 IU/L 39-117 AST (SGOT) 44 IU/L 0-40 ALT (SGPT) 50 IU/L 0-44 Encounters ACCT No. Visit Date/Time Discharge Status Pt. Type Provider Facility Loc./Unit Complaint [id number] 05/11/2014 15:11:00 05/11/2014 23:59:59 CLS Outpatient BIANCA GALARZA MD [id number] 04/14/2014 15:46:00 04/14/2014 23:59:59 CLS Outpatient BIANCA GALARZA MD [id number] 10/29/2016 12:09:00 Document Registration [id number] 11/10/2017 05:37:00 11/10/2017 13:07:00 DIS Outpatient HARRISON NUÑEZ DO [facility] PREOP COLONOSCOPY [id number] 10/06/2014 14:37:00 10/06/2014 15:32:00 DIS Outpatient BIANCA GALARZA MD [facility] REHAB [id number] 03/16/2014 15:11:00 03/16/2014 23:59:59 CLS Outpatient HARRY SOUZA MD [facility] RAD [id number] 03/07/2014 16:50:00 03/07/2014 23:59:59 CLS Outpatient HARRY SOUZA MD [facility] RAD [id number] 02/27/2014 08:17:00 02/27/2014 23:59:59 CLS Outpatient HARRY SOUZA MD [facility] RAD [id number] 08/15/2013 15:30:00 10/14/2013 08:55:00 DIS Outpatient GALEN DURBIN, ALEX Robert [facility] REHAB [id number] 08/15/2013 10:58:00 08/15/2013 23:59:59 CLS Outpatient LIBBY DURBIN, HARRY Asencio [facility] RAD [id number] 03/08/2013 12:21:00 03/08/2013 17:25:00 DIS Outpatient HARRISON NUÑEZ DO [facility] SD [id number] 03/03/2013 09:26:00 03/03/2013 23:59:59 CLS Outpatient HARRISON NUÑEZ DO [facility] PREOP [id number] 01/17/2013 15:54:00 01/17/2013 23:59:59 CLS Outpatient LARA CAPUTO DC [facility] RAD [id number] 11/17/2017 08:45:00 PEN Preadmit HARRISON NUÑEZ DO [facility] ENDO CHANGE IN BOWEL HABITS/CONSTIPATION [id number] 06/15/2017 16:00:00 06/15/2017 23:59:59 CLS Outpatient LILIBETH DUARTE APRN [facility] [id number] 10/28/2016 10:40:00 Document Registration [id number] 10/07/2014 05:17:21 ACT Document Registration
--- OUTSIDE RECORDS SUMMARY | 2017-11-17 09:01 | XMS REPORT ---
Author Author BIANCA GALARZA Organization [employer] Address Unknown Phone Unavailable Care Team Providers Care Contract Programmer Name Role Phone BIANCA GALARZA CP Unavailable Allergies No Known Allergies Problems Problem Type Condition ICD-9 Code Onset Dates Condition Status Problem Acute bronchitis 466.0 Active Medications Medication Code System Code Instructions Start Date End Date Status Dosage pravastatin [facility] [address]-29 40 mg Apr 14, 2014 1 tablet by Oral route 1 time per day Results No Known Results Summary Purpose [employer] Submission
--- OUTSIDE RECORDS SUMMARY | 2017-11-17 09:01 | XMS REPORT ---
Author Author BIANCA GALARZA [facility] Address [address] [place] [address] Care Team Providers Care Casual Shoe Inspector Name Role Phone BIANCA GALARZA Unavailable PROBLEMS Type Condition ICD9-CM Code [id number] Code Onset Dates Condition Status SNOMED Code Problem Reactive depression F32.9 Active 77874580 Problem Back pain M54.9 Active 510809210 Problem Hypertension I10 Active 75922309 Problem Hyperlipidemia E78.5 Active 73861631 ALLERGIES Unknown Allergies SOCIAL HISTORY No smoking Hx information available PLAN OF CARE VITAL SIGNS MEDICATIONS Medication Instructions Dosage Frequency Start Date End Date Duration Status MS Contin 30 MG Orally, must be seen for more refills every 12 hrs 1 tablet 12h 15 Jan, 2016 Active RESULTS No Results PROCEDURES No Known procedures IMMUNIZATIONS No Known Immunizations
--- OUTSIDE RECORDS SUMMARY | 2017-11-17 09:01 | XMS REPORT ---
Author Author BIANCA GALARZA [facility] Address [address] [place] [address] Care Team Providers Care Gun Fitter Name Role Phone BIANCA GALARZA Unavailable PROBLEMS Type Condition ICD9-CM Code [id number] Code Onset Dates Condition Status SNOMED Code Problem Reactive depression F32.9 Active 10032995 Problem Hypertension I10 Active 52974497 Problem Hyperlipidemia E78.5 Active 31397680 Problem Back pain M54.9 Active 616697847 ALLERGIES Substance Reaction Event Type Date Status Reglan Unknown Drug Allergy Apr, Active SOCIAL HISTORY Never Assessed PLAN OF CARE Activity Details Follow Up 3 Months Reason: VITAL SIGNS Height 72 in 2016-05-13 Weight 214.3 lbs 2016-05-13 Temperature 98.7 degrees Fahrenheit 2016-05-13 Heart Rate 86 bpm 2016-05-13 Respiratory Rate 20 2016-05-13 BMI 29.06 kg/m2 2016-05-13 Blood pressure systolic 148 mmHg 2016-05-13 Blood pressure diastolic 96 mmHg 2016-05-13 MEDICATIONS Medication Instructions Dosage Frequency Start Date End Date Duration Status Triamcinolone Acetonide 0.1 % Externally Twice a day 1 application to affected area 12h May, Active pravastatin 40 mg by oral route Once a day 1 tablet 24h Apr, Active Pravastatin Sodium 40 MG TAKE ONE TABLET BY MOUTH ONCE DAILY 30 Active BuPROPion HCl (SR) 150 MG Orally Twice a day 1 tablet 12h 30 Active Meloxicam 15 MG Orally Once a day 1 tablet 24h Active Gemfibrozil 600 MG TAKE ONE TABLET BY MOUTH TWICE DAILY 30 Active Viagra 100 Orally Once a day 1 tablet as needed 24h 3 Active Wellbutrin SR 150 MG Orally Once a day 1 Tablet 24h Apr, Active Amitriptyline HCl 25 MG Orally Once a day 1 tablet 24h 30 Active Nexium 40 MG Orally Once a day 1 capsule 24h 30 Active MS Contin 30 MG Orally, every 12 hrs 1 tablet 12h 09 Apr, 2016 May, 28 days Active Cymbalta 60 mg Orally Twice a day 1 capsule 12h 30 Active RESULTS No Results PROCEDURES Procedure Date Ordered Result Body Site [facility] VISIT ESTABLISHED PATIENT May 13, 2016 IMMUNIZATIONS No Known Immunizations MEDICAL (GENERAL) HISTORY Type Description Date Medical History hyperlipidemia Medical History impotence Medical History chronic pain Medical History hypertension Medical History osteoarthritis Medical History depression Surgical History tonsillectomy Surgical History bladder surgery Surgical History spine surgery Surgical History ortho surrgeries x7 on hip, back, left leg, left wrist Hospitalization History surgeries
--- OUTSIDE RECORDS SUMMARY | 2017-11-17 09:01 | XMS REPORT ---
Author Author BIANCA GALARZA [facility] [employer] Address Unknown Phone Unavailable Care Team Providers Care Executive Chairman Name Role Phone BIANCA GALARZA CP Unavailable Allergies No Known Allergies Problems Problem Type Condition Code Onset Dates Condition Status Problem Acute bronchitis 466.0 Active Medications Medication Code System Code Instructions Start Date End Date Status Dosage MS Contin [facility] [address]-37 30 MG Orally every 12 hrs May 11, 2014 1 tablet Results No Known Results Summary Purpose [employer] Submission
--- OUTSIDE RECORDS SUMMARY | 2017-11-17 09:01 | XMS REPORT ---
Author Author BIANCA GALARZA [facility] Address [address] [place] [address] Care Team Providers Care Tape Making Machine Operator Name Role Phone BIANCA GALARZA Unavailable PROBLEMS Type Condition ICD9-CM Code [id number] Code Onset Dates Condition Status SNOMED Code Problem Reactive depression F32.9 Active 42770731 Problem Hypertension I10 Active 11169129 Problem Hyperlipidemia E78.5 Active 78795297 Problem Back pain M54.9 Active 504154880 ALLERGIES No Information SOCIAL HISTORY Never Assessed PLAN OF CARE VITAL SIGNS MEDICATIONS Medication Instructions Dosage Frequency Start Date End Date Duration Status MS Contin 30 MG Orally, every 12 hrs 1 tablet 12h Apr, Active RESULTS No Results PROCEDURES No Known [...]
--- OUTSIDE RECORDS SUMMARY | 2017-11-17 09:01 | XMS REPORT ---
Author Author BIANCA GALARZA Organization [facility] Address [address] [place] [address] Care Team Providers Care Mining Helper Name Role Phone BIANCA GALARZA Unavailable PROBLEMS Type Condition ICD9-CM Code ENZ15-WR Code Onset Dates Condition Status SNOMED Code Problem Other chronic pain G89.29 Active 67872786 Problem Reactive depression F32.9 Active 58882955 Problem Back pain M54.9 Active 876024476 Problem Hypertension I10 Active 71284667 Problem Hyperlipidemia E78.5 Active 40449288 ALLERGIES No Information ENCOUNTERS Encounter Location Date Diagnosis [place] [address] [address] May, Back pain M54.9 [place] [address] [place] [id number] [place] [address]2013- 4064 May, Medicare annual wellness visit, initial Z00.00 ; Hypertension I10 ; Hyperlipidemia E78.5 and Reactive depression F32.9 [place] [id number] [place] [address] 13781- 9721 Apr, Back pain M54.9 [place] [address] [place] [id number] [place] [address] 95794- 9858 Apr, Back pain M54.9 [place] [address] [place] [id number] [place] [address] 04992- 1042 Apr, Back pain M54.9 ; Other chronic pain G89.29 and Pain in left leg M79.605 [place] [address] [place] [id number] [place] [address] 86154- 6313 Mar, Back pain M54.9 [place] [address] [place] [id number] [place] [address] 64438- 2418 Mar, Acute prostatitis N41.0 [facility] [id number] [place] [address] 73799- 0802 Jan, Back pain M54.9 [facility] [address] [place] [id number] [place] [address] 83209- 7729 Dec, Back pain M54.9 and Hypertension I10 [facility] [address] 6[address]- 5[address] Dec, Back pain M54.9 [facility] [address] [place] [id number] [place] [address] 94815- 8280 Nov, Back pain M54.9 [facility] [address] [id number] [place] [address] 06905- 0581 Oct, Back pain M54.9 [facility] [address] [id number] [place] [address] 33713- 1041 Oct, Abnormal LFTs R79.89 [facility] [address] [id number] [place] [address] 60125- 0233 Oct, [facility] [address] [id number] [place] [address] 72723- 0655 Sep, Back pain M54.9 ; Acute prostatitis N41.0 ; Hypertension I10 ; Gross hematuria R31.0 and Reactive depression F32.9 [facility] [address] [id number] [place] [address] 62436- 2260 Sep, [facility] [address] [id number] [place] [address] 30859- 5743 Sep, Back pain M54.9 [facility] [address] [id number] [place] [address] 46410- 9809 Aug, Back pain M54.9 [facility] [address] [id number] [place] [address] 67103- 1769 Jul, Back pain M54.9 [facility] [address] [id number] [place] [address] 56589- 5911 June, Back pain M54.9 [facility] [address] [id number] [place] [address] 86206- 7906 June, Acute prostatitis N41.0 [facility] [address] [place] [id number] [place] [address] 50641 2546 June, Back pain M54.9 [facility] [address] [id number] [place] [address] 64355 2546 Apr, Back pain M54.9 [facility] [address] [place] [id number] [place] [address] 48616- 0186 Apr, Hypertension I10 and Back pain M54.9 [facility] [address] [place] [id number] [place] [address] 84387- 2546 Apr, Back pain M54.9 [facility] [address] 56393- 0400 Apr, Back pain M54.9 and Sprain of ligaments of lumbar spine, initial encounter S33.5XXA [facility] [address] [place] [id number] [place] [address] 11991- 2724 Apr, Back pain M54.9 [facility] [address] [place] [id number] [place] [address] 38942- 1026 Mar, Acute pain of left hip M25.552 [facility] [address] [place] [id number] [place] [address] 01932 2546 Mar, [facility] [address] [place] [id number] [place] [address] 02449 2546 Mar, Acute pain of left hip M25.552 [facility] [address] [id number] [place] [address] 17428 2546 Mar, Back pain M54.9 [facility] [address] [place] [id number] [place] [address] 09045- 0634 Jan, Reactive depression F32.9 [facility] [address] [facility] [id number] [place] [address] 47443- 1592 Jan, Back pain M54.9 ; Hypertension I10 and Reactive depression F32.9 [facility] [address] [facility] [id number] [place] [address] 00516- 8671 Jan, Back pain M54.9 [facility] [address] [facility] [id number] [place] [address] 99978- 7975 Dec, [facility] [address] [facility] [id number] [place] [address] 21862- 7992 Dec, [facility] [address] [place] [id number] [place] [address] 00265- 2976 Nov, [facility] [address] [place] [id number] [place] [address] 04878- 5114 Oct, [facility] [address] [id number] [place] [address] 52361- 3078 Oct, [facility] [address] [place] [id number] [place] [address] 69845- 1561 16 Nov, 2015 [facility] [address] [place] [id number] [place] [address] 09785- 7131 Sep, [facility] [address] [place] [address] 20961- 9859 Sep, [facility] [address] [place] [id number] [place] [address] 72388- 1614 Sep, Visit for TB skin test Z11.1 ; Back pain M54.9 and Hypertension I10 [facility] [address] [place] [id number] [place] [address] 94571- 6764 Aug, Back pain M54.9 [facility] [address] [place] [id number] [place] [address] 83651- 1616 Jul, Back pain M54.9 [facility] [address] [id number] [place] [address] 19496- 9652 Jul, [facility] [address] [id number] [place] [address] 00534- 4815 Jul, [facility] [address] [id number] [place] [address] 41023- 4256 Jul, Back pain M54.9 [facility] [address] 04632- 4360 May, Back pain M54.9 [facility] [address] 19740- 9260 May, Back pain M54.9 ; Hypertension I10 and Eczema L30.9 [facility] [address] [place] [id number] [place] [address] 99272- 5126 Apr, Back pain M54.9 [facility] [address] [place] [id number] [place] [address] 26331- 2937 Apr, Back pain M54.9 [facility] [address] [place] [id number] [place] [address] 97803- 9608 Apr, [facility] [address] [place] [id number] [place] [address] 51724- 6719 Mar, Back pain M54.9 [facility] [address] [place] [id number] [place] [address] 64513- 7551 Jan, [facility] [address] [place] [id number] [place] [address] 39840- 4713 Jan, Dyspepsia R10.13 [facility] [address] [place] [id number] [place] [address] 34741- 7283 Jan, [facility] [address] [place] [id number] [place] [address] 58103- 3271 Jan, [facility] [address] [place] [id number] [place] [address] 27696- 3221 Dec, Back pain M54.9 and Hyperlipidemia E78.5 [facility] [address] [id number], [place] [address]- 9720 Dec, [facility] [address] [id number], [place] [address]- 2908 Nov, [facility] [address] [id number], [place] [address]- 3187 Oct, [facility] [address] [id number], [place] [address]- 5186 Sep, [facility] [address] [id number], [place] [address]- 4764 Sep, [facility] [address] [id number], [place] [address]- 3005 Sep, Lumbar strain 847.2 [facility] [address] [id number], [place] [address]- 6240 Aug, [facility] [address] [id number], [place] [address]- 4459 Aug, [facility] [address] [id number], [place] [address]- 7196 Aug, [facility] [address] [id number] [id number] Jul, Dental examination V72.2 [facility] [address] [id number], [place] [address]- 2872 Jul, [facility] [address] [id number], [place] [address]- 4617 Jul, Acute bronchitis 466.0 and Lumbar strain 847.2 [facility] [address] [id number] 9592 Jul, [facility] [address] [id number], [place] [address]- 6243 Jul, [facility] [address] [id number], [place] [address]- 6283 June, Acute bronchitis 466.0 and Lumbar strain 847.2 [facility] [address] [id number] [place] [address]- 6202 June, [facility] [address] [id number], [place] [address]- 4179 June, [facility] [address] [id number], [place] [address]- 9802 June, [facility] [address] [id number], [place] [address]- 7318 May, [facility] [address] [id number] [place] [address]- 9576 May, [facility] [address] [id number], [place] [address]- 5534 Apr, [facility] [address] [id number], [place] [address]- 4331 Apr, [facility] [address] [id number], [place] [address]- 4312 Apr, [facility] [address] [id number], [place] [address]- 4730 Apr, [facility] [address] [facility] [id number], [place] [address]- 7003 Apr, [facility] [address] [id number], [place] [address]- 3331 Apr, [facility] [address] [id number], [place] [address]- 2008 Apr, [facility] [address] [facility] [id number], [place] [address]- 9024 Apr, [facility] [address] [id number] [id number] Apr, [facility] [address] [place] [id number], [place] [address]- 2522 Apr, [facility] [place] [facility] [address] [id number] [place] [address]- 8646 02 Apr, 2011 [facility] [place] [facility] [address] [id number] [place] [address]- 7246 Mar, [facility] [place] [facility] [address] [id number] [place] [address]- 8016 Mar, [facility] [place] [facility] [address] [id number] [place] [address]- 9896 Mar, [facility] [place] [facility] [address] [id number] [place] [address]- 0726 Mar, [facility] [place] [facility] [address] [id number] [place] [address]- 1220 Mar, [facility] [place] [facility] [address] [id number] [place] [address]- 3130 Jan, [facility] [place] [facility] [address] [id number] [place] [address]- 3235 13 Jan, 2011 [facility] [place] [facility] [address] [id number] [place] [address]- 8256 12 Jan, 2011 [facility] [place] [facility] [address] [id number] [place] [address]- 2263 08 Dec, 2010 [facility] [place] [facility] [address] [id number] [place] [address]- 9893 11 Nov, 2010 [facility] [place] [facility] [address] [id number] [place] [address]- 6469 13 Oct, 2010 [facility] [place] [facility] [address] [id number] [place] [address]- 7928 14 Jan, 2010 [facility] [place] [facility] [address] [id number] [place] [address]- 6392 15 Dec, 2009 [facility] [place] [facility] [address] [id number] [place] [address]- 2386 15 Nov, 2009 [facility] [place] [facility] [address] [id number] [place] [address]- 3908 Nov, [facility] [address] [facility] [id number], [place] [address]- 2546 Sep, [facility] [address] [facility] [id number], [place] [address]- 2546 Jan, [facility] [address] [facility] [id number], [place] [address]- 2546 Dec, [facility] [address] [place] [id number], [place] [address]- 2546 10 Aug, 2008 IMMUNIZATIONS No Known Immunizations SOCIAL HISTORY Never Assessed REASON FOR VISIT Morphine 11/21 PLAN OF CARE VITAL SIGNS MEDICATIONS Medication Instructions Dosage Frequency Start Date End Date Duration Status MS Contin 30 MG Orally, every 12 hrs 1 tablet 12h 22 Oct, 2016 28 days Active RESULTS No Results [...]
--- OUTSIDE RECORDS SUMMARY | 2017-11-17 09:01 | XMS REPORT ---
Author Author BIANCA GALARZA Organization [employer] Address Unknown Phone Unavailable Care Team Providers Care It Administrative Assistant Name Role Phone BIANCA GALARZA CP Unavailable Allergies No Known Allergies Problems Problem Type Condition Code Onset Dates Condition Status Problem Acute bronchitis 466.0 Active Medications Medication Code System Code Instructions Start Date End Date Status Dosage MS Contin [facility] [address]-79 30 MG Orally, must be seen for more refills every 12 hrs May 11, 2014 1 tablet Results No Known Results Summary Purpose [employer] Submission
[2017-11-17] MEDS ORDERED: MIDAZOLAM 2 MG/2 ML (VERSED) VIAL ONE (09:35)
[2017-11-17] MEDS ORDERED: PROPOFOL INJECTION 50 ML IV ONE (09:35)
--- NOTE | 2017-11-17 10:24 | Progress Note-Post Operative ---
Post-Operative Progess Note Surgeon (s)/Boiler Plant Operator (s) Surgeon HARRISON NUÑEZ DO Boiler Plant Operator: na Pre-Operative Diagnosis constipation, change in bowel habits Post-Operative Diagnosis diverticulosis Procedure & Operative Findings Date of Procedure 11/17/17 Procedure Performed/Findings colonoscopy Anesthesia Type per [facility] Estimated Blood Loss Estimated blood loss (mL): none Specimens/Packing Specimens Removed none HARRISON NUÑEZ DO Nov 17, 2017 10:24
--- NOTE | 2017-11-17 10:27 | Discharge Inst-Simple/Standard ---
Discharge Inst-Standard Patient Instructions/Follow Up Plan of Care/Instructions/FU: follow up as needed with Dr. Lindo Activity as Tolerated: Yes Discharge Diet: Regular Diet (high fiber) HARRISON LINDO DO Nov 17, 2017 10:27
[2017-11-17 10:30] VITALS: BP 151/79
[2017-11-17 11:10] VITALS: BP 151/79
--- NOTE | 2017-11-17 11:18 | Anesthesia-General Post-Op ---
MAC Patient Condition Mental Status/LOC: Same as Preop Cardiovascular: Satisfactory Nausea/Vomiting: Absent Respiratory: Satisfactory Pain: Controlled Complications: Absent Post Op Complications Complications None Follow Up Care/Instructions Patient Instructions None needed. Anesthesiology Discharge Order Discharge Order Patient was seen after the procedure and he was doing well, no complaints, stable vital signs, no apparent adverse anesthesia problems. MICHAEL ROMO DO Nov 17, 2017 11:18
--- NOTE | 2017-11-17 15:52 | OPERATIVE REPORT ---
DATE OF SERVICE: 11/17/2017 PREOPERATIVE DIAGNOSIS: Change in bowel habits, constipation. PROCEDURE: Colonoscopy. SURGEON: Harrison Lindo DO ANESTHESIA: Per MDA. ESTIMATED BLOOD LOSS: None. COMPLICATIONS: None. INDICATIONS: The patient is a 67-year-old male with change in bowel habits, constipation. He understands risks and benefits and wished to proceed with procedure. Consent was signed in the chart. DESCRIPTION OF PROCEDURE: The patient was taken to the endoscopy suite, placed in the left lateral recumbent position. Timeout was performed. Digital rectal exam was performed. There were no palpable polyps, masses or ulcerations. The scope was inserted in the rectum and advanced all the way to the cecum with minimal difficulty. Prep was adequate. Scope was then slowly retracted back. There were no polyps, masses or ulcerations within the cecum, ascending, transverse, descending and sigmoid colon. Throughout the left side of colon, lufjmus-tb-egrdywsw amount of diverticulosis present. Once in the rectum, scope was retroflexed noting no other pathology. Scope was returned to its normal position, slowly withdrawn until completely removed. The patient tolerated procedure well without any complications, taken to recovery room in stable condition. RECOMMENDATIONS: The patient will need repeat colonoscopy for routine guidelines. The patient recommended high fiber diet. If he has continued issues, he should be seen at that time and we will have him follow up on an as needed basis. Followup with your regular physician on a regular basis. Job ID: [id number] DocumentID: [id number] Dictated Date: 11/17/2017 10:31:29 Manufacturers Representative Date: 11/17/2017 15:52:36 Dictated By: HARRISON LINDO DO
== END 2017-11-17 11:15 | disposition home or self-care (01) ==
LOC: ENDO 08:22
PROVIDERS: ATTEND Surgery
DX: R19.4 Change in bowel habit (principal); K59.00 Constipation, unspecified; K21.9 Gastro-esophageal reflux disease without esophagitis; Z87.891 Personal history of nicotine dependence; Z79.899 Other long term (current) drug therapy

== ENCOUNTER 2018-09-17 11:23 | Inpatient (IN) | payer MEDICARE ==
[~2018-09-17] VITALS: Ht 182.9 cm; Wt 94.0 kg
[2018-09-17] VITALS (15 sets, daily range): BP systolic 109–153; BP diastolic 58–90
[2018-09-17] MEDS ORDERED: LACTATED RINGERS 1,000 ML IV ONE (11:30)
--- NOTE | 2018-09-17 11:53 | ED General ---
General Stated Complaint: SOB Source of Information: Patient Exam Limitations: No Limitations (LARA MONTES MD) History of Present Illness Date Seen by Provider: Sep 17, 2018 Time Seen by Provider: 11:33 Initial Comments Here with report of short of breath, nausea, vomiting, abdominal pain and chest pain. Onset this morning and pain became quite severe. He presented to the [facility] short of breath, diaphoretic and weak. They called EMS and sent here. EMS did establish an IV and gave him 4 mg of Zofran IV for nausea and vomiting. Patient states that his pain is central and throughout his chest as well as his back. Worse when sitting up and better when laying down. Denies diarrhea. Not had anything like this before. Arrives diaphoretic and in moderate distress. He has not had pain medicine. Was noted to be hypotensive on multiple checks. EMS has normal saline 1 L bolus running currently. She states he is actually feeling better now. He was started on prazosin for hypertension in his first dose was apparently today. Timing/Duration: 4-6 Hours, Changing Over Time Severity: Moderate, Severe Associated Systoms: Chest Pain; No Cough; Diaphoresis; No Fever/Chills; Headaches, Nausea/Vomiting, Shortness of Air, Weakness (LARA MONTES MD) Allergies and Home Medications Allergies Coded Allergies: metoclopramide (Unverified Allergy, Mild, 03/08/13) Home Medications Amitriptyline HCl 25 Mg Tablet, 25 MG PO DAILY, (Reported) Bupropion HCl 150 Mg Tablet.er, 150 MG PO DAILY, (Reported) Duloxetine HCl 60 Mg Capsule.dr, 60 MG PO BID, (Reported) Gabapentin 100 Mg Capsule, 100 MG PO TID, (Reported) Morphine Sulfate 30 Mg Cap.er.pel, 30 MG PO BID, (Reported) Omeprazole Magnesium 20 Mg Tablet.dr, 20 MG PO DAILY, (Reported) Pravastatin Sodium 40 Mg Tablet, 40 MG PO DAILY, (Reported) Patient Home Medication List Home Medication List Reviewed: Yes (LARA MONTES MD) Review of Systems Review of Systems Constitutional: see HPI; No chills, No fever EENTM: no symptoms reported Respiratory: see HPI, short of breath; No wheezing Cardiovascular: chest pain; No edema, No Hx of Intervention Gastrointestinal: abdominal pain, nausea, vomiting Genitourinary: no symptoms reported Musculoskeletal: see HPI, back pain, muscle pain Skin: no symptoms reported Psychiatric/Neurological: No Symptoms Reported (LARA MONTES MD) All Other Systems Reviewed Negative Unless Noted: Yes (LARA MONTES MD) Past Ezkdtvz-Sucuga-Rdtzss Hx Past Med/Social Hx: Reviewed Nursing Past Med/Soc Hx (LARA MONTES MD) Patient Social History Alcohol Use: Occasionally Uses Alcohol Beverage of Choice: Beer Recreational Drug Use: No Smoking Status: Former Smoker Type Used: Cigarettes Former Smoker, Quit: Nov 11, 2007 Recent Foreign Travel: No Contact w/Someone Who Travel: No Recent Hopitalizations: No (LARA MONTES MD) Immunizations Up To Date Date of Influenza Vaccine: Dec 15, 2016 (LARA MONTES MD) Seasonal Allergies Seasonal Allergies: Yes (LARA MONTES MD) Past Medical History Surgeries: Yes Orthopedic Respiratory: No Cardiac: Yes High Cholesterol, Hypertension Neurological: No Reproductive Disorders: No Sexually Transmitted Disease: No HIV/AIDS: No Gastrointestinal: Yes Gastroesophageal Reflux, Chronic Constipation Musculoskeletal: Yes Arthritis, Chronic Back Pain, Fractures Loss of Vision: Bilateral Hearing Impairment: Denies Psychosocial: Yes Anxiety, Depression Adverse Reaction/Blood Tranf: No (N/A) (LARA MONTES MD) Family Medical History Reviewed Nursing Family Hx (LARA MONTES MD) Physical Exam-Suspected Sepsis Physical Exam Vital Signs Capillary Refill : (LARA MONTES MD) Height, Weight, BMI Height: 6'1.00" Weight: 208lbs. 0.0oz. 94.768330lg; 27.4 BMI Method: General Appearance: No Apparent Distress, WD/WN HEENT: PERRL/EOMI, Pharynx Normal Neck: Non Tender, Supple Respiratory: Lungs Clear, Normal Breath Sounds Cardiovascular: Regular Rate, Rhythm, No Murmur Gastrointestinal: No Organomegaly, No Pulsatile Mass, Soft, Tenderness (suprapubic and bilateral upper quadrants) Back: Normal Inspection, No Vertebral Tenderness Extremity: Normal Inspection, Normal Range of Motion, Non Tender, No Calf Tende rness Neurologic/Psychiatric: Alert, Oriented x3 Reflexes: 1+ Knee (R), 1+ Knee (L), 1+ Ankle (R), 1+ Ankle (L) Skin: diaphoresis, pallor (LARA MONTES MD) Procedures/Interventions Lumen: triple Central Line Procedure: betadine prep, sterile drapes applied, sterile dressing applied Position: internal jugular (R) Anesthesia: local Post Position: sutured, good blood return, position confirmed w/ CXR (TORSTEN LAM APRN) Progress/Results/Core Measures Suspected Sepsis SIRS Temperature: Pulse: Respiratory Rate: Laboratory Tests 09/17/18 12:10: White Blood Count 8.2 Blood Pressure / Mean: 09/17/18 12:10: Lactic Acid Level 2.74*H Laboratory Tests 09/17/18 12:10: Creatinine 1.28, INR Comment 1.0, Platelet Count 249, Total Bilirubin 0.3 (LARA MONTES MD) Results/Orders Vital Signs/I&O Capillary Refill : (LARA MONTES MD) Progress Note : Progress Note Seen and evaluated. IV by EMS. Unable to draw from that. Patient very diaphoretic. Multiple attempts at repeat IV dye and an unsuccessful. Central line placed due to emergent conditions but patient consented. Initial blood pressure 60 systolic and that is slightly improving. Central line placement Torsten Lam APRN under ultrasound guidance. Patient does have multiple con cerning findings which may be a different etiology. Patient does have the severe abdominal pain or back pain. Bedside ultrasound done and does not elucidate aortic aneurysm in the abdomen although windows grossly obscured by a and only partial visualization of the aorta was noted by me. Patient was started on new medication and this could be allergic or action. We will get further imaging. We will go ahead and give Pepcid 20 mg IV, Solu-Medrol 125 mg IV and Benadryl 25 mg IV in case this is an allergic reaction. Full laboratory workup including blood cultures and lactic acid will be done. EKG ordered. We will get chest x-ray after central line. 1216: Concerns about possible widening of the mediastinum on chest x-ray although portable. Given his presentation and profound hypotension, we will go ahead and get CT chest, abdomen and pelvis angiogram study. I did escort patient to the CT scanner and discussed with radiologist at that time. 1245: A does not look like there is any dissection. Concerns now turned towards anaphylaxis as a cause and we will treat as such. I did discuss the case with Dr. Card at 1256: We will go ahead and give epinephrine 0.3 mg IM and see if this improves his symptoms as well. 1355: Patient is somewhat improved. Given his profound hypotension and severity of symptoms as well as if this is anaphylaxis. It is from oral medications, we will admit patient to the ICU and continue IV fluids and monitoring. All of this was discussed with the patient and family who agree. 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 We will continue that so he will not withdraw. Blood pressure currently 109/53 and heart rate of 86. Patient overall doing better. There is no findings concerning for sepsis or infectious etiology so sepsis protocol will not be pursued further at this point. He did have blood cultures drawn and lactic acid was elevated. I do believe lactic acid was elevated due to profound hypotension. Case is discussed with Dr. Buenrostro at 1308 and she accepts patient for admission for [facility]. We will admit observation status at this point with possibility for changes needed. (ALRA MONTES MD) ECG Initial ECG Impression Date: Sep 17, 2018 Initial ECG Impression Time: 11:26 Initial ECG Rate: 92 Initial ECG Rhythm: Normal Sinus (LARA MONTES MD) Diagnostic Imaging Diagonstic Imaging: Xray Plain Films/CT/US/NM/MRI: chest Comments [facility], [place] NAME: KIERSTEN GRACIA [facility] REC#: [id number] PT STATUS: REG ER : 1950 PHYSICIAN: LARA MONTES MD ADMIT DATE: 09/17/18/ER Draft Date of Exam:09/17/18 CHEST 1 VIEW, AP/PA ONLY Indication: Central line placement. Time of exam: 12:14 PM Correlation is made with prior study from 08/15/2013. Right IJ line has tip overlying the SVC. Minimal subsegmental atelectasis left base is noted. Otherwise lungs are clear. No effusion or pneumothorax is seen. Impression: Right IJ line placement. No pneumothorax is detected. Dictated on workstation # [id number] Dict: 09/17/18 1242 Trans: 09/17/18 1244 CVB [id number] Interpreted by: KALYN OMALLEY MD Electronically signed by: [facility]: CT Plain Films/CT/US/NM/MRI: chest, abdomen, pelvis Comments [facility] [place], [place] NAME: KIERSTEN GRACIA [facility] REC#: [id number] PT STATUS: REG ER : 1950 PHYSICIAN: LARA MONTES MD ADMIT DATE: 09/17/18/ER Draft Date of Exam:09/17/18 CT ANGIO CHST/ABD/PELV W PROCEDURE: CT angiography of the chest with contrast and CT abdomen and pelvis with contrast. TECHNIQUE: Multiple contiguous axial images were obtained through the chest, abdomen and pelvis after administration of intravenous contrast. Reconstructed MIP CT angiography acquisitions of the aorta were then performed. Auto Exposure Controls were utilized during the CT exam to meet ALARA standards for radiation dose reduction. INDICATION: Abdominal aortic aneurysm. FINDINGS: No comparison available. Heart size is normal. There is no pericardial effusion. The ascending aorta is normal in caliber with multiple areas of pulsation artifact but no dissection flap seen. No pulmonary embolism is seen. Heart size is normal. There are severe coronary artery calcifications. No axillary, supraclavicular or mediastinal lymphadenopathy. The abdominal aorta is normal in caliber without aneurysm. There is tortuosity of the iliac arteries without aneurysm or stenosis. The celiac, superior mesenteric artery, bilateral renal arteries and inferior mesenteric artery. Liver is steatotic. Gallbladder is normal. No focal liver lesions are seen. No biliary ductal dilation. Pancreas, spleen and adrenal glands are normal. Kidneys enhance symmetrically without focal lesion. No hydronephrosis. Urinary bladder is normal. There is a fat-containing left inguinal hernia. There are no dilated loops of large or small bowel. There is some diverticulosis without diverticulitis. No free fluid or air. No abdominal or pelvic lymphadenopathy. There has been a left total hip arthroplasty. There are no suspicious osseous lesions. IMPRESSION: 1. No evidence for acute aortic syndrome, no abdominal aortic aneurysm. Dictated on workstation # [id number] Dict: 09/17/18 1253 Trans: 09/17/18 1301 CVB [id number] Interpreted by: ALEX KEYES MD Electronically signed by: (LARA MONTES MD) Departure Communication (Admissions) Time/Spoke to Admitting Phy: 13:08 Time/Spoke to Consulting Phy: 12:56 (LARA MONTES MD) Impression Primary Impression: Anaphylaxis Qualified Codes: T78.2XXA - Anaphylactic shock, unspecified, initial encounter Additional Impression: Hypotension Qualified Codes: I95.9 - Hypotension, unspecified Disposition: 09 ADMITTED INPATIENT Condition: Stable (ERASED) Admissions Decision to Admit Reason: Admit from ER (General) Decision to Admit/Date: Sep 17, 2018 Time/Decision to Admit Time: 12:56 (LARA MONTES MD) Departure-Patient Inst. Referrals: BIANCA GALARZA MD (PCP) Primary Care Physician [facility] (Family) Primary Care Physician LARA MONTES MD Sep 17, 2018 11:53 TORSTEN LAM APRN Sep 17, 2018 12:05
--- NOTE | 2018-09-17 12:00 | NUR ---
CENTRAL LINE PLACED AT THIS TIME BY Jean Marie SYKES, PT ADALID WELL
[2018-09-17] MEDS ORDERED: FAMOTIDINE 20MG/2ML IV (PEPCID) IV STA (12:04)
[2018-09-17] MEDS ORDERED: methylPREDNISolone 125 MG (Solu-MEDROL) VIAL IV STA (12:04)
[2018-09-17] MEDS ORDERED: diphenhydrAMINE 50 MG/ML INJ (BENADRYL) IV STA (12:04)
[2018-09-17 12:26] LABS: BASOPHILS % (AUTO) 0 % (0-10); EOSINOPHILS # (AUTO) 0.1 10^3/uL (0.0-0.3); EOSINOPHILS % (AUTO) 1 % (0-10); HEMATOCRIT 34 % (40-54); HEMOGLOBIN 11.3 G/DL (13.3-17.7); LYMPHOCYTES # (AUTO) 1.4 X 10^3 (1.0-4.0); LYMPHOCYTES % (AUTO) 17 % (12-44); MEAN CORPUSCULAR HEMOGLOBIN 29 PG (25-34); MEAN CORPUSCULAR HGB CONC 33 G/DL (32-36); MEAN CORPUSCULAR VOLUME 87 FL (80-99); MONOCYTES # (AUTO) 0.6 X 10^3 (0.0-1.0); MONOCYTES % (AUTO) 8 % (0-12); NEUTROPHILS # (AUTO) 6.1 X 10^3 (1.8-7.8); NEUTROPHILS % (AUTO) 75 % (42-75); PLATELET COUNT 249 10^3/uL (130-400); RED CELL DISTRIBUTION WIDTH 14.5 % (10.0-14.5); WHITE BLOOD COUNT 8.2 10^3/uL (4.3-11.0)
[2018-09-17 12:43] LABS: ALANINE AMINOTRANSFERASE 46 U/L (0-55); ALBUMIN 4.1 GM/DL (3.2-4.5); ALKALINE PHOSPHATASE 50 U/L (40-136); BILIRUBIN,TOTAL 0.3 MG/DL (0.1-1.0); BUN/CREATININE RATIO 20; CALCIUM 9.5 MG/DL (8.5-10.1); CARBON DIOXIDE 24 MMOL/L (21-32); CHLORIDE 103 MMOL/L (98-107); CREATININE SERUM 1.28 MG/DL (0.60-1.30); GFR ESTIMATED 56; GLUCOSE 116 MG/DL (70-105); LIPASE 58 U/L (8-78); MAGNESIUM 2.1 MG/DL (1.8-2.4); POTASSIUM 3.8 MMOL/L (3.6-5.0); SODIUM 137 MMOL/L (135-145); TOTAL PROTEIN 6.4 GM/DL (6.4-8.2)
[2018-09-17 12:45] LABS: PROTHROMBIN TIME PATIENT 13.6 SEC (12.2-14.7)
--- NOTE | 2018-09-17 12:45 | Diagnostic Imaging Report ---
Indication: Central line placement. Time of exam: 12:14 PM Correlation is made with prior study from 08/15/2013. Right IJ line has tip overlying the SVC. Minimal subsegmental atelectasis left base is noted. Otherwise lungs are clear. No effusion or pneumothorax is seen. Impression: Right IJ line placement. No pneumothorax is detected. Dictated by: Dictated on workstation # [id number]
[2018-09-17] MEDS ORDERED: NS 100 ML (IVPB) BAG IV ONE (13:00)
[2018-09-17] MEDS ORDERED: HOLD METFORMIN - RECEIVED CONTRAST 20 ML VIAL IV SCH (13:00)
[2018-09-17] MEDS ORDERED: IOHEXOL 350 MG/ML 100 ML (OMNIPAQUE 350) VIAL IV ONE (13:00)
[2018-09-17] MEDS ORDERED: CATHETER FLUSH 10 ML SYR IV PRN ×2 (13:00→15:15)
--- NOTE | 2018-09-17 13:00 | NUR ---
PT STATES HE IS FEELING MUCH BETTER, SYMPTOMS DO APPEAR TO HAVE IMPROVED, PT IS NO LONGER DIAPHORETIC, PT'S BREATHING RATE HAS IMPROVED, PT SHOWS NO S/S OF DISTRESS, PT HAS NO C/O NEEDS AT THIS TIME, WILL CONTINUE TO MONITOR
--- NOTE | 2018-09-17 13:01 | Diagnostic Imaging Report ---
PROCEDURE: CT angiography of the chest with contrast and CT abdomen and pelvis with contrast. TECHNIQUE: Multiple contiguous axial images were obtained through the chest, abdomen and pelvis after administration of intravenous contrast. Reconstructed MIP CT angiography acquisitions of the aorta were then performed. Auto Exposure Controls were utilized during the CT exam to meet ALARA standards for radiation dose reduction. INDICATION: Abdominal aortic aneurysm. FINDINGS: No comparison available. Heart size is normal. There is no pericardial effusion. The ascending aorta is normal in caliber with multiple areas of pulsation artifact but no dissection flap seen. No pulmonary embolism is seen. Heart size is normal. There are severe coronary artery calcifications. No axillary, supraclavicular or mediastinal lymphadenopathy. The abdominal aorta is normal in caliber without aneurysm. There is tortuosity of the iliac arteries without aneurysm or stenosis. The celiac, superior mesenteric artery, bilateral renal arteries and inferior mesenteric artery. Liver is steatotic. Gallbladder is normal. No focal liver lesions are seen. No biliary ductal dilation. Pancreas, spleen and adrenal glands are normal. Kidneys enhance symmetrically without focal lesion. No hydronephrosis. Urinary bladder is normal. There is a fat-containing left inguinal hernia. There are no dilated loops of large or small bowel. There is some diverticulosis without diverticulitis. No free fluid or air. No abdominal or pelvic lymphadenopathy. There has been a left total hip arthroplasty. There are no suspicious osseous lesions. IMPRESSION: 1. No evidence for acute aortic syndrome, no abdominal aortic aneurysm. Dictated by: Dictated on workstation # [id number]
[2018-09-17] MEDS ORDERED: EPINEPHrine INJECTION 1 MG/ML AMP IM ONE (13:15)
[2018-09-17 14:36] LABS: BILIRUBIN,URINE NEGATIVE (NEGATIVE); CLARITY,URINE CLEAR; COLOR,URINE YELLOW; GLUCOSE, URINE (UA) NEGATIVE (NEGATIVE); KETONES,URINE NEGATIVE (NEGATIVE); LEUKOCYTE ESTERASE ,URINE NEGATIVE (NEGATIVE); NITRITE,URINE NEGATIVE (NEGATIVE); PH,URINE 6.5 (5-9); PROTEIN,URINE 2+ (NEGATIVE); UROBILINOGEN,URINE NORMAL (NORMAL)
[2018-09-17 14:43] LABS: BACTERIA,URINE NEGATIVE /HPF; SQUAMOUS EPITHELIAL CELL,UR 0-2 /HPF; WBC,URINE 0-2 /HPF
--- NOTE | 2018-09-17 14:50 | NUR ---
KIERSTEN GRACIA admitted to room CU10-1, with an admitting diagnosis of PROFOUND HYPOTENSION AND ANAPHYLAXIS, on 09/17/18 from ER via BED, accompanied by STAFF.KIERSTEN GRACIA introduced to surroundings, call light, bed controls, phone, TV, temperature control, lights, meal times, smoking policy, visitor policy, side rail policy, bathrooms and showers. Patient Rights given to patient in the handbook. KIERSTEN GRACIA verbalizes understanding that [facility] is not responsible for the loss or damage to any personal effects or valuables that are kept in the patients posession during their hospitalization. The following Patient Care Plans were discussed with the PATIENT: Discharge Planning, INEFFECTIVE BREATHING PATTERN, IMPAIRED GAS EXCHANGE, and DECREASED CARDIAC OUTPUT. KIERSTEN GRACIA verbalizes understanding of Interdisciplinary Patient Education. Patient and/or family were informed about the Rapid Response Team and its purpose.
[2018-09-17] MEDS ORDERED: diphenhydrAMINE 50 MG/ML INJ (BENADRYL) IV PRN (15:15)
[2018-09-17] MEDS ORDERED: ONDANSETRON 4 MG/2 ML (SDV) Z0FRAN IV PRN (15:15)
[2018-09-17] MEDS ORDERED: MORP-34 PO (15:18)
[2018-09-17] MEDS ORDERED: LISI10TA2 PO (15:20)
[2018-09-17] MEDS ORDERED: PRAZ2CAP2 PO (15:20)
[2018-09-17] MEDS ORDERED: GLUC-144 PO (15:24)
[2018-09-17] MEDS ORDERED: TURM500C4 PO (15:24)
[2018-09-17] MEDS ORDERED: AMIT50TA3 PO (15:27)
[2018-09-17] MEDS: NS IV 1000 ML 1,000 ML IV SCH ×2 (15:27→23:13)
--- NOTE | 2018-09-17 15:27 | NUR ---
SPOKE WITH THE PATIENT ABOUT HIS MEDICATIONS. HE WAS ABLE TO VERIFY WHAT HE TAKES I ASKED HIM ABOUT THEM FROM THE EXT MED HX. IN ADDITION TO WHAT IS SHOWN ON THE EXT MED HX APOTHECARE FILLED: 09-15-18 AMITRIPTYLINE 50MG HS #30 HE TAKES THE FOLLOWING OTC: TURMERIC DAILY PRILOSEC DAILY OSTEO BI FLEX DAILY
[2018-09-17] MEDS ORDERED: NS IV 1000 ML 1,000 ML IV SCH (15:30)
--- NOTE | 2018-09-17 15:31 | Pulmonary Consultation ---
History of Present Illness History of Present Illness Date of Consultation 09/17/18 15:26 Time Seen by Provider: 15:26 Date of Admission History of Present Illness 68yo presented to ED from [facility] secondary to worsening severe SOB, nausea/vomiting, abdominal pain, chest pain, and diaphoresis. Symptoms started this AM. Pt denies diarrhea. No prior episodes like this in the past. Pt was also found to be hypotensive in the ED. Pt received a 1 liter bolus of NS in the ED. I am consulted for pulmonary management. Allergies and Home Medications Allergies Coded Allergies: metoclopramide (Unverified Allergy, Mild, 03/08/13) Home Medications Amitriptyline HCl 25 Mg Tablet, 25 MG PO DAILY, (Reported) Bupropion HCl 150 Mg Tablet.er, 150 MG PO DAILY, (Reported) Duloxetine HCl 60 Mg Capsule.dr, 60 MG PO BID, (Reported) Gabapentin 100 Mg Capsule, 100 MG PO TID PRN for NEUROPATHY PAIN, (Reported) Glucosamine HCl/Chondr Sandy A Na 1 Each Tablet, 1 TAB PO BID, (Reported) Lisinopril 10 Mg Tablet, 10 MG PO DAILY, (Reported) Morphine Sulfate 30 Mg Tablet.er, 30 MG PO BID, (Reported) Omeprazole Magnesium 20 Mg Tablet.dr, 20 MG PO BID, (Reported) Pravastatin Sodium 40 Mg Tablet, 40 MG PO HS, (Reported) Prazosin HCl 2 Mg Capsule, 2 MG PO DAILY, (Reported) Turmeric/Turmeric Root Extract 1 Each Capsule, 500 MG PO DAILY, (Reported) Past Ouxtlbw-Mlsdcw-Prhwzo Hx Past Med/Social Hx: Reviewed Nursing Past Med/Soc Hx Patient Social History Alcohol Use: Occasionally Uses Alcohol Beverage of Choice: Beer Recreational Drug Use: No Smoking Status: Former Smoker Type Used: Cigarettes Former Smoker, Quit: Nov 11, 2007 Recent Foreign Travel: No Contact w/Someone Who Travel: No Recent Hopitalizations: No Immunizations Up To Date Date of Influenza Vaccine: Dec 15, 2016 Seasonal Allergies Seasonal Allergies: Yes Past Medical History Surgeries: Yes Orthopedic Respiratory: No Cardiac: Yes High Cholesterol, Hypertension Neurological: No Reproductive Disorders: No Sexually Transmitted Disease: No HIV/AIDS: No Gastrointestinal: Yes Gastroesophageal Reflux, Chronic Constipation Musculoskeletal: Yes Arthritis, Chronic Back Pain, Fractures Loss of Vision: Bilateral Hearing Impairment: Denies Psychosocial: Yes Anxiety, Depression Adverse Reaction/Blood Tranf: No (N/A) Family Medical History Reviewed Nursing Family Hx Review of Systems Time Seen by Provider: 15:44 Constitutional: Sweats, Weakness, Malaise; No: Fever, Chills, Other Eyes: No: Pain, Vision change, Conjunctivae inflammation, Eyelid inflammation, Other, Redness ENT: No: Ear pain, Ear discharge, Nose pain, Nose discharge, Nose congestion, Mouth pain, Mouth swelling, Throat pain, Throat swelling, Other Respiratory: Shortness of breath, SOB with excertion, Pleuritic Pain; No: Dry, Wheezing, Hemoptysis Cardiovascular: Chest Pain, Palpitations, Lt Headedness; No: Paroxysmal Noc. Dyspnea Gastrointestinal: Nausea, Vomiting, Abdominal Pain; No: Diarrhea, Constipation, Melena, Hematochezia Neurological: Weakness Sepsis Event Evaluation Height, Weight, BMI Height: 6'1.00" Weight: 199lbs. 0.0oz. 90.783260do; 26.3 BMI Method: Exam Exam Vital Signs Date Time Temp Pulse Resp B/P (MAP) Pulse Ox O2 Delivery O2 Flow Rate FiO2 09/17/18 15:00 91 26 134/63 (86) 94 Nasal Cannula 2.00 Height & Weight Height: 6'1.00" Weight: 199lbs. 0.0oz. 90.879129yp; 26.3 BMI Method: General Appearance: No Apparent Distress, WD/WN HEENT: PERRL/EOMI, Pharynx Normal Neck: Non Tender, Supple Respiratory: Lungs Clear, Normal Breath Sounds Cardiovascular: Regular Rate, Rhythm, No Murmur Capillary Refill: Less Than 3 Seconds Gastrointestinal: normal bowel sounds, non tender, soft, no organomegaly Extremity: Normal Inspection, Normal Range of Motion, Non Tender, No Calf Tenderness Neurologic/Psychiatric: Alert, Oriented x3 Skin: Normal Color, Warm/Dry Results Lab Laboratory Tests 09/17/18 12:10 Assessment/Plan Assessment/Plan Acute dehydration -IVF Metabolic lactic acidosis -Give another liter NS x 1 then 150ml/hr Acute abdominal pain/CP with associated nausea/vomiting and diaphoresis -Trend troponins for total of 3 Q 6 hours apart -Lipase is negative -No leukocytosis -No current pain Hypotension secondary to dehydration and possible anaphylaxis from Prazosin -s/p Epi, solumedrol Benadryl -IVF BUDDY SMYTH DO Sep 17, 2018 15:31
[2018-09-17] MEDS ORDERED: ONDANSETRON 4 MG/2 ML (SDV) Z0FRAN IVP PRN (15:45)
[2018-09-17] MEDS: methylPREDNISolone 40 MG/ML (Solu-MEDROL) VIAL IV SCH (17:37)
[2018-09-17] MEDS ORDERED: GABAPENTIN 100 MG (NEURONTIN) CAP PO PRN (17:45)
[2018-09-17] MEDS ORDERED: methylPREDNISolone 125 MG (Solu-MEDROL) VIAL IV SCH (18:00)
[2018-09-17] MEDS ORDERED: morphine ER 30 MG (MS CONTIN) TAB PO SCH (21:00)
[2018-09-17] MEDS ORDERED: NON-FORMULARY MEDICATION 1 EA EA (Pravastatin Sodium 40 MG) PO SCH (21:00)
[2018-09-17] MEDS ORDERED: NON-FORMULARY MEDICATION 1 EA EA (Omeprazole Magnesium (Prilosec Otc) 20 MG) PO SCH (21:00)
[2018-09-17] MEDS ORDERED: NON-FORMULARY MEDICATION 1 EA EA (Duloxetine HCl 60 MG) PO SCH (21:00)
[2018-09-17] MEDS: FAMOTIDINE 20MG/2ML IV (PEPCID) IV SCH (21:17)
[2018-09-17] MEDS: SIMvastatin 20 MG (ZOCOR) TAB PO SCH (21:17)
[2018-09-17] MEDS: AMITRIPTYLINE 50 MG (ELAVIL) TAB PO SCH (21:18)
[2018-09-17] MEDS: morphine ER 30 MG (MS CONTIN) TAB PO SCH (21:18)
[2018-09-17] MEDS: DULoxetine 30 MG (CYMBALTA) CAP PO SCH (21:18)
[2018-09-17] MEDS: PANTOPRAZOLE 20 MG TABLET (PROTONIX) PO SCH (21:19)
[2018-09-18] VITALS (18 sets, daily range): BP systolic 111–165; BP diastolic 63–99
[2018-09-18] MEDS: methylPREDNISolone 40 MG/ML (Solu-MEDROL) VIAL IV SCH ×4 (02:27→18:29)
[2018-09-18 04:05] LABS: BASOPHILS % (AUTO) 0 % (0-10); EOSINOPHILS % (AUTO) 0 % (0-10); HEMATOCRIT 32 % (40-54); HEMOGLOBIN 10.4 G/DL (13.3-17.7); LYMPHOCYTES % (AUTO) 9 % (12-44); MEAN CORPUSCULAR HEMOGLOBIN 29 PG (25-34); MEAN CORPUSCULAR HGB CONC 33 G/DL (32-36); MEAN CORPUSCULAR VOLUME 87 FL (80-99); MEAN PLATELET VOLUME 9.6 FL (7.4-10.4); MONOCYTES # (AUTO) 0.4 X 10^3 (0.0-1.0); MONOCYTES % (AUTO) 4 % (0-12); NEUTROPHILS # (AUTO) 9.8 X 10^3 (1.8-7.8); NEUTROPHILS % (AUTO) 88 % (42-75); PLATELET COUNT 266 10^3/uL (130-400); RED CELL DISTRIBUTION WIDTH 14.6 % (10.0-14.5); WHITE BLOOD COUNT 11.1 10^3/uL (4.3-11.0)
[2018-09-18 04:33] LABS: ALANINE AMINOTRANSFERASE 43 U/L (0-55); ALBUMIN 3.9 GM/DL (3.2-4.5); ALKALINE PHOSPHATASE 48 U/L (40-136); BILIRUBIN,TOTAL 0.3 MG/DL (0.1-1.0); BUN/CREATININE RATIO 25; CALCIUM 8.7 MG/DL (8.5-10.1); CARBON DIOXIDE 20 MMOL/L (21-32); CHLORIDE 106 MMOL/L (98-107); CREATININE SERUM 0.73 MG/DL (0.60-1.30); GFR ESTIMATED > 60; GLUCOSE 154 MG/DL (70-105); MAGNESIUM 1.9 MG/DL (1.8-2.4); PHOSPHORUS 3.5 MG/DL (2.3-4.7); POTASSIUM 4.3 MMOL/L (3.6-5.0); SODIUM 138 MMOL/L (135-145)
[2018-09-18 05:39] LABS: LYMPHOCYTES % (MANUAL) 7 %; MONOCYTES % (MANUAL) 3 %; NEUTROPHILS % (MANUAL) 90 %
[2018-09-18] MEDS: NS IV 1000 ML 1,000 ML IV SCH ×2 (06:09→06:33)
--- NOTE | 2018-09-18 07:08 | Pulmonary Progress Note ---
Subjective Time Seen by a Provider: 07:08 Subjective/Events-last exam Pt feels better this AM. Sepsis Event Evaluation Height, Weight, BMI Height: 6'1.00" Weight: 207lbs. 3.0oz. 93.705218pe; 26.3 BMI Method:Stated Focused Exam Lactate Level 09/17/18 12:10: Lactic Acid Level 2.74*H 09/17/18 14:10: Lactic Acid Level 3.21*H Exam Exam Vital Signs Date Time Temp Pulse Resp B/P (MAP) Pulse Ox O2 Delivery O2 Flow Rate FiO2 09/18/18 06:00 90 9 111/63 (79) 92 Nasal Cannula 1.00 09/18/18 05:00 93 9 137/80 (99) 91 Nasal Cannula 1.00 09/18/18 04:00 Nasal Cannula 2.00 09/18/18 04:00 92 14 111/75 (87) 93 Nasal Cannula 1.00 09/18/18 04:00 98.0 09/18/18 03:00 100 9 119/66 (83) 91 Nasal Cannula 1.00 09/18/18 02:00 102 27 127/72 (90) 93 Nasal Cannula 1.00 09/18/18 01:00 108 09/18/18 01:00 108 10 121/69 (86) 89 Nasal Cannula 1.00 09/18/18 01:00 108 09/18/18 00:10 111 12 132/81 (98) 90 Nasal Cannula 2.00 09/18/18 00:00 Nasal Cannula 2.00 09/18/18 00:00 98.2 09/17/18 23:00 107 8 144/87 (106) 95 Nasal Cannula 2.00 09/17/18 22:00 110 12 151/90 (110) 92 Nasal Cannula 2.00 09/17/18 21:00 112 15 140/58 (85) 91 Nasal Cannula 2.00 09/17/18 20:00 Nasal Cannula 2.00 09/17/18 20:00 107 11 153/76 (101) 95 Nasal Cannula 2.00 09/17/18 20:00 96.4 92 26 82/51 (61) 92 Nasal Cannula 5.00 09/17/18 19:57 107 09/17/18 19:30 98.5 09/17/18 19:00 107 09/17/18 19:00 108 15 151/77 (101) 95 Nasal Cannula 2.00 09/17/18 18:15 104 14 141/78 (99) 95 Nasal Cannula 2.00 09/17/18 18:00 108 52 134/81 (98) 96 Nasal Cannula 2.00 09/17/18 17:00 94 12 109/86 (94) 96 Nasal Cannula 2.00 09/17/18 16:30 106 22 148/83 (104) 93 Nasal Cannula 2.00 09/17/18 16:00 Nasal Cannula 2.00 09/17/18 16:00 93 10 123/86 (98) 94 Nasal Cannula 2.00 09/17/18 15:45 93 10 126/83 (97) 95 Nasal Cannula 2.00 09/17/18 15:45 93 10 126/83 (97) 95 Nasal Cannula 2.00 09/17/18 15:30 90 9 130/70 (90) 94 Nasal Cannula 2.00 09/17/18 15:30 90 9 130/70 (90) 94 Nasal Cannula 2.00 09/17/18 15:15 92 9 125/72 (89) 94 Nasal Cannula 2.00 09/17/18 15:15 92 10 125/72 (89) 94 Nasal Cannula 2.00 09/17/18 15:00 91 26 134/63 (86) 94 Nasal Cannula 2.00 09/17/18 15:00 91 26 134/63 (86) 94 Nasal Cannula 2.00 09/17/18 14:50 90 09/17/18 14:50 97.6 90 17 134/65 (88) 97 Nasal Cannula 2.00 09/17/18 14:50 90 09/17/18 14:40 98.0 86 18 109/53 (71) 95 Room Air 09/17/18 11:24 95 Nasal Cannula 5.00 I & O 09/18/18 07:00 Intake Total 3642 ml Output Total 2450 ml Balance 1192 ml Height & Weight Height: 6'1.00" Weight: 207lbs. 3.0oz. 93.361220ep; 26.3 BMI Method:Stated General Appearance: No Apparent Distress, WD/WN HEENT: PERRL/EOMI, Pharynx Normal Neck: Non Tender, Supple Respiratory: Lungs Clear, Normal Breath Sounds Cardiovascular: Regular Rate, Rhythm, No Murmur Capillary Refill: Less Than 3 Seconds Gastrointestinal: normal bowel sounds, non tender, soft, no organomegaly Extremity: Normal Inspection, Normal Range of Motion, Non Tender, No Calf Tenderness Neurologic/Psychiatric: Alert, Oriented x3 Skin: Normal Color, Warm/Dry Results Lab Laboratory Tests 09/17/18 12:10 09/18/18 03:58 Assessment/Plan Assessment/Plan Acute dehydration - improved -IVF Metabolic lactic acidosis -improved Acute abdominal pain/CP with associated nausea/vomiting and diaphoresis -- resolved -Trend troponins for total of 3 Q 6 hours apart -Lipase is negative -No leukocytosis -No current pain Hypotension secondary to dehydration-- resolved NSTEMI -Consult cardiology -repeat EKG Nocturnal hypoxia -- probably secondary to BETI -Needs out pt PSG BUDDY SMYTH DO Sep 18, 2018 07:08
[2018-09-18] MEDS: PANTOPRAZOLE 20 MG TABLET (PROTONIX) PO SCH ×2 (07:53→20:57)
--- NOTE | 2018-09-18 08:12 | Diagnostic Imaging Report ---
INDICATION: Hypotension and dyspnea. Comparison made with prior examination 09/17/2018. FINDINGS: There is cardiomegaly. Mediastinum is unremarkable. Lungs are clear. There is no pleural effusion or pneumothorax. There is right internal jugular central venous catheter in place. IMPRESSION: No acute cardiopulmonary abnormality. Cardiomegaly. Dictated by: Dictated on workstation # [id number]
[2018-09-18] MEDS: FAMOTIDINE 20MG/2ML IV (PEPCID) IV SCH ×2 (08:46→20:58)
[2018-09-18] MEDS: buPROPion SR 150 MG (WELLBUTRIN SR) TAB PO SCH (08:46)
[2018-09-18] MEDS: morphine ER 30 MG (MS CONTIN) TAB PO SCH ×3 (08:46→21:30)
[2018-09-18] MEDS: DULoxetine 30 MG (CYMBALTA) CAP PO SCH ×2 (08:46→20:57)
[2018-09-18] MEDS ORDERED: PANTOPRAZOLE 40 MG (PROTONIX) TAB PO SCH (09:00)
[2018-09-18] MEDS ORDERED: NON-FORMULARY MEDICATION 1 EA EA (Bupropion HCl (Bupropion HCl Sr) 150 MG) PO SCH (09:00)
--- NOTE | 2018-09-18 12:40 | History & Physical-Hospitalist ---
History of Present Illness HPI/Chief Complaint Chief complaint: Anaphylaxis History of present illness: This is a 68-year-old white female clinic patient of [facility] who presented to the ER and anaphylaxis shock and he was able to be stabilized requiring ICU admission. It is assumed that 2 doses of prazosin has been the factor involved in the allergic reaction. He did have elevated troponin likely due to significant hypotension but he is reporting any type of impending doom and chest pain while he has been sleeping recently. I will await for cardiology consultation and ordered a risk stratify to be thorough and manage this patient's problems during this current hospital stay to prevent any type of cardiac decompensation. We will Hep-Lock his IV fluid. Source: patient Exam Limitations: no limitations Date Seen 09/18/18 Time Seen by a Provider: 11:00 Attending Physician Tila Buenrostro David F MD Referring Physician Date of Admission Sep 17, 2018 at 13:57 Home Medications & Allergies Home Medications Reviewed patient Home Medication Reconciliation performed by pharmacy medication reconciliations residential service technician and/or nursing. Patients Allergies have been reviewed. Allergies Allergies Coded Allergies metoclopramide (Unverified Allergy, Mild, 03/08/13) Past [id number]-Drtgcf-Eualcs Hx Past Med/Social Hx: Reviewed Nursing Past Med/Soc Hx, Reviewed and Corrections made Patient Social History Alcohol Use: Occasionally Uses Number of Drinks Today: AA Alcohol Beverage of Choice: Beer Recreational Drug Use: No Smoking Status: Former Smoker Former Smoker, Quit: Nov 11, 2007 Type Used: Cigarettes Recent Foreign Travel: No Contact w/other who traveled: No Recent Hopitalizations: No Recent Infectious Disease Expo: No Immunizations Up To Date Date of Pneumonia Vaccine: Nov 30, 2017 Date of Influenza Vaccine: Dec 15, 2016 Seasonal Allergies Seasonal Allergies: Yes Past Medical History Surgeries: Orthopedic Cardiac: High Cholesterol, Hypertension Reproductive: No Sexually Transmitted Disease: No HIV/AIDS: No Gastrointestinal: Gastroesophageal Reflux, Chronic Constipation Musculoskeletal: Arthritis, Chronic Back Pain, Fractures Loss of Vision: Bilateral Hearing Impairment: Denies Psychosocial: Anxiety, Depression Adverse Reaction to Blood Calvin: No (N/A) Family History Reviewed Nursing Family Hx Patient reports no known family medical history. Review of Systems Constitutional: see HPI, dizziness, malaise, weakness EENTM: no symptoms reported Respiratory: no symptoms reported Cardiovascular: chest pain Gastrointestinal: no symptoms reported Genitourinary: no symptoms reported Musculoskeletal: no symptoms reported Skin: no symptoms reported Psychiatric/Neurological: No Symptoms Reported All Other Systems Reviewed Negative Unless Noted: Yes Physical Exam Physical Exam Vital Signs Vital Signs - First Documented 09/17/18 09/17/18 11:24 14:40 Temp 98.0 Pulse 86 Resp 18 B/P (MAP) 109/53 (71) Pulse Ox 95 O2 Delivery Nasal Cannula O2 Flow Rate 5.00 Capillary Refill : Less Than 3 Seconds Height, Weight, BMI Height: 6'1.00" Weight: 207lbs. 3.0oz. 93.648627hf; 26.3 BMI Method:Stated General Appearance: No Apparent Distress, WD/WN, Chronically ill Eyes: Right Eye Normal Inspection, Right Eye PERRL HEENT: PERRL/EOMI, Normal ENT Inspection, Pharynx Normal, Moist Mucous Me mbranes Neck: Full Range of Motion, Normal Inspection, Non Tender Respiratory: Chest Non Tender, Lungs Clear, Normal Breath Sounds, No Accessory Muscle Use, No Respiratory Distress Cardiovascular: Regular Rate, Rhythm, No Edema, No Gallop, No JVD, No Murmur, Normal Peripheral Pulses Gastrointestinal: Normal Bowel Sounds, No Organomegaly, No Pulsatile Mass, Non Tender, Soft Back: Normal Inspection, No CVA Tenderness, No Vertebral Tenderness Extremity: Normal Capillary Refill, Normal Inspection, Normal Range of Motion, Non Tender, No Calf Tenderness, No Pedal Edema Neurologic/Psychiatric: Alert, Oriented x3, No Motor/Sensory Deficits, Normal Mood/Affect Skin: Normal Color, Warm/Dry Lymphatic: No Adenopathy Results Results/Procedures Labs Laboratory Tests 09/17/18 12:10 09/18/18 03:58 Patient resulted labs reviewed. Assessment/Plan Admission Diagnosis Assessment: Anaphylaxis shock now stable likely due to prazosin Elevated troponin with concerning symptoms of atypical chest pain at home and recent weeks Hypertension Hyperlipidemia Plan: Hep-locked IV fluid Appreciate cardiology Admission Status: Observation Diagnosis/Problems Diagnosis/Problems (1) Anaphylaxis Status: Acute Qualifiers: Encounter type: initial encounter Qualified Codes: T78.2XXA - Anaphylactic shock, unspecified, initial encounter (2) Atypical chest pain Status: Acute (3) Hypertension Status: Chronic Qualifiers: Hypertension type: essential hypertension Qualified Codes: I10 - Essential (primary) hypertension (4) Hyperlipidemia Status: Chronic Qualifiers: Hyperlipidemia type: mixed hyperlipidemia Qualified Codes: E78.2 - Mixed hyperlipidemia (5) Hypotension Status: Acute Qualifiers: Hypotension type: unspecified hypotension type Qualified Codes: I95.9 - Hypotension, unspecified Clinical Quality Measures DVT/VTE Risk/Contraindication: Risk Factor Score Per Nursin RFS Level Per Nursing on Admit: 2=Moderate TILA BUENROSTRO DO Sep 18, 2018 12:40
--- NOTE | 2018-09-18 14:34 | Consultation-Cardiology ---
HPI-Cardiology Cardiology Consultation: Date of Consultation 09/18/18 Date of Admission Attending Physician Tila Buenrostro DO Admitting Physician Rosales Juarez MD Consulting Physician Hossein GILLETTE MD HPI: Time Seen by a Provider: 11:30 this is a 68-year-old gentleman who went to visit his primary care physician for high blood pressure and was given prazosin. He took his first dose in the morning on 09/17/2018. In a few hours he started to develop shortness of breath, chest pain, nausea, vomiting and abdominal pain. He went to the [facility] and was short of breath, diaphoretic and weak. Blood pressure was significantly low and therefore EMS was called. Apparently the systolic blood pressure was less than 80 mmHg. He was given Zofran for nausea and vomiting with some relief. When he reached the ER he was still diaphoretic and in respi ratory distress. Differentials included aortic dissection, therefore CT angiography was done which was negative for aortic dissection. The working diagnosis was either severe hypertensive response to prazosin or anaphylaxis reaction. When I saw the patient he was feeling much better with no significant further chest pain. Patient also had positive troponin. Review of Systems-Cardiology Review of Systems Constitutional: As described under HPI; No As described under HPI, No no symptoms reported, No chills, No fever; lightheadedness Eyes: No As described under HPI, No no symptoms reported, No blindness, No blurred vision, No contact lenses, No drainage, No decreased acuity, No foreign body sensation, No pain, No vision change Ears/Nose/Throat: No As described under HPI, No no symptoms reported, No chronic hearing loss, No ear discharge, No ear pain, No nasal drainage, No ulcerations Respiratory: No no symptoms reported; As described under HPI; No As described under HPI, No cough, No orthopnea, No shortness of breath, No SOB with excertion Cardiovascular: No no symptoms reported; As described under HPI; No As described under HPI; chest pain; No edema, No irregular heart rate, No lightheadedness, No palpitations Gastrointestinal: No no symptoms reported, No As described under HPI, No abdomen distended; abdominal pain; No blood streaked bowels, No constipation, No diarrhea, No nausea, No vomiting; nausea/vomiting/diarrhea; No stool coloration changes Genitourinary: No As described under HPI, No burning, No dysuria, No discharge, No frequency, No flank pain, No hematuria, No urgency Skin: No rash, No skin related problems, No ulcerations Psychiatric/Neurological: No anxiety, No depression, No seizure, No focal weakness, No syncope Hematologic: No bleeding abnormalities All Other Systems Reviewed Negative Unless Noted: Yes APG-Sszsfl-Dscnno Hx Patient Social History Alcohol Use: Occasionally Uses Recreational Drug Use: No Smoking Status: Former Smoker Type Used: Cigarettes Recent Foreign Travel: No Recent Infectious Disease Expo: No Hospitalization with Isolation: Denies Immunizations Up To Date Date of Pneumonia Vaccine: Nov 30, 2017 Date of Influenza Vaccine: Dec 15, 2016 Past Medical History PMH As described under Assessment. Family Medical History Family History: Patient reports no known family medical history. Allergies and Home Medications Allergies Coded Allergies: metoclopramide (Unverified Allergy, Mild, 03/08/13) Home Medications Amitriptyline HCl 50 Mg Tablet, 50 MG PO HS, (Reported) Bupropion HCl 150 Mg Tablet.er, 150 MG PO DAILY, (Reported) Duloxetine HCl 60 Mg Capsule.dr, 60 MG PO BID, (Reported) Gabapentin 100 Mg Capsule, 100 MG PO TID PRN for NEUROPATHY PAIN, (Reported) Glucosamine HCl/Chondr Sandy A Na 1 Each Tablet, 1 TAB PO BID, (Reported) Lisinopril 10 Mg Tablet, 10 MG PO DAILY, (Reported) Morphine Sulfate 30 Mg Tablet.er, 30 MG PO BID, (Reported) Omeprazole Magnesium 20 Mg Tablet.dr, 20 MG PO BID, (Reported) Pravastatin Sodium 40 Mg Tablet, 40 MG PO HS, (Reported) Prazosin HCl 2 Mg Capsule, 2 MG PO DAILY, (Reported) Turmeric/Turmeric Root Extract 1 Each Capsule, 500 MG PO DAILY, (Reported) Patient Home Medication List Home Medication List Reviewed: Yes Physical Exam-Cardiology Physical Exam Vital Signs/I&O 09/19/18 09/19/18 09/19/18 09/19/18 00:00 04:00 08:00 08:00 Temp 99.0 98.6 98.1 Pulse 94 87 92 Resp 20 20 20 B/P (MAP) 146/65 (92) 155/78 (103) 172/87 (115) Pulse Ox 91 91 94 O2 Delivery Room Air Room Air Room Air Room Air 09/19/18 00:00 Intake Total 1040 ml Output Total 825 ml Balance 215 ml Capillary Refill : Less Than 3 Seconds Constitutional: appears stated age, AAO x 3; No apparent distress; well- developed, well-nourished HEENT: PERRL; No normal ENT inspection, No TMs normal, No pharynx normal, No scleral icterus (R), No scleral icterus (L), No pale conjunctivae (R), No pale conjunctivae (L), No photophobia, No TM abnormal (R), No TM abnormal (L), No pharyngeal erythema, No tonsillar exudate, No other, No discharge, No EOMI; hearing is well preserved; No hard of hearing; oral hygience is good; No ulce ration, No xanthelasmas are seen Neck: No non-tender, No full range of motion, No supple, No normal inspection, No carotid bruit, No limited range of motion, No lymphadenopathy (R), No lymphadenopathy (L), No tender lateral, No tender midline, No thyromegaly, No other; carotid pulses are 2 + bilaterally; No with good upstrokes Respiratory: No accessory muscle use, No respiratory distress, No chest tender, No chest expansion is symmetric; chest is bilaterally symmetric; No lungs clear to percussion; lungs clear to auscultation; No crackles, No rhonchi, No rales, No stridor, No wheezing, No pleural rub, No other Cardiovascular: regular rate-rhythm; No irregularly irregular, No extra beats, No parasternal heave is noted, No JVD, No edema, No bradycardia, No tachycardia, No point of maximal impulse, No cardiac thrills are palpable; S1 and S2; No gallop/S3, No gallop/S4, No diastolic murmur, No systolic murmur, No friction rub, No click, No other Gastrointestinal: No tender, No soft, No round, No distended, No pulsatile mass, No organomegaly, No guarding, No rebound, No tenderness, No hernia, No mass, No audible bowel sounds, No abnormal bowel sounds, No abdominal bruits, No spleenomegaly, No other Rectal: deferred Extremities: No normal range of motion, No non-tender, No normal inspection, No pedal edema, No calf tenderness, No normal capillary refill, No pelvis stable, No calf tenderness, No inflammation, No pedal edema, No slow capillary refill, No swelling, No other, No abrasion, No clubbing, No cyanosis, No ecchymosis, No laceration, No no lower extremity edema bilateral, No significant edema, No tenderness, No wound Neurologic/Psychiatric: no motor/sensory deficits, alert, normal mood/affect, oriented x 3, power is 5/5 both on sides Skin: No normal color, No warm/dry, No cyanosis, No cool; diaphoresis; No damp, No ecchymosis, No jaundice, No mottled; pallor; No rash, No tattoos/piercings, No ulcerations, No rash on exposed areas, No ulcerations on exposed areas, No other Data Review Labs Laboratory Tests 09/19/18 05:50: White Blood Count 10.2, Red Blood Count 3.81L, Hemoglobin 10.7L, Hematocrit 33L, Mean Corpuscular Volume 86, Mean Corpuscular Hemoglobin 28, Mean Corpuscular Hemoglobin Concent 33, Red Cell Distribution Width 14.5, Platelet Count 298, Mean Platelet Volume 9.7, Neutrophils (%) (Auto) 84H, Lymphocytes (%) (Auto) 12, Monocytes (%) (Auto) 4, Eosinophils (%) (Auto) 0, Basophils (%) (Auto) 0, Neutrophils # (Auto) 8.6H, Lymphocytes # (Auto) 1.3, Monocytes # (Auto) 0.4, Eosinophils # (Auto) 0.0, Basophils # (Auto) 0.0, Sodium Level 138, Potassium Level 3.9, Chloride Level 104, Carbon Dioxide Level 26, Anion Gap 8, Blood Urea Nitrogen 18, Creatinine 0.73, Estimat Glomerular Filtration Rate > 60, BUN/Creatinine Ratio 25, Glucose Level 176H, Calcium Level 9.2, Corrected Calcium 9.1, Phosphorus Level 2.3, Magnesium Level 2.0, Total Bilirubin 0.2, Aspartate Amino Transf (AST/SGOT) 26, Alanine Aminotransferase (ALT/SGPT) 38, Alkaline Phosphatase 42, Total Protein 6.3L, Albumin 4.1 Microbiology 09/17/18 Blood Culture - Preliminary, Resulted No growth 09/17/18 MRSA Screen - Final, Complete MRSA not isolated ECG Impression ECG Initial ECG Rhythm: Normal Sinus Initial ECG Impression: Normal A/P-Cardiology Assessment/Admission Diagnosis severe hypotensive response to prazosin versus anaphylactic shock, non-STEMI, Hypertension, Hyperlipidemia, Plan treated appropriately for hypotension with aggressive IV fluids. Epinephrine was given for possible anaphylaxis. non-STEMI in a patient with risk factors for CAD including hyperlipidemia and hypertension. I spoke at length to the patient and recommended coronary angiography. Informed consent was taken. Hypertension, we will gradually start antihypertensive therapy. Hyperlipidemia, statin therapy. Thank you for your consultation. Please call me if you have any questions. Felipe Gillette MD, FACP, FACC, FSCAI, FHRS, CCDS Interventional Cardiology Cardiac Electrophysiology Vascular Medicine and Endovascular Interventions Clinical Quality Measures DVT/VTE Risk/Contraindication: Risk Factor Score Per Nursin RFS Level Per Nursing on Admit: 2=Moderate Hossein GILLETTE MD Sep 18, 2018 14:34
--- NOTE | 2018-09-18 17:45 | NUR ---
Patient transferred to [facility] 424 per W/C accompanied by ICU NA. Patient and family notified and understand transfer. Personal belongings with patient. Report given to THIS RN FROM ROTO ROOTER OPERATOR.
--- NOTE | 2018-09-18 17:47 | NUR ---
NOTE THAT IS REPORT MANAGER NET VOICED PT WAS TO HAVE HEART CATH IN AM 00 THIS RN ASKED ABOUT IF ORDERED AND IF CONSENT SIGNED -- MANAGER NET VOICED HE WOULD CHECK ON IT -- WHEN PT TO FLOOR NOTHING IN CHART ABOUT HEART CATH -- THIS RN CALLED AND LEFT MESSAGE TO DR GALVAN ABOUT HAVING PT NPO AT MIDNIGHT AND THAT NO ORDERS ON CHART FOR HEART CATH
--- NOTE | 2018-09-18 18:22 | NUR ---
PT TO FLOOR NO TELEMETRY ON -- THIS RN CALLED ICU TO CLARIFY -- ICU WILL CALL BACK
--- NOTE | 2018-09-18 18:36 | NUR ---
CONSENT SIGNED AND IN CHART MRSA SWAB FOR PROP DONE AND DOWN TO LAB -- ADD ON WAS FAXED AND PERSONAL BANKING REPRESENTATIVE IS AWARE
[2018-09-18] MEDS: AMITRIPTYLINE 50 MG (ELAVIL) TAB PO SCH (20:57)
[2018-09-18] MEDS: SIMvastatin 20 MG (ZOCOR) TAB PO SCH (20:57)
[2018-09-19] VITALS (16 sets, daily range): BP systolic 107–174; BP diastolic 55–148
[2018-09-19] MEDS: methylPREDNISolone 40 MG/ML (Solu-MEDROL) VIAL IV SCH ×4 (00:11→18:13)
[2018-09-19] MEDS: PANTOPRAZOLE 20 MG TABLET (PROTONIX) PO SCH ×2 (05:52→21:14)
[2018-09-19 06:02] LABS: BASOPHILS % (AUTO) 0 % (0-10); EOSINOPHILS % (AUTO) 0 % (0-10); HEMATOCRIT 33 % (40-54); HEMOGLOBIN 10.7 G/DL (13.3-17.7); LYMPHOCYTES # (AUTO) 1.3 X 10^3 (1.0-4.0); LYMPHOCYTES % (AUTO) 12 % (12-44); MEAN CORPUSCULAR HEMOGLOBIN 28 PG (25-34); MEAN CORPUSCULAR HGB CONC 33 G/DL (32-36); MEAN CORPUSCULAR VOLUME 86 FL (80-99); MEAN PLATELET VOLUME 9.7 FL (7.4-10.4); MONOCYTES # (AUTO) 0.4 X 10^3 (0.0-1.0); MONOCYTES % (AUTO) 4 % (0-12); NEUTROPHILS # (AUTO) 8.6 X 10^3 (1.8-7.8); NEUTROPHILS % (AUTO) 84 % (42-75); PLATELET COUNT 298 10^3/uL (130-400); RED CELL DISTRIBUTION WIDTH 14.5 % (10.0-14.5); WHITE BLOOD COUNT 10.2 10^3/uL (4.3-11.0)
[2018-09-19 06:22] LABS: ALANINE AMINOTRANSFERASE 38 U/L (0-55); ALBUMIN 4.1 GM/DL (3.2-4.5); ALKALINE PHOSPHATASE 42 U/L (40-136); BILIRUBIN,TOTAL 0.2 MG/DL (0.1-1.0); BUN/CREATININE RATIO 25; CALCIUM 9.2 MG/DL (8.5-10.1); CARBON DIOXIDE 26 MMOL/L (21-32); CHLORIDE 104 MMOL/L (98-107); CREATININE SERUM 0.73 MG/DL (0.60-1.30); GFR ESTIMATED > 60; GLUCOSE 176 MG/DL (70-105); PHOSPHORUS 2.3 MG/DL (2.3-4.7); POTASSIUM 3.9 MMOL/L (3.6-5.0); SODIUM 138 MMOL/L (135-145); TOTAL PROTEIN 6.3 GM/DL (6.4-8.2)
--- NOTE | 2018-09-19 07:22 | Pulmonary Progress Note ---
Sepsis Event Evaluation Height, Weight, BMI Height: 6'1.00" Weight: 207lbs. 4.0oz. 94.646851py; 26.3 BMI Method:Stated Focused Exam Lactate Level 09/17/18 12:10: Lactic Acid Level 2.74*H 09/17/18 14:10: Lactic Acid Level 3.21*H Exam Exam Vital Signs Date Time Temp Pulse Resp B/P (MAP) Pulse Ox O2 Delivery O2 Flow Rate FiO2 09/19/18 04:00 98.6 87 20 155/78 (103) 91 Room Air 09/19/18 00:00 99.0 94 20 146/65 (92) 91 Room Air 09/18/18 20:17 98.4 97 18 151/75 (100) 90 Room Air 09/18/18 20:00 Room Air 09/18/18 17:53 Nasal Cannula 2.00 09/18/18 17:40 99.0 102 18 163/80 (107) 94 Room Air 09/18/18 17:00 105 11 Nasal Cannula 1.00 09/18/18 16:00 96.3 09/18/18 16:00 107 24 90 Nasal Cannula 1.00 09/18/18 15:00 109 15 162/80 (107) 91 Nasal Cannula 1.00 09/18/18 14:00 105 18 161/93 (115) 95 Nasal Cannula 1.00 09/18/18 13:00 105 09/18/18 13:00 105 18 165/99 (121) 93 Nasal Cannula 1.00 09/18/18 12:00 97.3 09/18/18 12:00 Nasal Cannula 2.00 09/18/18 12:00 106 18 149/83 (105) 91 Nasal Cannula 1.00 09/18/18 11:00 105 29 149/88 (108) 89 Nasal Cannula 1.00 09/18/18 10:00 98 17 149/88 (108) 92 Nasal Cannula 1.00 09/18/18 09:16 97.9 09/18/18 09:00 98 17 149/88 (108) 92 Nasal Cannula 1.00 09/18/18 08:00 Nasal Cannula 2.00 09/18/18 08:00 94 12 138/81 (100) 92 Nasal Cannula 1.00 I & O 09/19/18 07:00 Intake Total 1280 ml Output Total 1275 ml Balance 5 ml Height & Weight Height: 6'1.00" Weight: 207lbs. 4.0oz. 94.744611ui; 26.3 BMI Method:Stated General Appearance: No Apparent Distress, WD/WN, Chronically ill HEENT: PERRL/EOMI, Normal ENT Inspection, Pharynx Normal, Moist Mucous Membranes Neck: Full Range of Motion, Normal Inspection, Non Tender Respiratory: Chest Non Tender, Lungs Clear, Normal Breath Sounds, No Accessory Muscle Use, No Respiratory Distress Cardiovascular: Regular Rate, Rhythm, No Edema, No Gallop, No JVD, No Murmur, Normal Peripheral Pulses Capillary Refill: Less Than 3 Seconds Gastrointestinal: normal bowel sounds, non tender, soft, no organomegaly Extremity: Normal Capillary Refill, Normal Inspection, Normal Range of Motion, Non Tender, No Calf Tenderness, No Pedal Edema Neurologic/Psychiatric: Alert, Oriented x3, No Motor/Sensory Deficits, Normal Mood/Affect Skin: Normal Color, Warm/Dry Lymphatic: No Adenopathy Results Lab Laboratory Tests 09/17/18 12:10 09/18/18 03:58 09/19/18 05:50 Assessment/Plan Assessment/Plan Acute dehydration - improved -IVF Acute abdominal pain/CP with associated nausea/vomiting and diaphoresis -- resolved Hypotension secondary to dehydration-- resolved NSTEMI -cardiology Nocturnal hypoxia -- probably secondary to BETI -Needs out pt PSG BUDDY SMYTH DO Sep 19, 2018 07:22
[2018-09-19] MEDS: DULoxetine 30 MG (CYMBALTA) CAP PO SCH ×2 (07:36→21:14)
[2018-09-19] MEDS: morphine ER 30 MG (MS CONTIN) TAB PO SCH ×2 (07:37→21:14)
[2018-09-19] MEDS: buPROPion SR 150 MG (WELLBUTRIN SR) TAB PO SCH (07:37)
[2018-09-19] MEDS ORDERED: LIDOCAINE 1% INJ 20 ML 20 ML VIAL ONE (07:56)
[2018-09-19] MEDS ORDERED: HEParin (CATH LAB) 2,000 ML IV ONE (07:56)
[2018-09-19] MEDS ORDERED: fentaNYL INJECTION 100 MCG/2 ML AMP ONE (08:08)
[2018-09-19] MEDS ORDERED: MIDAZOLAM 5 MG/5 ML (VERSED) VIAL ONE (08:08)
[2018-09-19] MEDS: FAMOTIDINE 20MG/2ML IV (PEPCID) IV SCH ×2 (08:35→21:14)
--- NOTE | 2018-09-19 08:59 | NUR ---
TO NETWORK OPERATIONS PROJECT MANAGER PER BED.
[2018-09-19] MEDS ORDERED: NS IV 1000 ML 1,000 ML ONE (09:00)
[2018-09-19] MEDS ORDERED: HEParin 1000 UNIT/ML (10ML VIAL) FOR BOLUS ONE (09:13)
[2018-09-19] MEDS ORDERED: VERAPAMIL 5 MG/2 ML (CALAN) VIAL IV ONE (09:13)
[2018-09-19] MEDS ORDERED: NITRO DRIP 25000 MCG/D5W 250 ML IV ONE (09:14)
[2018-09-19] MEDS ORDERED: ADENOSINE 3 MG/1 ML (ADENOSCAN) 30ML VIAL IV ONE (10:03)
[2018-09-19] MEDS ORDERED: TICAGRELOR 90 MG TABLET (BRILINTA) PO ONE (10:16)
[2018-09-19] MEDS ORDERED: ASPIRIN 325 MG (5 GR) TABLET ONE (10:20)
[2018-09-19] MEDS ORDERED: PATIENT MAY USE OWN MEDS, ALL PO SCH (10:45)
--- NOTE | 2018-09-19 10:58 | Cardiac Procedure Note-CS/ASA ---
Pre-Procedure Note Pre-Op Procedure Note H&P Reviewed The H&P was reviewed, patient examined and no changes noted. Date H&P Reviewed: Sep 19, 2018 Time H&P Reviewed: 09:00 Conscious Sedation Pre-Proced Time 09:00 ASA Score 3 For ASA 3 and 4: Consider anesthesia and medical clearance. Also, for patients with a history of failed moderate sedation consider anesthesia. Airway Lungs Heart ASA score ASA 1: a normal healthy patient ASA 2: a patient with a mild systemic disease (mid diabetes, controlled hypertension, obesity ASA 3: a patient with a severe systemic disease that limits activity (angina, COPD, prior Myocardial infarction) ASA 4: a patient with an incapacitating disease that is a constant threat to life (CHF, renal failure) ASA 5: a moribund patient not expected to survive 24 hrs. (ruptured aneurysm) ASA 6: a declared brain- patient whose organs are being harvested. For emergent operations, add the letter E after the classification Mallampati Classification Grade 1 Sedation Plan Analgesia, Amnesia, Plan communicated to team members, Discussed options with patient/fam, Discussed risks with patient/fam The patient is an appropriate candidate to undergo the planned procedure, sedation, and anesthesia. The patient immediately re-assessed prior to indication. Hossein GALVAN MD Sep 19, 2018 10:58
--- NOTE | 2018-09-19 10:58 | Cardiology Progress Note ---
Cardiology SOAP Progress Note Subjective: no chest pain. Objective: I&O/Vital Signs 09/19/18 09/19/18 09/19/18 09/19/18 00:00 04:00 08:00 08:00 Temp 99.0 98.6 98.1 Pulse 94 87 92 Resp 20 20 20 B/P (MAP) 146/65 (92) 155/78 (103) 172/87 (115) Pulse Ox 91 91 94 O2 Delivery Room Air Room Air Room Air Room Air 09/19/18 00:00 Intake Total 1040 ml Output Total 825 ml Balance 215 ml Weight (Pounds): 207 Weight (Ounces): 4.0 Weight (Calculated Kilograms): 94.926853 Constitutional: appears stated age, AAO x 3; No apparent distress; well- developed, well-nourished Respiratory: No accessory muscle use, No respiratory distress, No chest tender, No chest expansion is symmetric; chest is bilaterally symmetric; No lungs clear to percussion; lungs clear to auscultation; No crackles, No rhonchi, No rales, No stridor, No wheezing, No pleural rub, No other Cardiovascular: regular rate-rhythm; No irregularly irregular, No extra beats, No parasternal heave is noted, No JVD, No edema, No bradycardia, No tachycardia, No point of maximal impulse, No cardiac thrills are palpable; S1 and S2; No gallop/S3, No gallop/S4, No diastolic murmur, No systolic murmur, No friction rub, No click, No other Gastrointestional: No tender, No soft, No round, No distended, No pulsatile mass, No organomegaly, No guarding, No rebound, No tenderness, No hernia, No mass, No audible bowel sounds, No abnormal bowel sounds, No abdominal bruits, No spleenomegaly, No other Extremities: No normal range of motion, No non-tender, No normal inspection, No pedal edema, No calf tenderness, No normal capillary refill, No pelvis stable, No calf tenderness, No inflammation, No pedal edema, No slow capillary refill, No swelling, No other, No abrasion, No clubbing, No cyanosis, No ecchymosis, No laceration, No no lower extremity edema bilateral, No significant edema, No tenderness, No wound Neurologic/Psychiatric: no motor/sensory deficits, alert, normal mood/affect, oriented x 3, power is 5/5 both on sides Skin: No normal color, No warm/dry, No cyanosis, No cool; diaphoresis; No damp, No ecchymosis, No jaundice, No mottled; pallor; No rash, No tattoos/piercings, No ulcerations, No rash on exposed areas, No ulcerations on exposed areas, No other Results/Procedures: Labs Laboratory Tests 09/19/18 05:50: White Blood Count 10.2, Red Blood Count 3.81L, Hemoglobin 10.7L, Hematocrit 33L, Mean Corpuscular Volume 86, Mean Corpuscular Hemoglobin 28, Mean Corpuscular Hemoglobin Concent 33, Red Cell Distribution Width 14.5, Platelet Count 298, Mean Platelet Volume 9.7, Neutrophils (%) (Auto) 84H, Lymphocytes (%) (Auto) 12, Monocytes (%) (Auto) 4, Eosinophils (%) (Auto) 0, Basophils (%) (Auto) 0, Neutrophils # (Auto) 8.6H, Lymphocytes # (Auto) 1.3, Monocytes # (Auto) 0.4, Eosinophils # (Auto) 0.0, Basophils # (Auto) 0.0, Sodium Level 138, Potassium Level 3.9, Chloride Level 104, Carbon Dioxide Level 26, Anion Gap 8, Blood Urea Nitrogen 18, Creatinine 0.73, Estimat Glomerular Filtration Rate > 60, BUN/Creatinine Ratio 25, Glucose Level 176H, Calcium Level 9.2, Corrected Calcium 9.1, Phosphorus Level 2.3, Magnesium Level 2.0, Total Bilirubin 0.2, Aspartate Amino Transf (AST/SGOT) 26, Alanine Aminotransferase (ALT/SGPT) 38, Alkaline Phosphatase 42, Total Protein 6.3L, Albumin 4.1 Microbiology 09/17/18 Blood Culture - Preliminary, Resulted No growth 09/17/18 MRSA Screen - Final, Complete MRSA not isolated A/P: Assessment/Dx: severe hypotensive response to prazosin versus anaphylactic shock, non-STEMI, Hypertension, Hyperlipidemia, Plan: treated appropriately for hypotension with aggressive IV fluids. Epinephrine was given for possible anaphylaxis. non-STEMI in a patient with risk factors for CAD including hyperlipidemia and hypertension. I spoke at length to the patient and recommended coronary angiography. Informed consent was taken. Hypertension, we will gradually start antihypertensive therapy. Hyperlipidemia, statin therapy. Thank you for your consultation. Please call me if you have any questions. Felipe Gillette MD, FACP, FACC, FSCAI, FHRS, CCDS Interventional Cardiology Cardiac Electrophysiology Vascular Medicine and Endovascular Interventions Focused Exam Lactate Level 09/17/18 12:10: Lactic Acid Level 2.74*H 09/17/18 14:10: Lactic Acid Level 3.21*H Hossein GILLETTE MD Sep 19, 2018 10:58
--- NOTE | 2018-09-19 11:03 | NUR ---
REMAINS OFF FLOOR.
--- NOTE | 2018-09-19 11:03 | Coronary Angiography & PCI ---
Coronary Angiography & PCI DATE OF PROCEDURE: 09/19/18 INDICATION: non-STEMI, hypotension. PREOPERATIVE DIAGNOSIS: non-STEMI, hypotension. POSTOPERATIVE DIAGNOSIS: and severe proximal RCA stenosis treated with a drug-eluting stent. HISTORY: this is a 68-year-old gentleman with severe hypotensive response to plasma seen versus anaphylaxis. Also had chest pain with positive cardiac enzymes. Working diagnosis is non-STEMI.Therefore, the patient was scheduled for coronary angiography. PROCEDURES PERFORMED: 1.Coronary angiography. 2.Left heart catheterization. 3.FFR to the proximal RCA. 4. PCI to the proximal RCA with drug-eluting stent. COMPLICATIONS: None. SPECIMENS: None. ESTIMATED BLOOD LOSS: 10 mL ANESTHESIA: Conscious sedation ANTICOAGULATION: IV heparin CONTRAST: 200 mL. FLUOROSCOPY: 15.4 minutes. FLOUROSCOPY DOSE: 1866 mgy. PROCEDURE DETAILS: The patient is a 68 male and was brought to the [facility] after informed consent was taken. All the risks and complications were explained in detail; this included the risk of bleeding, vascular damage, stroke, PR and even . The patient was draped and prepped in the usual sterile fashion. Access was gained in the right radial artery with a 6 [place] sheath. Coronary angiography and left heart catheterization was performed with the [place] catheter. FINDINGS: 1.Left main: patent. 2.LAD: patent. 3.Left circumflex artery: patent. 4.RCA: moderate to severe proximal stenosis. Stenosis severity 70 percent. 200 g of nitroglycerin was given with no significant improvement there for spasm was ruled out. 5.Left heart catheterization: LV pressure 118/11 mmHg. LVEDP 20 mmHg. Aortic pressure 127/84 mmHg. Normal LV function with no wall motion abnormalities. No gradient across the aortic valve. RECOMMENDATIONS: FFR to the proximal RCA is recommended. INTERVENTION DETAILS: JR4 guide catheter, IV heparin, FFR guidewire. The lesion in the proximal RCA was crossed with a FFR wire. Baseline FFR was 0.93. Adenosine was started at 140 g per KG per minute. Lowest FFR was 0.76 which is abnormal therefore PCI is recommended. Brilinta 180 mg and aspirin 325 mg bolus was given before PCI. ACT was done twice. We took a Xience Cecile 2.5 x 18 mm stent and placed at 18 nunu for 60 seconds. Postdilatation with an NC Quantum 3.0 x 12 mm balloon at 20 nunu for 61 seconds. Excellent results with EVAN 3 flow. No residual stenosis. Patient tolerated procedure well and did not have any complication. radial band done. CONCLUSIONS: 1. severe proximal RCA stenosis treated successfully with a drug-eluting stent. Dual antiplatelet therapy for at least a year. 2. High dose statin therapy. We will also start metoprolol and lisinopril. 3. We will keep the patient overnight and hopefully discharge in the morning with detailed instructions. Felipe Gillette MD, FACP, FACC, [facility] Interventional Cardiology Hossein GILLETTE MD Sep 19, 2018 11:03
--- NOTE | 2018-09-19 11:19 | Progress Note - Hospitalist ---
Subjective HPI/CC On Admission Date Seen by Provider: Sep 19, 2018 Time Seen by Provider: 12:00 Chief complaint: Anaphylaxis History of present illness: This is a 68-year-old white female clinic patient of [facility] who presented to the ER and anaphylaxis shock and he was able to be stabilized requiring ICU admission. It is assumed that 2 doses of prazosin has been the factor involved in the allergic reaction. He did have elevated troponin likely due to significant hypotension but he is reporting any type of impending doom and chest pain while he has been sleeping recently. I will await for cardiology consultation and ordered a risk stratify to be thorough and manage this patient's problems during this current hospital stay to prevent any type of cardiac decompensation. We will Hep-Lock his IV fluid. Subjective/Events-last exam Patient doing very well Underwent cardiac catheterization this morning for atypical chest pain is revealed a very severe stenotic right coronary artery proximal lesion that stent was deployed under cardiology Dr. Gillette expertise. at bedside Denies any shortness of breath Blood pressure remains stable Overall tolerated the procedure well Review of Systems General: Fatigue Focused Exam Lactate Level 09/17/18 12:10: Lactic Acid Level 2.74*H 09/17/18 14:10: Lactic Acid Level 3.21*H Objective Exam Vital Signs Vital Signs Date Time Temp Pulse Resp B/P (MAP) Pulse Ox O2 Delivery O2 Flow Rate FiO2 09/19/18 13:00 77 09/19/18 12:00 97.6 09/19/18 12:00 17 158/106 (123) Room Air 09/19/18 11:15 94 09/18/18 17:53 2.00 Capillary Refill : Less Than 3 SecondsLess Than 3 Seconds General Appearance: No Apparent Distress, WD/WN, Chronically ill HEENT: PERRL/EOMI, Normal ENT Inspection, Pharynx Normal, Moist Mucous Membranes Neck: Full Range of Motion, Normal Inspection, Non Tender Respiratory: Chest Non Tender, Lungs Clear, Normal Breath Sounds, No Accessory Muscle Use, No Respiratory Distress Cardiovascular: Regular Rate, Rhythm, No Edema, No Gallop, No JVD, No Murmur, Normal Peripheral Pulses Gastrointestinal: Normal Bowel Sounds, No Organomegaly, No Pulsatile Mass, Non Tender, Soft Back: Normal Inspection, No CVA Tenderness, No Vertebral Tenderness Extremity: Normal Capillary Refill, Normal Inspection, Normal Range of Motion, Non Tender, No Calf Tenderness, No Pedal Edema Neurologic/Psychiatric: Alert, Oriented x3, No Motor/Sensory Deficits, Normal Mood/Affect Reflexes: 1+ Knee (R), 1+ Knee (L), 1+ Ankle (R), 1+ Ankle (L) Skin: Normal Color, Warm/Dry Lymphatic: No Adenopathy Results/Procedures Lab Laboratory Tests 09/19/18 05:50 Patient resulted labs reviewed. Assessment/Plan Assessment and Plan Assess & Plan/Chief Complaint Assessment: Status post anaphylactic shock due to presumed prazosin Non-ST elevation MT Stent placed in proximal lesion severe stenotic right coronary artery now tolerating medication well Hypertension Hyperlipidemia Plan: Brilinta Aspirin Statin Beta-deanna Continue close monitoring Diagnosis/Problems Diagnosis/Problems (1) NSTEMI (non-ST elevated myocardial infarction) (2) S/P right coronary artery (RCA) stent placement (3) Anaphylaxis Status: Acute Qualifiers: Encounter type: initial encounter Qualified Codes: T78.2XXA - Anaphylactic shock, unspecified, initial encounter (4) Atypical chest pain Status: Acute (5) Hypertension Status: Chronic Qualifiers: Hypertension type: essential hypertension Qualified Codes: I10 - Essential (primary) hypertension (6) Hyperlipidemia Status: Chronic Qualifiers: Hyperlipidemia type: mixed hyperlipidemia Qualified Codes: E78.2 - Mixed hyperlipidemia (7) Hypotension Status: Acute Qualifiers: Hypotension type: unspecified hypotension type Qualified Codes: I95.9 - Hypotension, unspecified Clinical Quality Measures DVT/VTE Risk/Contraindication: Risk Factor Score Per Nursin RFS Level Per Nursing on Admit: 2=Moderate ANA NEAL DO Sep 19, 2018 11:19
[2018-09-19] MEDS ORDERED: lisINopril 10 MG (PRINIVIL) TABLET ONE (11:24)
[2018-09-19] MEDS: meTOproloL SUCCINATE 50 MG (TOPROL XL) TAB PO SCH (11:32)
[2018-09-19] MEDS: lisINopril 40 MG (PRINIVIL) TABLET PO SCH (11:40)
[2018-09-19] MEDS: NS IV 1000 ML 1,000 ML IV SCH ×2 (11:55→15:17)
[2018-09-19] MEDS ORDERED: ATORVASTATIN 80 MG (LIPITOR) TABLET PO SCH (21:00)
[2018-09-19] MEDS: TICAGRELOR 90 MG TABLET (BRILINTA) PO SCH (21:14)
[2018-09-19] MEDS: AMITRIPTYLINE 50 MG (ELAVIL) TAB PO SCH (21:14)
[2018-09-20] VITALS: BP 157/80
[2018-09-20] MEDS: methylPREDNISolone 40 MG/ML (Solu-MEDROL) VIAL IV SCH ×3 (00:02→11:35)
[2018-09-20 03:15] LABS: BASOPHILS % (AUTO) 0 % (0-10); EOSINOPHILS % (AUTO) 0 % (0-10); HEMATOCRIT 33 % (40-54); HEMOGLOBIN 10.8 G/DL (13.3-17.7); LYMPHOCYTES # (AUTO) 1.3 X 10^3 (1.0-4.0); LYMPHOCYTES % (AUTO) 14 % (12-44); MEAN CORPUSCULAR HEMOGLOBIN 29 PG (25-34); MEAN CORPUSCULAR HGB CONC 33 G/DL (32-36); MEAN CORPUSCULAR VOLUME 87 FL (80-99); MEAN PLATELET VOLUME 9.7 FL (7.4-10.4); MONOCYTES # (AUTO) 0.4 X 10^3 (0.0-1.0); MONOCYTES % (AUTO) 4 % (0-12); NEUTROPHILS # (AUTO) 7.7 X 10^3 (1.8-7.8); NEUTROPHILS % (AUTO) 82 % (42-75); PLATELET COUNT 305 10^3/uL (130-400); RED CELL DISTRIBUTION WIDTH 14.6 % (10.0-14.5); WHITE BLOOD COUNT 9.5 10^3/uL (4.3-11.0)
[2018-09-20 03:32] LABS: ALANINE AMINOTRANSFERASE 36 U/L (0-55); ALKALINE PHOSPHATASE 44 U/L (40-136); BILIRUBIN,TOTAL 0.2 MG/DL (0.1-1.0); BUN/CREATININE RATIO 22; CALCIUM 8.9 MG/DL (8.5-10.1); CARBON DIOXIDE 21 MMOL/L (21-32); CHLORIDE 106 MMOL/L (98-107); CREATININE SERUM 0.77 MG/DL (0.60-1.30); GFR ESTIMATED > 60; GLUCOSE 218 MG/DL (70-105); MAGNESIUM 2.1 MG/DL (1.8-2.4); PHOSPHORUS 2.4 MG/DL (2.3-4.7); POTASSIUM 3.4 MMOL/L (3.6-5.0); SODIUM 140 MMOL/L (135-145)
--- NOTE | 2018-09-20 05:48 | Pulmonary Progress Note ---
Subjective Time Seen by a Provider: 05:47 Subjective/Events-last exam Pt transferred back to ICU secondary to hematoma at cath insert site. Sepsis Event Evaluation Height, Weight, BMI Height: 6'1.00" Weight: 207lbs. 4.0oz. 94.820274li; 26.3 BMI Method:Stated Focused Exam Lactate Level 09/17/18 12:10: Lactic Acid Level 2.74*H 09/17/18 14:10: Lactic Acid Level 3.21*H Exam Exam Vital Signs Date Time Temp Pulse Resp B/P (MAP) Pulse Ox O2 Delivery O2 Flow Rate FiO2 09/20/18 01:00 70 09/20/18 00:00 98.9 79 18 157/80 (105) 95 Nasal Cannula 3.00 09/19/18 23:00 73 16 97 Nasal Cannula 3.00 09/19/18 22:00 76 16 166/91 (116) 95 Nasal Cannula 3.00 09/19/18 21:45 77 16 158/84 (108) 98 Nasal Cannula 3.00 09/19/18 21:00 Nasal Cannula 4.00 09/19/18 20:00 82 16 166/99 (121) 98 Nasal Cannula 3.00 09/19/18 19:59 83 09/19/18 19:33 97.1 85 16 153/91 (111) 98 Nasal Cannula 3.00 09/19/18 18:00 162/95 (117) 98 Room Air 09/19/18 16:00 96.9 09/19/18 14:00 73 12 158/87 (110) 98 Room Air 09/19/18 13:30 80 10 157/88 (111) 97 Room Air 09/19/18 13:00 77 19 147/84 (105) 98 Room Air 09/19/18 13:00 77 09/19/18 12:00 97.6 09/19/18 12:00 79 17 158/106 (123) Room Air 09/19/18 11:45 81 25 146/105 (119) Room Air 09/19/18 11:30 78 24 107/55 (72) Room Air 09/19/18 11:15 78 8 174/87 (116) 94 Room Air 09/19/18 11:00 80 24 155/148 (150) 94 Room Air 09/19/18 10:57 99 09/19/18 08:00 Room Air 09/19/18 08:00 98.1 92 20 172/87 (660) 94 Room Air I & O 09/20/18 07:00 Intake Total 2380 ml Output Total 1850 ml Balance 530 ml Height & Weight Height: 6'1.00" Weight: 207lbs. 4.0oz. 94.582247mw; 26.3 BMI Method:Stated General Appearance: No Apparent Distress, WD/WN, Chronically ill HEENT: PERRL/EOMI, Normal ENT Inspection, Pharynx Normal, Moist Mucous Membranes Neck: Full Range of Motion, Normal Inspection, Non Tender Respiratory: Chest Non Tender, Lungs Clear, Normal Breath Sounds, No Accessory Muscle Use, No Respiratory Distress Cardiovascular: Regular Rate, Rhythm, No Edema, No Gallop, No JVD, No Murmur, Normal Peripheral Pulses Capillary Refill: Less Than 3 Seconds Gastrointestinal: normal bowel sounds, non tender, soft, no organomegaly Extremity: Normal Capillary Refill, Normal Inspection, Normal Range of Motion, Non Tender, No Calf Tenderness, No Pedal Edema Neurologic/Psychiatric: Alert, Oriented x3, No Motor/Sensory Deficits, Normal Mood/Affect Skin: Normal Color, Warm/Dry Lymphatic: No Adenopathy Results Lab Laboratory Tests 09/19/18 05:50 09/20/18 03:00 Assessment/Plan Assessment/Plan Acute dehydration -resolved -IVF Acute abdominal pain/CP with associated nausea/vomiting and diaphoresis -- resolved Hypotension secondary to dehydration-- resolved NSTEMI -cardiology Nocturnal hypoxia -- probably secondary to BETI -Needs out pt PSG BUDDY SMYTH DO Sep 20, 2018 05:48
[2018-09-20] MEDS ORDERED: POTASSIUM CL 10MEQ/50ML IVPB 300 ML IV ONE (06:20)
[2018-09-20 06:22] VITALS: BP 149/96
[2018-09-20] MEDS: POTASSIUM CL 10MEQ/50ML IVPB 50 ML IV SCH ×5 (06:39→11:32)
[2018-09-20] MEDS: NS IV 1000 ML 1,000 ML IV SCH (06:46)
[2018-09-20] MEDS ORDERED: lisINopril 10 MG (PRINIVIL) TABLET ONE (08:27)
[2018-09-20] MEDS: PANTOPRAZOLE 20 MG TABLET (PROTONIX) PO SCH (08:29)
[2018-09-20 08:30] VITALS: BP 158/93
[2018-09-20] MEDS: buPROPion SR 150 MG (WELLBUTRIN SR) TAB PO SCH (08:35)
[2018-09-20] MEDS: morphine ER 30 MG (MS CONTIN) TAB PO SCH (08:35)
[2018-09-20] MEDS: meTOproloL SUCCINATE 50 MG (TOPROL XL) TAB PO SCH (08:36)
[2018-09-20] MEDS: FAMOTIDINE 20MG/2ML IV (PEPCID) IV SCH (08:37)
[2018-09-20] MEDS: lisINopril 40 MG (PRINIVIL) TABLET PO SCH (08:42)
[2018-09-20] MEDS: DULoxetine 30 MG (CYMBALTA) CAP PO SCH (08:44)
[2018-09-20] MEDS ORDERED: ASPIRIN E.C. 81 MG (ECOTRIN) TAB PO SCH (09:00)
[2018-09-20] MEDS: TICAGRELOR 90 MG TABLET (BRILINTA) PO SCH (09:31)
--- NOTE | 2018-09-20 09:31 | Cardiology Progress Note ---
Cardiology SOAP Progress Note Subjective: No cardiac complaints. Objective: I&O/Vital Signs 09/20/18 09/20/18 09/20/18 09/20/18 01:00 06:22 07:00 08:00 Temp 96.9 98.7 Pulse 70 78 89 Resp 16 B/P (MAP) 149/96 (113) Pulse Ox 96 O2 Delivery Nasal Cannula O2 Flow Rate 3.00 09/20/18 09/20/18 09/20/18 08:30 08:31 12:00 Temp 98.5 Pulse 89 77 Resp 19 B/P (MAP) 158/93 (114) 164/86 (112) Pulse Ox 96 O2 Delivery Nasal Cannula Room Air Room Air O2 Flow Rate 3.00 09/20/18 00:00 Intake Total 2360 ml Output Total 1150 ml Balance 1210 ml Weight (Pounds): 207 Weight (Ounces): 4.0 Weight (Calculated Kilograms): 94.380345 Constitutional: appears stated age, AAO x 3; No apparent distress; well- developed, well-nourished Respiratory: No accessory muscle use, No respiratory distress, No chest tender, No chest expansion is symmetric; chest is bilaterally symmetric; No lungs clear to percussion; lungs clear to auscultation; No crackles, No rhonchi, No rales, No stridor, No wheezing, No pleural rub, No other Cardiovascular: regular rate-rhythm; No irregularly irregular, No extra beats, No parasternal heave is noted, No JVD, No edema, No bradycardia, No tachycardia, No point of maximal impulse, No cardiac thrills are palpable; S1 and S2; No gallop/S3, No gallop/S4, No diastolic murmur, No systolic murmur, No friction rub, No click, No other Gastrointestional: No tender, No soft, No round, No distended, No pulsatile mass, No organomegaly, No guarding, No rebound, No tenderness, No hernia, No mass, No audible bowel sounds, No abnormal bowel sounds, No abdominal bruits, No spleenomegaly, No other Extremities: No normal range of motion, No non-tender, No normal inspection, No pedal edema, No calf tenderness, No normal capillary refill, No pelvis stable, No calf tenderness, No inflammation, No pedal edema, No slow capillary refill, No swelling, No other, No abrasion, No clubbing, No cyanosis, No ecchymosis, No laceration, No no lower extremity edema bilateral, No significant edema, No tenderness, No wound Neurologic/Psychiatric: no motor/sensory deficits, alert, normal mood/affect, oriented x 3, power is 5/5 both on sides Skin: No normal color, No warm/dry, No cyanosis, No cool; diaphoresis; No damp, No ecchymosis, No jaundice, No mottled; pallor; No rash, No tattoos/piercings, No ulcerations, No rash on exposed areas, No ulcerations on exposed areas, No other Results/Procedures: Labs Laboratory Tests 09/20/18 03:00: White Blood Count 9.5, Red Blood Count 3.77L, Hemoglobin 10.8L, Hematocrit 33L, Mean Corpuscular Volume 87, Mean Corpuscular Hemoglobin 29, Mean Corpuscular Hemoglobin Concent 33, Red Cell Distribution Width 14.6H, Platelet Count 305, Mean Platelet Volume 9.7, Neutrophils (%) (Auto) 82H, Lymphocytes (%) (Auto) 14, Monocytes (%) (Auto) 4, Eosinophils (%) (Auto) 0, Basophils (%) (Auto) 0, Neutrophils # (Auto) 7.7, Lymphocytes # (Auto) 1.3, Monocytes # (Auto) 0.4, Eosinophils # (Auto) 0.0, Basophils # (Auto) 0.0, Sodium Level 140, Potassium Level 3.4L, Chloride Level 106, Carbon Dioxide Level 21, Anion Gap 13, Blood U marisela Nitrogen 17, Creatinine 0.77, Estimat Glomerular Filtration Rate > 60, BUN/Creatinine Ratio 22, Glucose Level 218H, Calcium Level 8.9, Corrected Calcium 8.9, Phosphorus Level 2.4, Magnesium Level 2.1, Total Bilirubin 0.2, Aspartate Amino Transf (AST/SGOT) 20, Alanine Aminotransferase (ALT/SGPT) 36, Alkaline Phosphatase 44, Total Protein 6.0L, Albumin 4.0 Microbiology 09/17/18 Blood Culture - Preliminary, Resulted No growth 09/17/18 MRSA Screen - Final, Complete MRSA not isolated A/P: Assessment/Dx: severe hypotensive response to prazosin versus anaphylactic shock, non-STEMI, Hypertension, Hyperlipidemia, Plan: treated appropriately for hypotension with aggressive IV fluids. Epinephrine was given for possible anaphylaxis. non-STEMI in a patient with risk factors for CAD including hyperlipidemia and hypertension. Severe proximal RCA stenosis treated successfully with a drug- eluting stent on 09/19/2018. Dual antiplatelet therapy for at least a year. Medical compliance discussed at length. Hypertension, lisinopril and metoprolol. Hyperlipidemia, statin therapy. Thank you for your consultation. Please call me if you have any questions. Felipe Gillette MD, FACP, FACC, FSCAI, FHRS, CCDS Interventional Cardiology Cardiac Electrophysiology Vascular Medicine and Endovascular Interventions Focused Exam Lactate Level 09/17/18 14:10: Lactic Acid Level 3.21*Hossein MORILLO MD Sep 20, 2018 9:31 am
[2018-09-20] MEDS ORDERED: METO-370 PO (09:33)
[2018-09-20] MEDS ORDERED: ATOR80TA76 PO (09:33)
[2018-09-20] MEDS ORDERED: ASPI-983 PO (09:33)
[2018-09-20] MEDS ORDERED: TICA90TA PO (09:33)
--- NOTE | 2018-09-20 09:34 | Discharge Inst-Post CATH ---
Discharge Inst-CATH/EP Post Cardiac Cath/EP D/C Inst Follow Up/Plan Follow-up with Dr. Gillette in 3-4 weeks. <b>CARDIAC CATH/EP PROCEDURE DISCHARGE INSTRUCTIONS</b> ACTIVITY * Go Home directly and rest. * Limit activity of the leg (or wrist if it was used) for 7 days including aerobics, swimming, jogging, bicycling, etc. * Restrict stair-climbing for 7 days if possible, if not, climb up with your non-cath leg, then bring together on the same step. * Avoid lifting, pushing, pulling or excessive movement of the affected extremity for 7 days. * Customary sexual activity may be resumed after 2 days-use caution not to use a position that strains or causes pain to the affected extremity. * No driving for 24 hours. * NO SMOKING. * Avoid straining for bowel movements for 7 days. * Gentle walking on level ground is allowed. * Returning to work will depend on the type of procedure and the results. Your doctor will discuss this with you. CALL YOUR DOCTOR FOR ANY OF THE FOLLOWING: *If bleeding from the puncture site occurs- Apply gentle pressure to site with clean cloth and call your doctor or EMS. * If a knot or lump forms under the skin, increases in size, or causes pain. * If bruising appears to be worsening or moving further down your leg instead of disappearing. * Temperature above 101 F. CARE OF YOUR GROIN INCISION; * Bruising or purple discoloration of the skin near the puncture site is common. * You may shower only, no bathtub bathing for 5 days. Be careful to avoid slipping as your leg may feel stiff. * If a closure device was used on your femoral artery, please see the attached guide regarding care of the device and your leg. * Leave dressing on FOR 24 hours. CARE OF YOUR WRIST INCISION; * Bruising or purple discoloration of the skin near the puncture site is common. * You may shower. * DO NOT submerge wrist. * Leave dressing on FOR 24 hours. Hossein GILLETTE MD Sep 20, 2018 9:34 am
[2018-09-20] MEDS ORDERED: PRD10T PO (11:55)
[2018-09-20 12:00] VITALS: BP 164/86
--- NOTE | 2018-09-20 13:54 | Discharge Summary ---
Diagnosis/Chief Complaint Date of Admission Sep 18, 2018 at 16:13 Date of Discharge Sep 20, 2018 Admission Diagnosis Admission Diagnosis Anaphylaxis shock now stable likely due to prazosin Elevated troponin with concerning symptoms of atypical chest pain at home and recent weeks Hypertension Hyperlipidemia Discharge Diagnosis Status post anaphylactic shock due to presumed prazosin Non-ST elevation [place] Stent placed in proximal lesion severe stenotic right coronary artery now tolerating medication well Hypertension Hyperlipidemia Chief Complaint/HPI Chief Complaint/HPI From Dr. Buenrostro's H&P: Chief complaint: Anaphylaxis History of present illness: This is a 68-year-old white female clinic patient of [facility] who presented to the ER and anaphylaxis shock and he was able to be stabilized requiring ICU admission. It is assumed that 2 doses of prazosin has been the factor involved in the allergic reaction. He did have elevated troponin likely due to significant hypotension but he is reporting any type of impending doom and chest pain while he has been sleeping recently. I will await for cardiology consultation and ordered a risk stratify to be thorough and manage this patient's problems during this current hospital stay to prevent any type of cardiac decompensation. We will Hep-Lock his IV fluid. Discharge Summary-Simple/Stand Procedures Coronary angiography with ABBY placement Consultations Discharge Physical Examination Allergies: Coded Allergies: metoclopramide (Unverified Allergy, Mild, 03/08/13) Vitals & I&Os Vital Sign - Last 12Hours Date Time Temp Pulse Resp B/P (MAP) Pulse Ox O2 Delivery O2 Flow Rate FiO2 09/20/18 12:00 98.5 77 19 164/86 (112) 96 Room Air 09/20/18 08:30 3.00 Intake and Output 09/20/18 00:00 Intake Total 2360 ml Output Total 1150 ml Balance 1210 ml General Appearance: Alert, No Acute Distress Respiratory: Clear to Auscultation, Normal Air Movement Cardiovascular: Regular Rate, No Murmurs Abdominal: Normal Bowel Sounds, Soft Neuro: Normal Speech Psych/Mental Status: Mental Status NL Hospital Course Was the Problem List Reviewed?: Yes See final discharge diagnosis. Labs Laboratory Tests Test 09/20/18 03:00 Range/Units White Blood Count 9.5 4.3-11.0 10^3/uL Red Blood Count 3.77 L 4.35-5.85 10^6/uL Hemoglobin 10.8 L 13.3-17.7 G/DL Hematocrit 33 L 40-54 % Mean Corpuscular Volume 87 80-99 FL Mean Corpuscular Hemoglobin 29 25-34 PG Mean Corpuscular Hemoglobin Concent 33 32-36 G/DL Red Cell Distribution Width 14.6 H 10.0-14.5 % Platelet Count 305 130-400 10^3/uL Mean Platelet Volume 9.7 7.4-10.4 FL Neutrophils (%) (Auto) 82 H 42-75 % Lymphocytes (%) (Auto) 14 12-44 % Monocytes (%) (Auto) 4 0-12 % Eosinophils (%) (Auto) 0 0-10 % Basophils (%) (Auto) 0 0-10 % Neutrophils # (Auto) 7.7 1.8-7.8 X 10^3 Lymphocytes # (Auto) 1.3 1.0-4.0 X 10^3 Monocytes # (Auto) 0.4 0.0-1.0 X 10^3 Eosinophils # (Auto) 0.0 0.0-0.3 10^3/uL Basophils # (Auto) 0.0 0.0-0.1 10^3/uL Sodium Level 140 135-145 MMOL/L Potassium Level 3.4 L 3.6-5.0 MMOL/L Chloride Level 106 98-107 MMOL/L Carbon Dioxide Level 21 21-32 MMOL/L Anion Gap 13 5-14 MMOL/L Blood Urea Nitrogen 17 7-18 MG/DL Creatinine 0.77 0.60-1.30 MG/DL Estimat Glomerular Filtration Rate > 60 BUN/Creatinine Ratio 22 Glucose Level 218 H 70-105 MG/DL Calcium Level 8.9 8.5-10.1 MG/DL Corrected Calcium 8.9 8.5-10.1 MG/DL Phosphorus Level 2.4 2.3-4.7 MG/DL Magnesium Level 2.1 1.8-2.4 MG/DL Total Bilirubin 0.2 0.1-1.0 MG/DL Aspartate Amino Transf (AST/SGOT) 20 5-34 U/L Alanine Aminotransferase (ALT/SGPT) 36 0-55 U/L Alkaline Phosphatase 44 40-136 U/L Total Protein 6.0 L 6.4-8.2 GM/DL Albumin 4.0 3.2-4.5 GM/DL Discharge Instructions to patient/family Please see electronic discharge instructions given to patient. Discharge Medications Reviewed and agree with Discharge Medication list on patient's Discharge Instruction sheet Clinical Quality Measures DVT/VTE Risk/Contraindication: Risk Factor Score Per Nursin RFS Level Per Nursing on Admit: 2=Moderate ALBERTO SALMON MD Sep 20, 2018 13:54
[2018-09-20 14:35] VITALS: BP 164/86
== END 2018-09-20 14:35 | disposition home or self-care (01) | DRG 247 ==
LOC: EDUNIT# 11:23 → ER 11:24 → ICU 13:57 → UNDOADMOB 13:57 → ICU 14:50 → INTOOBSV 09-18 16:13 → OBSVTOIN 09-18 16:13 → 4TH 09-18 17:36 → ICU 09-18 17:36 → 4TH 09-19 10:50 → ICU 09-19 10:50 → UNDODISIN 09-20 14:35
PROVIDERS: ADMIT Internal Medicine; ATTEND Family Medicine
PROC: 027034Z Dilation of Coronary Artery, One Artery with Drug-eluting Intraluminal Device, Percutaneous Approach (ICD-10-PCS; principal; 2018-09-19)
PROC: 4A033BC Measurement of Arterial Pressure, Coronary, Percutaneous Approach (ICD-10-PCS; 2018-09-19)
PROC: 4A023N7 Measurement of Cardiac Sampling and Pressure, Left Heart, Percutaneous Approach (ICD-10-PCS; 2018-09-19)
PROC: B2111ZZ Fluoroscopy of Multiple Coronary Arteries using Low Osmolar Contrast (ICD-10-PCS; 2018-09-19)
PROC: B2151ZZ Fluoroscopy of Left Heart using Low Osmolar Contrast (ICD-10-PCS; 2018-09-19)
DX: I21.4 Non-ST elevation (NSTEMI) myocardial infarction (principal); I25.119 Atherosclerotic heart disease of native coronary artery with unspecified angina pectoris; T44.6X5A Adverse effect of alpha-adrenoreceptor antagonists, initial encounter; T88.6XXA Anaphylactic reaction due to adverse effect of correct drug or medicament properly administered, initial encounter; I97.630 Postprocedural hematoma of a circulatory system organ or structure following a cardiac catheterization; E86.0 Dehydration; E87.2 Acidosis; I10 Essential (primary) hypertension; E78.2 Mixed hyperlipidemia; Z87.891 Personal history of nicotine dependence; K21.9 Gastro-esophageal reflux disease without esophagitis; F41.9 Anxiety disorder, unspecified; F32.9 Major depressive disorder, single episode, unspecified; M54.9 Dorsalgia, unspecified; R09.02 Hypoxemia
CPT/HCPCS: 36415; 71045; 71275; 74174; 80053; 81000; 83605; 83690; 83735; 84100; 84484; 85007; 85025; 85027; 85610; 85730; 86141; 87040; 87081; 93005; 93041; 93306; 93458; 96372; 96374; 96375; G0378

== ENCOUNTER 2018-10-08 13:26 | Outpatient (CLI) | payer MEDICARE, OTHER ==
[~2018-10-08 13:26] MED LIST changes: +AMIT50TA3 PO; +ASPI-983 PO; +ATOR80TA76 PO; -DULO60CA58 PO; +DULO60CA59 PO; +GLUC-144 PO; +LISI10TA2 PO; +METO-370 PO; +MORP-34 PO; +PRAZ2CAP2 PO; +PRD10T PO; +TICA90TA PO; +TURM500C4 PO
== END 2018-10-08 14:05 | disposition home or self-care (01) ==
LOC: SLEEP 13:26
PROVIDERS: ATTEND Internal Medicine Interventional Cardiology
DX: G47.33 Obstructive sleep apnea (adult) (pediatric) (principal); I50.32 Chronic diastolic (congestive) heart failure; I25.10 Atherosclerotic heart disease of native coronary artery without angina pectoris

== ENCOUNTER → 2019-01-12 | Outpatient (CLI) | payer MEDICARE | LOC: RT 13:25 | PROVIDERS: ATTEND Internal Medicine Interventional Cardiology | DX: R06.02 Shortness of breath (principal) | CPT/HCPCS: 94060; 94726; 94729 ==

== ENCOUNTER 2019-02-21 22:18 | Emergency (ER) | payer MEDICARE ==
[~2019-02-21] VITALS: Ht 185 cm; Wt 97.0 kg
[2019-02-21 23:06] LABS: BASOPHILS % (AUTO) 1 % (0-10); EOSINOPHILS # (AUTO) 0.4 10^3/uL (0.0-0.3); EOSINOPHILS % (AUTO) 6 % (0-10); HEMATOCRIT 34 % (40-54); HEMOGLOBIN 11.2 G/DL (13.3-17.7); LYMPHOCYTES % (AUTO) 35 % (12-44); MEAN CORPUSCULAR HEMOGLOBIN 30 PG (25-34); MEAN CORPUSCULAR HGB CONC 33 G/DL (32-36); MEAN CORPUSCULAR VOLUME 89 FL (80-99); MEAN PLATELET VOLUME 10.5 FL (7.4-10.4); MONOCYTES # (AUTO) 0.6 X 10^3 (0.0-1.0); MONOCYTES % (AUTO) 10 % (0-12); NEUTROPHILS # (AUTO) 2.8 X 10^3 (1.8-7.8); NEUTROPHILS % (AUTO) 49 % (42-75); PLATELET COUNT 341 10^3/uL (130-400); WHITE BLOOD COUNT 5.8 10^3/uL (4.3-11.0)
[2019-02-21 23:17] LABS: INR 0.9 (0.8-1.4); PROTHROMBIN TIME PATIENT 12.8 SEC (12.2-14.7)
[2019-02-21] MEDS ORDERED: CEFD300C3 PO (23:58)
--- NOTE | 2019-02-21 23:58 | ED EENT ---
History of Present Illness General Chief Complaint: Nasal Problems Stated Complaint: NOSE BLEED/ON BLOOD THINNERS Nursing Triage Note: Pt ambulates to with c/o nosebleed x4 hrs from [facility]. Bleeding is controlled on arrival. Pt states he is on blood thinners and wanted to get it checked out since the bleed was prolonged. Allergies and Home Medications Allergies Coded Allergies: metoclopramide (Unverified Allergy, Mild, 03/08/13) Home Medications Amitriptyline HCl 50 Mg Tablet, 50 MG PO HS, (Reported) Aspirin 81 Mg Tablet.dr, 81 MG PO DAILY Prescribed by: Hossein GALVAN on 09/20/18932 Atorvastatin Calcium 80 Mg Tablet, 80 MG PO HS Prescribed by: Hossein GALVAN on 09/20/18932 Bupropion HCl 150 Mg Tablet.er, 150 MG PO DAILY, (Reported) Duloxetine HCl 60 Mg Capsule.dr, 60 MG PO BID, (Reported) Gabapentin 100 Mg Capsule, 100 MG PO TID PRN for NEUROPATHY PAIN, (Reported) Glucosamine HCl/Chondr Sandy A Na 1 Each Tablet, 1 TAB PO BID, (Reported) Lisinopril 10 Mg Tablet, 10 MG PO DAILY, (Reported) Metoprolol Succinate 50 Mg Tab.er.24h, 50 MG PO DAILY Prescribed by: Hossein GALVAN on 09/20/18932 Morphine Sulfate 30 Mg Tablet.er, 30 MG PO BID, (Reported) Omeprazole Magnesium 20 Mg Tablet.dr, 20 MG PO BID, (Reported) Prednisone 10 Mg Tab, 0 PO UD Take 6 tabs (60mg) daily, decrease by 1 tab (10mg) daily. Prescribed by: ALBERTO SALMON on 09/20/18 1155 Ticagrelor 90 Mg Tablet, 90 MG PO BID Prescribed by: Hossein GALVAN on 09/20/18932 Turmeric/Turmeric Root Extract 1 Each Capsule, 500 MG PO DAILY, (Reported) Past Yzwzylm-Fhqzse-Ojaauk Hx Patient Social History Alcohol Use: Rarely Uses Number of Drinks Today: AA Alcohol Beverage of Choice: Beer Recreational Drug Use: No Smoking Status: Former Smoker Type Used: Cigarettes Former Smoker, Quit: Nov 11, 2007 Recent Foreign Travel: No Contact w/Someone Who Travel: No Recent Infectious Disease Expo: No Recent Hopitalizations: No Physical Abuse: No Sexual Abuse: No Mistreated: No Fear: No Immunizations Up To Date Date of Pneumonia Vaccine: Nov 30, 2017 Date of Influenza Vaccine: Dec 15, 2016 Seasonal Allergies Seasonal Allergies: Yes Past Medical History Surgeries: Yes Orthopedic Respiratory: No Cardiac: Yes High Cholesterol, Hypertension Neurological: No Reproductive Disorders: No Sexually Transmitted Disease: No HIV/AIDS: No Gastrointestinal: Yes Gastroesophageal Reflux, Chronic Constipation Musculoskeletal: Yes Arthritis, Chronic Back Pain, Fractures Endocrine: No Loss of Vision: Bilateral Hearing Impairment: Denies Cancer: No Psychosocial: Yes Anxiety, Depression Integumentary: No Blood Disorders: No Adverse Reaction/Blood Tranf: No (N/A) Family Medical History Patient reports no known family medical history. Physical Exam Vital Signs Vital Signs - First Documented 02/21/19 22:29 Temp 36.4 Pulse 70 Resp 18 B/P (MAP) 135/96 (109) Pulse Ox 99 O2 Delivery Room Air Height, Weight, BMI Height: 6'1.00" Weight: 207lbs. 4.0oz. 94.585655ed; 28.00 BMI Method:Stated Progress/Results/Core Measures Results/Orders Lab Results Laboratory Tests Test 02/21/19 00:00 02/21/19 23:00 Range/Units White Blood Count 5.8 4.3-11.0 10^3/uL Red Blood Count 3.78 L 4.35-5.85 10^6/uL Hemoglobin 11.2 L 13.3-17.7 G/DL Hematocrit 34 L 40-54 % Mean Corpuscular Volume 89 80-99 FL Mean Corpuscular Hemoglobin 30 25-34 PG Mean Corpuscular Hemoglobin Concent 33 32-36 G/DL Red Cell Distribution Width 14.0 10.0-14.5 % Platelet Count 341 130-400 10^3/uL Mean Platelet Volume 10.5 H 7.4-10.4 FL Neutrophils (%) (Auto) 49 42-75 % Lymphocytes (%) (Auto) 35 12-44 % Monocytes (%) (Auto) 10 0-12 % Eosinophils (%) (Auto) 6 0-10 % Basophils (%) (Auto) 1 0-10 % Neutrophils # (Auto) 2.8 1.8-7.8 X 10^3 Lymphocytes # (Auto) 2.0 1.0-4.0 X 10^3 Monocytes # (Auto) 0.6 0.0-1.0 X 10^3 Eosinophils # (Auto) 0.4 H 0.0-0.3 10^3/uL Basophils # (Auto) 0.0 0.0-0.1 10^3/uL Prothrombin Time 12.8 12.2-14.7 SEC INR Comment 0.9 0.8-1.4 Activated Partial Thromboplast Time 25 24-35 SEC My Orders Orders - HARMONY GOMES DO Ed Iv/Invasive Line Start (02/21/19 22:42) Basic Metabolic Panel (02/21/19 22:42) Cbc With Automated Diff (02/21/19 22:42) Protime With Inr (02/21/19 22:42) Partial Thromboplastin Time (02/21/19 22:42) Cefdinir Capsule (Omnicef Capsule) (02/22/19 00:00) Vital Signs/I&O 02/21/19 22:29 Temp 36.4 Pulse 70 Resp 18 B/P (MAP) 135/96 (109) Pulse Ox 99 O2 Delivery Room Air Blood Pressure Mean: 109 Departure Impression Primary Impression: Epistaxis Additional Impression: Left otitis media with effusion Disposition: HOME, SELF-CARE Condition: Improved Departure-Patient Inst. Referrals: BIANCA GALARZA MD (PCP) Primary Care Physician LILIBETH DUARTE (Family) Primary Care Physician Patient Instructions: Nosebleeds (DC), Ear Infections (Otitis Media) (DC), Serous Otitis Media (DC), Eustachian Tube Problems (DC) Add. Discharge Instructions: LEAVE NASAL PACKING IN PLACE DO NOT RUB OR BLOW NOSE TYLENOL NEEDED FOR PAIN RETURN TO ER IF BLEEDING RETURNS FOLLOW UP WITH DR. ALARCON IN 3-4 DAYS FOR FURTHER CARE All discharge instructions reviewed with patient and/or family. Voiced understanding. Scripts Cefdinir (Cefdinir) 300 Mg Capsule 300 MG PO BID for FOR INFECTION, #20 CAP Prov: HARMONY GOMES DO 02/21/19 HARMONY GOMES DO Feb 21, 2019 23:58
[2019-02-22] MEDS ORDERED: CEFDINIR 300 MG (OMNICEF) CAP PO ONE
[2019-02-22 00:02] VITALS: BP 135/96
== END 2019-02-22 00:03 | disposition home or self-care (01) ==
LOC: EDUNIT# 22:18 → ER 22:19
DX: H65.92 Unspecified nonsuppurative otitis media, left ear (principal); I10 Essential (primary) hypertension; E78.00 Pure hypercholesterolemia, unspecified; K21.9 Gastro-esophageal reflux disease without esophagitis; F41.9 Anxiety disorder, unspecified; F32.9 Major depressive disorder, single episode, unspecified; Z88.8 Allergy status to other drugs, medicaments and biological substances; Z79.82 Long term (current) use of aspirin; Z79.52 Long term (current) use of systemic steroids; Z87.891 Personal history of nicotine dependence
CPT/HCPCS: 36415; 85025; 85610; 85730; 99283

== ENCOUNTER 2019-05-14 11:19 | Emergency (ER) | payer MEDICARE ==
[~2019-05-14] VITALS: Ht 185 cm; Wt 95.2 kg
[~2019-05-14 11:19] MED LIST changes: +CEFD300C3 PO; -METO-370 PO; +METO50TA7 PO; -MORP-34 PO; +MORP-69 PO
[2019-05-14] MEDS ORDERED: OXYMETAZOLINE (AFRIN) 0.05% NA 30 ML BTL ONE (11:34)
--- NOTE | 2019-05-14 11:39 | ED EENT ---
History of Present Illness General Chief Complaint: Nasal Problems Stated Complaint: NOSE BLEED Nursing Triage Note: nose bleed since last night 11 pm Source: patient Exam Limitations: no limitations History of Present Illness Date Seen by Provider: May 14, 2019 Time Seen by Provider: 11:36 Initial Comments Left-sided nosebleed since last night. He was started on Plavix following cardiac catheterization with stent placement late last year, he was also here in January for left-sided nosebleed treated with rapid Rhino nasal packing. Timing/Duration: abrupt Severity: moderate Location: nose Prearrival Treatment: nasal packing Associated Symptoms: denies symptoms Allergies and Home Medications Allergies Coded Allergies: metoclopramide (Unverified Allergy, Mild, 03/08/13) Home Medications Amitriptyline HCl 50 Mg Tablet, 50 MG PO HS, (Reported) Aspirin 81 Mg Tablet.dr, 81 MG PO DAILY Prescribed by: Hossein GALVAN on 09/20/18932 Atorvastatin Calcium 80 Mg Tablet, 80 MG PO HS Prescribed by: Hossein GALVAN on 09/20/18932 Bupropion HCl 150 Mg Tablet.er, 150 MG PO DAILY, (Reported) Cefdinir 300 Mg Capsule, 300 MG PO BID Prescribed by: HARMONY GOMES on 02/21/192357 Duloxetine HCl 60 Mg Capsule.dr, 60 MG PO BID, (Reported) Gabapentin 100 Mg Capsule, 100 MG PO TID PRN for NEUROPATHY PAIN, (Reported) Glucosamine HCl/Chondr Sandy A Na 1 Each Tablet, 1 TAB PO BID, (Reported) Lisinopril 10 Mg Tablet, 10 MG PO DAILY, (Reported) Metoprolol Succinate 50 Mg Tab.er.24h, 50 MG PO DAILY Prescribed by: Hossein GALVAN on 09/20/18932 Morphine Sulfate 30 Mg Tablet.er, 30 MG PO BID, (Reported) Omeprazole Magnesium 20 Mg Tablet.dr, 20 MG PO BID, (Reported) Prednisone 10 Mg Tab, 0 PO UD Take 6 tabs (60mg) daily, decrease by 1 tab (10mg) daily. Prescribed by: ALBERTO SALMON on 09/20/18 115 Ticagrelor 90 Mg Tablet, 90 MG PO BID Prescribed by: Hossein GALVAN on 09/20/18932 Turmeric/Turmeric Root Extract 1 Each Capsule, 500 MG PO DAILY, (Reported) Patient Home Medication List Home Medication List Reviewed: Yes Review of Systems Review of Systems Constitutional: see HPI Eyes: No Symptoms Reported Ears: No Symptoms Reported Nose: see HPI, epistaxis Mouth: no symptoms reported Throat: no symptoms reported Respiratory: no symptoms reported Cardiovascular: no symptoms reported Musculoskeletal: no symptoms reported Skin: no symptoms reported Neurological: No Symptoms Reported Hematologic/Lymphatic: No Symptoms Reported Immunological/Allergic: no symptoms reported Past Epydlgo-Swmvyw-Wxvajx Hx Patient Social History Alcohol Beverage of Choice: Beer Type Used: Cigarettes Former Smoker, Quit: Nov 11, 2007 Recent Foreign Travel: No Contact w/Someone Who Travel: No Recent Infectious Disease Expo: No Recent Hopitalizations: No Immunizations Up To Date Date of Pneumonia Vaccine: Nov 30, 2017 Date of Influenza Vaccine: Dec 15, 2016 Seasonal Allergies Seasonal Allergies: Yes Past Medical History Surgeries: Yes (CARDIAC CATH-STENT X 09/2018) Cardiac, Coronary Stent, Orthopedic Respiratory: No Cardiac: Yes (CARDIAC CATH-STENT X 09/2018) Coronary Artery Disease, High Cholesterol, Hypertension Neurological: No Reproductive Disorders: No Sexually Transmitted Disease: No HIV/AIDS: No Gastrointestinal: Yes Gastroesophageal Reflux, Chronic Constipation Musculoskeletal: Yes Arthritis, Chronic Back Pain, Fractures Endocrine: No HEENT: No Loss of Vision: Bilateral Hearing Impairment: Denies Cancer: No Psychosocial: Yes Anxiety, Depression Integumentary: No Blood Disorders: No Adverse Reaction/Blood Tranf: No (N/A) Family Medical History Patient reports no known family medical history. Physical Exam Vital Signs Vital Signs - First Documented 05/14/19 11:26 Temp 36.7 Pulse 120 Resp 18 B/P (MAP) 163/93 (116) Pulse Ox 96 O2 Delivery Room Air Height, Weight, BMI Height: 6'1.00" Weight: 207lbs. 4.0oz. 94.897177hg; 27.00 BMI Method:Stated General Appearance: WD/WN, no apparent distress, other (anxious, tremulous) Eyes: bilateral eye normal inspection, bilateral eye PERRL, bilateral eye EOMI Ears: bilateral ear auricle normal, bilateral ear canal normal, bilateral ear TM normal Nose: active bleeding (there is a small amount of oozing of blood from inferior and lateral aspect of the inferior turbinate) Mouth/Throat: normal mouth inspection, pharynx normal Neck: non-tender, full range of motion Gastrointestinal: normal bowel sounds, non tender, soft Neurologic/Psychiatric: alert, normal mood/affect, oriented x 3 Skin: normal color, warm/dry Progress/Results/Core Measures Results/Orders Lab Results Laboratory Tests Test 05/14/19 11:30 Range/Units White Blood Count 6.2 4.3-11.0 10^3/uL Red Blood Count 4.38 4.35-5.85 10^6/uL Hemoglobin 12.7 L 13.3-17.7 G/DL Hematocrit 39 L 40-54 % Mean Corpuscular Volume 89 80-99 FL Mean Corpuscular Hemoglobin 29 25-34 PG Mean Corpuscular Hemoglobin Concent 33 32-36 G/DL Red Cell Distribution Width 13.7 10.0-14.5 % Platelet Count 280 130-400 10^3/uL Mean Platelet Volume 9.3 7.4-10.4 FL Neutrophils (%) (Auto) 62 42-75 % Lymphocytes (%) (Auto) 29 12-44 % Monocytes (%) (Auto) 6 0-12 % Eosinophils (%) (Auto) 2 0-10 % Basophils (%) (Auto) 1 0-10 % Neutrophils # (Auto) 3.9 1.8-7.8 X 10^3 Lymphocytes # (Auto) 1.8 1.0-4.0 X 10^3 Monocytes # (Auto) 0.4 0.0-1.0 X 10^3 Eosinophils # (Auto) 0.2 0.0-0.3 10^3/uL Basophils # (Auto) 0.0 0.0-0.1 10^3/uL My Orders Orders - TORSTEN SYKES APRN Cbc With Automated Diff (05/14/19 11:33) Oxymetazoline 0.05% Nasal [place] (Afrin 0. (05/14/19 21:00) Tranexamic Acid Injection (Cyklokapron I (05/14/19 11:45) Alprazolam Tablet (Xanax Tablet) (05/14/19 11:45) Oxymetazoline 0.05% Nasal [place] (Afrin 0. (05/14/19 11:34) Medications Given in ED Current Medications Medications Dose Ordered Sig/[place] Route Start Time Stop Time Status Last Admin Dose Admin Alprazolam 0.25 mg ONCE ONCE PO 05/14/19 11:45 05/14/19 11:46 DC 05/14/19 11:40 0.25 MG Tranexamic Acid TOPICAL ONCE ONCE IV 05/14/19 11:45 05/14/19 11:46 DC 05/14/19 11:41 1,000 MG Vital Signs/I&O 05/14/19 11:26 Temp 36.7 Pulse 120 Resp 18 B/P (MAP) 163/93 (116) Pulse Ox 96 O2 Delivery Room Air Blood Pressure Mean: 116 Departure Communication (Admissions) 1143-oxymetazoline spray to the left Nare, 1 cc of [place] A atomized sprayed up the left nostril. Nose clamp reapplied, will reevaluate here if it. Nothing draining in the oropharynx at this time. 1319-nose clamp had been removed, there was persistent slow oozing of blood from the inferior lateral aspect of the inferior turbinate. Decided to cauterize this with silver nitrate. Patient tolerated well. Impression Primary Impression: Anxiety Additional Impression: Epistaxis Disposition: 01 HOME, SELF-CARE Condition: Stable Departure-Patient Inst. Decision time for Depature: 13:21 Referrals: BIANCA GALARZA MD (PCP) Primary Care Physician LILIBETH DUARTE (Family) Primary Care Physician Patient Instructions: Nosebleeds (DC) TORSTEN SYKES APRN May 14, 2019 11:39
[2019-05-14 11:41] LABS: BASOPHILS % (AUTO) 1 % (0-10); EOSINOPHILS # (AUTO) 0.2 10^3/uL (0.0-0.3); EOSINOPHILS % (AUTO) 2 % (0-10); HEMATOCRIT 39 % (40-54); HEMOGLOBIN 12.7 G/DL (13.3-17.7); LYMPHOCYTES # (AUTO) 1.8 X 10^3 (1.0-4.0); LYMPHOCYTES % (AUTO) 29 % (12-44); MEAN CORPUSCULAR HEMOGLOBIN 29 PG (25-34); MEAN CORPUSCULAR HGB CONC 33 G/DL (32-36); MEAN CORPUSCULAR VOLUME 89 FL (80-99); MEAN PLATELET VOLUME 9.3 FL (7.4-10.4); MONOCYTES # (AUTO) 0.4 X 10^3 (0.0-1.0); MONOCYTES % (AUTO) 6 % (0-12); NEUTROPHILS # (AUTO) 3.9 X 10^3 (1.8-7.8); NEUTROPHILS % (AUTO) 62 % (42-75); PLATELET COUNT 280 10^3/uL (130-400); RED CELL DISTRIBUTION WIDTH 13.7 % (10.0-14.5); WHITE BLOOD COUNT 6.2 10^3/uL (4.3-11.0)
[2019-05-14] MEDS ORDERED: ALPRAZolam 0.25 MG (XANAX) TAB PO ONE (11:45)
[2019-05-14] MEDS ORDERED: TRANEXAMIC ACID 100 MG/ML 10 ML INJECTION IV ONE (11:45)
[2019-05-14 13:50] VITALS: BP 163/93
[2019-05-14] MEDS ORDERED: OXYMETAZOLINE (AFRIN) 0.05% NA 30 ML BTL SCH (21:00)
--- OUTSIDE RECORDS SUMMARY | 2019-05-15 18:47 | XMS REPORT | Encounter Summary ---
Author Author [facility] Organization [facility] Address Unknown Phone Unavailable Care Team Providers Care Trimming Operator Name Role Phone PCP Unavailable Encounter Details Care Team Description Date Type Department Roxie Allen MD [address] [facility] [address] [place] [address] [phone] Marga-Prosthetic Fracture Around Prosthet ic Joint 10/05/2005 [facility] 10/12/2005 [address] [place] [address] Social History Date Tobacco Use Types Packs/Day Years Used Never Assessed Sex Assigned at Date Recorded Not on file Industry Job Start Date Occupation Not on file Not on file Not on file Travel End Travel History Travel Start No recent travel history available. documented as of this encounter Discharge Summaries * Roxie Allen MD - 04/30/2013 1:59 PM FINANCIAL PROJECT MANAGER REPORT Name: KIERSTEN GRACIA Date of : 1950 MRN/Unit #: [id number] Attending Physician: ROXIE ALLEN MD Referring Physician: KAYLI HOWARD DATE OF ADMISSION: 10/05/2005 DATE OF DISCHARGE: 10/12/2005 ADMITTING DIAGNOSIS: Fractured left femur. It was a periprosthetic fracture. HOSPITAL COURSE: For the admission history and physical, please refer to the narrative written by me. Preoperative laboratory workup did not reveal any contraindications to surgery. On the day after admission the patient underwent open reduction and internal fixation of the leg. He tolerated the procedure well. Postoperatively he was placed on a regimen of Ancef one gram IV q.8 h. x 24 hours postop. The first postoperative day he complained of pain. Neurovascular status of the leg was intact. The second postoperative day hemoglobin was 8.9. He still complained of pain. Efforts were made to try to control the pain with a SHIRT PRESSER pump. On the third postoperative day he was complaining of some constipation. His vital signs were stable and afebrile. On the fourth postoperative day high temperature was 100.8. Homans' sign was negative. He was continued with gait training and a toe-touch weightbearing status. On 10/11/2005 the wound was clean, dry, and intact. He was independent in ambulation. He was discharged on 10/12/2005. DISCHARGE DIAGNOSIS: Status post open reduction and internal fixation of left femoral periprosthetic fracture. FOLLOWUP: He was to see me one week post discharge for wound evaluation. Weightbearing status was toe-touch weightbearing. The patient also had postoperative anemia. Roxie Allen M.D. cc: NCIAL PROJECT MANAGER documented in this encounter H&P Notes * Roxie Allen MD - 04/30/2013 2:18 PM FINANCIAL PROJECT MANAGER REPORT Name: KIERSTEN GRACIA Date of : 1950 MRN/Unit #: [id number] Attending Physician: ROXIE ALLEN MD Referring Physician: REFERRING NO HISTORY OF THE PRESENT ILLNESS: Mr. Harrell is a 55-year-old male, who fell and sustained trauma to the left femur. X-rays taken in the emergency room revealed a periprosthetic femur fracture. He is brought to the operating room for open reduction and internal fixation of this injury. PAST MEDICAL HISTORY: Remarkable for having had total hip arthroplasty x 2. In fact he states he had been having some pain with this most recent hip arthroplasty when he fell and sustained this fracture. REVIEW OF SYSTEMS: Review of systems is otherwise noncontributory. MEDICATIONS: The patient states he is on Lipitor and Effexor. PHYSICAL EXAMINATION: On physical examination, he is lying in bed. He is alert and oriented x 3. Neurovascular status to the left lower extremity is grossly intact. The skin, head, eyes, ears, nose and throat are benign. The neck is supple. The lungs are clear. The cardiovascular system reveals a regular rate. The abdomen is soft and nontender. Cranial nerves 2 through 12 are intact bilaterally. A review of x-rays reveals an oblique fracture of the femur around the tip of the femoral component. In light of this finding, we have recommended open reduction and internal fixation with cable plate fixation system. We discussed the risks and benefits of this with the patient, including the chance for continued pain about the hip prosthesis, the chance for dislocation, and the chance for nonunion with a process such as this. We will plan to do this surgery under the appropriate anesthetic and it has been scheduled for this afternoon. Roxie Allen M.D. NCIAL PROJECT MANAGER documented in this encounter Miscellaneous Notes * Operative Note - Roxie Allen MD - 04/30/2013 2:17 PM FINANCIAL PROJECT MANAGER REPORT Name: KIERSTEN GRACIA Date of : 1950 MRN/Unit #: [id number] Attending Physician: ROXIE ALLEN MD Referring Physician: REFERRING DR. HOWARD DATE OF OPERATION: PREOPERATIVE DIAGNOSIS: POSTOPERATIVE DIAGNOSIS: OPERATION PERFORMED: Left femoral open reduction internal fixation. SURGEON: Roxie Allen M.D. DIRECTOR WRITING: Polly Segovia. INDICATION: Mr. Gracia is a 55-year-old white male with a periprosthetic fracture, brought to the operating room for open reduction internal fixation of this periprosthetic fracture. DESCRIPTION OF PROCEDURE: After obtaining general anesthesia he was placed on the table in the right lateral decubitus position. The area of the left hip was prepped with Betadine solution, draped in a sterile fashion was prepped out also. A longitudinal incision was made from a point just inferior to the greater trochanter distally along the proximal four fifths of the femur; underlying soft tissue is dissected away. Vastus lateralis fascia, tensor fascia narcisa were incised and the vastus lateralis was subperiosteally elevated anteriorly. The fracture was visualized; it was comminuted with a long butterfly fragment. With some difficulty after a difficult dissection it was reduced. It was felt that the femoral component was not loose. It was then temporarily secured with 2 titanium cables and reduction was performed, and then a 14 hole locking plate of the Synthes type was contoured to the side of the femur and then fixed with locking screws placed throughout the inferior portion. The plate was below the level of the prosthesis and then unicortical screws and cables were used, care being taken to pass the cable with close proximity to the cortex and making sure not to capture any soft tissue on passing this and then tightened to a pressure about 45 kilograms of pressure as the patient had good solid bone. Fluoroscopic evaluation in AP and lateral planes reveal anatomic reduction of the fracture. The wound was irrigated with a saline solution. Hemostasis achieved throughout the procedure with electrocautery. The incision was closed in layers using #1 Vicryl in the vastus lateralis fascia and tensor fascia narcisa, 2-0 Vicryl on the subcutaneous tissue, ry in skin. Sterile gauze dressing was applied. The patient was then aroused, taken to the recovery room in satisfactory condition. Roxie Allen M.D. cc: NCIAL PROJECT MANAGER documented in this encounter Plan of Treatment Not on filedocumented as of this encounter Procedures Comments Procedure Name Priority Date/Time Associated Diag nosis HEMOGLOBIN AND HEMATOCRIT Routine 10/08/2005 4:10 AM CDT HEMOGLOBIN AND HEMATOCRIT Routine 10/07/2005 4:12 AM CDT XR FEMUR 2 VIEWS LEFT Routine 10/06/2005 4:00 PM CDT ANTIBODY SCREEN Routine 10/06/2005 7:42 AM CDT ABORH TYPE Routine 10/06/2005 7:42 AM CDT DIFFERENTIAL Routine 10/05/2005 11:00 PM CDT APTT Routine 10/05/2005 11:00 PM CDT PROTHROMBIN TIME/INR Routine 10/05/2005 11:00 PM CDT COMPREHENSIVE METABOLIC Routine 10/05/2005 PANEL 11:00 PM CDT CBC AND DIFF (MANUAL DIFF Routine 10/05/2005 IF NECESSARY) 11:00 PM CDT XR HIP COMPLETE MIN 2 Routine 10/05/2005 VIEWS LEFT 10:04 PM CDT XR CHEST SINGLE VIEW Routine 10/05/2005 FRONTAL 10:00 PM CDT documented in this encounter Results * Hemoglobin and Hematocrit (10/08/2005 4:10 AM CDT) Only the most recent of 2 results within the time period is included. Hemoglobin 8.9 (L) 13.0 - 17.0 G/DL [facility] Hematocrit 26 (L) 40 - 50 % [facility] Specimen Performing Organization Address City/State/Rustcode Ph one Number SLRL [address] [place], [place] [address] [facility] * XR Femur 2 views left (10/06/2005 4:00 PM CDT) Specimen Narrative Performed At [facility] YOBANI Name: KIERSTEN GRACIA A Date of : 1950 Sex: M Check-in #: [id number] Kim#/Jacket#: [id number] Room/Bed/Location: [address] Record #: [id number] Attending Physician: [id number] BRIANA Prado Admitting Diagnosis: ORIF (1299) Procedure Requested: [id number] DX FEMUR 2 V IEWS LEFT L Reason For Exam: ORIF (1299) Requested By: BRIANA Prado MD Exam Ordered: 10/06/2005 1700 Exam Date/Time: 10/06/2005 170 roma-in Date/Time: 10/06/2005 08 Interoperative left femur Study compared to October 05. The comminuted angulated fracture about the distal aspect of femoral component of the total hip replacement has been internally fixed to plate and screw. Alignment is satisfact ory Opinion satisfactory postsurgical malave es Left hip interoperative 5 views were obtained Tavern Keeper- ERIKA HOWELL M.D. , Staff Radiologist Dictated ByMin HOWELL M.D., Sta ff Radiologist Staff Physician- ERIKA HOWELL M.D., Staff Radiologist Authenticated ByMin HOWELL M.D. , Staff Radiologist Released Date Time- 10/07/05816 Procedure Note Interface, Rad Conversion - 05/02/2013 2:18 AM FINANCIAL PROJECT MANAGER REPORT Name: KIERSTEN GRACIA A Date of : 1950 Sex: M Check-in #: [id number] Kim#/Jacket#: [id number] Room/Bed/Location: [place] [address] Attending Physician: [id number] BRIANA Prado Admitting Diagnosis: ORIF (1300) Procedure Requested: [id number] DX FEMUR 2 VIEWS LEFT L Reason For Exam: ORIF (1300) Requested By: BRIANA Prado MD Exam Ordered: 10/06/20051699 Exam Date/Time: 10/06/20051699 Check-in Date/Time: 10/06/2005803 Interoperative left femur Study compared to October 05. The comminuted angulated fracture about the distal aspect of femoral component of the total hip replacement has been internally fixed to plate and screw. Alignment is satisfactory Opinion satisfactory postsurgical changes Left hip interoperative 5 views were obtained Tavern Keeper- ERIKA HOWELL M.D., Staff Radiologist Dictated ByMin HOWELL M.D., Staff Radiologist Staff Physician- ERIKA HOWELL M.D., Staff Radiologist Authenticated By- ERIKA HOWELL M.D., Staff Radiologist Released Date Time- 10/07/05816 Performing Organization Address [facility] one Number YOBANI * ABORH Type (10/06/2005 7:42 AM CDT) ABORH Type A POS [facility] Specimen Performing Organization [facility] one Number [facility] [id number] [place] [phone] [place] * Antibody Screen (10/06/2005 7:42 AM CDT) Antibody Screen NEGATIVE [facility] Specimen Performing Organization [facility] one Number [facility] [address] [place] [phone] [place] * DIFFERENTIAL (10/05/2005 11:00 PM CDT) % Neutrophils 81 (H) 45 - 78 % [facility] %Lymphocytes 13 (L) 15 - 47 % [facility] %Monocytes 5 0 - 12 % [facility] # Granulocytes 8.7 (H) 1.7 - 6.8 TH/UL [facility] # Lymphocytes 1.4 1.0 - 3.3 TH/UL [facility] # Monocytes 0.5 0.2 - 0.9 TH/UL [facility] %Eosinophils 1 0 - 7 % [facility] %Basophils 0 0 - 2 % [facility] # Eosinophils 0.1 0.0 - 0.4 TH/UL [facility] # Basophils 0.0 0.0 - 0.2 TH/UL [facility] Specimen Performing Organization Address [facility] one Number [facility] [address] [place] [phone] [facility] * CBC and Diff (manual diff if necessary) (10/05/2005 11:00 PM CDT) WBC 10.8 4.0 - 11.0 TH/UL [facility] RBC 4.05 (L) 4.31 - 5.84 MIL/UL [facility] Hemoglobin 12.9 (L) 13.0 - 17.0 G/DL [facility] Hematocrit 37 (L) 40 - 50 % [facility] MCV 90 80 - 99 FL [facility] MCH 32 27 - 34 PG [facility] MCHC 35 32 - 36 % [facility] RDW 13.5 <14.5 % [facility] Platelet Count 331 140 - 400 TH/UL [facility] Specimen Performing Organization Address [facility] one Number RL [id number] [place] [phone] [facility] * Comprehensive Metabolic Panel (10/05/2005 11:00 PM CDT) Albumin 4.3 3.6 - 4.7 G/DL [facility] Aspartate 30 20 - 50 IU/L [facility] Aminotransferas e Bilirubin Total 0.2 0.0 - 1.1 MG/DL [facility] Protein Total 7.7 6.5 - 8.2 G/DL [facility] Serum Calcium 9.0 8.8 - 10.5 MG/DL [facility] Sodium 138 134 - 144 MEQ/L [facility] Potassium 4.4 3.6 - 5.0 MEQ/L [facility] Alkaline 58 40 - 125 IU/L [facility] Phosphatase Alanine 34 20 - 60 IU/L [facility] Aminotransferas e Anion Gap 11 3 - 15 [facility] Glucose 110 (H) 65 - 100 MG/DL [facility] Blood Urea 23 (H) 5 - 20 MG/DL [facility] Nitrogen Creatinine 0.7 0.5 - 1.5 MG/DL [facility] Carbon Dioxide 23 23 - 32 MEQ/L [facility] Chloride 104 98 - 107 MEQ/L [facility] Specimen Performing Organization Address [facility] one Number [facility] [id number] [place] [phone] [facility] * Prothrombin Time/INR (10/05/2005 11:00 PM CDT) Protime 12.4Comment: Reference range 12.0 - 13.8 SEC [facility] changed 09-04-05. INR 1.0 [facility] Specimen Performing Organization Address [facility] one Number [facility] [address] [place] [phone] [place] * APTT (10/05/2005 11:00 PM CDT) APTT 26 22 - 32 SEC [facility] Specimen Performing Organization Address City/State/Zipcode Ph one Number [facility]RL [address] [place], [place] [address] [facility] * XR Hip complete min 2 views left (10/05/2005 10:04 PM CDT) Specimen Narrative Performed At [facility] Name: KIERSTEN GRACIA A Date of : 1950 Sex: Hossein Check-in #: [id number] Kim#/Jacket#: [id number] Room/Bed/Location: [address] Record #: [id number] Attending Physician: [id number] BRIANA Prado Admitting Diagnosis: PAIN Procedure Requested: [id number] DX HIP COMPL ETE MIN 2 V LT L Reason For Exam: PAIN Requested By: CADE DYSON MD Exam Ordered: 10/05/20052209 Exam Date/Time: 10/05/20052208 Ch roma-in Date/Time: 10/05/20052136 Reason for Examination: PAIN TOTAL HIP PROSTHESIS DX HIP COMPLETE MIN 2 V LT, Oct 05, 2005 9:37:00 PM Interpretation: The left total hip pr osthesis appears in good position. A fracture of the femoral shaft, spiral , is noted at the tip of the inferior stem prosthesis. 25 degrees of medial angulation and 1.5 cm of proximal subluxation are noted. Impression: Femoral shaft fracture. Tavern Keeper- ANTHONY VANCE M.D., Staff Radiologist Dictated ByMin VANCE M.D., Staff Radiologist Staff Physician- ANTHONY VANCE M.D., S taf Radiologist Authenticated ByMin VANCE M.D., Staff Radiologist Released Date Time- 10/06/05 0849 Procedure Note Interface, Rad Conversion - 05/02/2013 2:19 AM FINANCIAL PROJECT MANAGER REPORT Name: KIERSTEN GRACIA A Date of : 1950 Sex: M Check-in #: [id number] Kim#/Jacket#: [id number] Room/Bed/Location: [facility] [address] Attending Physician: [id number] BRIANA Prado Admitting Diagnosis: PAIN Procedure Requested: [id number] DX HIP COMPLETE MIN 2 V LT L Reason For Exam: PAIN Requested By: CADE DYSON MD Exam Ordered: 10/05/20052209 Exam Date/Time: 10/05/20052208 Check-in Date/Time: 10/05/20052136 Reason for Examination: PAIN TOTAL HIP PROSTHESIS DX HIP COMPLETE MIN 2 V LT, Oct 05, 2005 9:37:00 PM Interpretation: The left total hip prosthesis appears in good position. A fracture of the femoral shaft, spiral, is noted at the tip of the inferior stem prosthesis. 25 degrees of medial angulation and 1.5 cm of proximal subluxation are noted. Impression: Femoral shaft fracture. Tavern Keeper- ANTHONY VANCE M.D., Staff Radiologist Dictated By- ANTHONY VANCE M.D., Staff Radiologist Staff Physician- ANTHONY VANCE M.D., Staff Radiologist Authenticated ByMin VANCE M.D., Staff Radiologist Released Date Time- 10/06/05 0849 Performing Organization Address City/State/[place] Ph one Number YOBANI * XR Chest single view frontal (10/05/2005 10:00 PM CDT) Specimen Narrative Performed At REPORT YOBANI Name: KIERSTEN GRACIA A Date of : 1950 Sex: M Check-in #: [id number] Kim#/Jacket#: [id number] Room/Bed/Location: [facility] [address] [facility] Record #: [id number] Attending Physician: [id number] BRIANA Prado Admitting Diagnosis: PAIN Procedure Requested: [id number] DX CHEST SIN GLE VIEW L Reason For Exam: PAIN Requested By: CADE DYSON MD Exam Ordered: 10/05/20052209 Exam Date/Time: 10/05/20052209 Ch roma-in Date/Time: 10/05/20052158 Reason for Examination: PAIN DX CHEST SINGLE VIEW Oct 05, 2005 9 :59:00 PM The lungs are clear and well expanded. No pleural fluid or pneumothorax is seen. Cardiac size and pulmonary vas cularity are within normal limits. Impression: Normal chest. Tavern KeeperMin VANCE M.D., Staff Radiologist Dictated ByMin VANCE M.D., Staff Radiologist Staff PhysicianMin VANCE M.D., S maggie Radiologist Authenticated ByMin VANCE M.D., Staff Radiologist Released Date Time- 10/06/05823 Procedure Note Interface, Rad Conversion - 05/02/2013 2:19 AM FINANCIAL PROJECT MANAGER REPORT Name: KIERSTEN GRACIA A Date of : 1950 Sex: M Check-in #: [id number] Kim#/Jacket#: [id number] Room/Bed/Location: [place] [address] Attending Physician: [id number] BRIANA Prado Admitting Diagnosis: PAIN Procedure Requested: [id number] DX CHEST SINGLE VIEW L Reason For Exam: PAIN Requested By: CADE DYSON MD Exam Ordered: 10/05/20052209 Exam Date/Time: 10/05/20052209 Check-in Date/Time: 10/05/20052158 Reason for Examination: PAIN DX CHEST SINGLE VIEW Oct 05, 2005 9:59:00 PM The lungs are clear and well expanded. No pleural fluid or pneumothorax is seen. Cardiac size and pulmonary vascularity are within normal limits. Impression: Normal chest. Tavern KeeperMin VANCE M.D., Staff Radiologist Dictated ByMin VANCE M.D., Staff Radiologist Staff PhysicianMin VANCE M.D., Staff Radiologist Authenticated By- ANTHONY VANCE M.D., Staff Radiologist Released Date Time- 10/06/05 0824 Performing Organization Address [facility]/State/[facility] Ph one Number YOBANI documented in this encounter Visit Diagnoses Diagnosis Marga-prosthetic fracture around prosthe tic joint(996.44) Marga-prosthetic fracture around prosthe tic joint documented in this encounter
--- OUTSIDE RECORDS SUMMARY | 2019-05-15 18:47 | XMS REPORT | Encounter Summary ---
Author Author [facility] Organization [facility] Address Unknown Phone Unavailable Care Team Providers Care Emergency Room Clinician Name Role Phone PCP Unavailable Encounter Details Care Team Description Date Type Department Robert Valladares MD [address] [place] [address] [phone] 04/21/2001 [facility] Encounter [address] [place] [address] Social History Date Tobacco Use Types Packs/Day Years Used Never Assessed Sex Assigned at Date Recorded Not on file Industry Job Start Date Occupation Not on file Not on file Not on file Travel End Travel History Travel Start No recent travel history available. documented as of this encounter Plan of Treatment Not on filedocumented as of this encounter Procedures Comments Procedure Name Priority Date/Time Associated Diag nosis DIFFERENTIAL Routine 04/21/2001 5:37 PM HANDLE TURNER TOTAL THYROXINE Routine 04/21/2001 5:37 PM HANDLE TURNER THYROID STIMULATING Routine 04/21/2001 HORMONE 5:37 PM HANDLE TURNER T UPTAKE Routine 04/21/2001 5:37 PM HANDLE TURNER LIPID PANEL Routine 04/21/2001 5:37 PM HANDLE TURNER COMPREHENSIVE METABOLIC Routine 04/21/2001 PANEL 5:37 PM HANDLE TURNER CBC AND DIFF (MANUAL DIFF Routine 04/21/2001 IF NECESSARY) 5:37 PM HANDLE TURNER BILIRUBIN DIRECT Routine 04/21/2001 5:37 PM HANDLE TURNER documented in this encounter Results * Comprehensive Metabolic Panel (04/21/2001 5:37 PM HANDLE TURNER) Albumin 4.2 3.6 - 4.6 G/DL [facility] Aspartate 22 20 - 50 IU/L [facility] Aminotransferas e Bilirubin Total 0.0 0.0 - 1.1 MG/DL [facility] Protein Total 7.7 6.5 - 8.2 G/DL [facility] Serum Calcium 9.4 8.8 - 10.5 MG/DL [facility] Creatinine 0.7 0.5 - 1.5 MG/DL [facility] Glucose 97 65 - 110 MG/DL [facility] Alkaline 95 40 - 125 IU/L [facility] Phosphatase Sodium 142 134 - 144 MEQ/L [facility] Potassium 4.6 3.6 - 5.0 MEQ/L [facility] Chloride 104 98 - 107 MEQ/L [facility] Carbon Dioxide 23 23 - 32 MEQ/L [facility] Blood Urea 14 5 - 20 MG/DL [facility] Nitrogen Anion Gap 15 3 - 15 [facility] Alanine 21 20 - 60 IU/L [facility] Aminotransferas e Specimen Blood Performing Organization Address [facility] one Number [facility] [address] [place] [phone] [place] * DIFFERENTIAL (04/21/2001 5:37 PM HANDLE TURNER) % Neutrophils 73 45 - 78 % [facility] %Lymphocytes 24 15 - 47 % [facility] %Monocytes 3 0 - 12 % [facility] # Granulocytes 3.9 1.7 - 6.8 TH/UL [facility] # Lymphocytes 1.3 1.0 - 3.3 TH/UL [facility] # Monocytes 0.2 0.2 - 0.9 TH/UL [facility] Ovalocytes PRESENT (A) [facility] Specimen Blood Performing Organization Address [facility] one Number [facility]RL [address] [place], [place] [address] [facility] * CBC and Diff (manual diff if necessary) (04/21/2001 5:37 PM HANDLE TURNER) WBC 5.3 4.0 - 11.0 TH/UL [facility] RBC 4.35 4.31 - 5.84 MIL/UL [facility] Hemoglobin 10.7 (L) 13.0 - 17.0 G/DL [facility] Hematocrit 30 (L) 40 - 50 % [facility] MCV 70 (L) 80 - 99 FL [facility] MCH 24 (L) 27 - 34 PG [facility] MCHC 36 32 - 36 % [facility] RDW 21.0 (H) <14.5 % [facility] Platelet Count 461 (H) 140 - 400 TH/UL [facility] Specimen Blood Performing Organization Address [facility] one Number [facility] [address] [place] [phone] [facility] * Lipid Panel (04/21/2001 5:37 PM HANDLE TURNER) Cholesterol 260 (H) <200 MG/DL [facility] Triglycerides 2,984 <150 MG/DL [facility] HDL Cholesterol 26 (L) >41 MG/DL [facility] Cholesterol/HDL 10.0 (H) <4.5 [facility] Ratio Hours 0 [facility] Postprandial Specimen Blood Narrative Performed At Report [facility] UNABLE TO CALCULATE LDL DUE TO TRIGLYCE RIDES > 400 MG/DL. Performing Organization Address [facility] one Number LESLIERL [address] [place] [phone] [facility] * Thyroid Stimulating Hormone (04/21/2001 5:37 PM HANDLE TURNER) Thyroid 1.09 0.50 - 5.00 UIU/ML [facility] Stimulating Hormone Specimen Blood Performing Organization Address [facility] one Number [facility] [address] [place] [phone] [place] * Total Thyroxine (04/21/2001 5:37 PM HANDLE TURNER) Total Thyroxine 5.3 4.5 - 12.4 UG/DL [facility] Specimen Blood Performing Organization Address [facility] one Number [facility] [address] [place] [phone] [place] * T Uptake (04/21/2001 5:37 PM HANDLE TURNER) T Uptake 44 (H) 27 - 40 % [facility] Specimen Blood Performing Organization Address [facility] one Number [facility] [address] [place] [phone] [place] * Bilirubin Direct (04/21/2001 5:37 PM HANDLE TURNER) Bilirubin 0.0 0.0 - 0.3 MG/DL [facility] Direct Specimen Blood Performing Organization [facility] one Number [facility] [address] [place] [phone] [facility] documented in this encounter Visit Diagnoses Not on filedocumented in this encounter
--- OUTSIDE RECORDS SUMMARY | 2019-05-15 18:47 | XMS REPORT | Encounter Summary ---
Author Author [facility] Organization [facility] Address Unknown Phone Unavailable Care Team Providers Care Betting Agency Manager Name Role Phone PCP Unavailable Encounter Details Care Team Description Date [place] [address] [place] [address] [phone] [facility] [address] [place], [place] [id number] Social History Date Tobacco Use Types Packs/Day [...] Procedure Name Priority Date/Time Associated Diag nosis LIPID PANEL Routine 03/18/2000 5:05 PM APPRENTICE PAINTER NECKTIES ASPARTATE Routine 03/18/2000 AMINOTRANSFERASE 5:05 PM APPRENTICE PAINTER NECKTIES documented in this encounter Results * Lipid Panel (03/18/2000 5:05 PM APPRENTICE PAINTER NECKTIES) Cholesterol 255 (H) <200 MG/DL [facility] Triglycerides 913 (H) <150 MG/DL [facility] HDL Cholesterol 39 >35 MG/DL [facility] Cholesterol/HDL 6.5 (H) <4.5 [facility] Ratio Specimen Blood Narrative Performed At Report [facility] UNABLE TO CALCULATE LDL DUE TO TRIGLYCE RIDES > 400 MG/DL. Performing Organization Address [facility] Ph one Number [phone] [place], [place] [address] [facility] * Aspartate Aminotransferase (03/18/2000 5:05 PM APPRENTICE PAINTER NECKTIES) Aspartate 25 20 - 50 IU/L [facility] Aminotransferas e Specimen Blood Performing Organization Address [facility] Ph one Number SLRL [phone] [place], [place] [address] [facility] documented in this encounter Visit Diagnoses Not on filedocumented in this encounter
--- OUTSIDE RECORDS SUMMARY | 2019-05-15 18:47 | XMS REPORT | Clinical Summary ---
Author Author [facility] Organization [facility] Address Unknown Phone Unavailable Care Team Providers Care Rehabilitation Case Coordinator Name Role Phone Unverified, Unverified Md PCP Unavailable Jovita Grey MD Unavailable Source Comments Some departments are not documenting in the electronic medical record. If you d o not see the information that you expected, contact Release of Information in [facility] [employer] Information Management department at [phone] for further assistan ce in locating additional records.[facility] Allergies Comments Active Allergy Reactions Severity Noted Date Allergy recorded in SMS: REGLAN~Reactions: ANAPHYLAXIS~NERVOUSNESS Metoclopramide Low 06/24/2006 Medications End Date Status Medication Sig Dispensed Refills Start Date Active meloxicam (MOBIC) 7.5 mg Take 7.5 mg 0 tablet by mouth daily. Active DULOXETINE HCL (CYMBALTA Take by 0 PO) mouth. Active BUPROPION HCL (WELLBUTRIN Take by 0 PO) mouth. Active MORPHINE SULFATE Take by 0 (MORPHINE PO) mouth. Active AMITRIPTYLINE HCL Take by 0 (AMITRIPTYLINE PO) mouth. Active PRAVASTATIN SODIUM Take by 0 (PRAVASTATIN PO) mouth. Active DOXIDAN (BISACODYL) PO Take by 0 mouth. 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 Last Filed Vital Signs Reading Time Taken Comments Vital Sign 127/68 10/25/2014 1:57 PM CDT Blood Pressure 85 10/25/2014 1:57 PM CDT Pulse - - Temperature 16 10/25/2014 1:57 PM CDT Respiratory Rate - - Oxygen Saturation - - Inhaled Oxygen Concentration 93.4 kg (206 lb) 10/25/2014 1:57 PM CDT Weight 185.4 cm (6' 1") 10/25/2014 1:57 PM CDT Height 27.18 10/25/2014 1:57 PM CDT Body Mass Index Plan of Treatment Health Maintenance Due Date Last Done Comments HEPATITIS C SCREENING 1950 MEDICARE ANNUAL WELLNESS 1950 VISIT DTAP/TDAP VACCINES (1 - 1961 Tdap) PHYSICAL (COMPREHENSIVE) 1968 EXAM COLORECTAL CANCER 2000 SCREENING SHINGLES RECOMBINANT 2000 VACCINE (1 of 2) ABDOMINAL AORTIC ANEURYSM 06/11/2015 SCREENING PNEUMONIA (PCV13/PPSV23) 06/11/2015 VACCINES (1 of 2 - PCV13) INFLUENZA VACCINE 09/30/2018 Results Not on filefrom Last 3 Months Insurance Type Payer Benefit Subscriber ID Effective Phone Address Plan / Dates Group Medicare MEDICARE MEDICARE xxxxxxxxxx [id number] PART A AND resent B [id number] Advance Directives Patient Recordings Librarian Explanation Type Date Recorded Advance 10/24/2014 12:47 PM Directive/DPOA
--- OUTSIDE RECORDS SUMMARY | 2019-05-15 18:47 | XMS REPORT | Clinical Summary ---
Author Author [facility] Organization [facility] Address Unknown Phone Unavailable Care Team Providers Care Churn Operator Name Role Phone PCP Unavailable Allergies Not on File Medications Not on file Active Problems Not on file Social History Date Tobacco Use Types Packs/Day Years Used Never Assessed Sex Assigned at Date Recorded Not on file Industry Job Start Date Occupation Not on file Not on file Not on file Travel End Travel History Travel Start No recent travel history available. Last Filed Vital Signs Not on file Plan of Treatment Not on file Results Not on filefrom Last 3 Months
--- OUTSIDE RECORDS SUMMARY | 2019-05-15 18:47 | XMS REPORT | Encounter Summary ---
Author Author [facility] Organization [facility] Address Unknown Phone Unavailable Care Team Providers Care Spa Concierge Name Role Phone PCP Unavailable Encounter Details Care Team Description Date Type Department Sheyla Davalos MD [address] [place] [address] [phone] REC[facility]R [facility]PR PSYCH-SEVERE 04/03/2003 [facility] 04/07/2003 [address] [place] [address] Social History Date Tobacco Use Types Packs/Day Years Used Never Assessed Sex Assigned at Date Recorded Not on file Industry Job Start Date Occupation Not on file Not on file Not on file Travel End Travel History Travel Start No recent travel history available. documented as of this encounter Discharge Summaries * ProviderCynthia MD - 04/30/2013 5:45 PM LEAD INJECTION MOLD TECHNICIAN Report Name: NIKHIL GRACIA Date of : 1950 MRN/Unit #: [id number] Attending Physician: SHEYLA DAVALOS JR, MD DATE OF ADMISSION: 04/03/2003 DATE OF DISCHARGE: 04/07/2003 Patient is discharged home with Lipitor 20 mg, Gabitril 4 mg b.i.d., MOBIC 10 mg in the morning, Prozac 10 mg in the morning, Prevacid in the morning, Effexor XR 75 mg b.i.d. Prescriptions were called to [facility] in [place], [place]. The patient will follow-up with Dr. Valladares his primary care physician and his drug abuse social worker. DISCHARGE DIAGNOSES: AXIS I: Major depressive disorder, recurrent, moderate. Alcohol dependence. AXIS II: No diagnosis. AXIS III: AXIS IV: Multiple, severe. AXIS V: Currently 50. IDENTIFICATION DATA: The patient is a 52-year-old white male who presented to the hospital. CHIEF COMPLAINT/HISTORY OF PRESENT ILLNESS: The patient presented with suicide ideations and plans to cut his throat and wrist. He reported multiple stressors including losing his job. He had financial issues and transportation problems. The patient had been drinking the week prior to admission. The patient was thus admitted to the [facility]. DIAGNOSTIC WORK-UP AND SIGNIFICANT FINDINGS: The patient has been hospitalized at [facility] and has been treated by his primary care physician. He has had several DUIs in the past and was also placed on house arrest and was on probation for alcohol related charges. The patient was thus admitted to the [facility]. HOSPITAL COURSE: He cooperated with treatment. At the time of discharge no suicide ideation was voiced. The patient was discharged to follow-up in the outpatient setting. Sheyla Davalos Jr., M.D. cc: INJECTION MOLD TECHNICIAN documented in this encounter H&P Notes * ProviderCynthia MD - 04/30/2013 5:58 PM LEAD INJECTION MOLD TECHNICIAN Report Name: NIKHIL GRACIA MRN/Unit #: [id number] Date of : 1950 Attending Physician: SHEYLA DAVALOS JR, MD Referring Physician: REFERRING DR. HOWARD CHIEF COMPLAINT: Depression. HISTORY OF CHIEF COMPLAINT: A 52-year-old male with a history of depression. He had lost his job some time ago, difficulty paying rent, nowhere to turn. He has become despondent. He has contemplated suicide. He is being admitted to the psych unit for further psych evaluation and treatment. PAST MEDICAL HISTORY: Depression, and osteoarthritis. PAST SURGICAL HISTORY: He had a left hip arthroplasty, T&A, reparative surgery for a crushed left wrist. CURRENT MEDICATIONS: Effexor and Darvocet. ALLERGIES: He is not allergic to any medications. PSYCHOSOCIAL HISTORY: He is . He has 3 grown children who are well. He previously worked in human resources. He smokes 3 to 4 cigarettes per day. Uses alcohol occasionally. Now he is a reformed alcoholic and does have a legal restriction on alcohol intake reportedly. Denies street drug use ever. FAMILY HISTORY: He is adopted. He has no knowledge of any biological relatives whatsoever he states. REVIEW OF SYSTEMS: No previous seizure, syncopal episode, change in vision, diplopia. He does get some sinus difficulty from time to time, no current symptoms. Denies epistaxis, dysphagia, odynophagia, chest pains, palpitations, dyspnea with exertion, orthopnea, previous asthma, pneumonia, recurrent cough, or bronchitis. Denies recurrent abdominal pain, recurrent dyspepsia, hepatitis or other liver disorder, constipation, diarrhea, melena, hematochezia, dysuria, hematuria, kidney stones, kidney infections, joint aches, pains, weakness, or paresthesias. PHYSICAL EXAMINATION: A pleasant 52-year-old male not distressed. HEENT: Scalp grade 1 to 2 male pattern baldness without scalp skin lesions. Pupils equal and responsive bilaterally to light. No scleral icterus. Extraocular muscles are intact. EAC's are clear. Tympanic membranes intact, nonbulging. Nares patent. Tongue pink and moist. Dentition good. Posterior pharynx no injection or exudate. NECK: No nodes, bruits, thyromegaly or adenopathy. HEART: Rhythm regular without murmur, S3 or S4. LUNGS: Clear to auscultation and percussion bilaterally. ABDOMEN: Soft. No masses or tenderness. Bowel sounds present in all four quadrants. No CVA tenderness. GENITAL/RECTAL: Not performed. EXTREMITIES: Numerous degenerative changes small joints in his hands without effusion or acute synovitis. NEUROLOGIC: MENTATION: Alert and oriented to person, place, and time. CRANIAL NERVES: I (olfactory) - able to identify familiar odors. II (optic) - blink reflex present. III (oculomotor) - PERRLA. IV (trochlear) - able to follow object without turning head. V (trigeminal) - response to light touch on eye and lip, able to bite down and chew. (abducens) - able to look right and turn left. VII (facial) - able to raise and lower eyebrows, able to wrinkle forehead, able to identify tastes, able to puff cheeks. VIII (acoustic) - startle reflex present, sound heard at 512 Hz tuning fork. IX (glossopharyngeal) - able to taste at back of tongue, sensation present on soft palate. X (vagus) - soft palate intact with no abnormalities. XI (spinal accessory) - able to shrug shoulders, able to stretch hands out to you, able to push chin against your hand. XII (hypoglossal) - able to stick out tongue. SENSORY: No loss of sensation of hands and/or feet. MOTOR: Symmetric strength upper and lower. CEREBELLAR: Rapid alternating movements of tongue, hands, feet present. DTRs - equal upper and lower. Babinski - flexor. Tone - no myoclonus, oculogyric crisis; not parkinsonian. ASSESSMENT: 1. Depression. 2. Suicidal ideation. 3. Osteoarthritis. 4. History of alcohol abuse. PLAN: Agree with admission to the psych unit for further psych evaluation and treatment. We will follow along medically. Robert Marcano D.O. cc: INJECTION MOLD TECHNICIAN documented in this encounter Consult Notes * Provider, MD Cynthia - 04/30/2013 5:50 PM LEAD INJECTION MOLD TECHNICIAN Report Name: NIKHIL GRACIA Date of : 1950 Attending Physician: SHEYLA DAVALOS JR, MD Patient is a 52-year-old male. CHIEF COMPLAINT AND HISTORY OF PRESENT PROBLEM: Patient was transferred from [facility] where he presented with suicidal ideations and plans to cut his throat and wrist. Patient reporting multiple stressors including losing his job. Patient states that he also does not have a car and does not have money for food or transportation. Patient also reports that he relapsed and has been binge drinking during the past week. He reports he has not been able to sleep or concentrate. Patient denies any previous psychiatric hospitalizations. He has had some counseling through [facility]. He has been prescribed Effexor for 6 to 7 years by his PCP, Dr. Valladares. He has previous history of substance abuse treatment at [facility] in 1996, [facility] in 1998. Patient reports that he has been using alcohol fairly regularly, at least 12 beers a day since he was age 18. The longest period of sobriety he had is one year. Patient reports that he has had several DUIs in the past. He was also placed on house arrest and was on probation for alcohol related charges. Patient has a masters degree in psychology and has worked in human resources in the past. He is in a relationship with a girlfriend. MENTAL STATUS EXAM: Reveals a 52-year-old white male who was generally alert and oriented to time, place, and person. Mood was depressed with feelings of hopelessness and thoughts of suicide although he denies any intent or plan. His thought process was somewhat ruminative and preoccupied with a sense of failure, low self-esteem. He denied any auditory or visual hallucinations. Thought content was logical, coherent, without any delusions. Intellectual functioning is average. Attention and concentration is impaired. Memory both short and long-term appears to be grossly intact. ASSETS AND STRENGTHS: Average intellect. Voluntary admission. DIAGNOSES: [place] I Major depression, moderate, severe, recurrent. Alcohol dependence. [place] II Deferred. [place] III As per internal medicine. [place] IV Multiple psychosocial stressors, problems with primary support, unemployment. [place] V Admission GAF is 28. RECOMMENDATIONS: Alcohol withdrawal protocol. Antidepressant medications. Routine labs. Internal medicine consultation. Individual, group, and milieu therapy. Monitor patient for any self harm ideations. Estimated length of stay 3 to 5 days. Adarsh Jackson M.D. CC: INJECTION MOLD TECHNICIAN documented in this encounter Plan of Treatment Not on filedocumented as of this encounter Procedures Comments Procedure Name Priority Date/Time Associated Diag nosis TRIAGE DRUG SCREEN Routine 04/04/2003 1:30 PM LEAD INJECTION MOLD TECHNICIAN URINALYSIS (INCLUDES Routine 04/04/2003 MICROSCOPIC REVIEW, IF 1:30 PM LEAD INJECTION MOLD TECHNICIAN INDICATED) DIFFERENTIAL Routine 04/04/2003 4:46 AM LEAD INJECTION MOLD TECHNICIAN THYROID STIMULATING Routine 04/04/2003 HORMONE 4:46 AM LEAD INJECTION MOLD TECHNICIAN T7 Routine 04/04/2003 4:46 AM LEAD INJECTION MOLD TECHNICIAN COMPREHENSIVE METABOLIC Routine 04/04/2003 PANEL 4:46 AM LEAD INJECTION MOLD TECHNICIAN CBC AND DIFF (MANUAL DIFF Routine 04/04/2003 IF NECESSARY) 4:46 AM LEAD INJECTION MOLD TECHNICIAN documented in this encounter Results * Triage Drug Screen (04/04/2003 1:30 PM LEAD INJECTION MOLD TECHNICIAN) Amphetamines NotDetec [facility] Urine Cocaine Urine NotDetec [facility] Opiates Urine NotDetec [facility] Phencyclidine NotDetec [facility] Urine Tetrahydrocanna NotDetec [facility] binol Urine Benzodiazepines PRESENT f (A) [facility] Urine Barbiturates NotDetec [facility] Urine Specimen Urine Narrative Performed At Report [facility] Comments and Normal Ranges for Com ponent *VASILE Drug screen performed for medical purpo ses only. No confirmation testing will be performed unless requested by physic nehemiah. Performing Organization Address [facility] Ph one Number [phone] [place] [address] [facility] * Urinalysis (04/04/2003 1:30 PM LEAD INJECTION MOLD TECHNICIAN) Appearance, YELLOW [facility] Urine Specific 1.025 <1.030 [facility] [place], UA PH Urine 6.0 5.0 - 8.0 [facility] Hemoglobin NEGATIVE NEGATIVE [facility] Urine Ketones Urine NEGATIVE NEGATIVE [facility] Glucose Urine NEGATIVE NEGATIVE [facility] Protein Urine NEGATIVE NEGATIVE [facility] Qual Leukocyte NEGATIVE NEGATIVE [facility] Esterase Urobilinogen NEGATIVE NEGATIVE [facility] Urine Bilirubin Urine NEGATIVE NEGATIVE [facility] Specimen Urine Performing Organization Address [facility] Ph one Number [phone] [place] [phone] [facility] * Comprehensive Metabolic Panel (04/04/2003 4:46 AM LEAD INJECTION MOLD TECHNICIAN) Albumin 4.3 3.6 - 4.6 G/DL [facility] Aspartate 25 20 - 50 IU/L [facility] Aminotransferas e Bilirubin Total 0.3 0.0 - 1.1 MG/DL [facility] Protein Total 7.4 6.5 - 8.2 G/DL [facility] Serum Calcium 9.3 8.8 - 10.5 MG/DL [facility] Creatinine 0.8 0.5 - 1.5 MG/DL [facility] Glucose 92 65 - 110 MG/DL [facility] Alkaline 70 40 - 125 IU/L [facility] Phosphatase Sodium 141 134 - 144 MEQ/L [facility] Potassium 4.1 3.6 - 5.0 MEQ/L [facility] Chloride 110 (H) 98 - 107 MEQ/L [facility] Carbon Dioxide 28 23 - 32 MEQ/L [facility] Blood Urea 19 5 - 20 MG/DL [facility] Nitrogen Anion Gap 3 3 - 15 [facility] Alanine 31 20 - 60 IU/L [facility] Aminotransferas e Specimen Blood Performing Organization Address [facility] one Number [phone] [place] [address] [facility] * T7 (04/04/2003 4:46 AM LEAD INJECTION MOLD TECHNICIAN) T Uptake 40 (H) 22 - 37 % [facility] Total Thyroxine 4.5 4.5 - 11.0 UG/DL [facility] T7 Index 1.80 1.04 - 4.92 [facility] Specimen Blood Performing Organization Address [facility] one Number [phone] [place] [phone] [facility] * Thyroid Stimulating Hormone (04/04/2003 4:46 AM LEAD INJECTION MOLD TECHNICIAN) Thyroid 2.76 0.35 - 5.50 UIU/ML [facility] Stimulating Hormone Specimen Blood Performing Organization Address [facility] one Number [phone] [place] [phone] [facility] * CBC and Diff (manual diff if necessary) (04/04/2003 4:46 AM LEAD INJECTION MOLD TECHNICIAN) WBC 6.8 4.0 - 11.0 TH/UL [facility] RBC 4.32 4.31 - 5.84 MIL/UL [facility] Hemoglobin 10.8 (L) 13.0 - 17.0 G/DL [facility] Hematocrit 32 (L) 40 - 50 % [facility] MCV 74 (L) 80 - 99 FL [facility] MCH 25 (L) 27 - 34 PG [facility] MCHC 34 32 - 36 % [facility] RDW 15.9 (H) <14.5 % [facility] Platelet Count 368 140 - 400 TH/UL [facility] Specimen Blood Performing Organization Address [facility] Ph one Number [phone] [place], [place] [address] [facility] * DIFFERENTIAL (04/04/2003 4:46 AM LEAD INJECTION MOLD TECHNICIAN) % Neutrophils 53 45 - 78 % [facility] %Lymphocytes 39 15 - 47 % [facility] %Monocytes 5 0 - 12 % [facility] %Eosinophils 3 0 - 7 % [facility] %Basophils 1 0 - 2 % [facility] # Granulocytes 3.6 1.7 - 6.8 TH/UL [facility] # Lymphocytes 2.7 1.0 - 3.3 TH/UL [facility] # Monocytes 0.3 0.2 - 0.9 TH/UL [facility] # Eosinophils 0.2 0.0 - 0.4 TH/UL [facility] # Basophils 0.1 0.0 - 0.2 TH/UL [facility] Specimen Blood Performing Organization Address [facility] Ph one Number [phone] [place], [place] [address] [facility] documented in this encounter Visit Diagnoses Diagnosis Major depressive disorder, recurrent ep isode, severe, without mention of psychotic behavior documented in this encounter
--- OUTSIDE RECORDS SUMMARY | 2019-05-15 18:49 | XMS REPORT ---
Author Author Nikhil DUARTE Organization [facility] Address [address] [place] [address] Care Team Providers Care Guide Travel Name Role Phone LILIBETH DUARTE Unavailable PROBLEMS Type Condition ICD9-CM Code INB05-JW Code Onset Dates Condition S tatus SNOMED Code Problem Back pain M54.9 Active 295628168 Problem Hyperlipidemia E78.5 Active 05718 004 Problem Hypertension I10 Active 0046292 3 Problem Benign prostatic hyperplasia without lower urina ry tract symptoms N40.0 Active 663020840 Problem Current mild episode of major depressive disorder without prior episode F32.0 Active 72907997 Problem Other chronic pain G89.29 Active 8 3894485 Problem Major depressive disorder, single episode, mild F3 2.0 Active 90790049 Problem Night terrors F51.4 Active 575632 03 Problem Anxiety F41.9 Active [id number] ALLERGIES No Information ENCOUNTERS Encounter Location Date Diagnosis [facility] [address] [address] Mar, Current mild episode of major depressive disorder without prior episode F32.0 and Recurrent acute suppurative otitis media without spontaneous rupture of left tympanic membrane H66.005 [facility] [id number] [place] [address] Mar, [facility] [address] [address] Jan, Back pain M54.9 [facility] [address] [address] Jan, [facility] [address] [facility] [id number] [address] Jan, Impacted cerumen, left ear H 61.22 [facility] [address] [address] Jan, [facility] [address] [address] Dec, Back pain M54.9 [facility] [address] [address] Dec, Hypertension I10 ; Hyperlipidemia E78.5 and Benign prostatic hyperplasia without lower urinary tract symptoms N40.0 [facility] [address] [address] Dec, Hypertension I10 ; Hyperlipidemia E78.5 and Benign prostatic hyperplasia without lower urinary tract symptoms N40.0 [place] [address] [address] Dec, Acute swimmer's ear of left side H60.332 and Anxiety F41.9 [place] [address] [address] Dec, [facility] [address] [address] Nov, Back pain M54.9 [facility] [address] [address] Nov, Eczema L30.9 [facility] [address] [address] Nov, Acute otitis media, left H66.92 ; Seborr heic keratoses L82.1 ; Other chronic pain G89.29 and Pain in right knee M25.561 [facility] [address] [address] Nov, Back pain M54.9 [facility] [address] [address] Oct, Back pain M54.9 [facility] [address] [address] Sep, [facility] [address] [address] Sep, [facility] [address] [address] Sep, Back pain M54.9 [facility] [address] [address] Aug, Hypertension I10 [facility] [address] [address] Aug, [facility] [address] [address] Aug, [facility] [address] [address] Aug, [facility] [address] [address] Aug, [facility] [address] [address] Aug, Hypertension I10 ; Hyperlipidemia E78.5 and Night terrors F51.4 [facility] [address] [address] Aug, Back pain M54.9 [facility] [address] [address] Jul, [facility] [address] [address] Jul, Back pain M54.9 [facility] [address] [address] 10 Jul, 2018 Encounter for Medicare annual wellness e xam Z00.00 ; Back pain M54.9 ; Hypertension I10 ; Hyperlipidemia E78.5 ; Other chronic pain G89.29 ; Major depressive disorder, single episode, mild F32.0 and Pain in right knee M25.561 [facility] [address] [address] June, Back pain M54.9 [facility] [address] [address] May, Back pain M54.9 [facility] [address] [address] May, Bronchitis J40 [facility] [address] [address] Apr, [facility] [address] [address] Apr, Back pain M54.9 [facility] [address] [address] Apr, Other chronic pain G89.29 and Pain in ri ght knee M25.561 [facility] [address] [address] Apr, Back pain M54.9 [facility] [address] [address] Apr, [facility] [address] [address] Mar, Back pain M54.9 [facility] [address] [address] Mar, Back pain M54.9 [facility] [address] [address] 06 Jan, 2018 Back pain M54.9 [facility] [address] [address] 14 Dec, 2017 Hypertension I10 and Hyperlipidemia E78. 5 [facility] [address] [address] 12 Dec, 2017 Hypertension I10 and Hyperlipidemia E78. 5 [facility] [address] [address] 09 Dec, 2017 Back pain M54.9 [facility] [address] [address] 08 Dec, 2017 Back pain M54.9 [facility] [address] [address] Nov, Back pain M54.9 and Abnormal LFTs R79.89 [facility] [address] [address] Nov, Back pain M54.9 [facility] [address] [address] Nov, Back pain M54.9 and Major depressive dis order, single episode, mild F32.0 [facility] [address] [address] 14 Oct, 2017 Back pain M54.9 [facility] [address] [address] Sep, Back pain M54.9 [facility] [address] [address] Aug, [facility] [address] [address] Aug, [facility] [address] [address] Aug, Back pain M54.9 [facility] [address] [address] Jul, Back pain M54.9 and Medicare annual well ness visit, initial Z00.00 [facility] [address] [address] 23 Jun, 2017 Back pain M54.9 [facility] [address] [address] May, Back pain M54.9 [facility] [address] [address] May, Medicare annual wellness visit, initial Z00.00 ; Hypertension I10 ; Hyperlipidemia E78.5 and Reactive depression F32.9 [facility] [address] [address] Apr, Back pain M54.9 [facility] [address] [address] Apr, Back pain M54.9 [facility] [address] [address] Apr, Back pain M54.9 ; Other chronic pain G89 .29 and Pain in left leg M79.605 [facility] [address] [address] Mar, Back pain M54.9 [facility] [address] [address] Mar, Acute prostatitis N41.0 [facility] [address] [address] Jan, Back pain M54.9 [facility] [address] [address] Dec, Back pain M54.9 and Hypertension I10 [place] [address] [address] Dec, Back pain M54.9 [facility] [address] [address] Nov, Back pain M54.9 [facility] [address] [address] Oct, Back pain M54.9 [facility] [address] [address] Oct, Abnormal LFTs R79.89 [facility] [address] [address] Oct, [facility] [address] [address] Sep, Back pain M54.9 ; Acute prostatitis N41. 0 ; Hypertension I10 ; Gross hematuria R31.0 and Reactive depression F32.9 [facility] [address] [address] Sep, [facility] [address] [address] Sep, Back pain M54.9 [facility] [address] [address] Aug, Back pain M54.9 [facility] [address] [address] Jul, Back pain M54.9 [facility] [address] [address] June, Back pain M54.9 [facility] [address] [address] June, Acute prostatitis N41.0 [place] [address] [address] June, Back pain M54.9 [place] [address] [address] Apr, Back pain M54.9 [facility] [address] [address] Apr, Hypertension I10 and Back pain M54.9 [place] [address] [address] Apr, Back pain M54.9 [facility] [address] [address] Apr, Back pain M54.9 and Sprain of ligaments of lumbar spine, initial encounter S33.5XXA [facility] [address] [address] Apr, Back pain M54.9 [facility] [address] [address] Mar, Acute pain of left hip M25.552 [facility] [address] [address] Mar, [facility] [address] [address] Mar, Acute pain of left hip M25.552 [facility] [address] [address] Mar, Back pain M54.9 [facility] [address] [address] Jan, Reactive depression F32.9 [facility] [address] [address] Jan, Back pain M54.9 ; Hypertension I10 and R eactive depression F32.9 [facility] [address] [address] Jan, Back pain M54.9 [facility] [address] [address] Dec, [facility] [address] [address] Dec, [facility] [address] [address] Nov, [facility] [address] [address] Oct, [facility] [address] [address] Oct, [facility] [address] [address] 16 Nov, 2015 [facility] [address] [address] Sep, [facility] [address] [address] Sep, [facility] [address] [address] Sep, Visit for TB skin test Z11.1 ; Back pain M54.9 and Hypertension I10 [facility] [address] [address] Aug, Back pain M54.9 [facility] [id number] [place] [address] Jul, Back pain M54.9 [facility] [address] [address] Jul, [facility] [address] [address] Jul, [facility] [address] [address] Jul, Back pain M54.9 [facility] [address] [address] May, Back pain M54.9 [facility] [address] [address] May, Back pain M54.9 ; Hypertension I10 and E czema L30.9 [facility] [address] [address] Apr, Back pain M54.9 [facility] [address] [address] Apr, Back pain M54.9 [facility] [address] [address] Apr, [facility] [address] [address] Mar, Back pain M54.9 [facility] [id number] [place] [address] Jan, [facility] [address] [address] Jan, Dyspepsia R10.13 [facility] [address] [address] Jan, [facility] [address] [address] Jan, [facility] [address] [place] [address] Dec, Back pain M54.9 and Hyperlipidemia E78.5 [facility] [address] [id number] [place] [address] Dec, [facility] [address] [id number] [place] [address] Nov, [facility] [id number] [place] [address] Oct, [facility] [id number] [place] [address] Sep, [facility] [id number] [place] [address] Sep, [facility] [id number] [place] [address] Sep, Lumbar strain 847.2 [facility] [id number] [place] [address] Aug, [facility] [address] [id number] [place] [address] Aug, [facility] [address] [id number] [place] [address] Aug, [facility] [address] [id number] [place] [id number] Jul, Dental examination V72.2 [facility] [address] [id number] [place] [address] Jul, [facility] [id number] [place] [address] Jul, Acute bronchitis 466.0 and Lumbar strain 847.2 [facility] [id number] [place] [address] Jul, [facility] [id number] [place] [address] Jul, [facility] [address] [id number] [place] [address] June, Acute bronchitis 466.0 and Lumbar strain 847.2 [facility] [address] [id number] [place] [address] June, [facility] [address] [id number] [place] [address] June, [facility] [address] [id number] [place] [address] June, [facility] [id number] [place] [address] May, [facility] [address] [id number] [place] [address] May, [facility] [address] [id number] [place] [address] Apr, [facility] [address] [id number] [place] [address] Apr, [facility] [id number] [place] [address] Apr, [facility] [address] [id number] [place] [address] Apr, [facility] [id number] [place] [address] Apr, [facility] [address] [id number] [place] [address] Apr, [facility] [address] [id number] [place] [address] Apr, [facility] [address] [id number] [place] [address] 14 Apr, 2011 [facility] [address] [id number] Apr, [facility] [address] [id number] [place] [address] Apr, [facility] [address] [id number] [place] [address] Apr, [facility] [address] [id number] [place] [address] 23 Mar, 2011 [facility] [address] [id number] [place] [address] Mar, [facility] [address] [id number] [place] [address] 16 Mar, 2011 [facility] [address] [id number] [place] [address] 16 Mar, 2011 [facility] [address] [id number] [place] [address] Mar, [facility] [address] [id number] [place] [address] 23 Jan, 2011 [facility] [address] [id number] [place] [address] 13 Jan, 2011 [facility] [address] [id number] [place] [address] 12 Jan, 2011 [facility] [address] [id number] [place] [address] 08 Dec, 2010 [facility] [address] [id number] [place] [address] 11 Nov, 2010 [facility] [address] [id number] [place] [address] 13 Oct, 2010 [facility] [address] [id number] [place] [address] 14 Jan, 2010 [facility] [address] [id number] [place] [address] 15 Dec, 2009 [facility] [address] [id number] [place] [address] 15 Nov, 2009 [facility] [address] [id number] [place] [address] 15 Nov, 2009 [facility] [address] [id number] [place] [address] 11 Sep, 2009 [facility] [address] [id number] [place] [address] Jan, [facility] [address] [facility] [id number] [place] [address] Dec, [facility] [address] [facility] [id number] [place] [address] Aug, IMMUNIZATIONS No Known Immunizations SOCIAL HISTORY Never Assessed REASON FOR VISIT Controlled 05/27 PLAN OF CARE VITAL SIGNS MEDICATIONS Medication Instructions Dosage Frequency Start Date End Date Duration S tatus MS Contin 30 MG Orally, every 12 [...] ortho surrgeries x7 on hip, back, left l eg, left wrist Hospitalization History surgeries
--- OUTSIDE RECORDS SUMMARY | 2019-05-15 18:49 | XMS REPORT ---
Author Author Nikhil DUARTE Organization [facility] Address [address] [place] [address] Care Team Providers Care Sole Leveler Machine Name Role Phone LILIBETH DUARTE Unavailable PROBLEMS Type Condition ICD9-CM Code EBZ42-NU Code Onset Dates Condition S tatus SNOMED Code Problem Back pain M54.9 Active 214785681 Problem Hyperlipidemia E78.5 Active 80883 004 Problem Hypertension I10 Active 8384900 3 Problem Benign prostatic hyperplasia without lower urina ry tract symptoms N40.0 Active 522703544 Problem Current mild episode of major depressive disorder without prior episode F32.0 Active 62792874 Problem Other chronic pain G89.29 Active 8 0329155 Problem Major depressive disorder, single episode, mild F3 2.0 Active 88518582 Problem Night terrors F51.4 Active 301732 03 Problem Anxiety F41.9 Active 23676967 ALLERGIES No Information ENCOUNTERS Encounter Location Date Diagnosis [facility] [address] [address] Mar, Current mild episode of major depressive disorder without prior episode F32.0 and Recurrent acute suppurative otitis media without spontaneous rupture of left tympanic membrane H66.005 [facility] [id number] [place] [address] Mar, [facility] [address] [address] Jan, Back pain M54.9 [facility] [address] [address] Jan, [facility] [address] [facility] [id number] [address] [address] Jan, Impacted cerumen, left ear H 61.22 [facility] [address] [address] Jan, [facility] [address] [address] Dec, Back pain M54.9 [facility] [address] [address] Dec, Hypertension I10 ; Hyperlipidemia E78.5 and Benign prostatic hyperplasia without lower urinary tract symptoms N40.0 [facility] [address] [address] Dec, Hypertension I10 ; Hyperlipidemia E78.5 and Benign prostatic hyperplasia without lower urinary tract symptoms N40.0 [place] [address] [address] Dec, Acute swimmer's ear of left side H60.332 and Anxiety F41.9 [place] [address] [address] Dec, [facility] [address] [address] Nov, Back pain M54.9 [facility] [address] [address] Nov, Eczema L30.9 [facility] [address] [address] Nov, Acute otitis media, left H66.92 ; Seborr heic keratoses L82.1 ; Other chronic pain G89.29 and Pain in right knee M25.561 [facility] [address] [address] Nov, Back pain M54.9 [facility] [address] [address] Oct, Back pain M54.9 [facility] [address] [address] Sep, [facility] [address] [address] Sep, [facility] [address] [address] Sep, Back pain M54.9 [facility] [address] [address] Aug, Hypertension I10 [facility] [address] [address] Aug, [facility] [address] [address] Aug, [facility] [address] [address] Aug, [facility] [address] [address] Aug, [facility] [address] [address] Aug, Hypertension I10 ; Hyperlipidemia E78.5 and Night terrors F51.4 [facility] [address] [address] Aug, Back pain M54.9 [facility] [address] [address] Jul, [facility] [address] [address] Jul, Back pain M54.9 [facility] [address] [address] 10 Jul, 2018 Encounter for Medicare annual wellness e xam Z00.00 ; Back pain M54.9 ; Hypertension I10 ; Hyperlipidemia E78.5 ; Other chronic pain G89.29 ; Major depressive disorder, single episode, mild F32.0 and Pain in right knee M25.561 [facility] [address] [address] June, Back pain M54.9 [facility] [address] [address] May, Back pain M54.9 [facility] [address] [address] May, Bronchitis J40 [facility] [address] [address] Apr, [facility] [address] [address] Apr, Back pain M54.9 [facility] [address] [address] Apr, Other chronic pain G89.29 and Pain in ri ght knee M25.561 [facility] [address] [address] Apr, Back pain M54.9 [facility] [address] [address] Apr, [facility] [address] [address] Mar, Back pain M54.9 [facility] [address] [address] Mar, Back pain M54.9 [facility] [address] [address] 06 Jan, 2018 Back pain M54.9 [facility] [address] [address] 14 Dec, 2017 Hypertension I10 and Hyperlipidemia E78. 5 [facility] [address] [address] 12 Dec, 2017 Hypertension I10 and Hyperlipidemia E78. 5 [facility] [address] [address] 09 Dec, 2017 Back pain M54.9 [facility] [address] [address] 08 Dec, 2017 Back pain M54.9 [facility] [address] [address] Nov, Back pain M54.9 and Abnormal LFTs R79.89 [facility] [address] [address] Nov, Back pain M54.9 [facility] [address] [address] Nov, Back pain M54.9 and Major depressive dis order, single episode, mild F32.0 [facility] [address] [address] 14 Oct, 2017 Back pain M54.9 [facility] [address] [address] Sep, Back pain M54.9 [facility] [address] [address] Aug, [facility] [address] [address] Aug, [facility] [address] [address] Aug, Back pain M54.9 [facility] [address] [address] Jul, Back pain M54.9 and Medicare annual well ness visit, initial Z00.00 [facility] [address] [address] 23 Jun, 2017 Back pain M54.9 [facility] [address] [address] May, Back pain M54.9 [facility] [address] [address] May, Medicare annual wellness visit, initial Z00.00 ; Hypertension I10 ; Hyperlipidemia E78.5 and Reactive depression F32.9 [facility] [address] [address] Apr, Back pain M54.9 [facility] [address] [address] Apr, Back pain M54.9 [facility] [address] [address] Apr, Back pain M54.9 ; Other chronic pain G89 .29 and Pain in left leg M79.605 [facility] [address] [address] Mar, Back pain M54.9 [facility] [address] [address] Mar, Acute prostatitis N41.0 [facility] [address] [address] Jan, Back pain M54.9 [facility] [address] [address] Dec, Back pain M54.9 and Hypertension I10 [place] [address] [address] Dec, Back pain M54.9 [facility] [address] [address] Nov, Back pain M54.9 [facility] [address] [address] Oct, Back pain M54.9 [facility] [address] [address] Oct, Abnormal LFTs R79.89 [facility] [address] [address] Oct, [facility] [address] [address] Sep, Back pain M54.9 ; Acute prostatitis N41. 0 ; Hypertension I10 ; Gross hematuria R31.0 and Reactive depression F32.9 [facility] [address] [address] Sep, [facility] [address] [address] Sep, Back pain M54.9 [facility] [address] [address] Aug, Back pain M54.9 [facility] [address] [address] Jul, Back pain M54.9 [facility] [address] [address] June, Back pain M54.9 [facility] [address] [address] June, Acute prostatitis N41.0 [place] [address] [address] June, Back pain M54.9 [place] [address] [address] Apr, Back pain M54.9 [facility] [address] [address] Apr, Hypertension I10 and Back pain M54.9 [place] [address] [address] Apr, Back pain M54.9 [facility] [address] [address] Apr, Back pain M54.9 and Sprain of ligaments of lumbar spine, initial encounter S33.5XXA [facility] [address] [address] Apr, Back pain M54.9 [facility] [address] [address] Mar, Acute pain of left hip M25.552 [facility] [address] [address] Mar, [facility] [address] [address] Mar, Acute pain of left hip M25.552 [facility] [address] [address] Mar, Back pain M54.9 [facility] [address] [address] Jan, Reactive depression F32.9 [facility] [address] [address] Jan, Back pain M54.9 ; Hypertension I10 and R eactive depression F32.9 [facility] [address] [address] Jan, Back pain M54.9 [facility] [address] [address] Dec, [facility] [address] [address] Dec, [facility] [address] [address] Nov, [facility] [address] [address] Oct, [facility] [address] [address] Oct, [facility] [address] [address] 16 Nov, 2015 [facility] [address] [address] Sep, [facility] [address] [address] Sep, [facility] [address] [address] Sep, Visit for TB skin test Z11.1 ; Back pain M54.9 and Hypertension I10 [facility] [address] [address] Aug, Back pain M54.9 [facility] [id number] [place] [address] Jul, Back pain M54.9 [facility] [address] [address] Jul, [facility] [address] [address] Jul, [facility] [address] [address] Jul, Back pain M54.9 [facility] [address] [address] May, Back pain M54.9 [facility] [address] [address] May, Back pain M54.9 ; Hypertension I10 and E czema L30.9 [facility] [address] [address] Apr, Back pain M54.9 [facility] [address] [address] Apr, Back pain M54.9 [facility] [address] [address] Apr, [facility] [address] [address] Mar, Back pain M54.9 [facility] [id number] [place] [address] Jan, [facility] [address] [address] Jan, Dyspepsia R10.13 [facility] [address] [address] Jan, [facility] [address] [address] Jan, [facility] [address] [place] [address] Dec, Back pain M54.9 and Hyperlipidemia E78.5 [facility] [address] [id number] [place] [address] Dec, [facility] [address] [id number] [place] [address] Nov, [facility] [id number] [place] [address] Oct, [facility] [id number] [place] [address] Sep, [facility] [id number] [place] [address] Sep, [facility] [id number] [place] [address] Sep, Lumbar strain 847.2 [facility] [id number] [place] [address] Aug, [facility] [address] [id number] [place] [address] Aug, [facility] [address] [id number] [place] [address] Aug, [facility] [address] [id number] [place] [id number] Jul, Dental examination V72.2 [facility] [address] [id number] [place] [address] Jul, [facility] [id number] [place] [address] Jul, Acute bronchitis 466.0 and Lumbar strain 847.2 [facility] [id number] [place] [address] Jul, [facility] [id number] [place] [address] Jul, [facility] [address] [id number] [place] [address] June, Acute bronchitis 466.0 and Lumbar strain 847.2 [facility] [address] [id number] [place] [address] June, [facility] [address] [id number] [place] [address] June, [facility] [address] [id number] [place] [address] June, [facility] [id number] [place] [address] May, [facility] [address] [id number] [place] [address] May, [facility] [address] [id number] [place] [address] Apr, [facility] [address] [id number] [place] [address] Apr, [facility] [id number] [place] [address] Apr, [facility] [address] [id number] [place] [address] Apr, [facility] [id number] [place] [address] Apr, [facility] [address] [id number] [place] [address] Apr, [facility] [address] [id number] [place] [address] Apr, [facility] [address] [id number] [place] [address] 14 Apr, 2011 [facility] [address] [id number] Apr, [facility] [address] [id number] [place] [address] Apr, [facility] [address] [id number] [place] [address] Apr, [facility] [address] [id number] [place] [address] 23 Mar, 2011 [facility] [address] [id number] [place] [address] Mar, [facility] [address] [id number] [place] [address] 16 Mar, 2011 [facility] [address] [id number] [place] [address] 16 Mar, 2011 [facility] [address] [id number] [place] [address] Mar, [facility] [address] [id number] [place] [address] 23 Jan, 2011 [facility] [address] [id number] [place] [address] 13 Jan, 2011 [facility] [address] [id number] [place] [address] 12 Jan, 2011 [facility] [address] [id number] [place] [address] 08 Dec, 2010 [facility] [address] [id number] [place] [address] 11 Nov, 2010 [facility] [address] [id number] [place] [address] 13 Oct, 2010 [facility] [address] [id number] [place] [address] 14 Jan, 2010 [facility] [address] [id number] [place] [address] 15 Dec, 2009 [facility] [address] [id number] [place] [address] 15 Nov, 2009 [facility] [address] [id number] [place] [address] 15 Nov, 2009 [facility] [address] [id number] [place] [address] 11 Sep, 2009 [facility] [address] [id number] [place] [address] Jan, [facility] [address] [facility] [id number] [place] [address] Dec, [facility] [address] [facility] [id number] [place] [address] Aug, IMMUNIZATIONS No Known Immunizations SOCIAL HISTORY Never Assessed REASON FOR VISIT Requests return call PLAN OF CARE VITAL SIGNS MEDICATIONS No Known Medications RESULTS No Results PROCEDURES No Known [...]
--- OUTSIDE RECORDS SUMMARY | 2019-05-15 18:50 | XMS REPORT ---
Author Author Nikhil GALARZA Organization [facility] Address [address] [place] [address] Care Team Providers Care Manager Skilled Name Role Phone BIANCA GALARZA Unavailable PROBLEMS Type Condition ICD9-CM Code OAR00-VP Code Onset Dates Condition S tatus SNOMED Code Problem Other chronic pain G89.29 Active 8 9032981 Problem Major depressive disorder, single episode, mild F3 2.0 Active 96459611 Problem Back pain M54.9 Active 113739704 Problem Hyperlipidemia E78.5 Active 26229 004 Problem Hypertension I10 Active 0656759 3 ALLERGIES No Information ENCOUNTERS Encounter Location Date Diagnosis [facility] [address] [facility] [id number] [address] [place] [phone] Aug, [facility] [address] [facility] [id number] [address] [place] [phone] Jul, [facility] [address] [facility] [id number] [address] [place] [phone] 18 Jul, 2018 Back pain M54.9 [facility] [address] [facility] [id number] [address] [place] [phone] 10 Jul, 2018 Encounter for Medicare annua l wellness exam Z00.00 ; Back pain M54.9 ; Hypertension I10 ; Hyperlipidemia E78.5 ; Other chronic pain G89.29 ; Major depressive disorder, single episode, mild F32.0 and Pain in right knee M25.561 [facility] [address] [facility] [id number] [address] [place] [phone] June, Back pain M54.9 [facility] [address] [facility] [id number] [address] [place] [phone] May, Back pain M54.9 [facility] [address] [id number] [address] [place] [phone] May, Bronchitis J40 [facility] [address] [id number] [address] [place] [phone] Apr, [facility] [address] [facility] [id number] [address] [place] [phone] Apr, Back pain M54.9 [facility] [address] [facility] [id number] [address] [place] [phone] Apr, Other chronic pain G89.29 an d Pain in right knee M25.561 [facility] [address] [id number] [address] [place] [id number] Apr, Back pain M54.9 [facility] [address] [facility] [id number] [address] [place] [phone] Apr, [facility] [address] [facility] [id number] [address] [place] [phone] Mar, Back pain M54.9 [facility] [address] [facility] [id number] [address] [place] [phone] Mar, Back pain M54.9 [facility] [address] [facility] [id number] [address] [place] [phone] Jan, Back pain M54.9 [facility] [address] [facility] [id number] [address] [place] [phone] 14 Dec, 2017 Hypertension I10 and Hyperli pidemia E78.5 [facility] [address] [facility] [id number] [address] [place] [phone] 12 Dec, 2017 Hypertension I10 and Hyperli pidemia E78.5 [facility] [address] [facility] [id number] [address] [place] [phone] 09 Dec, 2017 Back pain M54.9 [facility] [address] [facility] [id number] [address] [place] [phone] Dec, Back pain M54.9 [facility] [address] [id number] [address] [place] [phone] Nov, Back pain M54.9 and Abnormal LFTs R79.89 [facility] [address] [id number] [address] [place] [phone] Nov, Back pain M54.9 [facility] [address] [id number] [address] [place] [phone] Nov, Back pain M54.9 and Major de pressive disorder, single episode, mild F32.0 [facility] [address] [id number] [address] [place] [id number] 14 Oct, 2017 Back pain M54.9 [facility] [address] [id number] [address] [place] [phone] Sep, Back pain M54.9 [facility] [address] [id number] [address] [place] [phone] Aug, [facility] [address] [id number] [address] [place] [id number] Aug, [facility] [address] [id number] [address] [place] [phone] Aug, Back pain M54.9 [facility] [address] [id number] [address] [place] [id number] Jul, Back pain M54.9 and Medicare annual wellness visit, initial Z00.00 [facility] [address] [id number] [address] [place] [phone] June, Back pain M54.9 [facility] [address] [id number] [address] [place] [phone] May, Back pain M54.9 [facility] [address] [id number] [address] [place] [phone] May, Medicare annual wellness vis it, initial Z00.00 ; Hypertension I10 ; Hyperlipidemia E78.5 and Reactive depression F32.9 [facility] [address] [id number] [address] [place] [phone] Apr, Back pain M54.9 [facility] [address] [id number] [address] [place] [phone] Apr, Back pain M54.9 [facility] [address] [id number] [address] [place] [phone] Apr, Back pain M54.9 ; 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 and Pain in left leg M79.605 [facility] [address] [id number] [address] [place] [phone] Mar, Back pain M54.9 [facility] [address] [id number] [address] [place] [phone] Mar, Acute prostatitis N41.0 [facility] [address] [id number] [address] [place] [phone] Jan, Back pain M54.9 [facility] [address] [id number] [address] [place] [phone] Dec, Back pain M54.9 and Hyperten ajay I10 [facility] [address] [id number] [address] [place] [phone] Dec, Back pain M54.9 [facility] [address] [id number] [address] [place] [phone] Nov, Back pain M54.9 [facility] [address] [id number] [address] [place] [phone] Oct, Back pain M54.9 [facility] [address] [id number] [address] [place] [phone] Oct, Abnormal LFTs R79.89 [facility] [address] [id number] [address] [place] [phone] Oct, [facility] [address] [id number] [address] [place] [phone] Sep, Back pain M54.9 ; Acute pros tatitis N41.0 ; Hypertension I10 ; Gross hematuria R31.0 and Reactive depression F32.9 [facility] [address] [id number] [address] [place] [phone] Sep, [facility] [address] [id number] [address] [place] [phone] Sep, Back pain M54.9 [facility] [address] [id number] [address] [place] [phone] Aug, Back pain M54.9 [facility] [address] [id number] [address] [place] [phone] Jul, Back pain M54.9 [facility] [address] [id number] [address] [place] [phone] June, Back pain M54.9 [facility] [address] [id number] [address] [place] [phone] June, Acute prostatitis N41.0 [facility] [address] [id number] [address] [place] [phone] June, Back pain M54.9 [facility] [address] [facility] [id number] [address] [place] [phone] Apr, Back pain M54.9 [facility] [address] [facility] [id number] [address] [place] [phone] 14 Apr, 2016 Hypertension I10 and Back pa in M54.9 [facility] [address] [id number] [address] [place] [phone] 07 Apr, 2016 Back pain M54.9 [facility] [address] [facility] [id number] [address] [place] [phone] 20 Apr, 2016 Back pain M54.9 and Sprain o f ligaments of lumbar spine, initial encounter S33.5XXA [facility] [address] [id number] [address] [place] [phone] Apr, Back pain M54.9 [facility] [address] [id number] [address] [place] [phone] Mar, Acute pain of left hip M25.5 52 [facility] [address] [id number] [address] [place] [phone] Mar, [facility] [address] [id number] [address] [place] [phone] Mar, Acute pain of left hip M25.5 52 [facility] [address] [id number] [address] [place] [phone] Mar, Back pain M54.9 [facility] [address] [id number] [address] [place] [phone] Jan, Reactive depression F32.9 [facility] [address] [id number] [address] [place] [phone] Jan, Back pain M54.9 ; Hypertensi on I10 and Reactive depression F32.9 [facility] [address] [id number] [address] [place] [phone] Jan, Back pain M54.9 [facility] [address] [id number] [address] [place] [phone] Dec, [facility] [address] [id number] [address] [place] [phone] Dec, [facility] [address] [id number] [address] [place] [phone] 14 Dec, 2015 [facility] [address] [id number] [address] [place] [phone] 29 Nov, 2015 [facility] [address] [id number] [address] [place] [phone] 29 Nov, 2015 [facility] [address] [id number] [address] [place] [phone] 16 Nov, 2015 [facility] [address] [id number] [address] [place] [phone] Sep, [facility] [address] [id number] [address] [place] [phone] Sep, [facility] [address] [id number] [address] [place] [phone] Sep, Visit for TB skin test Z11.1 ; Back pain M54.9 and Hypertension I10 [facility] [address] [id number] [address] [place] [phone] Aug, Back pain M54.9 [facility] [address] [id number] [address] [place] [phone] Jul, Back pain M54.9 [facility] [address] [id number] [address] [place] [phone] Jul, [facility] [address] [id number] [address] [place] [phone] Jul, [facility] [address] [id number] [address] [place] [phone] Jul, Back pain M54.9 [facility] [address] [id number] [address] [place] [phone] May, Back pain M54.9 [facility] [address] [id number] [address] [place] [phone] May, Back pain M54.9 ; Hypertensi on I10 and Eczema L30.9 [facility] [address] [id number] [address] [place] [phone] Apr, Back pain M54.9 [facility] [address] [id number] [address] [place] [phone] Apr, Back pain M54.9 [facility] [address] [id number] [address] [place] [phone] Apr, [facility] [address] [id number] [address] [place] [phone] Mar, Back pain M54.9 [facility] [address] [id number] [address] [place] [phone] Jan, [facility] [address] [id number] [address] [place] [id number] Jan, Dyspepsia R10.13 [facility] [address] [id number] [address] [place] [phone] Jan, [facility] [address] [id number] [address] [place] [phone] Jan, [facility] [address] [id number] [address] [place] [phone] Dec, Back pain M54.9 and Hyperlip idemia E78.5 [facility] [address] [id number] [address] [place] [phone] Dec, [facility] [address] [id number] [address] [place] [phone] Nov, [facility] [address] [id number] [address] [place] [phone] Oct, [facility] [address] [id number] [address] [place] [phone] Sep, [facility] [address] [id number] [address] [place] [phone] Sep, [facility] [address] [id number] [address] [place] [phone] Sep, Lumbar strain 847.2 [facility] [address] [id number] [address] [place] [phone] Aug, [facility] [address] [id number] [address] [place] [phone] Aug, [facility] [address] [id number] [address] [place] [phone] Aug, [facility] [address] [id number] [address] [place] [id number] 29 Jul, 2014 Dental examination V72.2 [facility] [address] [id number] [address] [place] [phone] Jul, [facility] [address] [id number] [address] [place] [phone] Jul, Acute bronchitis 466.0 and L umbar strain 847.2 [facility] [address] [id number] [address] [place] [id number] Jul, [facility] [address] [id number] [address] [place] [phone] Jul, [facility] [address] [id number] [address] [place] [phone] June, Acute bronchitis 466.0 and L umbar strain 847.2 [facility] [address] [id number] [address] [place] [phone] June, [facility] [address] [id number] [address] [place] [id number] June, [facility] [address] [id number] [address] [place] [phone] June, [facility] [address] [id number] [address] [place] [phone] May, [facility] [address] [id number] [address] [place] [phone] May, [facility] [address] [id number] [address] [place] [phone] Apr, [facility] [address] [id number] [address] [place] [phone] Apr, [facility] [address] [id number] [address] [place] [phone] Apr, [facility] [address] [id number] [address] [place] [phone] 13 Apr, 2014 [facility] [address] [id number] [address] [place] [address], [place] [address] 17 Apr, 2011 [facility] [address] [id number] [address] [place] [address], [place] [address] 17 Apr, 2011 [facility] [address] [id number] [address] [place] [address], [place] [address] 15 Apr, 2011 [facility] [address] [id number] [address] [place] [address], [place] [address] 14 Apr, 2011 [facility] [address] [id number] [id number] Apr, [facility] [address] [id number] [address] [place] [address], [place] [address] 06 Apr, 2011 [facility] [address] [id number] [address] [place] [address], [place] [address] Apr, [facility] [address] [id number] [address] [place] [address], [place] [address] Mar, [facility] [address] [id number] [address] [place] [address], [place] [address] Mar, [facility] [address] [id number] [address] [place] [address], [place] [address] Mar, [facility] [address] [id number] [address] [place] [address], [place] [address] Mar, [facility] [address] [id number] [address] [place] [address], [place] [address] Mar, [facility] [address] [id number] [address] [place] [address], [place] [address] Jan, [facility] [address] [id number] [address] [place] [address], [place] [address] Jan, [facility] [address] [id number] [address] [place] [address], [place] [address] Jan, [facility] [address] [id number] [address] [place] [phone] 08 Dec, 2010 [facility] [address] [id number] [address] [place] [id number] 11 Nov, 2010 [facility] [address] [id number] [address] [place] [phone] 13 Oct, 2010 [facility] [address] [id number] [address] [place] [id number] 14 Jan, 2010 [facility] [address] [id number] [address] [place] [id number] 15 Dec, 2009 [facility] [address] [id number] [address] [place] [phone] Nov, [facility] [address] [id number] [address] [place] [id number] 15 Nov, 2009 [facility] [address] [id number] [address] [place] [phone] Sep, [facility] [address] [id number] [address] [place] [phone] Jan, [facility] [address] [id number] [address] [place] [phone] Dec, [facility] [address] [id number] [address] [place] [phone] Aug, IMMUNIZATIONS No Known Immunizations SOCIAL HISTORY Never Assessed REASON FOR VISIT PLAN OF CARE VITAL SIGNS Height 72 in 2014-05-11 Weight 202 lbs 2014-05-11 Temperature 98.2 degrees Fahrenheit 2014-05-11 Heart Rate 80 bpm 2014-05-11 Respiratory Rate 20 2014-05-11 Blood pressure systolic 160 mmHg 2014-05-11 Blood pressure diastolic 100 mmHg 2014-05-11 MEDICATIONS Unknown Medications RESULTS No Results PROCEDURES [...]
--- OUTSIDE RECORDS SUMMARY | 2019-05-15 18:50 | XMS REPORT ---
Author Author Nikhil Fisher Doctor Organization [facility] Address Unknown Phone Unavailable Care Team Providers Care Factory Superintendent Name Role Phone Migration, Doctor Unavailable Unavailable PROBLEMS Type Condition ICD9-CM Code TSD90-RU Code Onset Dates Condition S tatus SNOMED Code Problem Other chronic pain G89.29 Active 8 4775870 Problem Major depressive disorder, single episode, mild F3 2.0 Active 73192393 Problem Back pain M54.9 Active 600971472 Problem Hyperlipidemia E78.5 Active 68337 004 Problem Hypertension I10 Active 1934675 3 Problem Reactive depression F32.9 Active 84053284 ALLERGIES No Information ENCOUNTERS Encounter Location Date Diagnosis [facility] [id number] [id number] [address] [place] [phone] Apr, [facility] [address] [id number] [address] [place] [address] Apr, Back pain M54.9 [facility] [address] [id number] [address] [place] [address] Apr, Other chronic pain G89.29 an d Pain in right knee M25.561 [facility] [address] [id number] [address] [place] [phone] Apr, Back pain M54.9 [facility] [address] [id number] [address] [place] [phone] Apr, [facility] [address] [id number] [address] [place] [address] Mar, Back pain M54.9 [facility] [address] [id number] [address] [place] [address] Mar, Back pain M54.9 [facility] [address] [facility] [id number] [address] [place] [phone] Jan, Back pain M54.9 [facility] [address] [id number] [address] [place] [id number] 14 Dec, 2017 Hypertension I10 and Hyperli pidemia E78.5 [facility] [address] [id number] [address] [place] [phone] 12 Dec, 2017 Hypertension I10 and Hyperli pidemia E78.5 [facility] [address] [id number] [address] [place] [id number] 09 Dec, 2017 Back pain M54.9 [facility] [address] [id number] [address] [place] [address] Dec, Back pain M54.9 [facility] [address] [id number] [address] [place] [address] Nov, Back pain M54.9 and Abnormal LFTs R79.89 [facility] [address] [id number] [address] [place] [phone] Nov, Back pain M54.9 [facility] [address] [id number] [address] [place] [address] Nov, Back pain M54.9 and Major de pressive disorder, single episode, mild F32.0 [facility] [address] [id number] [address] [place] [phone] Oct, Back pain M54.9 [facility] [address] [id number] [address] [place] [phone] Sep, Back pain M54.9 [facility] [address] [id number] [address] [place] [phone] Aug, [facility] [address] [id number] [address] [place] [phone] Aug, [facility] [address] [id number] [address] [place] [phone] Aug, Back pain M54.9 [facility] [address] [id number] [address] [place] [phone] 21 Jul, 2017 Back pain M54.9 and Medicare annual wellness visit, initial Z00.00 [facility] [address] [id number] [address] [place] [phone] 23 Jun, 2017 Back pain M54.9 [facility] [address] [id number] [address] [place] [id number] 23 May, 2017 Back pain M54.9 [facility] [address] [id number] [address] [place] [phone] 16 May, 2017 Medicare annual wellness vis it, initial Z00.00 ; Hypertension I10 ; Hyperlipidemia E78.5 and Reactive depression F32.9 [facility] [address] [id number] [address] [place] [address] Apr, Back pain M54.9 [facility] [address] [id number] [address] [place] [phone] 23 Apr, 2017 Back pain M54.9 [facility] [address] [id number] [address] [place] [phone] 19 Apr, 2017 Back pain M54.9 ; 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 and Pain in left leg M79.605 [facility] [address] [id number] [address] [place] [address] Mar, Back pain M54.9 [facility] [address] [id number] [address] [place] [address] Mar, Acute prostatitis N41.0 [facility] [address] [id number] [address] [place] [address] Jan, Back pain M54.9 [facility] [address] [id number] [address] [place] [address] Dec, Back pain M54.9 and Hyperten ajay I10 [facility] [address] [id number] [address] [place] [address] Dec, Back pain M54.9 [facility] [address] [id number] [address] [place] [phone] Nov, Back pain M54.9 [facility] [address] [id number] [address] [place] [address] Oct, Back pain M54.9 [facility] [address] [id number] [address] [place] [phone] Oct, Abnormal LFTs R79.89 [facility] [address] [id number] [address] [place] [phone] Oct, [facility] [address] [id number] [address] [place] [address] Sep, Back pain M54.9 ; Acute pros tatitis N41.0 ; Hypertension I10 ; Gross hematuria R31.0 and Reactive depression F32.9 [facility] [address] [id number] [address] [place] [phone] Sep, [facility] [address] [id number] [address] [place] [address] Sep, Back pain M54.9 [facility] [address] [id number] [address] [place] [phone] Aug, Back pain M54.9 [facility] [address] [id number] [address] [place] [phone] Jul, Back pain M54.9 [facility] [address] [id number] [address] [place] [phone] June, Back pain M54.9 [facility] [address] [id number] [address] [place] [id number] June, Acute prostatitis N41.0 [facility] [address] [id number] [address] [place] [address] June, Back pain M54.9 [facility] [address] [id number] [address] [place] [phone] 31 Apr, 2016 Back pain M54.9 [facility] [address] [id number] [address] [place] [phone] 14 Apr, 2016 Hypertension I10 and Back pa in M54.9 [facility] [address] [id number] [address] [place] [phone] 07 Apr, 2016 Back pain M54.9 [facility] [address] [id number] [address] [place] [phone] Apr, Back pain M54.9 and Sprain o f ligaments of lumbar spine, initial encounter S33.5XXA [facility] [address] [id number] [address] [place] [id number] 08 Apr, 2016 Back pain M54.9 [facility] [address] [id number] [address] [place] [phone] Mar, Acute pain of left hip M25.5 52 [facility] [address] [id number] [address] [place] [phone] Mar, [facility] [address] [id number] [address] [place] [phone] Mar, Acute pain of left hip M25.5 52 [facility] [address] [id number] [address] [place] [phone] Mar, Back pain M54.9 [facility] [address] [id number] [address] [place] [address] Jan, Reactive depression F32.9 [facility] [address] [id number] [address] [place] [phone] Jan, Back pain M54.9 ; Hypertensi on I10 and Reactive depression F32.9 [facility] [address] [id number] [address] [place] [phone] Jan, Back pain M54.9 [facility] [address] [id number] [address] [place] [phone] Dec, [facility] [address] [id number] [address] [place] [address] Dec, [facility] [address] [id number] [address] [place] [phone] Nov, [facility] [address] [id number] [address] [place] [phone] Oct, [facility] [address] [id number] [address] [place] [phone] Oct, [facility] [address] [id number] [address] [place] [phone] Oct, [facility] [address] [id number] [address] [place] [phone] Sep, [facility] [address] [id number] [address] [place] [phone] Sep, [facility] [address] [id number] [address] [place] [address] Sep, Visit for TB skin test Z11.1 ; Back pain M54.9 and Hypertension I10 [facility] [address] [id number] [address] [place] [address] Aug, Back pain M54.9 [facility] [address] [id number] [address] [place] [address] Jul, Back pain M54.9 [facility] [address] [id number] [address] [place] [phone] Jul, [facility] [address] [id number] [address] [place] [phone] Jul, [facility] [address] [id number] [address] [place] [phone] Jul, Back pain M54.9 [facility] [address] [id number] [address] [place] [phone] May, Back pain M54.9 [facility] [address] [id number] [address] [place] [phone] May, Back pain M54.9 ; Hypertensi on I10 and Eczema L30.9 [facility] [address] [id number] [address] [place] [address] Apr, Back pain M54.9 [facility] [address] [id number] [address] [place] [address] Apr, Back pain M54.9 [facility] [address] [id number] [address] [place] [phone] Apr, [facility] [address] [id number] [address] [place] [phone] Mar, Back pain M54.9 [facility] [address] [id number] [address] [place] [id number] Jan, [facility] [address] [id number] [address] [place] [phone] Jan, Dyspepsia R10.13 [facility] [address] [id number] [address] [place] [address] Jan, [facility] [address] [facility] [id number] [address] [place] [phone] Jan, [facility] [address] [id number] [address] [place] [phone] Dec, Back pain M54.9 and Hyperlip idemia E78.5 [facility] [address] [id number] [address] [place] [address] Dec, [facility] [address] [id number] [address] [place] [phone] Nov, [facility] [address] [id number] [address] [place] [phone] Oct, [facility] [address] [id number] [address] [place] [phone] Sep, [facility] [address] [id number] [address] [place] [phone] Sep, [facility] [address] [id number] [address] [place] [address] Sep, Lumbar strain 847.2 [facility] [address] [id number] [address] [place] [phone] Aug, [facility] [address] [id number] [address] [place] [phone] Aug, [facility] [address] [id number] [address] [place] [phone] Aug, [facility] [address] [id number] [address] [place] [id number] Jul, Dental examination V72.2 [facility] [address] [id number] [address] [place] [phone] Jul, [facility] [address] [id number] [address] [place] [phone] Jul, Acute bronchitis 466.0 and L umbar strain 847.2 [facility] [address] [id number] [address] [place] [phone] Jul, [facility] [address] [id number] [address] [place] [phone] Jul, [facility] [address] [id number] [address] [place] [phone] June, Acute bronchitis 466.0 and L umbar strain 847.2 [facility] [address] [id number] [address] [place] [phone] June, [facility] [address] [id number] [address] [place] [phone] June, [facility] [address] [id number] [address] [place] [phone] June, [facility] [address] [id number] [address] [place] [address], [place] [address] May, [facility] [address] [id number] [address] [place] [address], [place] [address] May, [facility] [address] [id number] [address] [place] [address], [place] [address] Apr, [facility] [address] [id number] [address] [place] [address], [place] [address] Apr, [facility] [address] [id number] [address] [place] [address], [place] [address] Apr, [facility] [address] [id number] [address] [place] [address], [place] [address] Apr, [facility] [address] [id number] [address] [place] [address], [place] [address] 17 Apr, 2011 [facility] [address] [id number] [address] [place] [address], [place] [address] 17 Apr, 2011 [facility] [address] [id number] [address] [place] [address], [place] [address] Apr, [facility] [address] [id number] [address] [place] [address], [place] [address] 14 Apr, 2011 [facility] [address] [id number] [place] [id number] Apr, [facility] [address] [id number] [address] [place] [phone] Apr, [facility] [address] [id number] [address] [place] [address], [place] [address] Apr, [facility] [address] [id number] [address] [place] [address], [place] [address] Mar, [facility] [address] [id number] [address] [place] [phone] Mar, [facility] [address] [id number] [address] [place] [phone] 16 Mar, 2011 [facility] [address] [id number] [address] [place] [address], [place] [address] 16 Mar, 2011 [facility] [address] [id number] [address] [place] [phone] 11 Mar, 2011 [facility] [address] [id number] [address] [place] [address], [place] [address] 23 Jan, 2011 [facility] [address] [id number] [address] [place] [address], [place] [address] 13 Jan, 2011 [facility] [address] [id number] [address] [place] [address], [place] [address] 12 Jan, 2011 [facility] [address] [id number] [address] [place] [address], [place] [address] 08 Dec, 2010 [facility] [address] [id number] [address] [place] [phone] 11 Nov, 2010 [facility] [address] [id number] [address] [place] [address], [place] [address] 13 Oct, 2010 [facility] [address] [id number] [address] [place] [address], [place] [address] 14 Jan, 2010 [facility] [address] [id number] [address] [place] [address], [place] [address] 15 Dec, 2009 [facility] [address] [id number] [address] [place] [address], [place] [address] 15 Nov, 2009 [facility] [address] [id number] [address] [place] [id number] 15 Nov, 2009 [facility] [address] [id number] [address] [place] [address], [place] [address] 11 Sep, 2009 [facility] [address] [id number] [address] [place] [address], [place] [address] 18 Jan, 2009 [facility] [address] [id number] [address] [place] [id number] 10 Dec, 2008 [facility] [address] [facility] [id number] [address] [place] [address] 10 Aug, 2008 IMMUNIZATIONS No Known Immunizations SOCIAL HISTORY Never Assessed REASON FOR VISIT [facility] PLAN OF CARE VITAL SIGNS MEDICATIONS Medication Instructions Dosage Frequency Start Date End Date Duration S tatus MS Contin 30 mg 1 tablet by Oral route every 12 hours Apr, Active PredniSONE 20 mg 2 tablet by Oral route 1 time per day for 7 day(s) Mar, Active amitriptyline 25 mg 1 tablet by Oral route 1 time per day Apr, Active Wellbutrin SR 150 mg 1 Tablet by Oral route 1 time per day Apr, Active doxazosin 4 mg 1 tablet by Oral route 1 time per day Apr, Active Lopid 600 mg 1 tablet by Oral route 2 times per day 2014 Active Meloxicam 15 mg 1 Tablet by Oral route 1 time per day Apr, Active Omnicef 300 mg 2 capsule by Oral route 1 time per day for 7 day(s) Apr, Active pravastatin 40 mg 1 tablet by Oral route 1 time per day Apr, Active Cymbalta 60 mg take 1 capsule (60 mg) by oral route once d aily Apr, Active RESULTS No Results PROCEDURES No [...]
--- OUTSIDE RECORDS SUMMARY | 2019-05-15 18:50 | XMS REPORT ---
Author Author Nikhil DUARTE Organization [facility] Address [address] [place] [address] Care Team Providers Care Bander And Cellophaner Helper Machine Name Role Phone LILIBETH DUARTE Unavailable PROBLEMS Type Condition ICD9-CM Code [id number] Code Onset Dates Condition S tatus SNOMED Code Problem Major depressive disorder, single episode, mild F3 2.0 Active 12638373 Problem Other chronic pain G89.29 Active 8 1326533 Problem Hyperlipidemia E78.5 Active 86541 004 Problem Back pain M54.9 Active 398584214 Problem Reactive depression F32.9 Active 67140580 Problem Hypertension I10 Active 9417014 3 ALLERGIES No Information ENCOUNTERS Encounter Location Date Diagnosis [place] [address] [address] [facility] [id number] [address] [place] [address] 06 Jan, 2018 Back pain M54.9 [place] [address] [address] [facility] [id number] [address] [place] [address] 14 Dec, 2017 Hypertension I10 and Hyperli pidemia E78.5 [place] [address] [address] [facility] [id number] [address] [place] [address] 12 Dec, 2017 Hypertension I10 and Hyperli pidemia E78.5 [place] [address] [address] [facility] [id number] [address] [place] [address] 09 Dec, 2017 Back pain M54.9 [place] [address] [address] [facility] [id number] [address] [place] [address] 08 Dec, 2017 Back pain M54.9 [place] [address] [address] [facility] [id number] [address] [place] [address] 11 Nov, 2017 Back pain M54.9 and Abnormal LFTs R79.89 [place] [address] [address] [facility] [id number] [address] [place] [address] Nov, Back pain M54.9 [facility] [address] [id number] [address] [place] [address] Nov, Back pain M54.9 and Major de pressive disorder, single episode, mild F32.0 [facility] [address] [id number] [address] [place] [address] 14 Oct, 2017 Back pain M54.9 [facility] [address] [id number] [address] [place] [address] Sep, Back pain M54.9 [facility] [address] [id number] [address] [place] [address] Aug, [facility] [address] [id number] [address] [place] [address] Aug, [facility] [address] [id number] [address] [place] [address] Aug, Back pain M54.9 [facility] [address] [id number] [address] [place] [address] Jul, Back pain M54.9 and Medicare annual wellness visit, initial Z00.00 [facility] [address] [id number] [address] [place] [address] June, Back pain M54.9 [facility] [address] [id number] [address] [place] [address] May, Back pain M54.9 [facility] [address] [id number] [address] [place] [address] May, Medicare annual wellness vis it, initial Z00.00 ; Hypertension I10 ; Hyperlipidemia E78.5 and Reactive depression F32.9 [facility] [address] [id number] [address] [place] [address] Apr, Back pain M54.9 [facility] [address] [id number] [address] [place] [address] Apr, Back pain M54.9 [facility] [address] [id number] [address] [place] [address] Apr, Back pain M54.9 ; 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 and Pain in left leg M79.605 [facility] [address] [id number] [address] [place] [address] Mar, Back pain M54.9 [facility] [address] [id number] [address] [place] [address] Mar, Acute prostatitis N41.0 [facility] [address] [id number] [address] [place] [address] Jan, Back pain M54.9 [facility] [address] [id number] [address] [place] [address] Dec, Back pain M54.9 and Hyperten ajay I10 [facility] [address] [id number] [address] [place] [address] Dec, Back pain M54.9 [facility] [address] [id number] [address] [place] [address] Nov, Back pain M54.9 [facility] [address] [id number] [address] [place] [address] Oct, Back pain M54.9 [facility] [address] [id number] [address] [place] [address] Oct, Abnormal LFTs R79.89 [facility] [address] [id number] [address] [place] [address] Oct, [facility] [address] [facility] [id number] [address] [place] [address] Sep, Back pain M54.9 ; Acute pros tatitis N41.0 ; Hypertension I10 ; Gross hematuria R31.0 and Reactive depression F32.9 [facility] [address] [id number] [address] [place] [address] Sep, [facility] [address] [id number] [address] [place] [address] Sep, Back pain M54.9 [facility] [address] [id number] [address] [place] [address] Aug, Back pain M54.9 [facility] [address] [id number] [address] [place] [address] Jul, Back pain M54.9 [facility] [address] [id number] [address] [place] [address] June, Back pain M54.9 [facility] [address] [id number] [address] [place] [address] June, Acute prostatitis N41.0 [facility] [address] [id number] [address] [place] [address] June, Back pain M54.9 [facility] [address] [id number] [address] [place] [address] Apr, Back pain M54.9 [facility] [address] [id number] [address] [place] [address] Apr, Hypertension I10 and Back pa in M54.9 [facility] [address] [id number] [address] [place] [address] Apr, Back pain M54.9 [facility] [address] [id number] [address] [place] [address] Apr, Back pain M54.9 and Sprain o f ligaments of lumbar spine, initial encounter S33.5XXA [facility] [address] [id number] [address] [place] [address] 08 Apr, 2016 Back pain M54.9 [facility] [address] [id number] [address] [place] [address] Mar, Acute pain of left hip M25.5 52 [facility] [address] [id number] [address] [place] [address] Mar, [facility] [address] [id number] [address] [place] [address] Mar, Acute pain of left hip M25.5 52 [facility] [address] [id number] [address] [place] [address] Mar, Back pain M54.9 [facility] [address] [id number] [address] [place] [address] Jan, Reactive depression F32.9 [facility] [address] [id number] [address] [place] [address] Jan, Back pain M54.9 ; Hypertensi on I10 and Reactive depression F32.9 [facility] [address] [id number] [address] [place] [address] Jan, Back pain M54.9 [facility] [address] [id number] [address] [place] [address] Dec, [facility] [address] [id number] [address] [place] [address] Dec, [facility] [address] [id number] [address] [place] [address] Nov, [facility] [address] [id number] [address] [place] [address] Oct, [facility] [address] [id number] [address] [place] [address] 29 Nov, 2015 [facility] [address] [id number] [address] [place] [address] 16 Nov, 2015 [facility] [address] [id number] [address] [place] [address] Sep, [facility] [address] [id number] [address] [place] [address] Sep, [facility] [address] [id number] [address] [place] [address] Sep, Visit for TB skin test Z11.1 ; Back pain M54.9 and Hypertension I10 [facility] [address] [id number] [address] [place] [address] Aug, Back pain M54.9 [facility] [address] [id number] [address] [place] [address] Jul, Back pain M54.9 [facility] [address] [id number] [address] [place] [address] Jul, [facility] [address] [id number] [address] [place] [address] Jul, [facility] [address] [id number] [address] [place] [address] Jul, Back pain M54.9 [facility] [address] [id number] [address] [place] [address] May, Back pain M54.9 [facility] [address] [id number] [address] [place] [address] May, Back pain M54.9 ; Hypertensi on I10 and Eczema L30.9 [facility] [address] [id number] [address] [place] [address] Apr, Back pain M54.9 [facility] [address] [id number] [address] [place] [address] Apr, Back pain M54.9 [facility] [address] [id number] [address] [place] [address] Apr, [facility] [address] [id number] [address] [place] [address] Mar, Back pain M54.9 [facility] [address] [id number] [address] [place] [address] Jan, [facility] [address] [id number] [address] [place] [address] Jan, Dyspepsia R10.13 [facility] [address] [id number] [address] [place] [address] Jan, [facility] [address] [id number] [address] [place] [address] Jan, [facility] [address] [id number] [address] [place] [address] Dec, Back pain M54.9 and Hyperlip idemia E78.5 [facility] [address] [id number] [address] [place] [address] Dec, [facility] [address] [id number] [address] [place] [address] Nov, [facility] [address] [id number] [address] [place] [address] Oct, [facility] [address] [id number] [address] [place] [address] Sep, [facility] [address] [id number] [address] [place] [address] Sep, [facility] [address] [id number] [address] [place] [address] Sep, Lumbar strain 847.2 [facility] [address] [id number] [address] [place] [address] Aug, [facility] [address] [id number] [address] [place] [address] Aug, [facility] [address] [id number] [address] [place] [address] Aug, [facility] [address] [id number] [address] [place] [id number] Jul, Dental examination V72.2 [facility] [address] [id number] [address] [place] [address] Jul, [facility] [address] [id number] [address] [place] [address] Jul, Acute bronchitis 466.0 and L umbar strain 847.2 [facility] [address] [id number] [address] [place] [address] Jul, [facility] [address] [id number] [address] [place] [address] Jul, [facility] [address] [id number] [address] [place] [address] June, Acute bronchitis 466.0 and L umbar strain 847.2 [facility] [address] [id number] [address] [place] [address] June, [facility] [address] [id number] [address] [place] [address] June, [facility] [address] [id number] [address] [place] [address] June, [facility] [address] [id number] [address] [place] [address] May, [facility] [address] [id number] [address] [place] [address] May, [facility] [address] [id number] [address] [place] [address] Apr, [facility] [address] [id number] [address] [place] [address] Apr, [facility] [address] [id number] [address] [place] [address] Apr, [facility] [address] [id number] [address] [place] [address] Apr, [facility] [address] [id number] [address] [place] [address] 17 Apr, 2011 [facility] [address] [id number] [address] [place] [address] 17 Apr, 2011 [facility] [address] [id number] [address] [place] [address], [place] [address] 15 Apr, 2011 [facility] [address] [id number] [address] [place] [address], [place] [address] 14 Apr, 2011 [facility] [address] [id number] [id number] 06 Apr, 2011 [facility] [address] [id number] [address] [place] [address], [place] [address] Apr, [facility] [address] [id number] [address] [place] [address], [place] [address] Apr, [facility] [address] [id number] [address] [place] [address], [place] [address] Mar, [facility] [address] [id number] [address] [place] [address], [place] [address] Mar, [facility] [address] [id number] [address] [place] [address], [place] [address] Mar, [facility] [address] [id number] [address] [place] [address], [place] [address] Mar, [facility] [address] [id number] [address] [place] [address], [place] [address] Mar, [facility] [address] [id number] [address] [place] [address] Jan, [facility] [address] [id number] [address] [place] [address], [place] [address] Jan, [facility] [address] [id number] [address] [place] [address], [place] [address] Jan, [facility] [address] [id number] [address] [place] [address], [place] [address] Dec, [facility] [address] [id number] [address] [place] [address], [place] [address] Nov, [facility] [address] [id number] [address] [place] [address] 13 Oct, 2010 [facility] [address] [id number] [address] [place] [address] 14 Jan, 2010 [facility] [address] [id number] [address] [place] [address] 15 Dec, 2009 [facility] [address] [id number] [address] [place] [address] 15 Nov, 2009 [facility] [address] [id number] [address] [place] [address] Nov, [facility] [address] [id number] [address] [place] [address] Sep, [facility] [address] [id number] [address] [place] [address] Jan, [facility] [address] [id number] [address] [place] [address] 10 Dec, 2008 [facility] [address] [id number] [address] [place] [address] 10 Aug, 2008 IMMUNIZATIONS No Known Immunizations SOCIAL HISTORY Never Assessed REASON FOR VISIT Controlled Med Refill PLAN OF CARE VITAL SIGNS MEDICATIONS Medication Instructions Dosage Frequency Start Date End Date Duration S beto MS Contin 30 MG Orally, every 12 hrs 1 tablet 12h 06 Jan, 2018 28 days Active RESULTS No Results PROCEDURES [...]
--- OUTSIDE RECORDS SUMMARY | 2019-05-15 18:50 | XMS REPORT ---
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 Phone BIANCA GALARZA Unavailable PROBLEMS Type Condition ICD9-CM Code [id number] Code Onset Dates Condition S tatus SNOMED Code Problem Other chronic pain G89.29 Active 8 2618218 Problem Major depressive disorder, single episode, mild F3 2.0 Active 22511310 Problem Back pain M54.9 Active 996346159 Problem Hyperlipidemia E78.5 Active 85692 004 Problem Hypertension I10 Active 8492417 3 ALLERGIES No Information ENCOUNTERS Encounter Location Date Diagnosis [facility] [address] [facility] [id number] [address] [place] [phone] Aug, [facility] [address] [facility] [id number] [address] [place] [address] Jul, [facility] [address] [facility] [id number] [address] [place] [id number] 18 Jul, 2018 Back pain M54.9 [facility] [address] [facility] [id number] [address] [place] [address] 10 Jul, 2018 Encounter for Medicare annua l wellness exam Z00.00 ; Back pain M54.9 ; Hypertension I10 ; Hyperlipidemia E78.5 ; Other chronic pain G89.29 ; Major depressive disorder, single episode, mild F32.0 and Pain in right knee M25.561 [facility] [address] [facility] [id number] [address] [place] [address] June, Back pain M54.9 [facility] [address] [facility] [id number] [address] [place] [address] May, Back pain M54.9 [facility] [address] [id number] [address] [place] [address] May, Bronchitis J40 [facility] [address] [id number] [address] [place] [address] Apr, [facility] [address] [facility] [id number] [address] [place] [address] Apr, Back pain M54.9 [facility] [address] [facility] [id number] [address] [place] [address] Apr, Other chronic pain G89.29 an d Pain in right knee M25.561 [facility] [address] [id number] [address] [place] [address] Apr, Back pain M54.9 [facility] [address] [facility] [id number] [address] [place] [address] Apr, [facility] [address] [facility] [id number] [address] [place] [address] Mar, Back pain M54.9 [facility] [address] [facility] [id number] [address] [place] [address] Mar, Back pain M54.9 [facility] [address] [facility] [id number] [address] [place] [address] Jan, Back pain M54.9 [facility] [address] [facility] [id number] [address] [place] [address] 14 Dec, 2017 Hypertension I10 and Hyperli pidemia E78.5 [facility] [address] [facility] [id number] [address] [place] [address] 12 Dec, 2017 Hypertension I10 and Hyperli pidemia E78.5 [facility] [address] [facility] [id number] [address] [place] [id number] 09 Dec, 2017 Back pain M54.9 [facility] [address] [facility] [id number] [address] [place] [address] Dec, Back pain M54.9 [facility] [address] [id number] [address] [place] [address] Nov, Back pain M54.9 and Abnormal LFTs R79.89 [facility] [address] [id number] [address] [place] [address] Nov, Back pain M54.9 [facility] [address] [id number] [address] [place] [id number] Nov, Back pain M54.9 and Major de pressive disorder, single episode, mild F32.0 [facility] [address] [id number] [address] [place] [id number] 14 Oct, 2017 Back pain M54.9 [facility] [address] [id number] [address] [place] [address] Sep, Back pain M54.9 [facility] [address] [id number] [address] [place] [address] Aug, [facility] [address] [id number] [address] [place] [address] Aug, [facility] [address] [id number] [address] [place] [address] Aug, Back pain M54.9 [facility] [address] [id number] [address] [place] [address] Jul, Back pain M54.9 and Medicare annual wellness visit, initial Z00.00 [facility] [address] [id number] [address] [place] [address] June, Back pain M54.9 [facility] [address] [id number] [address] [place] [address] May, Back pain M54.9 [facility] [address] [id number] [address] [place] [address] May, Medicare annual wellness vis it, initial Z00.00 ; Hypertension I10 ; Hyperlipidemia E78.5 and Reactive depression F32.9 [facility] [address] [id number] [address] [place] [address] Apr, Back pain M54.9 [facility] [address] [id number] [address] [place] [address] Apr, Back pain M54.9 [facility] [address] [id number] [address] [place] [address] Apr, Back pain M54.9 ; Other extension edger zaid pain G89.29 and Pain in left leg M79.605 [facility] [address] [id number] [address] [place] [address] Mar, Back pain M54.9 [facility] [address] [id number] [address] [place] [address] Mar, Acute prostatitis N41.0 [facility] [address] [id number] [address] [place] [address] Jan, Back pain M54.9 [facility] [address] [id number] [address] [place] [address] Dec, Back pain M54.9 and Hyperten ajay I10 [facility] [address] [id number] [address] [place] [address] Dec, Back pain M54.9 [facility] [address] [id number] [address] [place] [address] Nov, Back pain M54.9 [facility] [address] [id number] [address] [place] [address] Oct, Back pain M54.9 [facility] [address] [id number] [address] [place] [address] Oct, Abnormal LFTs R79.89 [facility] [address] [id number] [address] [place] [address] Oct, [facility] [address] [id number] [address] [place] [address] Sep, Back pain M54.9 ; Acute pros tatitis N41.0 ; Hypertension I10 ; Gross hematuria R31.0 and Reactive depression F32.9 [facility] [address] [id number] [address] [place] [address] Sep, [facility] [address] [id number] [address] [place] [address] Sep, Back pain M54.9 [facility] [address] [id number] [address] [place] [address] Aug, Back pain M54.9 [facility] [address] [id number] [address] [place] [address] Jul, Back pain M54.9 [facility] [address] [id number] [address] [place] [address] June, Back pain M54.9 [facility] [address] [id number] [address] [place] [address] June, Acute prostatitis N41.0 [facility] [address] [id number] [address] [place] [address] June, Back pain M54.9 [facility] [address] [facility] [id number] [address] [place] [address] Apr, Back pain M54.9 [facility] [address] [facility] [id number] [address] [place] [address] 14 Apr, 2016 Hypertension I10 and Back pa in M54.9 [facility] [address] [id number] [address] [place] [id number] 07 Apr, 2016 Back pain M54.9 [facility] [address] [facility] [id number] [address] [place] [id number] 20 Apr, 2016 Back pain M54.9 and Sprain o f ligaments of lumbar spine, initial encounter S33.5XXA [facility] [address] [id number] [address] [place] [address] Apr, Back pain M54.9 [facility] [address] [id number] [address] [place] [address] Mar, Acute pain of left hip M25.5 52 [facility] [address] [id number] [address] [place] [address] Mar, [facility] [address] [id number] [address] [place] [address] Mar, Acute pain of left hip M25.5 52 [facility] [address] [id number] [address] [place] [address] Mar, Back pain M54.9 [facility] [address] [id number] [address] [place] [id number] Jan, Reactive depression F32.9 [facility] [address] [id number] [address] [place] [address] Jan, Back pain M54.9 ; Hypertensi on I10 and Reactive depression F32.9 [facility] [address] [id number] [address] [place] [address] Jan, Back pain M54.9 [facility] [address] [id number] [address] [place] [address] Dec, [facility] [address] [id number] [address] [place] [address] Dec, [facility] [address] [id number] [address] [place] [address] 14 Dec, 2015 [facility] [address] [id number] [address] [place] [address] 29 Nov, 2015 [facility] [address] [id number] [address] [place] [id number] 29 Nov, 2015 [facility] [address] [id number] [address] [place] [address] 16 Nov, 2015 [facility] [address] [id number] [address] [place] [address] Sep, [facility] [address] [id number] [address] [place] [address] Sep, [facility] [address] [id number] [address] [place] [address] Sep, Visit for TB skin test Z11.1 ; Back pain M54.9 and Hypertension I10 [facility] [address] [id number] [address] [place] [address] Aug, Back pain M54.9 [facility] [address] [id number] [address] [place] [address] Jul, Back pain M54.9 [facility] [address] [id number] [address] [place] [address] Jul, [facility] [address] [id number] [address] [place] [address] Jul, [facility] [address] [id number] [address] [place] [address] Jul, Back pain M54.9 [facility] [address] [id number] [address] [place] [address] May, Back pain M54.9 [facility] [address] [id number] [address] [place] [address] May, Back pain M54.9 ; Hypertensi on I10 and Eczema L30.9 [facility] [address] [id number] [address] [place] [address] Apr, Back pain M54.9 [facility] [address] [id number] [address] [place] [address] Apr, Back pain M54.9 [facility] [address] [id number] [address] [place] [address] Apr, [facility] [address] [id number] [address] [place] [address] Mar, Back pain M54.9 [facility] [address] [id number] [address] [place] [address] Jan, [facility] [address] [id number] [address] [place] [address] Jan, Dyspepsia R10.13 [facility] [address] [id number] [address] [place] [address] Jan, [facility] [address] [id number] [address] [place] [address] Jan, [facility] [address] [id number] [address] [place] [address] Dec, Back pain M54.9 and Hyperlip idemia E78.5 [facility] [address] [id number] [address] [place] [address] Dec, [facility] [address] [id number] [address] [place] [address] Nov, [facility] [address] [id number] [address] [place] [address] Oct, [facility] [address] [id number] [address] [place] [address] Sep, [facility] [address] [id number] [address] [place] [address] Sep, [facility] [address] [id number] [address] [place] [address] Sep, Lumbar strain 847.2 [facility] [address] [id number] [address] [place] [address] Aug, [facility] [address] [id number] [address] [place] [address] Aug, [facility] [address] [id number] [address] [place] [address] Aug, [facility] [address] [id number] [address] [place] [id number] 29 Jul, 2014 Dental examination V72.2 [facility] [address] [id number] [address] [place] [address] Jul, [facility] [address] [id number] [address] [place] [address] Jul, Acute bronchitis 466.0 and L umbar strain 847.2 [facility] [address] [id number] [address] [place] [address] Jul, [facility] [address] [id number] [address] [place] [address] Jul, [facility] [address] [id number] [address] [place] [address] June, Acute bronchitis 466.0 and L umbar strain 847.2 [facility] [address] [id number] [address] [place] [address] June, [facility] [address] [id number] [address] [place] [address] June, [facility] [address] [id number] [address] [place] [address] June, [facility] [address] [id number] [address] [place] [address] May, [facility] [address] [id number] [address] [place] [address] May, [facility] [address] [id number] [address] [place] [address] Apr, [facility] [address] [id number] [address] [place] [address] Apr, [facility] [address] [id number] [address] [place] [address] Apr, [facility] [address] [id number] [address] [place] [address] 13 Apr, 2014 [facility] [address] [id number] [address] [place] [address], [place] [address] 17 Apr, 2011 [facility] [address] [id number] [address] [place] [address], [place] [address] 17 Apr, 2011 [facility] [address] [id number] [address] [place] [address], [place] [address] 15 Apr, 2011 [facility] [address] [id number] [address] [place] [address], [place] [address] 14 Apr, 2011 [facility] [address] [id number] [place] [id number] Apr, [facility] [address] [id number] [address] [place] [address], [place] [address] 06 Apr, 2011 [facility] [address] [id number] [address] [place] [address], [place] [address] Apr, [facility] [address] [id number] [address] [place] [address], [place] [address] Mar, [facility] [address] [id number] [address] [place] [address], [place] [address] Mar, [facility] [address] [id number] [address] [place] [address], [place] [address] Mar, [facility] [address] [id number] [address] [place] [address], [place] [address] Mar, [facility] [address] [id number] [address] [place] [address], [place] [address] Mar, [facility] [address] [id number] [address] [place] [address], [place] [address] Jan, [facility] [address] [id number] [address] [place] [address], [place] [address] Jan, [facility] [address] [id number] [address] [place] [address], [place] [address] Jan, [facility] [address] [id number] [address] [place] [id number] 08 Dec, 2010 [facility] [address] [id number] [address] [place] [address] 11 Nov, 2010 [facility] [address] [id number] [address] [place] [address] 13 Oct, 2010 [facility] [address] [id number] [address] [place] [address] 14 Jan, 2010 [facility] [address] [id number] [address] [place] [address] 15 Dec, 2009 [facility] [address] [id number] [address] [place] [id number] Nov, [facility] [address] [id number] [address] [place] [id number] 15 Nov, 2009 [facility] [address] [id number] [address] [place] [id number] Sep, [facility] [address] [id number] [address] [place] [address] Jan, [facility] [address] [id number] [address] [place] [address] Dec, [facility] [address] [id number] [address] [place] [address] Aug, IMMUNIZATIONS No Known Immunizations SOCIAL HISTORY Never Assessed REASON FOR VISIT PLAN OF CARE VITAL SIGNS Height 73 in 2014-04-14 Weight 203 lbs 2014-04-14 Temperature 98.9 degrees Fahrenheit 2014-04-14 Heart Rate 88 bpm 2014-04-14 Respiratory Rate 24 2014-04-14 Blood pressure systolic 220 mmHg 2014-04-14 Blood pressure diastolic 110 mmHg 2014-04-14 MEDICATIONS Unknown Medications RESULTS No Results PROCEDURES [...]
--- OUTSIDE RECORDS SUMMARY | 2019-05-15 18:50 | XMS REPORT ---
Author Author Nikhil Fisher Doctor Organization [facility] Address Unknown Phone Unavailable Care Team Providers Care Certified Orthotist Practice Manager Name Role Phone Migration, Doctor Unavailable Unavailable PROBLEMS Type Condition ICD9-CM Code [id number] Code Onset Dates Condition S tatus SNOMED Code Problem Other chronic pain G89.29 Active 8 2375908 Problem Major depressive disorder, single episode, mild F3 2.0 Active 74252231 Problem Hypertension I10 Active 1610371 3 Problem Hyperlipidemia E78.5 Active 93906 004 Problem Back pain M54.9 Active 906077634 Problem Reactive depression F32.9 Active [id number] ALLERGIES No Information ENCOUNTERS Encounter Location Date Diagnosis [place] [address] [id number] [address] [place] [address] June, Back pain M54.9 [facility] [address] [id number] [address] [place] [address] May, Back pain M54.9 [facility] [address] [id number] [address] [place] [address] May, Bronchitis J40 [facility] [address] [id number] [address] [place] [address] Apr, [facility] [address] [id number] [address] [place] [address] Apr, Back pain M54.9 [facility] [address] [id number] [address] [place] [address] Apr, Other chronic pain G89.29 an d Pain in right knee M25.561 [facility] [address] [id number] [address] [place] [address] 22 Apr, 2018 Back pain M54.9 [facility] [address] [id number] [address] [place] [address] Apr, [facility] [address] [facility] [id number] [address] [place] [address] Mar, Back pain M54.9 [facility] [address] [facility] [id number] [address] [place] [address] Mar, Back pain M54.9 [facility] [address] [facility] [id number] [address] [place] [address] Jan, Back pain M54.9 [facility] [address] [id number] [address] [place] [address] Dec, Hypertension I10 and Hyperli pidemia E78.5 [facility] [address] [facility] [id number] [address] [place] [address] Dec, Hypertension I10 and Hyperli pidemia E78.5 [facility] [address] [facility] [id number] [address] [place] [address] Dec, Back pain M54.9 [facility] [address] [id number] [address] [place] [address] Dec, Back pain M54.9 [facility] [address] [facility] [id number] [address] [place] [address] Nov, Back pain M54.9 and Abnormal LFTs R79.89 [facility] [address] [facility] [id number] [address] [place] [address] Nov, Back pain M54.9 [facility] [address] [facility] [id number] [address] [place] [address] Nov, Back pain M54.9 and Major de pressive disorder, single episode, mild F32.0 [facility] [address] [facility] [id number] [address] [place] [address] Oct, Back pain M54.9 [facility] [address] [facility] [id number] [address] [place] [address] Sep, Back pain M54.9 [facility] [address] [id number] [address] [place] [address] Aug, [facility] [address] [id number] [address] [place] [address] Aug, [facility] [address] [id number] [address] [place] [address] Aug, Back pain M54.9 [facility] [address] [id number] [address] [place] [address] Jul, Back pain M54.9 and Medicare annual wellness visit, initial Z00.00 [facility] [address] [id number] [address] [place] [address] June, Back pain M54.9 [facility] [address] [id number] [address] [place] [address] May, Back pain M54.9 [facility] [address] [id number] [address] [place] [address] May, Medicare annual wellness vis it, initial Z00.00 ; Hypertension I10 ; Hyperlipidemia E78.5 and Reactive depression F32.9 [facility] [address] [id number] [address] [place] [address] Apr, Back pain M54.9 [facility] [address] [id number] [address] [place] [address] Apr, Back pain M54.9 [facility] [address] [id number] [address] [place] [address] Apr, Back pain M54.9 ; 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 and Pain in left leg M79.605 [facility] [address] [id number] [address] [place] [address] Mar, Back pain M54.9 [facility] [address] [id number] [address] [place] [address] Mar, Acute prostatitis N41.0 [facility] [address] [id number] [address] [place] [address] Jan, Back pain M54.9 [facility] [address] [id number] [address] [place] [address] Dec, Back pain M54.9 and Hyperten ajay I10 [facility] [address] [id number] [address] [place] [address] Dec, Back pain M54.9 [facility] [address] [id number] [address] [place] [address] Nov, Back pain M54.9 [facility] [address] [id number] [address] [place] [address] Oct, Back pain M54.9 [facility] [address] [facility] [id number] [address] [place] [address] Oct, Abnormal LFTs R79.89 [facility] [address] [id number] [address] [place] [address] Oct, [facility] [address] [id number] [address] [place] [address] Sep, Back pain M54.9 ; Acute pros tatitis N41.0 ; Hypertension I10 ; Gross hematuria R31.0 and Reactive depression F32.9 [facility] [address] [id number] [address] [place] [address] Sep, [facility] [address] [id number] [address] [place] [address] Sep, Back pain M54.9 [facility] [address] [id number] [address] [place] [address] Aug, Back pain M54.9 [facility] [address] [id number] [address] [place] [address] Jul, Back pain M54.9 [facility] [address] [facility] [id number] [address] [place] [address] June, Back pain M54.9 [facility] [address] [id number] [address] [place] [address] June, Acute prostatitis N41.0 [facility] [address] [id number] [address] [place] [address] June, Back pain M54.9 [facility] [address] [id number] [address] [place] [address] Apr, Back pain M54.9 [facility] [address] [id number] [address] [place] [address] 14 Apr, 2016 Hypertension I10 and Back pa in M54.9 [facility] [address] [id number] [address] [place] [address] Apr, Back pain M54.9 [facility] [address] [id number] [address] [place] [address] 20 Apr, 2016 Back pain M54.9 and Sprain o f ligaments of lumbar spine, initial encounter S33.5XXA [facility] [address] [id number] [address] [place] [address] 08 Apr, 2016 Back pain M54.9 [facility] [address] [id number] [address] [place] [address] Mar, Acute pain of left hip M25.5 52 [facility] [address] [id number] [address] [place] [address] Mar, [facility] [address] [id number] [address] [place] [address] Mar, Acute pain of left hip M25.5 52 [facility] [address] [id number] [address] [place] [address] Mar, Back pain M54.9 [facility] [address] [id number] [address] [place] [address] Jan, Reactive depression F32.9 [facility] [address] [id number] [address] [place] [address] Jan, Back pain M54.9 ; Hypertensi on I10 and Reactive depression F32.9 [facility] [address] [id number] [address] [place] [address] Jan, Back pain M54.9 [facility] [address] [id number] [address] [place] [address] Dec, [facility] [address] [id number] [address] [place] [address], [place] [address] Dec, [facility] [address] [id number] [address] [place] [address] Nov, [facility] [address] [id number] [address] [place] [address] Oct, [facility] [address] [id number] [address] [place] [address] Oct, [facility] [address] [id number] [address] [place] [address] Oct, [facility] [address] [id number] [address] [place] [address] Sep, [facility] [address] [id number] [address] [place] [address] Sep, [facility] [address] [id number] [address] [place] [address] Sep, Visit for TB skin test Z11.1 ; Back pain M54.9 and Hypertension I10 [facility] [address] [id number] [address] [place] [address] Aug, Back pain M54.9 [facility] [address] [id number] [address] [place] [address] Jul, Back pain M54.9 [facility] [address] [id number] [address] [place] [address] Jul, [facility] [address] [facility] [id number] [address] [place] [address] Jul, [facility] [address] [facility] [id number] [address] [place] [address] Jul, Back pain M54.9 [facility] [address] [facility] [id number] [address] [place] [address] May, Back pain M54.9 [facility] [address] [facility] [id number] [address] [place] [address] May, Back pain M54.9 ; Hypertensi on I10 and Eczema L30.9 [facility] [address] [facility] [id number] [address] [place] [address] Apr, Back pain M54.9 [facility] [address] [facility] [id number] [address] [place] [address] Apr, Back pain M54.9 [facility] [address] [facility] [id number] [address] [place] [address] Apr, [facility] [address] [facility] [id number] [address] [place] [address] Mar, Back pain M54.9 [facility] [address] [facility] [id number] [address] [place] [address] Jan, [facility] [address] [facility] [id number] [address] [place] [address] Jan, Dyspepsia R10.13 [facility] [address] [facility] [id number] [address] [place] [address] Jan, [facility] [address] [facility] [id number] [address] [place] [address] Jan, [facility] [address] [facility] [id number] [address] [place] [address] Dec, Back pain M54.9 and Hyperlip idemia E78.5 [facility] [address] [id number] [address] [place] [address] Dec, [facility] [address] [id number] [address] [place] [address] Nov, [facility] [address] [id number] [address] [place] [address] Oct, [facility] [address] [id number] [address] [place] [address] Sep, [facility] [address] [id number] [address] [place] [address] Sep, [facility] [address] [id number] [address] [place] [address] Sep, Lumbar strain 847.2 [facility] [address] [id number] [address] [place] [address] Aug, [facility] [address] [id number] [address] [place] [address] Aug, [facility] [address] [id number] [address] [place] [address] Aug, [facility] [address] [id number] [address] [place] [id number] Jul, Dental examination V72.2 [facility] [address] [id number] [address] [place] [address] Jul, [facility] [address] [id number] [address] [place] [address] Jul, Acute bronchitis 466.0 and L umbar strain 847.2 [facility] [address] [id number] [address] [place] [address] Jul, [facility] [address] [id number] [address] [place] [address] Jul, [facility] [address] [id number] [address] [place] [address] June, Acute bronchitis 466.0 and L umbar strain 847.2 [facility] [address] [id number] [address] [place] [address] June, [facility] [address] [id number] [address] [place] [address] June, [facility] [address] [id number] [address] [place] [address] June, [facility] [address] [id number] [address] [place] [address] May, [facility] [address] [id number] [address] [place] [address], [place] [address] May, [facility] [address] [id number] [address] [place] [address] Apr, [facility] [address] [id number] [address] [place] [address] Apr, [facility] [address] [id number] [address] [place] [address] Apr, [facility] [address] [id number] [address] [place] [address] Apr, [facility] [address] [id number] [address] [place] [address] Apr, [facility] [address] [id number] [address] [place] [address] Apr, [facility] [address] [id number] [address] [place] [address] Apr, [facility] [address] [id number] [address] [place] [address] 14 Apr, 2011 [facility] [place] [address] [id number] [id number] Apr, [facility] [address] [id number] [address] [place] [address] Apr, [facility] [address] [id number] [address] [place] [address], [place] [address] Apr, [facility] [address] [id number] [address] [place] [address], [place] [address] Mar, [facility] [address] [id number] [address] [place] [address], [place] [address] Mar, [facility] [address] [id number] [address] [place] [address], [place] [address] Mar, [facility] [address] [id number] [address] [place] [address], [place] [address] Mar, [facility] [address] [id number] [address] [place] [address], [place] [address] Mar, [facility] [address] [id number] [address] [place] [address], [place] [address] Jan, [facility] [address] [id number] [address] [place] [address], [place] [address] 13 Jan, 2011 [facility] [address] [id number] [address] [place] [address], [place] [address] 12 Jan, 2011 [facility] [address] [id number] [address] [place] [address], [place] [address] 08 Dec, 2010 [facility] [address] [id number] [address] [place] [address], [place] [address] 11 Nov, 2010 [facility] [address] [id number] [address] [place] [address], [place] [address] 13 Oct, 2010 [facility] [address] [id number] [address] [place] [address], [place] [address] 14 Jan, 2010 [facility] [address] [id number] [address] [place] [address], [place] [address] 15 Dec, 2009 [facility] [address] [id number] [address] [place] [address], [place] [address] 15 Nov, 2009 [facility] [address] [id number] [place] [address] 15 Nov, 2009 [facility] [address] [facility] [id number] [address] [place] [id number] Sep, [facility] [address] [facility] [id number] [address] [place] [address] Jan, [facility] [address] [facility] [id number] [address] [place] [address] Dec, [facility] [address] [facility] [id number] [address] [place] [address] Aug, IMMUNIZATIONS No Known Immunizations SOCIAL HISTORY Never Assessed REASON FOR VISIT EMR-[facility] [place] PLAN OF CARE VITAL SIGNS MEDICATIONS Unknown [...]
--- OUTSIDE RECORDS SUMMARY | 2019-05-15 18:50 | XMS REPORT ---
Author Author Nikhil Fisher Doctor Organization [facility] Address Unknown Phone Unavailable Care Team Providers Care Special Tax Auditor Name Role Phone Migration, Doctor Unavailable Unavailable PROBLEMS Type Condition ICD9-CM Code [id number] Code Onset Dates Condition S tatus SNOMED Code Problem Other chronic pain G89.29 Active 8 3456621 Problem Major depressive disorder, single episode, mild F3 2.0 Active 49435513 Problem Back pain M54.9 Active 585938719 Problem Hyperlipidemia E78.5 Active 12413 004 Problem Hypertension I10 Active 2761661 3 Problem Reactive depression F32.9 Active [id number] ALLERGIES No Information ENCOUNTERS Encounter Location Date Diagnosis [place] [id number] [facility] [id number] [address] [place] [id number] May, Back pain M54.9 [facility] [address] [id number] [address] [place] [phone] May, Bronchitis J40 [facility] [address] [id number] [address] [place] [id number] Apr, [facility] [address] [id number] [address] [place] [address] Apr, Back pain M54.9 [facility] [address] [id number] [address] [place] [address] Apr, Other chronic pain G89.29 an d Pain in right knee M25.561 [facility] [address] [id number] [address] [place] [id number] Apr, Back pain M54.9 [facility] [address] [id number] [address] [place] [id number] Apr, [facility] [address] [facility] [id number] [address] [place] [id number] Mar, Back pain M54.9 [facility] [address] [id number] [address] [place] [id number] Mar, Back pain M54.9 [facility] [address] [id number] [address] [place] [id number] Jan, Back pain M54.9 [facility] [address] [id number] [address] [place] [id number] 14 Dec, 2017 Hypertension I10 and Hyperli pidemia E78.5 [facility] [address] [id number] [address] [place] [id number] Dec, Hypertension I10 and Hyperli pidemia E78.5 [facility] [address] [facility] [id number] [address] [place] [id number] 09 Dec, 2017 Back pain M54.9 [facility] [address] [facility] [id number] [address] [place] [id number] Dec, Back pain M54.9 [facility] [address] [id number] [address] [place] [id number] Nov, Back pain M54.9 and Abnormal LFTs R79.89 [facility] [address] [facility] [id number] [address] [place] [id number] Nov, Back pain M54.9 [facility] [address] [facility] [id number] [address] [place] [id number] Nov, Back pain M54.9 and Major de pressive disorder, single episode, mild F32.0 [facility] [address] [id number] [address] [place] [id number] 14 Oct, 2017 Back pain M54.9 [facility] [address] [facility] [id number] [address] [place] [id number] Sep, Back pain M54.9 [facility] [address] [facility] [id number] [address] [place] [id number] Aug, [facility] [address] [id number] [address] [place] [id number] Aug, [facility] [address] [id number] [address] [place] [id number] Aug, Back pain M54.9 [facility] [address] [id number] [address] [place] [id number] Jul, Back pain M54.9 and Medicare annual wellness visit, initial Z00.00 [facility] [address] [id number] [address] [place] [id number] June, Back pain M54.9 [facility] [address] [id number] [address] [place] [id number] May, Back pain M54.9 [facility] [address] [id number] [address] [place] [id number] May, Medicare annual wellness vis it, initial Z00.00 ; Hypertension I10 ; Hyperlipidemia E78.5 and Reactive depression F32.9 [facility] [address] [id number] [address] [place] [id number] Apr, Back pain M54.9 [facility] [address] [id number] [address] [place] [id number] Apr, Back pain M54.9 [facility] [address] [id number] [address] [place] [id number] Apr, Back pain M54.9 ; 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 and Pain in left leg M79.605 [facility] [address] [id number] [address] [place] [id number] Mar, Back pain M54.9 [facility] [address] [id number] [address] [place] [id number] Mar, Acute prostatitis N41.0 [facility] [address] [id number] [address] [place] [id number] Jan, Back pain M54.9 [facility] [address] [id number] [address] [place] [id number] 27 Dec, 2016 Back pain M54.9 and Hyperten ajay I10 [facility] [address] [id number] [address] [place] [id number] 15 Dec, 2016 Back pain M54.9 [facility] [address] [id number] [address] [place] [id number] 18 Nov, 2016 Back pain M54.9 [facility] [address] [id number] [address] [place] [id number] 22 Oct, 2016 Back pain M54.9 [facility] [address] [id number] [address] [place] [id number] 19 Oct, 2016 Abnormal LFTs R79.89 [facility] [address] [id number] [address] [place] [id number] Oct, [facility] [address] [id number] [address] [place] [id number] Sep, Back pain M54.9 ; Acute pros tatitis N41.0 ; Hypertension I10 ; Gross hematuria R31.0 and Reactive depression F32.9 [facility] [address] [id number] [address] [place] [id number] Sep, [facility] [address] [id number] [address] [place] [id number] Sep, Back pain M54.9 [facility] [address] [id number] [address] [place] [id number] Aug, Back pain M54.9 [facility] [address] [id number] [address] [place] [id number] Jul, Back pain M54.9 [facility] [address] [id number] [address] [place] [id number] June, Back pain M54.9 [facility] [address] [id number] [address] [place] [id number] June, Acute prostatitis N41.0 [facility] [address] [id number] [address] [place] [id number] June, Back pain M54.9 [facility] [address] [id number] [address] [place] [id number] 31 Apr, 2016 Back pain M54.9 [facility] [address] [id number] [address] [place] [id number] 14 Apr, 2016 Hypertension I10 and Back pa in M54.9 [facility] [address] [id number] [address] [place] [id number] 07 Apr, 2016 Back pain M54.9 [facility] [address] [id number] [address] [place] [id number] 20 Apr, 2016 Back pain M54.9 and Sprain o f ligaments of lumbar spine, initial encounter S33.5XXA [facility] [address] [id number] [address] [place] [id number] 08 Apr, 2016 Back pain M54.9 [facility] [address] [id number] [address] [place] [id number] Mar, Acute pain of left hip M25.5 52 [facility] [address] [id number] [address] [place] [id number] Mar, [facility] [address] [id number] [address] [place] [id number] Mar, Acute pain of left hip M25.5 52 [facility] [address] [id number] [address] [place] [id number] Mar, Back pain M54.9 [facility] [address] [id number] [address] [place] [id number] Jan, Reactive depression F32.9 [facility] [address] [id number] [address] [place] [id number] Jan, Back pain M54.9 ; Hypertensi on I10 and Reactive depression F32.9 [facility] [address] [id number] [address] [place] [id number] Jan, Back pain M54.9 [facility] [address] [id number] [address] [place] [id number] Dec, [facility] [address] [id number] [address] [place] [id number] Dec, [facility] [address] [id number] [address] [place] [id number] Nov, [facility] [address] [id number] [address] [place] [id number] Oct, [facility] [address] [id number] [address] [place] [id number] Oct, [facility] [address] [id number] [address] [place] [id number] Oct, [facility] [address] [id number] [address] [place] [id number] Sep, [facility] [address] [id number] [address] [place] [id number] Sep, [facility] [address] [id number] [address] [place] [id number] Sep, Visit for TB skin test Z11.1 ; Back pain M54.9 and Hypertension I10 [facility] [address] [id number] [address] [place] [id number] Aug, Back pain M54.9 [facility] [address] [id number] [address] [place] [id number] Jul, Back pain M54.9 [facility] [address] [id number] [address] [place] [id number] Jul, [facility] [address] [id number] [address] [place] [id number] Jul, [facility] [address] [id number] [address] [place] [id number] Jul, Back pain M54.9 [facility] [address] [id number] [address] [place] [id number] May, Back pain M54.9 [facility] [address] [facility] [id number] [address] [place] [id number] May, Back pain M54.9 ; Hypertensi on I10 and Eczema L30.9 [facility] [address] [id number] [address] [place] [id number] Apr, Back pain M54.9 [facility] [address] [id number] [address] [place] [id number] Apr, Back pain M54.9 [facility] [address] [facility] [id number] [address] [place] [id number] Apr, [facility] [address] [id number] [address] [place] [id number] Mar, Back pain M54.9 [facility] [address] [id number] [address] [place] [id number] Jan, [facility] [address] [facility] [id number] [address] [place] [id number] Jan, Dyspepsia R10.13 [facility] [address] [facility] [id number] [address] [place] [id number] Jan, [facility] [address] [id number] [address] [place] [id number] Jan, [facility] [address] [facility] [id number] [address] [place] [id number] Dec, Back pain M54.9 and Hyperlip idemia E78.5 [facility] [address] [facility] [id number] [address] [place] [id number] Dec, [facility] [address] [id number] [address] [place] [id number] Nov, [facility] [address] [id number] [address] [place] [id number] Oct, [facility] [address] [id number] [address] [place] [id number] Sep, [facility] [address] [id number] [address] [place] [id number] Sep, [facility] [address] [id number] [address] [place] [id number] Sep, Lumbar strain 847.2 [facility] [address] [id number] [address] [place] [id number] Aug, [facility] [address] [id number] [address] [place] [id number] Aug, [facility] [address] [id number] [address] [place] [id number] Aug, [facility] [address] [id number] [address] [place] [id number] Jul, Dental examination V72.2 [facility] [address] [id number] [address] [place] [id number] Jul, [facility] [address] [id number] [address] [place] [id number] Jul, Acute bronchitis 466.0 and L umbar strain 847.2 [facility] [address] [id number] [address] [place] [id number] Jul, [facility] [address] [id number] [address] [place] [id number] Jul, [facility] [address] [id number] [address] [place] [id number] June, Acute bronchitis 466.0 and L umbar strain 847.2 [facility] [address] [id number] [address] [place] [id number] June, [facility] [address] [id number] [address] [place] [address], [place] [address] June, [facility] [address] [id number] [address] [place] [address], [place] [address] June, [facility] [address] [id number] [address] [place] [address], [place] [address] May, [facility] [address] [id number] [address] [place] [address], [place] [address] May, [facility] [address] [id number] [address] [place] [address], [place] [address] Apr, [facility] [address] [id number] [address] [place] [address], [place] [address] Apr, [facility] [address] [id number] [address] [place] [address], [place] [address] Apr, [facility] [address] [id number] [address] [place] [address], [place] [address] Apr, [facility] [address] [id number] [address] [place] [address], [place] [address] Apr, [facility] [address] [id number] [address] [place] [address], [place] [address] Apr, [facility] [address] [id number] [address] [place] [address], [place] [address] Apr, [facility] [address] [id number] [address] [place] [address], [place] [address] 14 Apr, 2011 [facility] [address] [id number] [id number] Apr, [facility] [address] [id number] [address] [place] [address], [place] [address] 06 Apr, 2011 [facility] [address] [id number] [address] [place] [address], [place] [address] Apr, [facility] [address] [id number] [address] [place] [address], [place] [address] 23 Mar, 2011 [facility] [address] [id number] [address] [place] [address], [place] [address] 20 Mar, 2011 [facility] [address] [id number] [address] [place] [address], [place] [address] 16 Mar, 2011 [facility] [address] [id number] [address] [place] [address], [place] [address] 16 Mar, 2011 [facility] [address] [id number] [address] [place] [address], [place] [address] 11 Mar, 2011 [facility] [address] [id number] [address] [place] [address], [place] [address] 23 Jan, 2011 [facility] [address] [id number] [address] [place] [address], [place] [address] 13 Jan, 2011 [facility] [address] [id number] [address] [place] [address], [place] [address] 12 Jan, 2011 [facility] [address] [id number] [address] [place] [address], [place] [address] 08 Dec, 2010 [facility] [address] [id number] [address] [place] [address], [place] [address] 11 Nov, 2010 [facility] [address] [id number] [address] [place] [address], [place] [address] 13 Oct, 2010 [facility] [address] [id number] [address] [place] [address], [place] [address] 14 Jan, 2010 [facility] [address] [id number] [address] [place] [address], [place] [address] 15 Dec, 2009 [facility] [address] [id number] [address] [place] [address], [place] [address] 15 Nov, 2009 [facility] [address] [id number] [address] [place] [address], [place] [address] 15 Nov, 2009 [facility] [address] [id number] [address] [place] [address], [place] [address] Sep, [facility] [address] [facility] [id number] [address] [place] [id number] Jan, [facility] [address] [facility] [id number] [address] [place] [phone] Dec, [facility] [address] [facility] [id number] [address] [place] [phone] Aug, IMMUNIZATIONS No Known Immunizations SOCIAL HISTORY Never Assessed REASON FOR VISIT EMR-[facility] [place] PLAN OF CARE VITAL SIGNS MEDICATIONS Unknown [...]
--- OUTSIDE RECORDS SUMMARY | 2019-05-15 18:51 | XMS REPORT ---
Author Author Nikhil DUARTE Organization [facility] Address [address] [place] [address] Care Team Providers Care Licensed Clinician Name Role Phone LILIBETH DUARTE Unavailable PROBLEMS Type Condition ICD9-CM Code IBB54-QR Code Onset Dates Condition S tatus SNOMED Code Problem Major depressive disorder, single episode, mild F3 2.0 Active 26936745 Problem Other chronic pain G89.29 Active 8 1112931 Problem Hyperlipidemia E78.5 Active 19543 004 Problem Back pain M54.9 Active 318675450 Problem Reactive depression F32.9 Active 31431477 Problem Hypertension I10 Active 0902227 3 ALLERGIES No Information ENCOUNTERS Encounter Location Date Diagnosis [place] [address] [address] [place] [id number] [address] [place] [phone] 14 Dec, 2017 Hypertension I10 and Hyperli pidemia E78.5 [place] [address] [facility] [id number] [address] [place] [phone] 12 Dec, 2017 Hypertension I10 and Hyperli pidemia E78.5 [place] [address] [address] [facility] [id number] [address] [place] [address] Dec, Back pain M54.9 [place] [address] [address] [facility] [id number] [address] [place] [address] Dec, Back pain M54.9 [place] [address] [address] [facility] [id number] [address] [place] [address] Nov, Back pain M54.9 and Abnormal LFTs R79.89 [place] [address] [address] [facility] [id number] [address] [place] [id number] Nov, Back pain M54.9 [place] [address] [address] [facility] [id number] [address] [place] [phone] Nov, Back pain M54.9 and Major de pressive disorder, single episode, mild F32.0 [facility] [address] [id number] [address] [place] [id number] 14 Oct, 2017 Back pain M54.9 [facility] [address] [id number] [address] [place] [address] Sep, Back pain M54.9 [facility] [address] [id number] [address] [place] [id number] Aug, [facility] [address] [id number] [address] [place] [phone] Aug, [facility] [address] [id number] [address] [place] [phone] Aug, Back pain M54.9 [facility] [address] [id number] [address] [place] [address] Jul, Back pain M54.9 and Medicare annual wellness visit, initial Z00.00 [facility] [address] [id number] [address] [place] [address] June, Back pain M54.9 [facility] [address] [id number] [address] [place] [address] May, Back pain M54.9 [facility] [address] [id number] [address] [place] [id number] May, Medicare annual wellness vis it, initial Z00.00 ; Hypertension I10 ; Hyperlipidemia E78.5 and Reactive depression F32.9 [facility] [address] [id number] [address] [place] [address] Apr, Back pain M54.9 [facility] [address] [id number] [address] [place] [address] Apr, Back pain M54.9 [facility] [address] [id number] [address] [place] [address] Apr, Back pain M54.9 ; 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9 and Hyperten ajay I10 [facility] [address] [id number] [address] [place] [id number] Dec, Back pain M54.9 [facility] [address] [id number] [address] [place] [address] Nov, Back pain M54.9 [facility] [address] [id number] [address] [place] [address] Oct, Back pain M54.9 [facility] [address] [id number] [address] [place] [address] Oct, Abnormal LFTs R79.89 [facility] [address] [facility] [id number] [address] [place] [phone] Oct, [facility] [address] [facility] [id number] [address] [place] [address] Sep, Back pain M54.9 ; Acute pros tatitis N41.0 ; Hypertension I10 ; Gross hematuria R31.0 and Reactive depression F32.9 [facility] [address] [id number] [address] [place] [address] Sep, [facility] [address] [facility] [id number] [address] [place] [address] Sep, Back pain M54.9 [facility] [address] [id number] [address] [place] [address] Aug, Back pain M54.9 [facility] [address] [id number] [address] [place] [address] Jul, Back pain M54.9 [facility] [address] [id number] [address] [place] [address] June, Back pain M54.9 [facility] [address] [id number] [address] [place] [address] June, Acute prostatitis N41.0 [facility] [address] [id number] [address] [place] [address] June, Back pain M54.9 [facility] [address] [id number] [address] [place] [address] Apr, Back pain M54.9 [facility] [address] [id number] [address] [place] [address] Apr, Hypertension I10 and Back pa in M54.9 [facility] [address] [id number] [address] [place] [address] Apr, Back pain M54.9 [facility] [address] [id number] [address] [place] [address] Apr, Back pain M54.9 and Sprain o f ligaments of lumbar spine, initial encounter S33.5XXA [facility] [address] [id number] [address] [place] [address] Apr, Back pain M54.9 [facility] [address] [id number] [address] [place] [address] Mar, Acute pain of left hip M25.5 52 [facility] [address] [id number] [address] [place] [address] Mar, [facility] [address] [id number] [address] [place] [address] Mar, Acute pain of left hip M25.5 52 [facility] [address] [id number] [address] [place] [address] Mar, Back pain M54.9 [facility] [address] [id number] [address] [place] [address] Jan, Reactive depression F32.9 [facility] [address] [id number] [address] [place] [address] Jan, Back pain M54.9 ; Hypertensi on I10 and Reactive depression F32.9 [facility] [address] [id number] [address] [place] [address] Jan, Back pain M54.9 [facility] [address] [id number] [address] [place] [address] Dec, [facility] [address] [id number] [address] [place] [address] Dec, [facility] [address] [id number] [address] [place] [phone] Nov, [facility] [address] [id number] [address] [place] [address] Oct, [facility] [address] [id number] [address] [place] [phone] Oct, [facility] [address] [id number] [address] [place] [id number] 16 Nov, 2015 [facility] [address] [id number] [address] [place] [address] Sep, [facility] [address] [id number] [address] [place] [address] Sep, [facility] [address] [id number] [address] [place] [address] Sep, Visit for TB skin test Z11.1 ; Back pain M54.9 and Hypertension I10 [facility] [address] [id number] [address] [place] [address] Aug, Back pain M54.9 [facility] [address] [id number] [address] [place] [address] Jul, Back pain M54.9 [facility] [address] [id number] [address] [place] [id number] Jul, [facility] [address] [id number] [address] [place] [address] Jul, [facility] [address] [id number] [address] [place] [address] Jul, Back pain M54.9 [facility] [address] [id number] [address] [place] [address] May, Back pain M54.9 [facility] [address] [id number] [address] [place] [address] May, Back pain M54.9 ; Hypertensi on I10 and Eczema L30.9 [facility] [address] [id number] [address] [place] [address] Apr, Back pain M54.9 [facility] [address] [id number] [address] [place] [address] Apr, Back pain M54.9 [facility] [address] [id number] [address] [place] [address] Apr, [facility] [address] [id number] [address] [place] [address] Mar, Back pain M54.9 [facility] [address] [id number] [address] [place] [address] Jan, [facility] [address] [id number] [address] [place] [address] Jan, Dyspepsia R10.13 [facility] [address] [id number] [address] [place] [address] Jan, [facility] [address] [id number] [address] [place] [address] Jan, [facility] [address] [id number] [address] [place] [address] Dec, Back pain M54.9 and Hyperlip idemia E78.5 [facility] [address] [id number] [address] [place] [address] Dec, [facility] [address] [id number] [address] [place] [phone] Nov, [facility] [address] [id number] [address] [place] [id number] Oct, [facility] [address] [id number] [address] [place] [id number] Sep, [facility] [address] [id number] [address] [place] [id number] Sep, [facility] [address] [id number] [address] [place] [address] Sep, Lumbar strain 847.2 [facility] [address] [id number] [address] [place] [id number] Aug, [facility] [address] [id number] [address] [place] [id number] Aug, [facility] [address] [id number] [address] [place] [phone] Aug, [facility] [address] [id number] [address] [place] [id number] Jul, Dental examination V72.2 [facility] [address] [id number] [address] [place] [id number] Jul, [facility] [address] [id number] [address] [place] [address] Jul, Acute bronchitis 466.0 and L umbar strain 847.2 [facility] [address] [id number] [address] [place] [address], [place] [address] Jul, [facility] [address] [id number] [address] [place] [phone] Jul, [facility] [address] [id number] [address] [place] [address] June, Acute bronchitis 466.0 and L umbar strain 847.2 [facility] [address] [id number] [address] [place] [address], [place] [address] June, [facility] [address] [id number] [address] [place] [id number] June, [facility] [address] [id number] [address] [place] [address] June, [facility] [address] [id number] [address] [place] [address] May, [facility] [address] [id number] [address] [place] [id number] May, [facility] [address] [id number] [address] [place] [address] Apr, [facility] [address] [id number] [address] [place] [address] Apr, [facility] [address] [id number] [address] [place] [address] Apr, [facility] [address] [id number] [address] [place] [address] Apr, [facility] [address] [id number] [address] [place] [address] Apr, [facility] [address] [id number] [address] [place] [phone] 17 Apr, 2011 [facility] [address] [id number] [address] [place] [address] 15 Apr, 2011 [facility] [address] [id number] [address] [place] [address], [place] [address] 14 Apr, 2011 [facility] [address] [id number] [place] [id number] Apr, 2011 [facility] [address] [id number] [address] [place] [address], [place] [address] 06 Apr, 2011 [facility] [address] [id number] [address] [place] [address], [place] [address] Apr, [facility] [address] [id number] [address] [place] [address], [place] [address] Mar, [facility] [address] [id number] [address] [place] [address], [place] [address] Mar, [facility] [address] [id number] [address] [place] [address], [place] [address] Mar, [facility] [address] [id number] [address] [place] [address], [place] [address] Mar, [facility] [address] [id number] [address] [place] [address], [place] [address] Mar, [facility] [address] [id number] [address] [place] [address], [place] [address] Jan, [facility] [address] [id number] [address] [place] [phone] Jan, [facility] [address] [id number] [address] [place] [id number] 12 Jan, 2011 [facility] [address] [id number] [address] [place] [address], [place] [address] 08 Dec, 2010 [facility] [address] [id number] [address] [place] [id number] 11 Nov, 2010 [facility] [address] [id number] [address] [place] [address], [place] [address] 13 Oct, 2010 [facility] [address] [id number] [address] [place] [address] 14 Jan, 2010 [facility] [address] [id number] [address] [place] [phone] 15 Dec, 2009 [facility] [address] [id number] [address] [place] [id number] 15 Nov, 2009 [facility] [address] [id number] [address] [place] [phone] Nov, [facility] [address] [id number] [address] [place] [phone] Sep, [facility] [address] [id number] [address] [place] [phone] Jan, [facility] [address] [id number] [address] [place] [address] 10 Dec, 2008 [facility] [address] [id number] [address] [place] [phone] 10 Aug, 2008 IMMUNIZATIONS No Known Immunizations SOCIAL HISTORY Never Assessed REASON FOR VISIT Lab (walk-in) PLAN OF CARE Activity Details Pending Test LIPID PANEL Pending Test CMP Pending Test CBC VITAL SIGNS MEDICATIONS Unknown Medications RESULTS No Results PROCEDURES Procedure Date Ordered Result Body Site LAB NOT BILLED BY [facility] Jan 13, 2018 CHOLO, ROUTINE* Jan 13, 2018 INSTRUCTIONS MEDICATIONS ADMINISTERED No Known Medications MEDICAL [...]
--- OUTSIDE RECORDS SUMMARY | 2019-05-15 18:51 | XMS REPORT ---
Author Author Nikhil DUARTE Organization [facility] [place] Address [address] [place] [address] Care Team Providers Care Mechanical Engineering Advisor Name Role Phone LILIBETH DUARTE Unavailable PROBLEMS Type Condition ICD9-CM Code [id number] Code Onset Dates Condition S tatus SNOMED Code Problem Major depressive disorder, single episode, mild F3 2.0 Active 98780762 Problem Other chronic pain G89.29 Active 8 4356280 Problem Hyperlipidemia E78.5 Active 05896 004 Problem Back pain M54.9 Active 272425879 Problem Reactive depression F32.9 Active 23756887 Problem Hypertension I10 Active 0192700 3 ALLERGIES No Information ENCOUNTERS Encounter Location Date Diagnosis [place] [address] [address] [place] [id number] [address] [place] [id number] 14 Dec, 2017 Hypertension I10 and Hyperli pidemia E78.5 [place] [address] [address] [facility] [id number] [address] [place] [id number] 12 Dec, 2017 Hypertension I10 and Hyperli pidemia E78.5 [place] [address] [address] [facility] [id number] [address] [place] [address] Dec, Back pain M54.9 [place] [address] [address] [facility] [id number] [address] [place] [address] Dec, Back pain M54.9 [place] [address] [address] [facility] [id number] [address] [place] [address] Nov, Back pain M54.9 and Abnormal LFTs R79.89 [place] [address] [address] [facility] [id number] [address] [place] [address] Nov, Back pain M54.9 [place] [address] [address] [facility] [id number] [address] [place] [address] Nov, Back pain M54.9 and Major de pressive disorder, single episode, mild F32.0 [facility] [place] [address] [id number] [address] [place] [id number] 14 Oct, 2017 Back pain M54.9 [facility] [place] [address] [id number] [address] [place] [address] Sep, Back pain M54.9 [facility] [place] [address] [id number] [address] [place] [address] Aug, [facility] [place] [address] [id number] [address] [place] [address] Aug, [facility] [place] [address] [id number] [address] [place] [address] Aug, Back pain M54.9 [facility] [place] [address] [id number] [address] [place] [address] Jul, Back pain M54.9 and Medicare annual wellness visit, initial Z00.00 [facility] [place] [address] [id number] [address] [place] [address] June, Back pain M54.9 [facility] [place] [address] [id number] [address] [place] [address] May, Back pain M54.9 [facility] [place] [address] [id number] [address] [place] [address] May, Medicare annual wellness vis it, initial Z00.00 ; Hypertension I10 ; Hyperlipidemia E78.5 and Reactive depression F32.9 [facility] [place] [address] [id number] [address] [place] [address] Apr, Back pain M54.9 [facility] [place] [address] [id number] [address] [place] [address] Apr, Back pain M54.9 [facility] [place] [address] [id number] [address] [place] [address] Apr, Back pain M54.9 ; Other 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 and Pain in left leg M79.605 [facility] [place] [address] [id number] [address] [place] [address] Mar, Back pain M54.9 [facility] [place] [address] [id number] [address] [place] [address] Mar, Acute prostatitis N41.0 [facility] [place] [address] [id number] [address] [place] [address] Jan, Back pain M54.9 [facility] [place] [address] [id number] [address] [place] [address] Dec, Back pain M54.9 and Hyperten ajay I10 [facility] [place] [address] [id number] [address] [place] [address] Dec, Back pain M54.9 [facility] [place] [address] [id number] [address] [place] [address] Nov, Back pain M54.9 [facility] [place] [address] [id number] [address] [place] [address] Oct, Back pain M54.9 [facility] [place] [address] [id number] [address] [place] [address] Oct, Abnormal LFTs R79.89 [facility] [place] [address] [facility] [id number] [address] [place] [address] Oct, [facility] [place] [address] [facility] [id number] [address] [place] [address] Sep, Back pain M54.9 ; Acute pros tatitis N41.0 ; Hypertension I10 ; Gross hematuria R31.0 and Reactive depression F32.9 [facility] [place] [address] [id number] [address] [place] [address] Sep, [facility] [place] [address] [facility] [id number] [address] [place] [address] Sep, Back pain M54.9 [facility] [place] [address] [id number] [address] [place] [address] Aug, Back pain M54.9 [facility] [place] [address] [id number] [address] [place] [id number] Jul, Back pain M54.9 [facility] [place] [address] [id number] [address] [place] [address] June, Back pain M54.9 [facility] [place] [address] [id number] [address] [place] [address] June, Acute prostatitis N41.0 [facility] [place] [address] [id number] [address] [place] [id number] June, Back pain M54.9 [facility] [place] [address] [id number] [address] [place] [address] Apr, Back pain M54.9 [facility] [place] [address] [id number] [address] [place] [address] Apr, Hypertension I10 and Back pa in M54.9 [facility] [place] [address] [id number] [address] [place] [address] Apr, Back pain M54.9 [facility] [place] [address] [id number] [address] [place] [address] Apr, Back pain M54.9 and Sprain o f ligaments of lumbar spine, initial encounter S33.5XXA [facility] [place] [address] [id number] [address] [place] [address] Apr, Back pain M54.9 [facility] [place] [address] [id number] [address] [place] [address] Mar, Acute pain of left hip M25.5 52 [facility] [place] [address] [id number] [address] [place] [address] Mar, [facility] [place] [address] [id number] [address] [place] [address] Mar, Acute pain of left hip M25.5 52 [facility] [place] [address] [id number] [address] [place] [address] Mar, Back pain M54.9 [facility] [place] [address] [id number] [address] [place] [address] Jan, Reactive depression F32.9 [facility] [place] [address] [id number] [address] [place] [address] Jan, Back pain M54.9 ; Hypertensi on I10 and Reactive depression F32.9 [facility] [place] [address] [id number] [address] [place] [address] Jan, Back pain M54.9 [facility] [place] [address] [id number] [address] [place] [address] Dec, [facility] [place] [address] [id number] [address] [place] [id number] Dec, [facility] [place] [address] [id number] [address] [place] [address] Nov, [facility] [place] [address] [id number] [address] [place] [id number] Oct, [facility] [place] [address] [id number] [address] [place] [phone] Oct, [facility] [place] [address] [id number] [address] [place] [id number] 16 Nov, 2015 [facility] [place] [address] [id number] [address] [place] [address] Sep, [facility] [place] [address] [id number] [address] [place] [id number] Sep, [facility] [place] [address] [id number] [address] [place] [phone] Sep, Visit for TB skin test Z11.1 ; Back pain M54.9 and Hypertension I10 [facility] [place] [address] [id number] [address] [place] [address] Aug, Back pain M54.9 [facility] [place] [address] [id number] [address] [place] [address] Jul, Back pain M54.9 [facility] [place] [address] [id number] [address] [place] [address] Jul, [facility] [place] [address] [id number] [address] [place] [address] Jul, [facility] [place] [address] [id number] [address] [place] [address] Jul, Back pain M54.9 [facility] [place] [address] [id number] [address] [place] [address] May, Back pain M54.9 [facility] [place] [address] [id number] [address] [place] [address] May, Back pain M54.9 ; Hypertensi on I10 and Eczema L30.9 [facility] [place] [address] [id number] [address] [place] [address] Apr, Back pain M54.9 [facility] [place] [address] [id number] [address] [place] [address] Apr, Back pain M54.9 [facility] [place] [address] [id number] [address] [place] [address] Apr, [facility] [place] [address] [id number] [address] [place] [address] Mar, Back pain M54.9 [facility] [place] [address] [id number] [address] [place] [address] Jan, [facility] [place] [address] [id number] [address] [place] [address] Jan, Dyspepsia R10.13 [facility] [place] [address] [id number] [address] [place] [address] Jan, [facility] [place] [address] [id number] [address] [place] [address] Jan, [facility] [place] [address] [id number] [address] [place] [address] Dec, Back pain M54.9 and Hyperlip idemia E78.5 [facility] [place] [address] [id number] [address] [place] [id number] Dec, [facility] [place] [address] [id number] [address] [place] [address] Nov, [facility] [place] [address] [id number] [address] [place] [address] Oct, [facility] [place] [address] [id number] [address] [place] [address] Sep, [facility] [place] [address] [id number] [address] [place] [address] Sep, [facility] [place] [address] [id number] [address] [place] [address] Sep, Lumbar strain 847.2 [facility] [place] [address] [id number] [address] [place] [id number] Aug, [facility] [place] [address] [id number] [address] [place] [id number] Aug, [facility] [place] [address] [id number] [address] [place] [address] Aug, [facility] [address] [id number] [address] [place] [id number] Jul, Dental examination V72.2 [facility] [place] [address] [id number] [address] [place] [address] Jul, [facility] [place] [address] [id number] [address] [place] [address] Jul, Acute bronchitis 466.0 and L umbar strain 847.2 [facility] [address] [id number] [address] [place] [address], [place] [address] Jul, [facility] [address] [id number] [address] [place] [address] Jul, [facility] [address] [id number] [address] [place] [id number] June, Acute bronchitis 466.0 and L umbar strain 847.2 [facility] [place] [address] [id number] [address] [place] [address], [place] [address] June, [facility] [place] [address] [id number] [address] [place] [address] June, [facility] [place] [address] [id number] [address] [place] [address] June, [facility] [place] [address] [id number] [address] [place] [address] May, [facility] [place] [address] [id number] [address] [place] [address] May, [facility] [place] [address] [id number] [address] [place] [phone] Apr, [facility] [place] [address] [id number] [address] [place] [address] Apr, [facility] [place] [address] [id number] [address] [place] [address] Apr, [facility] [place] [address] [id number] [address] [place] [address] Apr, [facility] [place] [address] [id number] [address] [place] [address] Apr, [facility] [place] [address] [id number] [address] [place] [id number] 17 Apr, 2011 [facility] [place] [address] [id number] [address] [place] [id number] 15 Apr, 2011 [facility] [address] [id number] [address] [place] [address], [place] [address] 14 Apr, 2011 [facility] [address] [id number] [place] [id number] Apr, 2011 [facility] [address] [id number] [address] [place] [address], [place] [address] 06 Apr, 2011 [facility] [address] [id number] [address] [place] [address], [place] [address] Apr, [facility] [address] [id number] [address] [place] [address], [place] [address] Mar, [facility] [address] [id number] [address] [place] [address], [place] [address] Mar, [facility] [address] [id number] [address] [place] [address], [place] [address] Mar, [facility] [address] [id number] [address] [place] [address], [place] [address] Mar, [facility] [address] [id number] [address] [place] [address], [place] [address] Mar, [facility] [address] [id number] [address] [place] [address], [place] [address] Jan, [facility] [address] [id number] [address] [place] [address] Jan, [facility] [address] [id number] [address] [place] [id number] 12 Jan, 2011 [facility] [address] [id number] [address] [place] [address], [place] [address] 08 Dec, 2010 [facility] [address] [id number] [address] [place] [address] 11 Nov, 2010 [facility] [address] [id number] [address] [place] [address], [place] [address] 13 Oct, 2010 [facility] [address] [id number] [address] [place] [id number] 14 Jan, 2010 [facility] [place] [address] [id number] [address] [place] [phone] 15 Dec, 2009 [facility] [place] [address] [id number] [address] [place] [id number] 15 Nov, 2009 [facility] [place] [address] [id number] [address] [place] [phone] 15 Nov, 2009 [facility] [place] [address] [id number] [address] [place] [id number] Sep, [facility] [place] [address] [id number] [address] [place] [phone] 18 Jan, 2009 [facility] [place] [address] [facility] [id number] [address] [place] [id number] 10 Dec, 2008 [facility] [place] [address] [facility] [id number] [address] [place] [phone] 10 Aug, 2008 IMMUNIZATIONS No Known Immunizations SOCIAL HISTORY Never Assessed REASON FOR VISIT Medication refill request PLAN OF CARE VITAL SIGNS MEDICATIONS Medication Instructions Dosage Frequency Start Date End Date Duration S tatus Viagra 100 MG TAKE ONE TABLET BY MOUTH ONCE DAILY NEEDED 10 Active Amitriptyline HCl 50 MG Orally Once a day 1 tablet 24h 30 Active Pravastatin Sodium 40 mg TAKE ONE TABLET BY MOUTH ONCE DAILY [...]
--- OUTSIDE RECORDS SUMMARY | 2019-05-15 18:51 | XMS REPORT ---
Author Author Nikhli DUARTE Organization [facility] Address [address] [place] [address] Care Team Providers Care Tilesetter Name Role Phone LILIBETH DUARTE Unavailable PROBLEMS Type Condition ICD9-CM Code [id number] Code Onset Dates Condition S tatus SNOMED Code Problem Major depressive disorder, single episode, mild F3 2.0 Active 97982057 Problem Other chronic pain G89.29 Active 8 9005146 Problem Hyperlipidemia E78.5 Active 28853 004 Problem Back pain M54.9 Active 717976961 Problem Reactive depression F32.9 Active 40889972 Problem Hypertension I10 Active 8875073 3 ALLERGIES No Information ENCOUNTERS Encounter Location Date Diagnosis [place] [address] [facility] [id number] [address] [place] [address] Nov, Back pain M54.9 and Abnormal LFTs R79.89 [place] [address] [facility] [id number] [address] [place] [phone] Nov, Back pain M54.9 [facility] [address] [facility] [id number] [address] [place] [phone] Nov, Back pain M54.9 and Major de pressive disorder, single episode, mild F32.0 [facility] [address] [facility] [id number] [address] [place] [id number] 14 Oct, 2017 Back pain M54.9 [facility] [address] [facility] [id number] [address] [place] [id number] Sep, Back pain M54.9 [facility] [address] [facility] [id number] [address] [place] [id number] Aug, [place] [address] [facility] [id number] [address] [place] [phone] Aug, [facility] [address] [id number] [address] [place] [id number] Aug, Back pain M54.9 [facility] [address] [id number] [address] [place] [id number] Jul, Back pain M54.9 and Medicare annual wellness visit, initial Z00.00 [facility] [address] [id number] [address] [place] [phone] June, Back pain M54.9 [facility] [address] [id number] [address] [place] [address] May, Back pain M54.9 [facility] [address] [id number] [address] [place] [id number] May, Medicare annual wellness vis it, initial Z00.00 ; Hypertension I10 ; Hyperlipidemia E78.5 and Reactive depression F32.9 [facility] [address] [id number] [address] [place] [id number] Apr, Back pain M54.9 [facility] [address] [id number] [address] [place] [id number] Apr, Back pain M54.9 [facility] [address] [id number] [address] [place] [address] Apr, Back pain M54.9 ; 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 and Pain in left leg M79.605 [facility] [address] [id number] [address] [place] [address] Mar, Back pain M54.9 [facility] [address] [id number] [address] [place] [id number] Mar, Acute prostatitis N41.0 [facility] [address] [id number] [address] [place] [phone] Jan, Back pain M54.9 [facility] [address] [id number] [address] [place] [address] Dec, Back pain M54.9 and Hyperten ajay I10 [facility] [address] [id number] [address] [place] [id number] 15 Dec, 2016 Back pain M54.9 [facility] [address] [id number] [address] [place] [id number] 18 Nov, 2016 Back pain M54.9 [facility] [address] [id number] [address] [place] [id number] Oct, Back pain M54.9 [facility] [address] [id number] [address] [place] [id number] Oct, Abnormal LFTs R79.89 [facility] [address] [id number] [address] [place] [id number] Oct, [facility] [address] [id number] [address] [place] [id number] Sep, Back pain M54.9 ; Acute pros tatitis N41.0 ; Hypertension I10 ; Gross hematuria R31.0 and Reactive depression F32.9 [facility] [address] [id number] [address] [place] [phone] Sep, [facility] [address] [id number] [address] [place] [id number] Sep, Back pain M54.9 [facility] [address] [id number] [address] [place] [id number] Aug, Back pain M54.9 [facility] [address] [id number] [address] [place] [id number] Jul, Back pain M54.9 [facility] [address] [id number] [address] [place] [phone] June, Back pain M54.9 [facility] [address] [id number] [address] [place] [phone] June, Acute prostatitis N41.0 [facility] [address] [id number] [address] [place] [id number] June, Back pain M54.9 [facility] [address] [id number] [address] [place] [id number] Apr, Back pain M54.9 [facility] [address] [facility] [id number] [address] [place] [id number] 14 Apr, 2016 Hypertension I10 and Back pa in M54.9 [facility] [address] [id number] [address] [place] [id number] 07 Apr, 2016 Back pain M54.9 [facility] [address] [facility] [id number] [address] [place] [id number] 20 Apr, 2016 Back pain M54.9 and Sprain o f ligaments of lumbar spine, initial encounter S33.5XXA [facility] [address] [facility] [id number] [address] [place] [id number] 08 Apr, 2016 Back pain M54.9 [facility] [address] [id number] [address] [place] [id number] Mar, Acute pain of left hip M25.5 52 [facility] [address] [facility] [id number] [address] [place] [id number] Mar, [facility] [address] [id number] [address] [place] [id number] Mar, Acute pain of left hip M25.5 52 [facility] [address] [id number] [address] [place] [id number] Mar, Back pain M54.9 [facility] [address] [id number] [address] [place] [phone] Jan, Reactive depression F32.9 [facility] [address] [facility] [id number] [address] [place] [phone] Jan, Back pain M54.9 ; Hypertensi on I10 and Reactive depression F32.9 [facility] [address] [id number] [address] [place] [phone] Jan, Back pain M54.9 [facility] [address] [id number] [address] [place] [address], [place] [address] Dec, [facility] [address] [id number] [address] [place] [id number] Dec, [facility] [address] [id number] [address] [place] [phone] Nov, [facility] [address] [id number] [address] [place] [phone] Oct, [facility] [address] [id number] [address] [place] [address], [place] [address] Oct, [facility] [address] [id number] [address] [place] [phone] Oct, [facility] [address] [id number] [address] [place] [phone] Sep, [facility] [address] [id number] [address] [place] [id number] Sep, [facility] [address] [id number] [address] [place] [address] Sep, Visit for TB skin test Z11.1 ; Back pain M54.9 and Hypertension I10 [facility] [address] [id number] [address] [place] [id number] Aug, Back pain M54.9 [facility] [address] [id number] [address] [place] [id number] Jul, Back pain M54.9 [facility] [address] [id number] [address] [place] [id number] Jul, [facility] [address] [id number] [address] [place] [id number] Jul, [facility] [address] [id number] [address] [place] [id number] Jul, Back pain M54.9 [facility] [address] [id number] [address] [place] [id number] May, Back pain M54.9 [facility] [address] [id number] [address] [place] [id number] May, Back pain M54.9 ; Hypertensi on I10 and Eczema L30.9 [facility] [address] [id number] [address] [place] [id number] Apr, Back pain M54.9 [facility] [address] [id number] [address] [place] [id number] Apr, Back pain M54.9 [facility] [address] [id number] [address] [place] [id number] Apr, [facility] [address] [facility] [id number] [address] [place] [id number] Mar, Back pain M54.9 [facility] [address] [id number] [address] [place] [id number] Jan, [facility] [address] [facility] [id number] [address] [place] [id number] Jan, Dyspepsia R10.13 [facility] [address] [id number] [address] [place] [id number] Jan, [facility] [address] [facility] [id number] [address] [place] [phone] Jan, [facility] [address] [facility] [id number] [address] [place] [phone] Dec, Back pain M54.9 and Hyperlip idemia E78.5 [facility] [address] [id number] [address] [place] [id number] Dec, [facility] [address] [id number] [address] [place] [id number] Nov, [facility] [address] [id number] [address] [place] [id number] Oct, [facility] [address] [id number] [address] [place] [id number] Sep, [facility] [address] [id number] [address] [place] [id number] Sep, [facility] [address] [id number] [address] [place] [phone] Sep, Lumbar strain 847.2 [facility] [address] [id number] [address] [place] [phone] Aug, [facility] [address] [id number] [address] [place] [phone] Aug, [facility] [address] [id number] [address] [place] [id number] Aug, [facility] [address] [id number] [address] [place] [id number] Jul, Dental examination V72.2 [facility] [address] [id number] [address] [place] [id number] Jul, [facility] [address] [id number] [address] [place] [id number] Jul, Acute bronchitis 466.0 and L umbar strain 847.2 [facility] [address] [id number] [address] [place] [phone] Jul, [facility] [address] [id number] [address] [place] [id number] Jul, [facility] [address] [id number] [address] [place] [phone] June, Acute bronchitis 466.0 and L umbar strain 847.2 [facility] [address] [id number] [address] [place] [phone] June, [facility] [address] [id number] [address] [place] [address], [place] [address] June, [facility] [address] [id number] [address] [place] [address], [place] [address] June, [facility] [address] [id number] [address] [place] [address], [place] [address] 14 May, 2014 [facility] [address] [id number] [address] [place] [address], [place] [address] May, [facility] [address] [id number] [address] [place] [address], [place] [address] Apr, [facility] [address] [id number] [address] [place] [address], [place] [address] Apr, [facility] [address] [id number] [address] [place] [address], [place] [address] Apr, [facility] [address] [id number] [address] [place] [address], [place] [address] Apr, [facility] [address] [id number] [address] [place] [address], [place] [address] 17 Apr, 2011 [facility] [address] [id number] [address] [place] [address], [place] [address] 17 Apr, 2011 [facility] [address] [id number] [address] [place] [address], [place] [address] 15 Apr, 2011 [facility] [address] [id number] [address] [place] [address], [place] [address] 14 Apr, [address] [facility] [address] [id number] [place] [id number] Apr, [facility] [address] [id number] [address] [place] [address], [place] [address] 06 Apr, 2011 [facility] [address] [id number] [address] [place] [address], [place] [address] 02 Apr, 2011 [facility] [address] [id number] [address] [place] [phone] Mar, [facility] [address] [id number] [address] [place] [address], [place] [address] Mar, [facility] [address] [id number] [address] [place] [address], [place] [address] Mar, [facility] [address] [id number] [address] [place] [address], [place] [address] 16 Mar, 2011 [facility] [address] [id number] [address] [place] [address], [place] [address] Mar, [facility] [address] [id number] [address] [place] [address], [place] [address] 23 Jan, 2011 [facility] [address] [id number] [address] [place] [address], [place] [address] 13 Jan, 2011 [facility] [address] [id number] [address] [place] [address], [place] [address] 12 Jan, 2011 [facility] [address] [id number] [address] [place] [address], [place] [address] 08 Dec, 2010 [facility] [address] [id number] [address] [place] [address], [place] [address] 11 Nov, 2010 [facility] [address] [id number] [address] [place] [id number] 13 Oct, 2010 [facility] [address] [id number] [address] [place] [id number] 14 Jan, 2010 [facility] [address] [id number] [address] [place] [id number] 15 Dec, 2009 [facility] [address] [id number] [address] [place] [address], [place] [address] 15 Nov, 2009 [facility] [address] [id number] [address] [place] [id number] 15 Nov, 2009 [facility] [address] [id number] [address] [place] [phone] 11 Sep, 2009 [facility] [address] [id number] [address] [place] [phone] Jan, [facility] [address] [facility] [id number] [address] [place] [id number] Dec, [facility] [address] [facility] [id number] [address] [place] [phone] Aug, IMMUNIZATIONS No Known Immunizations SOCIAL HISTORY Never Assessed REASON FOR VISIT lab PLAN OF CARE VITAL SIGNS MEDICATIONS Unknown Medications RESULTS Name Result Date Reference Range LIVER PANEL (LFT) 2017-12-10 PROTEIN, TOTAL 7.2 6.1-8.1 ALBUMIN 4.8 3.6-5.1 GLOBULIN 2.4 1.9-3.7 ALBUMIN/GLOBULIN RATIO 2.0 1.0-2.5 BILIRUBIN, TOTAL 0.2 0.2-1.2 BILIRUBIN, DIRECT 0.1 < OR = 0.2 BILIRUBIN, INDIRECT 0.1 0.2-1.2 ALKALINE PHOSPHATASE 67 40-115 AST 29 10-35 ALT 31 9-46 PDM - 09 PANEL (PROFILE 1) 2017-12-10 Prescribed Drug 1 Prescribed Drug 2 Prescribed Drug 3 Prescribed Drug 4 Prescribed Drug 5 Creatinine Specific [place] pH Oxidant Abnormal Specimen Validity Test: Amphetamines medMATCH Amphetamines Amphetamine medMATCH Amphetamine Methamphetamine medMATCH Methamphetamine Barbiturates medMATCH Barbiturates Amobarbital medMATCH Amobarbital Butalbital medMATCH Butalbital Pentobarbital medMATCH Pentobarbital Phenobarbital medMATCH Phenobarbital Secobarbital medMATCH Secobarbital Benzodiazepines medMATCH Benzodiazepines Alphahydroxyalprazolam medMATCH aOH alprazolam Alphahydroxymidazolam medMATCH aOH midazolam Alphahydroxytriazolam medMATCH aOH triazolam Aminoclonazepam medMATCH Aminoclonazepam Hydroxyethylflurazepam medMATCH OH,Et flurazepam Lorazepam medMATCH Lorazepam Nordiazepam medMATCH Nordiazepam Oxazepam medMATCH Oxazepam Temazepam medMATCH Temazepam Marijuana Metabolite medMATCH Marijuana Metab Marijuana Metabolite medMATCH Marijuana Metab Cocaine Metabolite medMATCH Cocaine Metab Benzoylecgonine medMATCH Benzoylecgonine Methadone Metabolite medMATCH Methadone Metab EDDP medMATCH EDDP Methadone medMATCH Methadone Opiates medMATCH Opiates Codeine medMATCH Codeine Hydrocodone medMATCH Hydrocodone Hydromorphone medMATCH Hydromorphone Morphine medMATCH Morphine Norhydrocodone medMATCH Norhydrocodone Oxycodone medMATCH Oxycodone Noroxycodone medMATCH Noroxycodone Oxycodone medMATCH Oxycodone Oxymorphone medMATCH Oxymorphone Phencyclidine medMATCH Phencyclidine Phencyclidine medMATCH Phencyclidine Confirmation Testing Performed at: PROCEDURES Procedure Date Ordered Result Body Site LAB NOT BILLED BY [facility] Dec 10, 2017 CATRACHITA EMMANUEL* Dec 10, 2017 INSTRUCTIONS MEDICATIONS ADMINISTERED No Known Medications [...]
--- OUTSIDE RECORDS SUMMARY | 2019-05-15 18:51 | XMS REPORT ---
Author Author Nikhil DUARTE Organization [facility] Address [address] [place] [address] Care Team Providers Care Hand Tacker Name Role Phone LILIBETH DUARTE Unavailable PROBLEMS Type Condition ICD9-CM Code TPM95-TD Code Onset Dates Condition S tatus SNOMED Code Problem Major depressive disorder, single episode, mild F3 2.0 Active 90219402 Problem Other chronic pain G89.29 Active 8 8263349 Problem Hyperlipidemia E78.5 Active 61135 004 Problem Back pain M54.9 Active 226039546 Problem Reactive depression F32.9 Active 36596603 Problem Hypertension I10 Active 8706848 3 ALLERGIES No Information ENCOUNTERS Encounter Location Date Diagnosis [place] [address] [id number] [address] [place] [phone] Dec, Back pain M54.9 [place] [address] [id number] [address] [place] [phone] Nov, Back pain M54.9 and Abnormal LFTs R79.89 [place] [address] [id number] [address] [place] [phone] Nov, Back pain M54.9 [place] [address] [id number] [address] [place] [phone] Nov, Back pain M54.9 and Major de pressive disorder, single episode, mild F32.0 [facility] [address] [id number] [address] [place] [phone] 14 Oct, 2017 Back pain M54.9 [facility] [address] [id number] [address] [place] [id number] Sep, Back pain M54.9 [place] [address] [facility] [id number] [address] [place] [phone] Aug, [facility] [address] [id number] [address] [place] [id number] Aug, [facility] [address] [id number] [address] [place] [id number] Aug, Back pain M54.9 [facility] [address] [id number] [address] [place] [address] Jul, Back pain M54.9 and Medicare annual wellness visit, initial Z00.00 [facility] [address] [id number] [address] [place] [id number] June, Back pain M54.9 [facility] [address] [id number] [address] [place] [phone] May, Back pain M54.9 [facility] [address] [id number] [address] [place] [address] May, Medicare annual wellness vis it, initial Z00.00 ; Hypertension I10 ; Hyperlipidemia E78.5 and Reactive depression F32.9 [facility] [address] [id number] [address] [place] [phone] Apr, Back pain M54.9 [facility] [address] [id number] [address] [place] [id number] Apr, Back pain M54.9 [facility] [address] [id number] [address] [place] [phone] Apr, Back pain M54.9 ; Other 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 and Pain in left leg M79.605 [facility] [address] [id number] [address] [place] [phone] Mar, Back pain M54.9 [facility] [address] [id number] [address] [place] [id number] Mar, Acute prostatitis N41.0 [facility] [address] [id number] [address] [place] [phone] Jan, Back pain M54.9 [facility] [address] [id number] [address] [place] [phone] Dec, Back pain M54.9 and Hyperten ajay I10 [facility] [address] [id number] [address] [place] [id number] 15 Dec, 2016 Back pain M54.9 [facility] [address] [id number] [address] [place] [phone] 18 Nov, 2016 Back pain M54.9 [facility] [address] [id number] [address] [place] [id number] 22 Oct, 2016 Back pain M54.9 [facility] [address] [id number] [address] [place] [phone] 19 Oct, 2016 Abnormal LFTs R79.89 [facility] [address] [id number] [address] [place] [phone] Oct, [facility] [address] [id number] [address] [place] [phone] Sep, Back pain M54.9 ; Acute pros tatitis N41.0 ; Hypertension I10 ; Gross hematuria R31.0 and Reactive depression F32.9 [facility] [address] [id number] [address] [place] [phone] Sep, [facility] [address] [id number] [address] [place] [id number] Sep, Back pain M54.9 [facility] [address] [id number] [address] [place] [phone] Aug, Back pain M54.9 [facility] [address] [id number] [address] [place] [phone] Jul, Back pain M54.9 [facility] [address] [id number] [address] [place] [phone] June, Back pain M54.9 [facility] [address] [id number] [address] [place] [phone] June, Acute prostatitis N41.0 [facility] [address] [id number] [address] [place] [phone] June, Back pain M54.9 [facility] [address] [id number] [address] [place] [id number] Apr, Back pain M54.9 [facility] [address] [id number] [address] [place] [id number] 14 Apr, 2016 Hypertension I10 and Back pa in M54.9 [facility] [address] [id number] [address] [place] [phone] 07 Apr, 2016 Back pain M54.9 [facility] [address] [id number] [address] [place] [id number] 20 Apr, 2016 Back pain M54.9 and Sprain o f ligaments of lumbar spine, initial encounter S33.5XXA [facility] [address] [id number] [address] [place] [phone] 08 Apr, 2016 Back pain M54.9 [facility] [address] [id number] [address] [place] [phone] Mar, Acute pain of left hip M25.5 52 [facility] [address] [id number] [address] [place] [phone] Mar, [facility] [address] [id number] [address] [place] [phone] Mar, Acute pain of left hip M25.5 52 [facility] [address] [id number] [address] [place] [phone] Mar, Back pain M54.9 [facility] [address] [id number] [address] [place] [id number] Jan, Reactive depression F32.9 [facility] [address] [id number] [address] [place] [phone] Jan, Back pain M54.9 ; Hypertensi on I10 and Reactive depression F32.9 [facility] [address] [id number] [address] [place] [phone] Jan, Back pain M54.9 [facility] [address] [id number] [address] [place] [phone] Dec, [facility] [address] [id number] [address] [place] [phone] Dec, [facility] [address] [id number] [address] [place] [phone] Nov, [facility] [address] [id number] [address] [place] [phone] Oct, [facility] [address] [id number] [address] [place] [phone] Oct, [facility] [address] [id number] [address] [place] [phone] Oct, [facility] [address] [id number] [address] [place] [phone] Sep, [facility] [address] [id number] [address] [place] [phone] Sep, [facility] [address] [id number] [address] [place] [phone] Sep, Visit for TB skin test Z11.1 ; Back pain M54.9 and Hypertension I10 [facility] [address] [id number] [address] [place] [id number] Aug, Back pain M54.9 [facility] [address] [id number] [address] [place] [id number] Jul, Back pain M54.9 [facility] [address] [id number] [address] [place] [phone] Jul, [facility] [address] [id number] [address] [place] [phone] Jul, [facility] [address] [facility] [id number] [address] [place] [phone] Jul, Back pain M54.9 [facility] [address] [facility] [id number] [address] [place] [phone] May, Back pain M54.9 [facility] [address] [facility] [id number] [address] [place] [phone] May, Back pain M54.9 ; Hypertensi on I10 and Eczema L30.9 [facility] [address] [id number] [address] [place] [phone] Apr, Back pain M54.9 [facility] [address] [facility] [id number] [address] [place] [phone] Apr, Back pain M54.9 [facility] [address] [facility] [id number] [address] [place] [phone] Apr, [facility] [address] [facility] [id number] [address] [place] [phone] Mar, Back pain M54.9 [facility] [address] [facility] [id number] [address] [place] [phone] Jan, [facility] [address] [facility] [id number] [address] [place] [phone] Jan, Dyspepsia R10.13 [facility] [address] [facility] [id number] [address] [place] [phone] Jan, [facility] [address] [facility] [id number] [address] [place] [phone] Jan, [facility] [address] [facility] [id number] [address] [place] [phone] Dec, Back pain M54.9 and Hyperlip idemia E78.5 [facility] [address] [facility] [id number] [address] [place] [phone] Dec, [facility] [address] [id number] [address] [place] [phone] Nov, [facility] [address] [id number] [address] [place] [id number] Oct, [facility] [address] [id number] [address] [place] [id number] Sep, [facility] [address] [id number] [address] [place] [phone] Sep, [facility] [address] [id number] [address] [place] [id number] Sep, Lumbar strain 847.2 [facility] [address] [id number] [address] [place] [phone] Aug, [facility] [address] [id number] [address] [place] [id number] Aug, [facility] [address] [id number] [address] [place] [id number] Aug, [facility] [address] [id number] [address] [place] [id number] Jul, Dental examination V72.2 [facility] [address] [id number] [address] [place] [phone] Jul, [facility] [address] [id number] [address] [place] [phone] Jul, Acute bronchitis 466.0 and L umbar strain 847.2 [facility] [address] [id number] [address] [place] [phone] Jul, [facility] [address] [id number] [address] [place] [id number] Jul, [facility] [address] [id number] [address] [place] [phone] June, Acute bronchitis 466.0 and L umbar strain 847.2 [facility] [address] [id number] [address] [place] [address], [place] [address] June, [facility] [address] [id number] [address] [place] [address], [place] [address] June, [facility] [address] [id number] [address] [place] [address], [place] [address] June, [facility] [address] [id number] [address] [place] [address], [place] [address] May, [facility] [address] [id number] [address] [place] [address], [place] [address] May, [facility] [address] [id number] [address] [place] [address], [place] [address] Apr, [facility] [address] [id number] [address] [place] [address], [place] [address] Apr, [facility] [address] [id number] [address] [place] [address], [place] [address] Apr, [facility] [address] [id number] [address] [place] [address], [place] [address] Apr, [facility] [address] [id number] [address] [place] [address], [place] [address] Apr, [facility] [address] [id number] [address] [place] [address], [place] [address] 17 Apr, 2011 [facility] [address] [id number] [address] [place] [address], [place] [address] 15 Apr, 2011 [facility] [address] [id number] [address] [place] [address], [place] [address] 14 Apr, 2011 [facility] [address] [id number] [id number] Apr, [facility] [address] [id number] [address] [place] [address], [place] [address] 06 Apr, 2011 [facility] [address] [id number] [address] [place] [phone] Apr, [facility] [address] [id number] [address] [place] [address], [place] [address] Mar, [facility] [address] [id number] [address] [place] [address], [place] [address] Mar, [facility] [address] [id number] [address] [place] [address], [place] [address] 16 Mar, 2011 [facility] [address] [id number] [address] [place] [address], [place] [address] Mar, [facility] [address] [id number] [address] [place] [address], [place] [address] Mar, [facility] [address] [id number] [address] [place] [phone] Jan, [facility] [address] [id number] [address] [place] [address], [place] [address] 13 Jan, 2011 [facility] [address] [id number] [address] [place] [phone] 12 Jan, 2011 [facility] [address] [id number] [address] [place] [phone] 08 Dec, 2010 [facility] [address] [id number] [address] [place] [id number] 11 Nov, 2010 [facility] [address] [id number] [address] [place] [phone] 13 Oct, 2010 [facility] [address] [id number] [address] [place] [phone] 14 Jan, 2010 [facility] [address] [id number] [address] [place] [address], [place] [address] 15 Dec, 2009 [facility] [address] [id number] [address] [place] [phone] 15 Nov, 2009 [facility] [address] [id number] [address] [place] [phone] 15 Nov, 2009 [facility] [address] [id number] [address] [place] [phone] Sep, [facility] [address] [facility] [id number] [address] [place] [phone] Jan, [facility] [address] [facility] [id number] [address] [place] [phone] Dec, [facility] [address] [facility] [id number] [address] [place] [phone] Aug, IMMUNIZATIONS No Known Immunizations SOCIAL HISTORY Never Assessed REASON FOR VISIT Controlled Med Refill PLAN OF CARE VITAL SIGNS MEDICATIONS Medication Instructions Dosage Frequency Start Date End Date Duration S tatus MS Contin 30 MG Orally, every 12 hrs 1 tablet 12h Dec, 28 days Active RESULTS No Results PROCEDURES [...]
--- OUTSIDE RECORDS SUMMARY | 2019-05-15 18:51 | XMS REPORT ---
Author Author Nikhil DUARTE Organization [facility] Address [address] [place] [address] Care Team Providers Care Director Of Accounting Name Role Phone LILIBETH DUARTE Unavailable PROBLEMS Type Condition ICD9-CM Code DRH23-MY Code Onset Dates Condition S tatus SNOMED Code Problem Major depressive disorder, single episode, mild F3 2.0 Active 97316999 Problem Other chronic pain G89.29 Active 8 9179593 Problem Hyperlipidemia E78.5 Active 35321 004 Problem Back pain M54.9 Active 162422792 Problem Reactive depression F32.9 Active 70845537 Problem Hypertension I10 Active 1713123 3 ALLERGIES No Information ENCOUNTERS Encounter Location Date Diagnosis [place] [address] [address] [facility] [id number] [address] [place] [phone] Nov, Back pain M54.9 and Abnormal LFTs R79.89 [place] [address] [facility] [id number] [address] [place] [phone] Nov, Back pain M54.9 [facility] [address] [facility] [id number] [address] [place] [phone] Nov, Back pain M54.9 and Major de pressive disorder, single episode, mild F32.0 [facility] [address] [facility] [id number] [address] [place] [phone] 14 Oct, 2017 Back pain M54.9 [facility] [address] [facility] [id number] [address] [place] [phone] Sep, Back pain M54.9 [facility] [address] [facility] [id number] [address] [place] [phone] Aug, [place] [address] [address] [facility] [id number] [address] [place] [phone] Aug, [facility] [address] [id number] [address] [place] [id number] Aug, Back pain M54.9 [facility] [address] [id number] [address] [place] [phone] Jul, Back pain M54.9 and Medicare annual wellness visit, initial Z00.00 [facility] [address] [id number] [address] [place] [address] June, Back pain M54.9 [facility] [address] [id number] [address] [place] [address] May, Back pain M54.9 [facility] [address] [id number] [address] [place] [phone] May, Medicare annual wellness vis it, initial Z00.00 ; Hypertension I10 ; Hyperlipidemia E78.5 and Reactive depression F32.9 [facility] [address] [id number] [address] [place] [id number] Apr, Back pain M54.9 [facility] [address] [id number] [address] [place] [phone] Apr, Back pain M54.9 [facility] [address] [id number] [address] [place] [address] Apr, Back pain M54.9 ; 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 and Pain in left leg M79.605 [facility] [address] [id number] [address] [place] [address] Mar, Back pain M54.9 [facility] [address] [id number] [address] [place] [address] Mar, Acute prostatitis N41.0 [facility] [address] [id number] [address] [place] [phone] Jan, Back pain M54.9 [facility] [address] [id number] [address] [place] [phone] Dec, Back pain M54.9 and Hyperten ajay I10 [facility] [address] [id number] [address] [place] [id number] 15 Dec, 2016 Back pain M54.9 [facility] [address] [id number] [address] [place] [id number] 18 Nov, 2016 Back pain M54.9 [facility] [address] [id number] [address] [place] [phone] Oct, Back pain M54.9 [facility] [address] [id number] [address] [place] [address] Oct, Abnormal LFTs R79.89 [facility] [address] [id number] [address] [place] [phone] Oct, [facility] [address] [id number] [address] [place] [id number] Sep, Back pain M54.9 ; Acute pros tatitis N41.0 ; Hypertension I10 ; Gross hematuria R31.0 and Reactive depression F32.9 [facility] [address] [id number] [address] [place] [phone] Sep, [facility] [address] [id number] [address] [place] [address] Sep, Back pain M54.9 [facility] [address] [id number] [address] [place] [phone] Aug, Back pain M54.9 [facility] [address] [id number] [address] [place] [phone] Jul, Back pain M54.9 [facility] [address] [id number] [address] [place] [address] June, Back pain M54.9 [facility] [address] [id number] [address] [place] [address] June, Acute prostatitis N41.0 [facility] [address] [id number] [address] [place] [phone] June, Back pain M54.9 [facility] [address] [id number] [address] [place] [phone] Apr, Back pain M54.9 [facility] [address] [facility] [id number] [address] [place] [phone] 14 Apr, 2016 Hypertension I10 and Back pa in M54.9 [facility] [address] [id number] [address] [place] [address] 07 Apr, 2016 Back pain M54.9 [facility] [address] [facility] [id number] [address] [place] [id number] 20 Apr, 2016 Back pain M54.9 and Sprain o f ligaments of lumbar spine, initial encounter S33.5XXA [facility] [address] [facility] [id number] [address] [place] [id number] 08 Apr, 2016 Back pain M54.9 [facility] [address] [id number] [address] [place] [id number] Mar, Acute pain of left hip M25.5 52 [facility] [address] [facility] [id number] [address] [place] [address] Mar, [facility] [address] [id number] [address] [place] [address] Mar, Acute pain of left hip M25.5 52 [facility] [address] [id number] [address] [place] [phone] Mar, Back pain M54.9 [facility] [address] [id number] [address] [place] [phone] Jan, Reactive depression F32.9 [facility] [address] [facility] [id number] [address] [place] [phone] Jan, Back pain M54.9 ; Hypertensi on I10 and Reactive depression F32.9 [facility] [address] [id number] [address] [place] [phone] Jan, Back pain M54.9 [facility] [address] [id number] [address] [place] [address], [place] [address] Dec, [facility] [address] [id number] [address] [place] [phone] Dec, [facility] [address] [id number] [address] [place] [phone] Nov, [facility] [address] [id number] [address] [place] [address] Oct, [facility] [address] [id number] [address] [place] [address], [place] [address] Oct, [facility] [address] [id number] [address] [place] [phone] Oct, [facility] [address] [id number] [address] [place] [phone] Sep, [facility] [address] [id number] [address] [place] [phone] Sep, [facility] [address] [id number] [address] [place] [phone] Sep, Visit for TB skin test Z11.1 ; Back pain M54.9 and Hypertension I10 [facility] [address] [id number] [address] [place] [id number] Aug, Back pain M54.9 [facility] [address] [id number] [address] [place] [phone] Jul, Back pain M54.9 [facility] [address] [id number] [address] [place] [id number] Jul, [facility] [address] [id number] [address] [place] [phone] Jul, [facility] [address] [id number] [address] [place] [phone] Jul, Back pain M54.9 [facility] [address] [id number] [address] [place] [address] May, Back pain M54.9 [facility] [address] [id number] [address] [place] [id number] May, Back pain M54.9 ; Hypertensi on I10 and Eczema L30.9 [facility] [address] [id number] [address] [place] [phone] Apr, Back pain M54.9 [facility] [address] [id number] [address] [place] [phone] Apr, Back pain M54.9 [facility] [address] [id number] [address] [place] [phone] Apr, [facility] [address] [facility] [id number] [address] [place] [phone] Mar, Back pain M54.9 [facility] [address] [id number] [address] [place] [phone] Jan, [facility] [address] [facility] [id number] [address] [place] [address] Jan, Dyspepsia R10.13 [facility] [address] [id number] [address] [place] [phone] Jan, [facility] [address] [facility] [id number] [address] [place] [phone] Jan, [facility] [address] [facility] [id number] [address] [place] [phone] Dec, Back pain M54.9 and Hyperlip idemia E78.5 [facility] [address] [id number] [address] [place] [phone] Dec, [facility] [address] [id number] [address] [place] [phone] Nov, [facility] [address] [id number] [address] [place] [phone] Oct, [facility] [address] [id number] [address] [place] [phone] Sep, [facility] [address] [id number] [address] [place] [phone] Sep, [facility] [address] [id number] [address] [place] [address] Sep, Lumbar strain 847.2 [facility] [address] [id number] [address] [place] [phone] Aug, [facility] [address] [id number] [address] [place] [phone] Aug, [facility] [address] [id number] [address] [place] [phone] Aug, [facility] [address] [id number] [address] [place] [id number] Jul, Dental examination V72.2 [facility] [address] [id number] [address] [place] [id number] Jul, [facility] [address] [id number] [address] [place] [phone] Jul, Acute bronchitis 466.0 and L umbar strain 847.2 [facility] [address] [id number] [address] [place] [id number] Jul, [facility] [address] [id number] [address] [place] [phone] Jul, [facility] [address] [id number] [address] [place] [id number] June, Acute bronchitis 466.0 and L umbar strain 847.2 [facility] [address] [id number] [address] [place] [phone] June, [facility] [address] [id number] [address] [place] [address], [place] [address] June, [facility] [address] [id number] [address] [place] [address], [place] [address] June, [facility] [address] [id number] [address] [place] [address], [place] [address] 14 May, 2014 [facility] [address] [id number] [address] [place] [address], [place] [address] May, [facility] [address] [id number] [address] [place] [address], [place] [address] Apr, [facility] [address] [id number] [address] [place] [address], [place] [address] Apr, [facility] [address] [id number] [address] [place] [address], [place] [address] Apr, [facility] [address] [id number] [address] [place] [address], [place] [address] Apr, [facility] [address] [id number] [address] [place] [address], [place] [address] 17 Apr, 2011 [facility] [address] [id number] [address] [place] [address], [place] [address] 17 Apr, 2011 [facility] [address] [id number] [address] [place] [address], [place] [address] 15 Apr, 2011 [facility] [address] [id number] [address] [place] [address], [place] [address] 14 Apr, [address] [facility] [address] [id number] [id number] Apr, [facility] [address] [id number] [address] [place] [address], [place] [address] 06 Apr, 2011 [facility] [address] [id number] [address] [place] [address], [place] [address] 02 Apr, 2011 [facility] [address] [id number] [address] [place] [phone] Mar, [facility] [address] [id number] [address] [place] [address], [place] [address] Mar, [facility] [address] [id number] [address] [place] [address], [place] [address] Mar, [facility] [address] [id number] [address] [place] [address], [place] [address] 16 Mar, 2011 [facility] [address] [id number] [address] [place] [address], [place] [address] Mar, [facility] [address] [id number] [address] [place] [address], [place] [address] 23 Jan, 2011 [facility] [address] [id number] [address] [place] [address], [place] [address] 13 Jan, 2011 [facility] [address] [id number] [address] [place] [address], [place] [address] 12 Jan, 2011 [facility] [address] [id number] [address] [place] [address], [place] [address] 08 Dec, 2010 [facility] [address] [id number] [address] [place] [address], [place] [address] 11 Nov, 2010 [facility] [address] [id number] [address] [place] [address] 13 Oct, 2010 [facility] [address] [id number] [address] [place] [phone] 14 Jan, 2010 [facility] [address] [id number] [address] [place] [phone] 15 Dec, 2009 [facility] [address] [id number] [address] [place] [address], [place] [address] 15 Nov, 2009 [facility] [address] [id number] [address] [place] [address] 15 Nov, 2009 [facility] [address] [id number] [address] [place] [address] 11 Sep, 2009 [facility] [address] [id number] [address] [place] [phone] Jan, [facility] [address] [facility] [id number] [address] [place] [address] Dec, [facility] [address] [facility] [id number] [address] [place] [phone] Aug, IMMUNIZATIONS No Known Immunizations SOCIAL HISTORY Never Assessed REASON FOR VISIT Controlled Med Refill 12/11/17 PLAN OF CARE VITAL SIGNS MEDICATIONS Medication Instructions Dosage Frequency Start Date End Date Duration S beto MS Contin 30 MG Orally, every 12 hrs 1 tablet 12h 11 Nov, 2017 28 days Active RESULTS No Results [...]
--- OUTSIDE RECORDS SUMMARY | 2019-05-15 18:51 | XMS REPORT ---
Author Author Nikhil DUARTE Organization [facility] Address [address] [place] [address] Care Team Providers Care Journeyman Glazier Name Role Phone LILIBETH DUARTE Unavailable PROBLEMS Type Condition ICD9-CM Code BPF24-SM Code Onset Dates Condition S tatus SNOMED Code Problem Major depressive disorder, single episode, mild F3 2.0 Active 19166652 Problem Other chronic pain G89.29 Active 8 5143341 Problem Hyperlipidemia E78.5 Active 40508 004 Problem Back pain M54.9 Active 749078526 Problem Reactive depression F32.9 Active 74206489 Problem Hypertension I10 Active 2072624 3 ALLERGIES No Information ENCOUNTERS Encounter Location Date Diagnosis [place] [address] [place] [place] [id number] [place] [phone] 14 Dec, 2017 Hypertension I10 and Hyperli pidemia E78.5 [place] [address] [facility] [id number] [address] [place] [address] 12 Dec, 2017 Hypertension I10 and Hyperli pidemia E78.5 [place] [address] [facility] [id number] [address] [place] [address] Dec, Back pain M54.9 [place] [address] [facility] [id number] [address] [place] [address] Dec, Back pain M54.9 [place] [address] [facility] [id number] [address] [place] [address] Nov, Back pain M54.9 and Abnormal LFTs R79.89 [place] [address] [facility] [id number] [address] [place] [address] Nov, Back pain M54.9 [place] [address] [facility] [id number] [address] [place] [address] Nov, Back pain M54.9 and Major de pressive disorder, single episode, mild F32.0 [facility] [address] [id number] [address] [place] [address] 14 Oct, 2017 Back pain M54.9 [facility] [address] [id number] [address] [place] [address] Sep, Back pain M54.9 [facility] [address] [id number] [address] [place] [address] Aug, [facility] [address] [id number] [address] [place] [address] Aug, [facility] [address] [id number] [address] [place] [address] Aug, Back pain M54.9 [facility] [address] [id number] [address] [place] [address] Jul, Back pain M54.9 and Medicare annual wellness visit, initial Z00.00 [facility] [address] [id number] [address] [place] [address] June, Back pain M54.9 [facility] [address] [id number] [address] [place] [address] May, Back pain M54.9 [facility] [address] [id number] [address] [place] [address] May, Medicare annual wellness vis it, initial Z00.00 ; Hypertension I10 ; Hyperlipidemia E78.5 and Reactive depression F32.9 [facility] [address] [id number] [address] [place] [address] Apr, Back pain M54.9 [facility] [address] [id number] [address] [place] [address] Apr, Back pain M54.9 [facility] [address] [id number] [address] [place] [address] Apr, Back pain M54.9 ; 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 and Pain in left leg M79.605 [facility] [address] [id number] [address] [place] [address] Mar, Back pain M54.9 [facility] [address] [id number] [address] [place] [address] Mar, Acute prostatitis N41.0 [facility] [address] [id number] [address] [place] [address] Jan, Back pain M54.9 [facility] [address] [id number] [address] [place] [address] Dec, Back pain M54.9 and Hyperten ajay I10 [facility] [address] [id number] [address] [place] [address] Dec, Back pain M54.9 [facility] [address] [id number] [address] [place] [address] Nov, Back pain M54.9 [facility] [address] [id number] [address] [place] [address] Oct, Back pain M54.9 [facility] [address] [id number] [address] [place] [address] Oct, Abnormal LFTs R79.89 [facility] [address] [facility] [id number] [address] [place] [address] Oct, [facility] [address] [facility] [id number] [address] [place] [address] Sep, Back pain M54.9 ; Acute pros tatitis N41.0 ; Hypertension I10 ; Gross hematuria R31.0 and Reactive depression F32.9 [facility] [address] [id number] [address] [place] [address] Sep, [facility] [address] [facility] [id number] [address] [place] [address] Sep, Back pain M54.9 [facility] [address] [id number] [address] [place] [address] Aug, Back pain M54.9 [facility] [address] [id number] [address] [place] [address] Jul, Back pain M54.9 [facility] [address] [id number] [address] [place] [address] June, Back pain M54.9 [facility] [address] [id number] [address] [place] [address] June, Acute prostatitis N41.0 [facility] [address] [id number] [address] [place] [address] June, Back pain M54.9 [facility] [address] [id number] [address] [place] [address] Apr, Back pain M54.9 [facility] [address] [id number] [address] [place] [address] Apr, Hypertension I10 and Back pa in M54.9 [facility] [address] [id number] [address] [place] [address] Apr, Back pain M54.9 [facility] [address] [id number] [address] [place] [address] Apr, Back pain M54.9 and Sprain o f ligaments of lumbar spine, initial encounter S33.5XXA [facility] [address] [id number] [address] [place] [address] Apr, Back pain M54.9 [facility] [address] [id number] [address] [place] [address] Mar, Acute pain of left hip M25.5 52 [facility] [address] [id number] [address] [place] [address] Mar, [facility] [address] [id number] [address] [place] [address] Mar, Acute pain of left hip M25.5 52 [facility] [address] [id number] [address] [place] [address] Mar, Back pain M54.9 [facility] [address] [id number] [address] [place] [address] Jan, Reactive depression F32.9 [facility] [address] [id number] [address] [place] [address] Jan, Back pain M54.9 ; Hypertensi on I10 and Reactive depression F32.9 [facility] [address] [id number] [address] [place] [address] Jan, Back pain M54.9 [facility] [address] [id number] [address] [place] [address] Dec, [facility] [address] [id number] [address] [place] [address] Dec, [facility] [address] [id number] [address] [place] [address] Nov, [facility] [address] [id number] [address] [place] [address] Oct, [facility] [address] [id number] [address] [place] [address] Oct, [facility] [address] [id number] [address] [place] [address] 16 Nov, 2015 [facility] [address] [id number] [address] [place] [address] Sep, [facility] [address] [id number] [address] [place] [address] Sep, [facility] [address] [id number] [address] [place] [address] Sep, Visit for TB skin test Z11.1 ; Back pain M54.9 and Hypertension I10 [facility] [address] [id number] [address] [place] [address] Aug, Back pain M54.9 [facility] [address] [id number] [address] [place] [address] Jul, Back pain M54.9 [facility] [address] [id number] [address] [place] [address] Jul, [facility] [address] [id number] [address] [place] [address] Jul, [facility] [address] [id number] [address] [place] [address] Jul, Back pain M54.9 [facility] [address] [id number] [address] [place] [address] May, Back pain M54.9 [facility] [address] [id number] [address] [place] [address] May, Back pain M54.9 ; Hypertensi on I10 and Eczema L30.9 [facility] [address] [id number] [address] [place] [address] Apr, Back pain M54.9 [facility] [address] [id number] [address] [place] [address] Apr, Back pain M54.9 [facility] [address] [id number] [address] [place] [address] Apr, [facility] [address] [id number] [address] [place] [address] Mar, Back pain M54.9 [facility] [address] [id number] [address] [place] [address] Jan, [facility] [address] [id number] [address] [place] [address] Jan, Dyspepsia R10.13 [facility] [address] [id number] [address] [place] [address] Jan, [facility] [address] [id number] [address] [place] [address] Jan, [facility] [address] [id number] [address] [place] [address] Dec, Back pain M54.9 and Hyperlip idemia E78.5 [facility] [address] [id number] [address] [place] [address] Dec, [facility] [address] [id number] [address] [place] [address] Nov, [facility] [address] [id number] [address] [place] [address] Oct, [facility] [address] [id number] [address] [place] [address] Sep, [facility] [address] [id number] [address] [place] [address] Sep, [facility] [address] [id number] [address] [place] [address] Sep, Lumbar strain 847.2 [facility] [address] [id number] [address] [place] [address] Aug, [facility] [address] [id number] [address] [place] [address] Aug, [facility] [address] [id number] [address] [place] [address] Aug, [facility] [address] [id number] [address] [place] [id number] Jul, Dental examination V72.2 [facility] [address] [id number] [address] [place] [address] Jul, [facility] [address] [id number] [address] [place] [address] Jul, Acute bronchitis 466.0 and L umbar strain 847.2 [facility] [address] [id number] [address] [place] [address], [place] [address] Jul, [facility] [address] [id number] [address] [place] [address] Jul, [facility] [address] [id number] [address] [place] [address] June, Acute bronchitis 466.0 and L umbar strain 847.2 [facility] [address] [id number] [address] [place] [address], [place] [address] June, [facility] [address] [id number] [address] [place] [address] June, [facility] [address] [id number] [address] [place] [address] June, [facility] [address] [id number] [address] [place] [address] May, [facility] [address] [id number] [address] [place] [address] May, [facility] [address] [id number] [address] [place] [address] Apr, [facility] [address] [id number] [address] [place] [address] Apr, [facility] [address] [id number] [address] [place] [address] Apr, [facility] [address] [id number] [address] [place] [address] Apr, [facility] [address] [id number] [address] [place] [address] Apr, [facility] [address] [id number] [address] [place] [address] 17 Apr, 2011 [facility] [address] [id number] [address] [place] [address] 15 Apr, 2011 [facility] [address] [id number] [address] [place] [address], [place] [address] 14 Apr, 2011 [facility] [address] [id number] [id number] Apr, 2011 [facility] [address] [id number] [address] [place] [address], [place] [address] 06 Apr, 2011 [facility] [address] [id number] [address] [place] [address], [place] [address] Apr, [facility] [address] [id number] [address] [place] [address], [place] [address] Mar, [facility] [address] [id number] [address] [place] [address], [place] [address] Mar, [facility] [address] [id number] [address] [place] [address], [place] [address] Mar, [facility] [address] [id number] [address] [place] [address], [place] [address] Mar, [facility] [address] [id number] [address] [place] [address], [place] [address] Mar, [facility] [address] [id number] [address] [place] [address], [place] [address] Jan, [facility] [address] [id number] [address] [place] [address] Jan, [facility] [address] [id number] [address] [place] [address] 12 Jan, 2011 [facility] [address] [id number] [address] [place] [address], [place] [address] 08 Dec, 2010 [facility] [address] [id number] [address] [place] [address] 11 Nov, 2010 [facility] [address] [id number] [address] [place] [address], [place] [address] 13 Oct, 2010 [facility] [address] [id number] [address] [place] [id number] 14 Jan, 2010 [facility] [address] [id number] [address] [place] [address] 15 Dec, 2009 [facility] [address] [id number] [address] [place] [address] 15 Nov, 2009 [facility] [address] [id number] [address] [place] [address] 15 Nov, 2009 [facility] [address] [facility] [id number] [address] [place] [address] 11 Sep, 2009 [facility] [address] [facility] [id number] [address] [place] [address] 18 Jan, 2009 [facility] [address] [facility] [id number] [address] [place] [address] 10 Dec, 2008 [facility] [address] [facility] [id number] [address] [place] [address] 10 Aug, 2008 IMMUNIZATIONS No Known Immunizations SOCIAL HISTORY Never Assessed REASON FOR VISIT Refill request PLAN OF CARE VITAL SIGNS MEDICATIONS Unknown [...]
--- OUTSIDE RECORDS SUMMARY | 2019-05-15 18:52 | XMS REPORT ---
Author Author Nikhil DUARTE Organization [facility] Address [address] [place] [address] Care Team Providers Care Book Canvasser Name Role Phone LILIBETH DUARTE Unavailable PROBLEMS Type Condition ICD9-CM Code [id number] Code Onset Dates Condition S tatus SNOMED Code Problem Major depressive disorder, single episode, mild F3 2.0 Active 60601036 Problem Other chronic pain G89.29 Active 8 5308940 Problem Hyperlipidemia E78.5 Active 50097 004 Problem Back pain M54.9 Active 560955081 Problem Reactive depression F32.9 Active 55468622 Problem Hypertension I10 Active 2443989 3 ALLERGIES Substance Reaction Event Type Date Status Reglan Unknown Drug Allergy Nov, Active ENCOUNTERS Encounter Location Date Diagnosis [place] [id number] [facility] [id number] [address] [place] [id number] Nov, Back pain M54.9 and Major de pressive disorder, single episode, mild F32.0 [facility] [address] [facility] [id number] [address] [place] [address] Oct, Back pain M54.9 [facility] [address] [facility] [id number] [address] [place] [phone] Sep, Back pain M54.9 [facility] [address] [facility] [id number] [address] [place] [address] Aug, [facility] [address] [facility] [id number] [address] [place] [address] Aug, [facility] [address] [facility] [id number] [address] [place] [address] Aug, Back pain M54.9 [facility] [address] [facility] [id number] [address] [place] [address] Jul, Back pain M54.9 and Medicare annual wellness visit, initial Z00.00 [facility] [address] [id number] [address] [place] [phone] 23 Jun, 2017 Back pain M54.9 [facility] [address] [id number] [address] [place] [id number] 23 May, 2017 Back pain M54.9 [facility] [address] [id number] [address] [place] [id number] 16 May, 2017 Medicare annual wellness vis it, initial Z00.00 ; Hypertension I10 ; Hyperlipidemia E78.5 and Reactive depression F32.9 [facility] [address] [id number] [address] [place] [address] Apr, Back pain M54.9 [facility] [address] [id number] [address] [place] [phone] 23 Apr, 2017 Back pain M54.9 [facility] [address] [id number] [address] [place] [id number] 19 Apr, 2017 Back pain M54.9 ; 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 and Pain in left leg M79.605 [facility] [address] [id number] [address] [place] [address] Mar, Back pain M54.9 [facility] [address] [id number] [address] [place] [phone] Mar, Acute prostatitis N41.0 [facility] [address] [id number] [address] [place] [phone] Jan, Back pain M54.9 [facility] [address] [id number] [address] [place] [id number] Dec, Back pain M54.9 and Hyperten ajay I10 [facility] [address] [id number] [address] [place] [id number] 15 Dec, 2016 Back pain M54.9 [facility] [address] [id number] [address] [place] [phone] Nov, Back pain M54.9 [facility] [address] [id number] [address] [place] [phone] Oct, Back pain M54.9 [facility] [address] [id number] [address] [place] [id number] Oct, Abnormal LFTs R79.89 [facility] [address] [id number] [address] [place] [id number] Oct, [facility] [address] [id number] [address] [place] [id number] Sep, Back pain M54.9 ; Acute pros tatitis N41.0 ; Hypertension I10 ; Gross hematuria R31.0 and Reactive depression F32.9 [facility] [address] [id number] [address] [place] [id number] Sep, [facility] [address] [id number] [address] [place] [id number] Sep, Back pain M54.9 [facility] [address] [id number] [address] [place] [id number] Aug, Back pain M54.9 [facility] [address] [id number] [address] [place] [address] Jul, Back pain M54.9 [facility] [address] [id number] [address] [place] [address] June, Back pain M54.9 [facility] [address] [id number] [address] [place] [phone] June, Acute prostatitis N41.0 [facility] [address] [facility] [id number] [address] [place] [id number] June, Back pain M54.9 [facility] [address] [id number] [address] [place] [address] Apr, Back pain M54.9 [facility] [address] [id number] [address] [place] [id number] 14 Apr, 2016 Hypertension I10 and Back pa in M54.9 [facility] [address] [id number] [address] [place] [id number] 07 Apr, 2016 Back pain M54.9 [facility] [address] [id number] [address] [place] [address] Apr, Back pain M54.9 and Sprain o f ligaments of lumbar spine, initial encounter S33.5XXA [facility] [address] [id number] [address] [place] [id number] 08 Apr, 2016 Back pain M54.9 [facility] [address] [id number] [address] [place] [address] Mar, Acute pain of left hip M25.5 52 [facility] [address] [id number] [address] [place] [address] Mar, [facility] [address] [id number] [address] [place] [phone] Mar, Acute pain of left hip M25.5 52 [facility] [address] [id number] [address] [place] [id number] Mar, Back pain M54.9 [facility] [address] [id number] [address] [place] [phone] Jan, Reactive depression F32.9 [facility] [address] [id number] [address] [place] [phone] Jan, Back pain M54.9 ; Hypertensi on I10 and Reactive depression F32.9 [facility] [address] [id number] [address] [place] [phone] Jan, Back pain M54.9 [facility] [address] [facility] [id number] [address] [place] [phone] Dec, [facility] [address] [id number] [address] [place] [phone] Dec, [facility] [address] [id number] [address] [place] [phone] Nov, [facility] [address] [id number] [address] [place] [phone] Oct, [facility] [address] [id number] [address] [place] [phone] Oct, [facility] [address] [id number] [address] [place] [id number] Oct, [facility] [address] [id number] [address] [place] [phone] Sep, [facility] [address] [id number] [address] [place] [id number] Sep, [facility] [address] [id number] [address] [place] [id number] Sep, Visit for TB skin test Z11.1 ; Back pain M54.9 and Hypertension I10 [facility] [address] [id number] [address] [place] [id number] Aug, Back pain M54.9 [facility] [address] [id number] [address] [place] [phone] Jul, Back pain M54.9 [facility] [address] [id number] [address] [place] [phone] Jul, [facility] [address] [id number] [address] [place] [phone] Jul, [facility] [address] [id number] [address] [place] [phone] Jul, Back pain M54.9 [facility] [address] [id number] [address] [place] [phone] May, Back pain M54.9 [facility] [address] [id number] [address] [place] [phone] May, Back pain M54.9 ; Hypertensi on I10 and Eczema L30.9 [facility] [address] [id number] [address] [place] [phone] Apr, Back pain M54.9 [facility] [address] [facility] [id number] [address] [place] [address] Apr, Back pain M54.9 [facility] [address] [facility] [id number] [address] [place] [id number] Apr, [facility] [address] [id number] [address] [place] [phone] Mar, Back pain M54.9 [facility] [address] [facility] [id number] [address] [place] [id number] Jan, [facility] [address] [facility] [id number] [address] [place] [id number] Jan, Dyspepsia R10.13 [facility] [address] [facility] [id number] [address] [place] [phone] Jan, [facility] [address] [facility] [id number] [address] [place] [id number] Jan, [facility] [address] [facility] [id number] [address] [place] [phone] Dec, Back pain M54.9 and Hyperlip idemia E78.5 [facility] [address] [id number] [address] [place] [phone] Dec, [facility] [address] [id number] [address] [place] [phone] Nov, [facility] [address] [facility] [id number] [address] [place] [id number] Oct, [facility] [address] [facility] [id number] [address] [place] [id number] Sep, [facility] [address] [id number] [address] [place] [phone] Sep, [facility] [address] [id number] [address] [place] [phone] Sep, Lumbar strain 847.2 [facility] [address] [id number] [address] [place] [id number] Aug, [facility] [address] [id number] [address] [place] [phone] Aug, [facility] [address] [id number] [address] [place] [phone] Aug, [facility] [address] [id number] [address] [place] [id number] Jul, Dental examination V72.2 [facility] [address] [id number] [address] [place] [phone] Jul, [facility] [address] [id number] [address] [place] [id number] Jul, Acute bronchitis 466.0 and L umbar strain 847.2 [facility] [address] [id number] [address] [place] [phone] Jul, [facility] [address] [id number] [address] [place] [phone] Jul, [facility] [address] [id number] [address] [place] [phone] June, Acute bronchitis 466.0 and L umbar strain 847.2 [facility] [address] [id number] [address] [place] [phone] June, [facility] [address] [id number] [address] [place] [phone] June, [facility] [address] [id number] [address] [place] [phone] June, [facility] [address] [id number] [address] [place] [address] 14 May, 2014 [facility] [address] [id number] [address] [place] [address], [place] [address] May, [facility] [address] [id number] [address] [place] [address], [place] [address] Apr, [facility] [address] [id number] [address] [place] [address], [place] [address] Apr, [facility] [address] [id number] [address] [place] [phone] Apr, [facility] [address] [id number] [address] [place] [address], [place] [address] Apr, [facility] [address] [id number] [address] [place] [address], [place] [address] 17 Apr, 2011 [facility] [address] [id number] [address] [place] [phone] 17 Apr, 2011 [facility] [address] [id number] [address] [place] [address], [place] [address] 15 Apr, 2011 [facility] [address] [id number] [address] [place] [address], [place] [address] 14 Apr, 2011 [facility] [address] [id number] [id number] 06 Apr, 2011 [facility] [address] [id number] [address] [place] [address], [place] [address] 06 Apr, 2011 [facility] [address] [id number] [address] [place] [phone] Apr, [facility] [address] [id number] [address] [place] [id number] Mar, [facility] [address] [id number] [address] [place] [phone] Mar, [facility] [address] [id number] [address] [place] [phone] Mar, [facility] [address] [id number] [address] [place] [address], [place] [address] 16 Mar, 2011 [facility] [address] [id number] [address] [place] [address], [place] [address] 11 Mar, 2011 [facility] [address] [id number] [address] [place] [address], [place] [address] 23 Jan, 2011 [facility] [address] [id number] [address] [place] [address], [place] [address] 13 Jan, 2011 [facility] [address] [id number] [address] [place] [address], [place] [address] 12 Jan, 2011 [facility] [address] [id number] [address] [place] [address], [place] [address] 08 Dec, 2010 [facility] [address] [id number] [address] [place] [address], [place] [address] 11 Nov, 2010 [facility] [address] [id number] [address] [place] [address], [place] [address] 13 Oct, 2010 [facility] [address] [id number] [address] [place] [address], [place] [address] 14 Jan, 2010 [facility] [address] [id number] [address] [place] [address], [place] [address] 15 Dec, 2009 [facility] [address] [id number] [address] [place] [address], [place] [address] 15 Nov, 2009 [facility] [address] [id number] [address] [place] [address], [place] [address] 15 Nov, 2009 [facility] [address] [id number] [address] [place] [address], [place] [address] 11 Sep, 2009 [facility] [address] [id number] [address] [place] [address], [place] [address] 18 Jan, 2009 [facility] [address] [id number] [address] [place] [address], [place] [address] 10 Dec, 2008 [facility] [address] [id number] [address] [place] [address], [place] [address] 10 Aug, 2008 IMMUNIZATIONS No Known Immunizations SOCIAL HISTORY Never Assessed REASON FOR VISIT Pain management (chronic) -nolberto GUTIERREZ PLAN OF CARE Activity Details Pending Test PDM - PANEL (PROFILE 1) VITAL SIGNS Height 72 in 2017-11-30 Weight 210 lbs 2017-11-30 Temperature 97.8 degrees Fahrenheit 2017-11-30 Heart Rate 95 bpm 2017-11-30 Respiratory Rate 20 2017-11-30 Oximetry 96 % 2017-11-30 BMI 28.48 kg/m2 2017-11-30 Blood pressure systolic 158 mmHg 2017-11-30 Blood pressure diastolic 78 mmHg 2017-11-30 MEDICATIONS Medication Instructions Dosage Frequency Start Date End Date Duration S tatus Aspirin 325 MG Orally 3 times a day as needed 1 tablet Active Neurontin 100 mg Orally Three times a day 1 capsule 8h 30 Active Amitriptyline HCl 50 MG Orally Once a day 1 tablet 24h 30 Active Prevacid 15 mg Orally twice a day 1 capsule 12h Active Gemfibrozil 600 MG TAKE ONE TABLET BY MOUTH TWICE DAILY 30 Active MS Contin 30 MG Orally, every 12 hrs 1 tablet 12h 14 Oct, 2017 28 days Active Multivitamin Adult - Act gege Cymbalta 60 mg Orally Twice a day 1 capsule 12h 30 Active Probiotic - Active Duloxetine HCl 60 MG TAKE ONE CAPSULE BY MOUTH TWICE DAILY 30 Active BuPROPion HCl ER (SR) 150 MG TAKE ONE TA BLET BY MOUTH ONCE DAILY IN THE MORNING 30 Active Pravastatin Sodium 40 MG TAKE ONE TABLET BY MOUTH ONCE DAILY 30 Active Viagra 100 MG TAKE ONE TABLET BY MOUTH ONCE DAILY NEEDED 30 Active RESULTS No Results PROCEDURES Procedure Date Ordered Result Body Site LAB NOT BILLED BY [employer] Nov 30, 2017 [facility] VISIT ESTABLISHED PATIENT Nov 30, 2017 INSTRUCTIONS MEDICATIONS ADMINISTERED No Known Medications [...]
--- OUTSIDE RECORDS SUMMARY | 2019-05-15 18:52 | XMS REPORT ---
Author Author Nikhil DUARTE Organization [facility] Address [address] [place] [address] Care Team Providers Care Power System Electrical Engineer Name Role Phone LILIBETH DUARTE Unavailable PROBLEMS Type Condition ICD9-CM Code [id number] Code Onset Dates Condition S tatus SNOMED Code Problem Major depressive disorder, single episode, mild F3 2.0 Active 64765190 Problem Other chronic pain G89.29 Active 8 4257283 Problem Hyperlipidemia E78.5 Active 61261 004 Problem Back pain M54.9 Active 779315183 Problem Reactive depression F32.9 Active 71503325 Problem Hypertension I10 Active 7329618 3 ALLERGIES No Information ENCOUNTERS Encounter Location Date Diagnosis [place] [address] [id number] [address] [place] [phone] Nov, Back pain M54.9 and Major de pressive disorder, single episode, mild F32.0 [facility] [address] [id number] [address] [place] [phone] Oct, Back pain M54.9 [facility] [address] [id number] [address] [place] [phone] Sep, Back pain M54.9 [facility] [address] [id number] [address] [place] [phone] Aug, [facility] [address] [id number] [address] [place] [phone] Aug, [facility] [address] [id number] [address] [place] [phone] Aug, Back pain M54.9 [facility] [address] [facility] [id number] [address] [place] [phone] Jul, Back pain M54.9 and Medicare annual wellness visit, initial Z00.00 [facility] [address] [id number] [address] [place] [phone] June, Back pain M54.9 [facility] [address] [id number] [address] [place] [phone] 23 May, 2017 Back pain M54.9 [facility] [address] [id number] [address] [place] [id number] 16 May, 2017 Medicare annual wellness vis it, initial Z00.00 ; Hypertension I10 ; Hyperlipidemia E78.5 and Reactive depression F32.9 [facility] [address] [id number] [address] [place] [phone] Apr, Back pain M54.9 [facility] [address] [id number] [address] [place] [phone] 23 Apr, 2017 Back pain M54.9 [facility] [address] [id number] [address] [place] [phone] 19 Apr, 2017 Back pain M54.9 ; 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 and Pain in left leg M79.605 [facility] [address] [id number] [address] [place] [phone] Mar, Back pain M54.9 [facility] [address] [id number] [address] [place] [phone] Mar, Acute prostatitis N41.0 [facility] [address] [id number] [address] [place] [phone] Jan, Back pain M54.9 [facility] [address] [id number] [address] [place] [phone] Dec, Back pain M54.9 and Hyperten ajay I10 [facility] [address] [id number] [address] [place] [phone] 15 Dec, 2016 Back pain M54.9 [facility] [address] [id number] [address] [place] [phone] Nov, Back pain M54.9 [facility] [address] [id number] [address] [place] [phone] Oct, Back pain M54.9 [facility] [address] [id number] [address] [place] [phone] Oct, Abnormal LFTs R79.89 [facility] [address] [id number] [address] [place] [phone] Oct, [facility] [address] [id number] [address] [place] [phone] Sep, Back pain M54.9 ; Acute pros tatitis N41.0 ; Hypertension I10 ; Gross hematuria R31.0 and Reactive depression F32.9 [facility] [address] [id number] [address] [place] [phone] Sep, [facility] [address] [id number] [address] [place] [phone] Sep, Back pain M54.9 [facility] [address] [id number] [address] [place] [phone] Aug, Back pain M54.9 [facility] [address] [id number] [address] [place] [phone] Jul, Back pain M54.9 [facility] [address] [id number] [address] [place] [phone] June, Back pain M54.9 [facility] [address] [id number] [address] [place] [phone] June, Acute prostatitis N41.0 [facility] [address] [id number] [address] [place] [phone] June, Back pain M54.9 [facility] [address] [id number] [address] [place] [address] Apr, Back pain M54.9 [facility] [address] [id number] [address] [place] [id number] 14 Apr, 2016 Hypertension I10 and Back pa in M54.9 [facility] [address] [id number] [address] [place] [phone] 07 Apr, 2016 Back pain M54.9 [facility] [address] [id number] [address] [place] [id number] 20 Apr, 2016 Back pain M54.9 and Sprain o f ligaments of lumbar spine, initial encounter S33.5XXA [facility] [address] [id number] [address] [place] [id number] 08 Apr, 2016 Back pain M54.9 [facility] [address] [id number] [address] [place] [address] Mar, Acute pain of left hip M25.5 52 [facility] [address] [id number] [address] [place] [address] Mar, [facility] [address] [id number] [address] [place] [address] Mar, Acute pain of left hip M25.5 52 [facility] [address] [id number] [address] [place] [address] Mar, Back pain M54.9 [facility] [address] [id number] [address] [place] [address] Jan, Reactive depression F32.9 [facility] [address] [id number] [address] [place] [phone] Jan, Back pain M54.9 ; Hypertensi on I10 and Reactive depression F32.9 [facility] [address] [id number] [address] [place] [phone] 08 Jan, 2016 Back pain M54.9 [facility] [address] [id number] [address] [place] [phone] Dec, [facility] [address] [id number] [address] [place] [phone] Dec, [facility] [address] [id number] [address] [place] [phone] Nov, [facility] [address] [id number] [address] [place] [phone] Oct, [facility] [address] [id number] [address] [place] [phone] 29 Nov, 2015 [facility] [address] [id number] [address] [place] [phone] Oct, [facility] [address] [id number] [address] [place] [phone] Sep, [facility] [address] [id number] [address] [place] [phone] Sep, [facility] [address] [id number] [address] [place] [phone] Sep, Visit for TB skin test Z11.1 ; Back pain M54.9 and Hypertension I10 [facility] [address] [id number] [address] [place] [phone] Aug, Back pain M54.9 [facility] [address] [id number] [address] [place] [id number] Jul, Back pain M54.9 [facility] [address] [id number] [address] [place] [id number] Jul, [facility] [address] [id number] [address] [place] [phone] Jul, [facility] [address] [id number] [address] [place] [phone] Jul, Back pain M54.9 [facility] [address] [id number] [address] [place] [phone] May, Back pain M54.9 [facility] [address] [id number] [address] [place] [address] May, Back pain M54.9 ; Hypertensi on I10 and Eczema L30.9 [facility] [address] [id number] [address] [place] [phone] Apr, Back pain M54.9 [facility] [address] [id number] [address] [place] [phone] Apr, Back pain M54.9 [facility] [address] [id number] [address] [place] [phone] Apr, [facility] [address] [id number] [address] [place] [phone] Mar, Back pain M54.9 [facility] [address] [id number] [address] [place] [address] Jan, [facility] [address] [facility] [id number] [address] [place] [phone] Jan, Dyspepsia R10.13 [facility] [address] [id number] [address] [place] [id number] Jan, [facility] [address] [facility] [id number] [address] [place] [phone] Jan, [facility] [address] [facility] [id number] [address] [place] [phone] Dec, Back pain M54.9 and Hyperlip idemia E78.5 [facility] [address] [id number] [address] [place] [phone] Dec, [facility] [address] [facility] [id number] [address] [place] [phone] Nov, [facility] [address] [facility] [id number] [address] [place] [phone] Oct, [facility] [address] [facility] [id number] [address] [place] [phone] Sep, [facility] [address] [facility] [id number] [address] [place] [phone] Sep, [facility] [address] [id number] [address] [place] [address] Sep, Lumbar strain 847.2 [facility] [address] [id number] [address] [place] [id number] Aug, [facility] [address] [id number] [address] [place] [phone] Aug, [facility] [address] [id number] [address] [place] [phone] Aug, [facility] [address] [id number] [address] [place] [id number] Jul, Dental examination V72.2 [facility] [address] [id number] [address] [place] [phone] Jul, [facility] [address] [id number] [address] [place] [phone] Jul, Acute bronchitis 466.0 and L umbar strain 847.2 [facility] [address] [id number] [address] [place] [id number] Jul, [facility] [address] [id number] [address] [place] [phone] Jul, [facility] [address] [id number] [address] [place] [phone] June, Acute bronchitis 466.0 and L umbar strain 847.2 [facility] [address] [id number] [address] [place] [phone] June, [facility] [address] [id number] [address] [place] [address] June, [facility] [address] [id number] [address] [place] [phone] June, [facility] [address] [id number] [address] [place] [phone] May, [facility] [address] [id number] [address] [place] [address], [place] [address] May, [facility] [address] [id number] [address] [place] [address], [place] [address] Apr, [facility] [address] [id number] [address] [place] [address], [place] [address] Apr, [facility] [address] [id number] [address] [place] [address], [place] [address] Apr, [facility] [address] [id number] [address] [place] [address], [place] [address] Apr, [facility] [address] [id number] [address] [place] [address], [place] [address] 17 Apr, 2011 [facility] [address] [id number] [address] [place] [address], [place] [address] 17 Apr, 2011 [facility] [address] [id number] [address] [place] [address], [place] [address] 15 Apr, 2011 [facility] [address] [id number] [address] [place] [address], [place] [address] 14 Apr, [address] [facility] [address] [id number] [place] [id number] 06 Apr, 2011 [facility] [address] [id number] [address] [place] [address], [place] [address] Apr, [facility] [address] [id number] [address] [place] [phone] Apr, [facility] [address] [id number] [address] [place] [address], [place] [address] Mar, [facility] [address] [id number] [address] [place] [address], [place] [address] Mar, [facility] [address] [id number] [address] [place] [address], [place] [address] 16 Mar, 2011 [facility] [address] [id number] [address] [place] [phone] 16 Mar, 2011 [facility] [address] [id number] [address] [place] [address], [place] [address] 11 Mar, 2011 [facility] [address] [id number] [address] [place] [id number] 23 Jan, 2011 [facility] [address] [id number] [address] [place] [phone] 13 Jan, 2011 [facility] [address] [id number] [address] [place] [phone] 12 Jan, 2011 [facility] [address] [id number] [address] [place] [phone] 08 Dec, 2010 [facility] [address] [id number] [address] [place] [phone] 11 Nov, 2010 [facility] [address] [id number] [address] [place] [phone] 13 Oct, 2010 [facility] [address] [id number] [address] [place] [phone] 14 Jan, 2010 [facility] [address] [id number] [address] [place] [id number] 15 Dec, 2009 [facility] [address] [id number] [address] [place] [phone] 15 Nov, 2009 [facility] [address] [id number] [address] [place] [phone] 15 Nov, 2009 [facility] [address] [id number] [address] [place] [phone] 11 Sep, 2009 [facility] [address] [id number] [address] [place] [id number] 18 Jan, 2009 [facility] [address] [id number] [address] [place] [phone] 10 Dec, 2008 [facility] [address] [id number] [address] [place] [phone] 10 Aug, 2008 IMMUNIZATIONS No Known Immunizations SOCIAL HISTORY Never Assessed REASON FOR VISIT Controlled Med Refill PLAN OF CARE VITAL SIGNS MEDICATIONS Medication Instructions Dosage Frequency Start Date End Date Duration Mona pérez MS Contin 30 MG Orally, every 12 hrs 1 tablet 12h 14 Oct, 2017 28 days Active RESULTS No Results [...]
--- OUTSIDE RECORDS SUMMARY | 2019-05-15 18:52 | XMS REPORT ---
Author Author Nikhil DUARTE Organization [facility] Address [address] [place] [address] Care Team Providers Care Duplex Trimmer Name Role Phone LILIBETH DUARTE Unavailable PROBLEMS Type Condition ICD9-CM Code BCH24-NB Code Onset Dates Condition S tatus SNOMED Code Problem Other chronic pain G89.29 Active 8 6884162 Problem Reactive depression F32.9 Active 39623645 Problem Back pain M54.9 Active 408733417 Problem Hypertension I10 Active 9674803 3 Problem Hyperlipidemia E78.5 Active 37782 004 ALLERGIES No Information ENCOUNTERS Encounter Location Date Diagnosis [facility] [address] [id number] [address] [place] [phone] Nov, [facility] [address] [id number] [address] [place] [address] Oct, Back pain M54.9 [facility] [address] [id number] [address] [place] [phone] Sep, Back pain M54.9 [facility] [address] [id number] [address] [place] [phone] Aug, [facility] [address] [id number] [address] [place] [phone] Aug, [facility] [address] [id number] [address] [place] [address] Aug, Back pain M54.9 [facility] [address] [id number] [address] [place] [phone] Jul, Back pain M54.9 and Medicare annual wellness visit, initial Z00.00 [facility] [address] [id number] [address] [place] [phone] June, Back pain M54.9 [facility] [address] [id number] [address] [place] [address] May, Back pain M54.9 [facility] [address] [id number] [address] [place] [phone] May, Medicare annual wellness vis it, initial Z00.00 ; Hypertension I10 ; Hyperlipidemia E78.5 and Reactive depression F32.9 [facility] [address] [id number] [address] [place] [phone] Apr, Back pain M54.9 [facility] [address] [id number] [address] [place] [phone] Apr, Back pain M54.9 [facility] [address] [id number] [address] [place] [phone] Apr, Back pain M54.9 ; 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 and Pain in left leg M79.605 [facility] [address] [id number] [address] [place] [phone] Mar, Back pain M54.9 [facility] [address] [id number] [address] [place] [phone] Mar, Acute prostatitis N41.0 [facility] [address] [id number] [address] [place] [phone] Jan, Back pain M54.9 [facility] [address] [id number] [address] [place] [phone] Dec, Back pain M54.9 and Hyperten ajay I10 [facility] [address] [id number] [address] [place] [phone] 15 Dec, 2016 Back pain M54.9 [facility] [address] [id number] [address] [place] [phone] 18 Nov, 2016 Back pain M54.9 [facility] [address] [id number] [address] [place] [phone] Oct, Back pain M54.9 [facility] [address] [id number] [address] [place] [phone] Oct, Abnormal LFTs R79.89 [facility] [address] [id number] [address] [place] [phone] Oct, [facility] [address] [id number] [address] [place] [phone] Sep, Back pain M54.9 ; Acute pros tatitis N41.0 ; Hypertension I10 ; Gross hematuria R31.0 and Reactive depression F32.9 [facility] [address] [id number] [address] [place] [phone] Sep, [facility] [address] [id number] [address] [place] [phone] Sep, Back pain M54.9 [facility] [address] [id number] [address] [place] [phone] Aug, Back pain M54.9 [facility] [address] [id number] [address] [place] [address] Jul, Back pain M54.9 [facility] [address] [id number] [address] [place] [phone] June, Back pain M54.9 [facility] [address] [id number] [address] [place] [phone] June, Acute prostatitis N41.0 [facility] [address] [id number] [address] [place] [address] June, Back pain M54.9 [facility] [address] [id number] [address] [place] [phone] Apr, Back pain M54.9 [facility] [address] [id number] [address] [place] [phone] 14 Apr, 2016 Hypertension I10 and Back pa in M54.9 [facility] [address] [id number] [address] [place] [id number] Apr, Back pain M54.9 [facility] [address] [id number] [address] [place] [address] Apr, Back pain M54.9 and Sprain o f ligaments of lumbar spine, initial encounter S33.5XXA [facility] [address] [id number] [address] [place] [phone] 08 Apr, 2016 Back pain M54.9 [facility] [address] [id number] [address] [place] [phone] Mar, Acute pain of left hip M25.5 52 [facility] [address] [id number] [address] [place] [phone] Mar, [facility] [address] [id number] [address] [place] [address] Mar, Acute pain of left hip M25.5 52 [facility] [address] [id number] [address] [place] [phone] Mar, Back pain M54.9 [facility] [address] [id number] [address] [place] [phone] Jan, Reactive depression F32.9 [facility] [address] [id number] [address] [place] [id number] Jan, Back pain M54.9 ; Hypertensi on I10 and Reactive depression F32.9 [facility] [address] [id number] [address] [place] [phone] Jan, Back pain M54.9 [facility] [address] [id number] [address] [place] [phone] Dec, [facility] [address] [id number] [address] [place] [phone] Dec, [facility] [address] [id number] [address] [place] [phone] Nov, [facility] [address] [id number] [address] [place] [phone] Oct, [facility] [address] [id number] [address] [place] [phone] 29 Nov, 2015 [facility] [address] [id number] [address] [place] [phone] Oct, [facility] [address] [id number] [address] [place] [address] Sep, [facility] [address] [id number] [address] [place] [phone] Sep, [facility] [address] [id number] [address] [place] [address] Sep, Visit for TB skin test Z11.1 ; Back pain M54.9 and Hypertension I10 [facility] [address] [id number] [address] [place] [address] Aug, Back pain M54.9 [facility] [address] [id number] [address] [place] [phone] Jul, Back pain M54.9 [facility] [address] [id number] [address] [place] [phone] Jul, [facility] [address] [id number] [address] [place] [phone] Jul, [facility] [address] [id number] [address] [place] [phone] Jul, Back pain M54.9 [facility] [address] [id number] [address] [place] [phone] May, Back pain M54.9 [facility] [address] [id number] [address] [place] [phone] May, Back pain M54.9 ; Hypertensi on I10 and Eczema L30.9 [facility] [address] [id number] [address] [place] [address] Apr, Back pain M54.9 [facility] [address] [id number] [address] [place] [phone] Apr, Back pain M54.9 [facility] [address] [id number] [address] [place] [phone] Apr, [facility] [address] [id number] [address] [place] [id number] Mar, Back pain M54.9 [facility] [address] [id number] [address] [place] [address] Jan, [facility] [address] [id number] [address] [place] [address] Jan, Dyspepsia R10.13 [facility] [address] [id number] [address] [place] [phone] Jan, [facility] [address] [id number] [address] [place] [phone] Jan, [facility] [address] [id number] [address] [place] [phone] Dec, Back pain M54.9 and Hyperlip idemia E78.5 [facility] [address] [id number] [address] [place] [phone] Dec, [facility] [address] [id number] [address] [place] [phone] Nov, [facility] [address] [id number] [address] [place] [phone] Oct, [facility] [address] [id number] [address] [place] [phone] Sep, [facility] [address] [id number] [address] [place] [address] Sep, [facility] [address] [id number] [address] [place] [address] Sep, Lumbar strain 847.2 [facility] [address] [id number] [address] [place] [phone] Aug, [facility] [address] [id number] [address] [place] [phone] Aug, [facility] [address] [id number] [address] [place] [phone] Aug, [facility] [address] [id number] [address] [place] [id number] Jul, Dental examination V72.2 [facility] [address] [id number] [address] [place] [phone] Jul, [facility] [address] [id number] [address] [place] [id number] Jul, Acute bronchitis 466.0 and L umbar strain 847.2 [facility] [address] [id number] [address] [place] [phone] Jul, [facility] [address] [id number] [address] [place] [phone] Jul, [facility] [address] [id number] [address] [place] [phone] June, Acute bronchitis 466.0 and L umbar strain 847.2 [facility] [address] [id number] [address] [place] [phone] June, [facility] [address] [id number] [address] [place] [address] June, [facility] [address] [id number] [address] [place] [address] June, [facility] [address] [id number] [address] [place] [address] May, [facility] [address] [id number] [address] [place] [address] May, [facility] [address] [id number] [address] [place] [address], [place] [address] Apr, [facility] [address] [id number] [address] [place] [address], [place] [id number] Apr, [facility] [address] [id number] [address] [place] [address], [place] [phone] Apr, [facility] [address] [id number] [address] [place] [address], [place] [id number] Apr, [facility] [address] [id number] [address] [place] [address], [place] [id number] 17 Apr, 2011 [facility] [address] [id number] [address] [place] [address], [place] [id number] Apr, [facility] [address] [id number] [address] [place] [address], [place] [phone] 15 Apr, 2011 [facility] [address] [id number] [address] [place] [address], [place] [id number] 14 Apr, 2011 [facility] [address] [id number] [id number] Apr, [facility] [address] [id number] [address] [place] [address], [place] [address] Apr, [facility] [address] [id number] [address] [place] [address], [place] [address] Apr, [facility] [address] [id number] [address] [place] [address], [place] [id number] Mar, [facility] [address] [id number] [address] [place] [address], [place] [address] Mar, [facility] [address] [id number] [address] [place] [address], [place] [address] Mar, [facility] [address] [id number] [address] [place] [address], [place] [address] Mar, [facility] [address] [id number] [address] [place] [address], [place] [id number] Mar, [facility] [address] [id number] [address] [place] [phone] 23 Jan, 2011 [facility] [address] [id number] [address] [place] [phone] Jan, [facility] [address] [id number] [address] [place] [phone] Jan, [facility] [address] [id number] [address] [place] [phone] 08 Dec, 2010 [facility] [address] [id number] [address] [place] [id number] Nov, [facility] [address] [id number] [address] [place] [phone] Oct, [facility] [address] [id number] [address] [place] [phone] 14 Jan, 2010 [facility] [address] [id number] [address] [place] [phone] 15 Dec, 2009 [facility] [address] [id number] [address] [place] [address] 15 Nov, 2009 [facility] [address] [id number] [address] [place] [phone] 15 Nov, 2009 [facility] [address] [id number] [address] [place] [phone] Sep, [facility] [address] [id number] [address] [place] [phone] Jan, [facility] [address] [id number] [address] [place] [address] Dec, [facility] [address] [id number] [address] [place] [phone] Aug, IMMUNIZATIONS No Known Immunizations SOCIAL HISTORY Never Assessed REASON FOR VISIT Controlled Med Refill 10/16/17 PLAN OF CARE VITAL SIGNS MEDICATIONS Medication Instructions Dosage Frequency Start Date End Date Duration S tatus MS Contin 30 MG Orally, every 12 hrs 1 tablet 12h 16 Sep, 2017 28 days Active RESULTS No Results [...]
--- OUTSIDE RECORDS SUMMARY | 2019-05-15 18:54 | XMS REPORT | Continuity of Care Document ---
Author Organization Unknown Address Unknown Phone Unavailable Allergies Active Description Code Type Severity Reaction Onset Reported/Identified Relationship to Patient Clinical Status Yes Reglan Drug Allergy N/A N/A 10/10/[id number] ansari Allergy Mild N/A 03/08/2013 Medications There is no data. Problems Date Dx Coded Attending Type Code Diagnosis Diagnosed By 10/14/2007 BIANCA GALARZA MD V74.1 Screening Examination For Pulmonary Tuberculosis 10/14/2007 BIANCA GALARZA MD V74.1 Screening Examination For Pulmonary Tuberculosis 10/15/2007 BIANCA GALARZA MD 272.4 HYPERLIPIDEMIA UNSPECIFIED 10/15/2007 BIANCA GALARZA MD 272.4 HYPERLIPIDEMIA UNSPECIFIED 10/29/2007 BIANCA GALARZA MD 272.0 HYPERCHOLESTEROLEMIA PURE 10/29/2007 BIANCA GALARZA MD 465.9 Upper Respiratory Infection 10/29/2007 BIANCA GALARZA MD 272.0 HYPERCHOLESTEROLEMIA PURE 10/29/2007 BIANCA GALARZA MD 465.9 Upper Respiratory Infection 11/29/2007 BIANCA GALARZA MD 486 Pneumonia Unspecified 11/29/2007 BIANCA GALARZA MD 486 Pneumonia Unspecified 12/09/2007 BIANCA GALARZA MD 786.5 0 Chest Pain 12/09/2007 BIANCA GALARZA MD 786.5 0 Chest Pain 09/08/2008 BIANCA GALARZA MD 296.9 0 MOOD DISORDER 09/08/2008 BIANCA GALARZA MD 302.7 2 IMPOTENCE 09/08/2008 BIANCA GALARZA MD 296.9 0 MOOD DISORDER 09/08/2008 BIANCA GALARZA MD 302.7 2 IMPOTENCE 03/28/2009 BIANCA GALARZA MD V58.6 9 MEDICATION HIGH RISK 03/28/2009 BIANCA GALARZA MD V58.6 9 MEDICATION HIGH RISK 10/10/2009 BIANCA GALARZA MD 338.4 PAIN CHRONIC SYNDROME 10/10/2009 BIANCA GALARZA MD 338.4 PAIN CHRONIC SYNDROME 12/14/2009 BIANCA GALARZA MD 401.9 HYPERTENSION, UNSPECIFIED ESSENTIAL 12/14/2009 MICHELL DURBIN, BIANCA 401.9 HYPERTENSION, UNSPECIFIED ESSENTIAL 11/12/2010 MICHELL DURBIN, BIANCA 599.0 URINARY TRACT INFECTION SITE NOT SPECIFIED 11/12/2010 MICHELL DURBIN, BIANCA 599.0 URINARY TRACT INFECTION SITE NOT SPECIFIED 03/12/2011 MICHELL DURBIN, BIANCA 466.0 ACUTE BRONCHITIS 03/12/2011 MICHELL DURBIN, BIANCA 466.0 ACUTE BRONCHITIS 03/08/2013 HARRISON NUÑEZ DO Ot 562. 10 DIVERTICULOSIS COLON (W/O MENT OF HEMORR 03/08/2013 HARRISON NUÑEZ DO Ot V76. 51 SCREEN MAL NEOP-COLON 10/14/2013 GALEN DURBIN, ALEX Robert Ot V54.9 ORTHOPEDIC AFTERCARE NOS 10/14/2013 GALEN DURBIN, ALEX Robert Ot V57.1 PHYSICAL THERAPY NEC 09/11/2014 HARSHAL SELF, LARA Hahn Ot 722. 51 09/11/2014 HARSHAL ARAMIS, LARA J Ot 722. 52 09/11/2014 HARSHAL AARMIS, LARA J Ot 737. 30 09/11/2014 HARSHALBONNIE SELF, LARA J Ot 756. 12 09/11/2014 HARRISON NUÑEZ DO Ot V72. 84 09/11/2014 LIBBY DURBIN, HARRY R Ot 786. 2 09/11/2014 LIBBY DURBIN, HARRY R Ot 793. 19 09/11/2014 LIBBY DURBIN, HARRY R Ot 356. 9 09/11/2014 LIBBY DURBIN, HARRY R Ot 723. 4 09/11/2014 LIBBY DURBIN, HARRY R Ot 353. 2 09/11/2014 MICHELL DURBIN, BIANCA Ashby Ot 847 .2 09/11/2014 MICHELL DURBIN, IBANCA Ashby Ot E000.8 09/11/2014 MICHELL DURBIN, BIANCA Ashby Ot E928.9 09/11/2014 MICHELL DURBIN, BIANCA Ashby Ot V57 .1 09/11/2014 MICHELL DURBIN, BIANCA Ashby Ot 847 .2 09/11/2014 MICHELL DURBIN, BIANCA Ashby Ot E000.8 09/11/2014 MICHELL DURBIN, BIANCA Ashby Ot E928.9 09/11/2014 MICHELL DURBIN, BIANCA Ashyb Ot V57 .1 09/12/2014 MICHELL DURBIN, BIANCA Symone Ot 847 .2 09/12/2014 MICHELL DURBIN, BIANCA Ashby Ot E000.8 09/12/2014 MICHELL DURBIN, BIANCA Symone Ot E928.9 09/12/2014 MICHELL DURBIN, BIANCA Symone Ot V57 .1 10/06/2014 MICHELL DURBIN, BIANCA Ashby Ot 847 .2 SPRAIN LUMBAR REGION 10/06/2014 MICHELL DURBIN, BIANCA Symone Ot E000.8 OTHER EXTERNAL CAUSE STATUS 10/06/2014 MICHELL DURBIN, BIANCA Ashby Ot E928.9 ACCIDENT NOS 10/06/2014 MICHELL DURBIN, BIANCA Symone Ot V57 .1 PHYSICAL THERAPY NEC 11/10/2017 HARRISON NUÑEZ DO Ot Z01.818 ENCOUNTER FOR OTHER PREPROCEDURAL EXAMIN 11/17/2017 LARA CAPUTO DC Ot 722. 51 THORACIC DISC DEGEN 11/17/2017 HARSHALBONNIE SELF, LARA Hahn Ot 722. 52 LUMB/LUMBOSAC DISC DEGEN 11/17/2017 HARSHAL SELF, LARA Hahn Ot 737. 30 IDIOPATHIC SCOLIOSIS 11/17/2017 LARA CAPUTO DC Ot 756. 12 SPONDYLOLISTHESIS 11/17/2017 HARRISON NUÑEZ DO Ot V72. 84 EXAM PRE-OPERATIVE NOS 11/17/2017 LIBBY DURBIN, HARRY R Ot 786. 2 COUGH 11/17/2017 HARRY SOUZA MD Ot 793. 19 OTHER NONSPECIFIC ABNORMAL FINDING OF [place] 11/17/2017 LIBBY DURBIN, HARRY Asencio Ot 356. 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 2 CERVICAL ROOT LESION NEC 11/17/2017 HARRISON NUÑEZ DO Ot K21. 9 GASTRO-ESOPHAGEAL REFLUX DISEASE WITHOUT 11/17/2017 HARRISON NUÑEZ DO Ot K59. 00 CONSTIPATION, UNSPECIFIED 11/17/2017 HARRISON NUÑEZ DO Ot R19. 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 9 GASTRO-ESOPHAGEAL REFLUX DISEASE WITHOUT 11/19/2017 HARRISON NUÑEZ DO Ot K59. 00 CONSTIPATION, UNSPECIFIED 11/19/2017 HARRISON NUÑEZ DO Ot R19. 4 CHANGE IN BOWEL HABIT 11/19/2017 HARRISON NUÑEZ DO Ot Z79.899 OTHER RETIREMENT (CURRENT) DRUG THERAPY 11/19/2017 NUÑEZ HARRISON OKEEFE Ot Z87.891 PERSONAL HISTORY OF NICOTINE DEPENDENCE 11/23/2017 HARRISON NUÑEZ DO Ot K21. 9 GASTRO-ESOPHAGEAL REFLUX DISEASE WITHOUT 11/23/2017 NUÑEZ HARRISON OKEEFE Ot K59. 00 CONSTIPATION, UNSPECIFIED 11/23/2017 NUÑEZ HARRISON OKEEFE Ot R19. 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 51 THORACIC DISC DEGEN 12/16/2017 LARA CAPUTO DC Ot 722. 52 LUMB/LUMBOSAC DISC DEGEN 12/16/2017 LARA CAPUTO DC Ot 737. 30 IDIOPATHIC SCOLIOSIS 12/16/2017 LARA CAPUTO DC Ot 756. 12 SPONDYLOLISTHESIS 12/16/2017 SAVANNAH HARRISON D Ot V72. 84 EXAM PRE-OPERATIVE NOS 12/16/2017 LIBBY DURBIN, HARRY Asencio Ot 786. 2 COUGH 12/16/2017 HARRY SOUZA MD Ot 793. 19 OTHER NONSPECIFIC ABNORMAL FINDING OF [place] 12/16/2017 LIBBY DURBIN, HARRY Asencio Ot 356. 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 2 CERVICAL ROOT LESION NEC 09/17/2018 HARRY SOUZA MD R Ot 786. 2 COUGH 09/17/2018 LIBBY DURBIN HARRY R Ot 793. 19 OTHER NONSPECIFIC ABNORMAL FINDING OF [place] 09/17/2018 HARRY SOUZA MD R Ot 356. 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 2 CERVICAL ROOT LESION NEC 09/20/2018 HARRY SOUZA MD R Ot 786. 2 COUGH 09/20/2018 HARRY SOUZA MD R Ot 793. 19 OTHER NONSPECIFIC ABNORMAL FINDING OF [place] 09/20/2018 HARRY SOUZA MD R Ot 356. 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 2 COUGH 10/06/2018 HARRY SOUZA MD Ot 793. 19 OTHER NONSPECIFIC ABNORMAL FINDING OF [place] 10/06/2018 HARRY SOUZA MD R Ot 356. 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 2 CERVICAL ROOT LESION NEC 10/06/2018 Hossein GALVAN MD Ot R06.02 SHORTNESS OF BREATH 10/06/2018 Hossein GALVAN MD Ot R06.02 SHORTNESS OF BREATH 10/08/2018 HARRY SOUZA MD R Ot 786. 2 COUGH 10/08/2018 HARRY SOUZA MD R Ot 793. 19 OTHER NONSPECIFIC ABNORMAL FINDING OF [place] 10/08/2018 HARRY SOUZA MD R Ot 356. 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 2 CERVICAL ROOT LESION NEC 10/08/2018 Hossein GALVAN MD Ot R06.02 SHORTNESS OF BREATH 10/29/2018 Hossein GALVAN MD Ot G47.33 OBSTRUCTIVE SLEEP APNEA (ADULT) (PEDIATR 10/29/2018 Hossein GALVAN MD Ot I25.10 ATHSCL HEART DISEASE OF [place] CORONARY 10/29/2018 COLE DURBIN Hossein MOSS Ot I50.32 CHRONIC DIASTOLIC (CONGESTIVE) HEART KACI 01/14/2019 COLE DURBIN, Hossein MOSS Ot R06.02 SHORTNESS OF BREATH 01/18/2019 COLE DURBIN, Hossein MOSS Ot R06.02 SHORTNESS OF BREATH 02/27/2019 ELISEO , HARMONY K Ot E78.00 PURE HYPERCHOLESTEROLEMIA, UNSPECIFIED 02/27/2019 ELISEO DO HARMONY K Ot F32.9 MAJOR DEPRESSIVE DISORDER, SINGLE EPISOD 02/27/2019 ELISEO DO HARMONY K Ot F41.9 ANXIETY DISORDER, UNSPECIFIED 02/27/2019 ELISEO DO HARMONY K Ot H65.92 UNSPECIFIED NONSUPPURATIVE OTITIS MEDIA, 02/27/2019 ELISEO HARMONY K Ot I10 ESSENTIAL (PRIMARY) HYPERTENSION 02/27/2019 ELISEO HARMONY K Ot K21.9 GASTRO-ESOPHAGEAL REFLUX DISEASE WITHOUT 02/27/2019 ELISEO DO HARMONY K Ot R04.0 EPISTAXIS 02/27/2019 ELISEO HARMONY K Ot 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 02/27/2019 ELISEO OKEEFE HARMONY K Ot Z79.82 CHILDHOOD TEACHER (CURRENT) USE OF ASPIRIN 02/27/2019 ELISEORossi OKEEFE HARMONY K Ot Z87.891 PERSONAL HISTORY OF NICOTINE DEPENDENCE 02/27/2019 ELISEO HARMONY K Ot Z88.8 ALLERGY STATUS TO OTH DRUG/MEDS/BIOL SUB Procedures Code Description Performed By Per formed On [id number] DI LATION OF 1 COR ART WITH DRUG-ELUT INT 09/19/2018 [id number] ME ASURE OF CARDIAC SAMPL PRESSURE, L H 09/19/2018 [id number] ME ASUREMENT OF ARTERIAL PRESSURE, RUBI 09/19/2018 [id number] FL UOROSCOPY OF MULT COR ART USING L OSM 09/19/2018 [id number] FL UOROSCOPY OF LEFT HEART USING LOW OSMO 09/19/2018 Results Test Result Range CMP - 10/28/16 12:00 Glucose, Serum 114 mg/dL 65-99 BUN 21 mg/dL 8-27 Creatinine, Serum 0.79 mg/dL 0.76-1.27 eGFR If NonAfricn Am 94 mL/min/1.73 >59 eGFR If Africn Am 108 mL/min/1.73 >5 9 BUN/Creatinine Ratio 27 10-24 Sodium, Serum 138 [...] IU/L 0-40 ALT (SGPT) 50 IU/L 0-44 LIVER PANEL (LFT) - 12/10/17 18:01 PROTEIN, TOTAL 7.2 g/dL 6.1-8.1 ALBUMIN 4.8 g/dL 3.6-5.1 GLOBULIN 2.4 g/dL (calc) 1.9-3.7 ALBUMIN/GLOBULIN RATIO 2.0 (calc) 1.0-2. 5 BILIRUBIN, TOTAL 0.2 mg/dL 0.2-1.2 ALKALINE PHOSPHATASE 67 U/L 40-115 AST 29 U/L 10-35 ALT 31 U/L 9-46 BILIRUBIN, DIRECT 0.1 mg/dL < OR = 0.2 BILIRUBIN, INDIRECT 0.1 mg/dL (calc) 0.2 -1.2 - PANEL (PROFILE 1) - 12/10/17 18 :01 Prescribed Drug 1 MS Contin(TM) NRG Creatinine 63.3 mg/dL > or = 20.0 pH 6.14 4.5 - 9.0 Oxidant NEGATIVE mcg/mL <200 Amphetamines NEGATIVE ng/mL <500 medMATCH Amphetamines CONSISTENT NRG Benzodiazepines NEGATIVE ng/mL <100 medMATCH Benzodiazepines CONSISTENT NRG Marijuana Metabolite NEGATIVE ng/mL <20 medMATCH Marijuana Metab CONSISTENT NRG Cocaine Metabolite NEGATIVE ng/mL <150 medMATCH Cocaine Metab CONSISTENT NRG Opiates POSITIVE ng/mL <100 Oxycodone NEGATIVE ng/mL <100 medMATCH Oxycodone CONSISTENT NRG COMMENT NRG Codeine NEGATIVE ng/mL <50 medMATCH Codeine CONSISTENT NRG Hydrocodone NEGATIVE ng/mL <50 medMATCH Hydrocodone CONSISTENT NRG Hydromorphone 119 ng/mL <50 medMATCH Hydromorphone CONSISTENT NRG Morphine 70167 ng/mL <50 medMATCH Morphine CONSISTENT NRG Norhydrocodone NEGATIVE ng/mL <50 medMATCH Norhydrocodone CONSISTENT NRG Barbiturates NEGATIVE ng/mL <300 medMATCH Barbiturates CONSISTENT NRG Methadone Metabolite NEGATIVE ng/mL <100 medMATCH Methadone Metab CONSISTENT NRG Phencyclidine NEGATIVE ng/mL <25 medMATCH Phencyclidine CONSISTENT NRG LIPID PANEL - 01/13/18 16:45 CHOLESTEROL, TOTAL 277 mg/dL <200 HDL CHOLESTEROL 34 mg/dL >40 TRIGLYCERIDES 599 mg/dL <150 LDL-CHOLESTEROL mg/dL (calc) NRG CHOL/HDLC RATIO 8.1 (calc) <5.0 NON HDL CHOLESTEROL 243 mg/dL (calc) <13 0 Complete blood count (CBC) with automate d white blood cell (WBC) differential - 09/17/18 12:10 Blood leukocytes automated count (number/volume) 8.2 10*3/uL 4.3-11.0 Blood erythrocytes automated count (number/volume) 3.94 10*6/uL 4.35-5.85 Venous blood hemoglobin measurement (mass/volume) 11.3 g/dL 13.3-17.7 Blood hematocrit (volume fraction) 34 % 40-54 Automated erythrocyte mean corpuscular volume 87 [ foz_us] 80-99 Automated erythrocyte mean corpuscular h emoglobin (mass per erythrocyte) 29 pg 25-34 Automated erythrocyte mean corpuscular h emoglobin concentration measurement (mass/volume) 33 g/dL 32-36 Automated erythrocyte distribution width ratio 14. 5 % 10.0- 14.5 Automated blood platelet count (count/volume) 249 10*3/uL 130-400 Automated blood platelet mean volume measurement 10.0 [foz_us] 7.4-10.4 Automated blood neutrophils/100 leukocytes 75 % 42-75 Automated blood lymphocytes/100 leukocytes 17 % 12-44 Blood monocytes/100 leukocytes 8 % 0-12 Automated blood eosinophils/100 leukocytes 1 % 0-10 Automated blood basophils/100 leukocytes 0 % 0-10 Blood neutrophils automated count (number/volume) 6.1 10*3 1.8-7.8 Blood lymphocytes automated count (number/volume) 1.4 10*3 1.0-4.0 Blood monocytes automated count (number/volume) 0. 6 10*3 0.0-1.0 Automated eosinophil count 0.1 10*3/uL 0 .0-0.3 Automated blood basophil count (count/volume) 0.0 10*3/uL 0.0-0.1 Blood lactic acid measurement (moles/vol ume) - 09/17/18 12:10 Blood lactic acid measurement (moles/volume) 2.74 mmol/L 0.50-2.00 Comprehensive metabolic panel - 09/17/18 12:10 Serum or plasma sodium measurement (moles/volume) 137 mmol/L 135-145 Serum or plasma potassium measurement (moles/volume) 3.8 mmol/L 3.6-5.0 Serum or plasma chloride measurement (moles/volume) 103 mmol/L 98-107 Carbon dioxide 24 mmol/L 21-32 Serum or plasma anion gap determination (moles/volume) 10 mmol/L 5-14 Serum or plasma urea nitrogen measurement (mass/volume ) 26 mg/dL 7-18 Serum or plasma creatinine measurement (mass/volume) 1.28 mg/dL 0.60-1.30 Serum or plasma urea nitrogen/creatinine mass ratio 20 NRG Serum or plasma creatinine measurement w ith calculation of estimated glomerular filtration rate 56 NRG Serum or plasma glucose measurement (mass/volume) 116 mg/dL 70-105 Serum or plasma calcium measurement (mass/volume) 9.5 mg/dL 8.5-10.1 Serum or plasma total bilirubin measurement (mass/volu me) 0.3 mg/dL 0.1-1.0 Serum or plasma alkaline phosphatase tosha surement (enzymatic activity/volume) 50 U/L 40-136 Serum or plasma aspartate aminotransfera se measurement (enzymatic activity/volume) 35 U/L 5-34 Serum or plasma alanine aminotransferase measurement (enzymatic activity/volume) 46 U/L 0-55 Serum or plasma protein measurement (mass/volume) 6.4 g/dL 6.4-8.2 Serum or plasma albumin measurement (mass/volume) 4.1 g/dL 3.2-4.5 CALCIUM CORRECTED 9.4 mg/dL 8.5-10.1 Magnesium - 09/17/18 12:10 Magnesium 2.1 mg/dL 1.8-2.4 Serum or plasma troponin i.cardiac measu rement (mass/volume) - 09/17/18 12:10 Serum or plasma troponin i.cardiac measurement (mass/v olume) < ng/mL <0.028 Lipase - 09/17/18 12:10 Lipase 58 U/L 8-78 PT panel in platelet poor plasma by coag ulation assay - 09/17/18 12:10 Prothrombin time (PT) in platelet poor plasma by coagu lation assay 13.6 s 12.2-14.7 INR in platelet poor plasma or blood by coagulation as say 1.0 0.8-1.4 Activated partial thromboplastin time (a PTT) in platelet poor plasma bycoagulation assay - 09/17/18 12:10 Activated partial thromboplastin time (a PTT) in platelet poor plasma bycoagulation assay 28 s 24-35 Serum or plasma C reactive protein measu rement (mass/volume) - 09/17/18 12:10 Serum or plasma C reactive protein measurement (mass/v olume) 0.16 mg/dL 0.00-0.50 Bacterial blood culture - 09/17/18 12:10 Bacterial blood culture NG NRG Bacterial blood culture - 09/17/18 13:36 Bacterial blood culture NG NRG Serum or plasma lactate measurement (mol es/volume) - 09/17/18 14:10 Serum or plasma lactate measurement (moles/volume) 3.21 mmol/L 0.50-2.00 Complete urinalysis with reflex to cultu re - 09/17/18 14:33 Urine color determination YELLOW NRG Urine clarity determination CLEAR NR G Urine pH measurement by test strip 6.5 5-9 Specific gravity of urine by test strip 1.010 1.016-1.022 Urine protein assay by test strip, semi-quantitative 2+ NEGATIVE Urine glucose detection by automated test strip NE GATIVE NEGATIVE Erythrocytes detection in urine sediment by light micr oscopy 1+ NEGATIVE Urine ketones detection by automated test strip NE GATIVE NEGATIVE Urine nitrite detection by test strip NEGATIVE NEGATIVE Urine total bilirubin detection by test strip NEGA TIVE NEGATIVE Urine urobilinogen measurement by automated test strip (mass/volume) NORMAL NORMAL Urine leukocyte esterase detection by dipstick NEG ATIVE NEGATIVE Automated urine sediment erythrocyte cou nt by microscopy (number/high power field) [HPF] NRG Automated urine sediment leukocyte count by microscopy (number/high power field) [HPF] NRG Bacteria detection in urine sediment by light microsco py NEGATIVE NRG Squamous epithelial cells detection in u rine sediment by light microscopy 0-2 NRG Crystals detection in urine sediment by light microsco py NONE NRG Casts detection in urine sediment by light microscopy NONE NRG Mucus detection in urine sediment by light microscopy SMALL NRG Complete urinalysis with reflex to culture NO NRG Methicillin resistant Staphylococcus aur eus (MRSA) screening culture - 09/17/18 14:50 Methicillin resistant Staphylococcus aureus (MRSA) scr eening culture NEG NRG Serum or plasma troponin i.cardiac measu rement (mass/volume) - 09/17/18 18:13 Serum or plasma troponin i.cardiac measurement (mass/v olume) 0.032 ng/mL <0.028 Serum or plasma troponin i.cardiac measu rement (mass/volume) - 09/17/18 23:50 Serum or plasma troponin i.cardiac measurement (mass/v olume) 0.051 ng/mL <0.028 Complete blood count (CBC) with automate d white blood cell (WBC) differential - 09/18/18 03:58 Blood leukocytes automated count (number/volume) 11.1 10*3/uL 4.3-11.0 Blood erythrocytes automated count (number/volume) 3.63 10*6/uL 4.35-5.85 Venous blood hemoglobin measurement (mass/volume) 10.4 g/dL 13.3-17.7 Blood hematocrit (volume fraction) 32 % 40-54 Automated erythrocyte mean corpuscular volume 87 [ foz_us] 80-99 Automated erythrocyte mean corpuscular h emoglobin (mass per erythrocyte) 29 pg 25-34 Automated erythrocyte mean corpuscular h emoglobin concentration measurement (mass/volume) 33 g/dL 32-36 Automated erythrocyte distribution width ratio 14. 6 % 10.0- 14.5 Automated blood platelet count (count/volume) 266 10*3/uL 130-400 Automated blood platelet mean volume measurement 9.6 [foz_us] 7.4-10.4 Automated blood neutrophils/100 leukocytes 88 % 42-75 Automated blood lymphocytes/100 leukocytes 9 % 12-44 Blood monocytes/100 leukocytes 4 % 0-12 Automated blood eosinophils/100 leukocytes 0 % 0-10 Automated blood basophils/100 leukocytes 0 % 0-10 Blood neutrophils automated count (number/volume) 9.8 10*3 1.8-7.8 Blood lymphocytes automated count (number/volume) 1.0 10*3 1.0-4.0 Blood monocytes automated count (number/volume) 0. 4 10*3 0.0-1.0 Automated eosinophil count 0.0 10*3/uL 0 .0-0.3 Automated blood basophil count (count/volume) 0.0 10*3/uL 0.0-0.1 Comprehensive metabolic panel - 09/18/18 03:58 Serum or plasma sodium measurement (moles/volume) 138 mmol/L 135-145 Serum or plasma potassium measurement (moles/volume) 4.3 mmol/L 3.6-5.0 Serum or plasma chloride measurement (moles/volume) 106 mmol/L 98-107 Carbon dioxide 20 mmol/L 21-32 Serum or plasma anion gap determination (moles/volume) 12 mmol/L 5-14 Serum or plasma urea nitrogen measurement (mass/volume ) 18 mg/dL 7-18 Serum or plasma creatinine measurement (mass/volume) 0.73 mg/dL 0.60-1.30 Serum or plasma urea nitrogen/creatinine mass ratio 25 NRG Serum or plasma creatinine measurement w ith calculation of estimated glomerular filtration rate > NRG Serum or plasma glucose measurement (mass/volume) 154 mg/dL 70-105 Serum or plasma calcium measurement (mass/volume) 8.7 mg/dL 8.5-10.1 Serum or plasma total bilirubin measurement (mass/volu me) 0.3 mg/dL 0.1-1.0 Serum or plasma alkaline phosphatase tosha surement (enzymatic activity/volume) 48 U/L 40-136 Serum or plasma aspartate aminotransfera se measurement (enzymatic activity/volume) 30 U/L 5-34 Serum or plasma alanine aminotransferase measurement (enzymatic activity/volume) 43 U/L 0-55 Serum or plasma protein measurement (mass/volume) 6.0 g/dL 6.4-8.2 Serum or plasma albumin measurement (mass/volume) 3.9 g/dL 3.2-4.5 CALCIUM CORRECTED 8.8 mg/dL 8.5-10.1 Serum or plasma phosphate measurement (m ass/volume) - 09/18/18 03:58 Serum or plasma phosphate measurement (mass/volume) 3.5 mg/dL 2.3-4.7 Magnesium - 09/18/18 03:58 Magnesium 1.9 mg/dL 1.8-2.4 Manual absolute plasma cell count - 08/31 03:58 Blood monocytes/100 leukocytes 3 % NRG Manual blood segmented neutrophils/100 leukocytes 90 % NRG Manual blood lymphocytes/100 leukocytes 7 % NRG Methicillin resistant Staphylococcus aur eus (MRSA) screening culture - 09/18/18 18:18 Methicillin resistant Staphylococcus aureus (MRSA) scr eening culture NEG NRG Complete blood count (CBC) with automate d white blood cell (WBC) differential - 09/19/18 05:50 Blood leukocytes automated count (number/volume) 10.2 10*3/uL 4.3-11.0 Blood erythrocytes automated count (number/volume) 3.81 10*6/uL 4.35-5.85 Venous blood hemoglobin measurement (mass/volume) 10.7 g/dL 13.3-17.7 Blood hematocrit (volume fraction) 33 % 40-54 Automated erythrocyte mean corpuscular volume 86 [ foz_us] 80-99 Automated erythrocyte mean corpuscular h emoglobin (mass per erythrocyte) 28 pg 25-34 Automated erythrocyte mean corpuscular h emoglobin concentration measurement (mass/volume) 33 g/dL 32-36 Automated erythrocyte distribution width ratio 14. 5 % 10.0- 14.5 Automated blood platelet count (count/volume) 298 10*3/uL 130-400 Automated blood platelet mean volume measurement 9.7 [foz_us] 7.4-10.4 Automated blood neutrophils/100 leukocytes 84 % 42-75 Automated blood lymphocytes/100 leukocytes 12 % 12-44 Blood monocytes/100 leukocytes 4 % 0-12 Automated blood eosinophils/100 leukocytes 0 % 0-10 Automated blood basophils/100 leukocytes 0 % 0-10 Blood neutrophils automated count (number/volume) 8.6 10*3 1.8-7.8 Blood lymphocytes automated count (number/volume) 1.3 10*3 1.0-4.0 Blood monocytes automated count (number/volume) 0. 4 10*3 0.0-1.0 Automated eosinophil count 0.0 10*3/uL 0 .0-0.3 Automated blood basophil count (count/volume) 0.0 10*3/uL 0.0-0.1 Comprehensive metabolic panel - 09/19/18 05:50 Serum or plasma sodium measurement (moles/volume) 138 mmol/L 135-145 Serum or plasma potassium measurement (moles/volume) 3.9 mmol/L 3.6-5.0 Serum or plasma chloride measurement (moles/volume) 104 mmol/L 98-107 Carbon dioxide 26 mmol/L 21-32 Serum or plasma anion gap determination (moles/volume) 8 mmol/L 5-14 Serum or plasma urea nitrogen measurement (mass/volume ) 18 mg/dL 7-18 Serum or plasma creatinine measurement (mass/volume) 0.73 mg/dL 0.60-1.30 Serum or plasma urea nitrogen/creatinine mass ratio 25 NRG Serum or plasma creatinine measurement w ith calculation of estimated glomerular filtration rate > NRG Serum or plasma glucose measurement (mass/volume) 176 mg/dL 70-105 Serum or plasma calcium measurement (mass/volume) 9.2 mg/dL 8.5-10.1 Serum or plasma total bilirubin measurement (mass/volu me) 0.2 mg/dL 0.1-1.0 Serum or plasma alkaline phosphatase tosha surement (enzymatic activity/volume) 42 U/L 40-136 Serum or plasma aspartate aminotransfera se measurement (enzymatic activity/volume) 26 U/L 5-34 Serum or plasma alanine aminotransferase measurement (enzymatic activity/volume) 38 U/L 0-55 Serum or plasma protein measurement (mass/volume) 6.3 g/dL 6.4-8.2 Serum or plasma albumin measurement (mass/volume) 4.1 g/dL 3.2-4.5 CALCIUM CORRECTED 9.1 mg/dL 8.5-10.1 Serum or plasma phosphate measurement (m ass/volume) - 09/19/18 05:50 Serum or plasma phosphate measurement (mass/volume) 2.3 mg/dL 2.3-4.7 Magnesium - 09/19/18 05:50 Magnesium 2.0 mg/dL 1.8-2.4 Complete blood count (CBC) with automate d white blood cell (WBC) differential - 09/20/18 03:00 Blood leukocytes automated count (number/volume) 9.5 10*3/uL 4.3-11.0 Blood erythrocytes automated count (number/volume) 3.77 10*6/uL 4.35-5.85 Venous blood hemoglobin measurement (mass/volume) 10.8 g/dL 13.3-17.7 Blood hematocrit (volume fraction) 33 % 40-54 Automated erythrocyte mean corpuscular volume 87 [ foz_us] 80-99 Automated erythrocyte mean corpuscular h emoglobin (mass per erythrocyte) 29 pg 25-34 Automated erythrocyte mean corpuscular h emoglobin concentration measurement (mass/volume) 33 g/dL 32-36 Automated erythrocyte distribution width ratio 14. 6 % 10.0- 14.5 Automated blood platelet count (count/volume) 305 10*3/uL 130-400 Automated blood platelet mean volume measurement 9.7 [foz_us] 7.4-10.4 Automated blood neutrophils/100 leukocytes 82 % 42-75 Automated blood lymphocytes/100 leukocytes 14 % 12-44 Blood monocytes/100 leukocytes 4 % 0-12 Automated blood eosinophils/100 leukocytes 0 % 0-10 Automated blood basophils/100 leukocytes 0 % 0-10 Blood neutrophils automated count (number/volume) 7.7 10*3 1.8-7.8 Blood lymphocytes automated count (number/volume) 1.3 10*3 1.0-4.0 Blood monocytes automated count (number/volume) 0. 4 10*3 0.0-1.0 Automated eosinophil count 0.0 10*3/uL 0 .0-0.3 Automated blood basophil count (count/volume) 0.0 10*3/uL 0.0-0.1 Comprehensive metabolic panel - 09/20/18 03:00 Serum or plasma sodium measurement (moles/volume) 140 mmol/L 135-145 Serum or plasma potassium measurement (moles/volume) 3.4 mmol/L 3.6-5.0 Serum or plasma chloride measurement (moles/volume) 106 mmol/L 98-107 Carbon dioxide 21 mmol/L 21-32 Serum or plasma anion gap determination (moles/volume) 13 mmol/L 5-14 Serum or plasma urea nitrogen measurement (mass/volume ) 17 mg/dL 7-18 Serum or plasma creatinine measurement (mass/volume) 0.77 mg/dL 0.60-1.30 Serum or plasma urea nitrogen/creatinine mass ratio 22 NRG Serum or plasma creatinine measurement w ith calculation of estimated glomerular filtration rate > NRG Serum or plasma glucose measurement (mass/volume) 218 mg/dL 70-105 Serum or plasma calcium measurement (mass/volume) 8.9 mg/dL 8.5-10.1 Serum or plasma total bilirubin measurement (mass/volu me) 0.2 mg/dL 0.1-1.0 Serum or plasma alkaline phosphatase tosha surement (enzymatic activity/volume) 44 U/L 40-136 Serum or plasma aspartate aminotransfera se measurement (enzymatic activity/volume) 20 U/L 5-34 Serum or plasma alanine aminotransferase measurement (enzymatic activity/volume) 36 U/L 0-55 Serum or plasma protein measurement (mass/volume) 6.0 g/dL 6.4-8.2 Serum or plasma albumin measurement (mass/volume) 4.0 g/dL 3.2-4.5 CALCIUM CORRECTED 8.9 mg/dL 8.5-10.1 Serum or plasma phosphate measurement (m ass/volume) - 09/20/18 03:00 Serum or plasma phosphate measurement (mass/volume) 2.4 mg/dL 2.3-4.7 Magnesium - 09/20/18 03:00 Magnesium 2.1 mg/dL 1.8-2.4 PSA - 01/17/19 08:30 PSA, TOTAL 1.3 ng/mL < OR = 4.0 Complete blood count (CBC) with automate d white blood cell (WBC) differential - 02/21/19 23:00 Blood leukocytes automated count (number/volume) 5.8 10*3/uL 4.3-11.0 Blood erythrocytes automated count (number/volume) 3.78 10*6/uL 4.35-5.85 Venous blood hemoglobin measurement (mass/volume) 11.2 g/dL 13.3-17.7 Blood hematocrit (volume fraction) 34 % 40-54 Automated erythrocyte mean corpuscular volume 89 [ foz_us] 80-99 Automated erythrocyte mean corpuscular h emoglobin (mass per erythrocyte) 30 pg 25-34 Automated erythrocyte mean corpuscular h emoglobin concentration measurement (mass/volume) 33 g/dL 32-36 Automated erythrocyte distribution width ratio 14. 0 % 10.0- 14.5 Automated blood platelet count (count/volume) 341 10*3/uL 130-400 Automated blood platelet mean volume measurement 10.5 [foz_us] 7.4-10.4 Automated blood neutrophils/100 leukocytes 49 % 42-75 Automated blood lymphocytes/100 leukocytes 35 % 12-44 Blood monocytes/100 leukocytes 10 % 0-12 Automated blood eosinophils/100 leukocytes 6 % 0-10 Automated blood basophils/100 leukocytes 1 % 0-10 Blood neutrophils automated count (number/volume) 2.8 10*3 1.8-7.8 Blood lymphocytes automated count (number/volume) 2.0 10*3 1.0-4.0 Blood monocytes automated count (number/volume) 0. 6 10*3 0.0-1.0 Automated eosinophil count 0.4 10*3/uL 0 .0-0.3 Automated blood basophil count (count/volume) 0.0 10*3/uL 0.0-0.1 PT panel in platelet poor plasma by coag ulation assay - 02/21/19 23:00 Prothrombin time (PT) in platelet poor plasma by coagu lation assay 12.8 s 12.2-14.7 INR in platelet poor plasma or blood by coagulation as say 0.9 0.8-1.4 Activated partial thromboplastin time (a PTT) in platelet poor plasma bycoagulation assay - 02/21/19 23:00 Activated partial thromboplastin time (a PTT) in platelet poor plasma bycoagulation assay 25 s 24-35 Complete blood count (CBC) with automate d white blood cell (WBC) differential - 05/14/19 11:30 Blood leukocytes automated count (number/volume) 6.2 10*3/uL 4.3-11.0 Blood erythrocytes automated count (number/volume) 4.38 10*6/uL 4.35-5.85 Venous blood hemoglobin measurement (mass/volume) 12.7 g/dL 13.3-17.7 Blood hematocrit (volume fraction) 39 % 40-54 Automated erythrocyte mean corpuscular volume 89 [ foz_us] 80-99 Automated erythrocyte mean corpuscular h emoglobin (mass per erythrocyte) 29 pg 25-34 Automated erythrocyte mean corpuscular h emoglobin concentration measurement (mass/volume) 33 g/dL 32-36 Automated erythrocyte distribution width ratio 13. 7 % 10.0- 14.5 Automated blood platelet count (count/volume) 280 10*3/uL 130-400 Automated blood platelet mean volume measurement 9.3 [foz_us] 7.4-10.4 Automated blood neutrophils/100 leukocytes 62 % 42-75 Automated blood lymphocytes/100 leukocytes 29 % 12-44 Blood monocytes/100 leukocytes 6 % 0-12 Automated blood eosinophils/100 leukocytes 2 % 0-10 Automated blood basophils/100 leukocytes 1 % 0-10 Blood neutrophils automated count (number/volume) 3.9 10*3 1.8-7.8 Blood lymphocytes automated count (number/volume) 1.8 10*3 1.0-4.0 Blood monocytes automated count (number/volume) 0. 4 10*3 0.0-1.0 Automated eosinophil count 0.2 10*3/uL 0 .0-0.3 Automated blood basophil count (count/volume) 0.0 10*3/uL 0.0-0.1 Encounters ACCT No. Visit Date/Time Discharge Status Pt. Type Provider Facility Loc./Unit Complaint [id number] 05/11/2014 15:11:00 05/11/2014 23:59: 59 CLS Outpatient BIANCA GALARZA MD [id number] 04/14/2014 15:46:00 04/14/2014 23:59: 59 CLS Outpatient BIANCA GALARZA MD [id number] 02/21/2019 22:19:00 00:03:00 DIS Outpatient HARMONY GOMES DO, [facility] ER NOSE BLEED/ON BLOOD THI NNERS [id number] 01/12/2019 13:25:00 23:59:59 CLS Outpatient Hossein GALVAN MD [facility] RT SOB [id number] 10/08/2018 13:26:00 14:05:00 DIS Outpatient Hossein GALVAN MD [facility] SLEEP SOB. [id number] 09/18/2018 16:13:00 14:35:00 DIS Inpatient ALBERTO SALMON MD [facility] ICU PROFOUND HYPOTENSION;AN APHYLAXIS [id number] 11/17/2017 08:22:00 018 11:15:00 DIS Outpatient HARRISON NUÑEZ DO [facility] ENDO CHANGE IN BOWEL HABITS/CONSTIPATION [id number] 11/10/2017 05:37:00 018 13:07:00 DIS Outpatient HARRISON NUÑEZ DO [facility] PREOP COLONOSCOPY [id number] 10/06/2014 14:37:00 015 15:32:00 DIS Outpatient BIANCA GALARZA MD [facility] REHAB LUMBAR STRAIN;LBP [id number] 03/16/2014 15:11:00 015 23:59:59 CLS Outpatient HARRY SOUZA MD [facility] RAD R PERIFERAL NEUROPATHY C5-C7 [id number] 03/07/2014 16:50:00 015 23:59:59 CLS Outpatient HARRY SOUZA MD [facility] RAD R PERIFERAL NEUROPATHY C5-C7 [id number] 02/27/2014 08:17:00 014 23:59:59 CLS Outpatient HARRY SOUZA MD [facility] RAD R PERIFERAL NEUROPATHY C5-C7 [id number] 08/15/2013 15:30:00 014 08:55:00 DIS Outpatient ALEX AARON MD [facility] REHAB RT PROXIMAL HUMERUS FX [id number] 08/15/2013 10:58:00 014 23:59:59 CLS Outpatient HARRY SOUZA MD [facility] RAD PERSISTANT COUGH [id number] 03/08/2013 12:21:00 014 17:25:00 DIS Outpatient HARRISON NUÑEZ DO [facility] SDC SCREENING [id number] 03/03/2013 09:26:00 014 23:59:59 CLS Outpatient HARRISON NUÑEZ DO [facility] PREOP SCREENING [id number] 01/17/2013 15:54:00 013 23:59:59 CLS Outpatient LARA CAPUTO DC [facility] RAD SCOLISIS LUMBAR PAIN [id number] 05/14/2019 11:41:00 Document Registration [id number] 12/16/2017 01:40:00 Document Registration [id number] 02/02/2009 06:57:00 Document Registration [id number] 04/01/2019 16:40:00 04/01/2019 23:59:5 9 CLS Outpatient LILIBETH DUARTE APRN [facility] [id number] 01/17/2019 08:40:00 Document Registration [id number] 01/13/2018 16:40:00 Document Registration [id number] 12/10/2017 17:20:00 Document Registration [id number] 10/28/2016 10:40:00 Document Registration
== END 2019-05-14 13:50 | disposition home or self-care (01) ==
LOC: EDUNIT# 11:19 → ER 11:20
DX: R04.0 Epistaxis (principal); F41.9 Anxiety disorder, unspecified; I10 Essential (primary) hypertension; E78.00 Pure hypercholesterolemia, unspecified; I25.10 Atherosclerotic heart disease of native coronary artery without angina pectoris; K21.9 Gastro-esophageal reflux disease without esophagitis; F32.9 Major depressive disorder, single episode, unspecified; Z79.02 Long term (current) use of antithrombotics/antiplatelets; Z95.5 Presence of coronary angioplasty implant and graft; Z88.8 Allergy status to other drugs, medicaments and biological substances; Z87.891 Personal history of nicotine dependence
CPT/HCPCS: 36415; 85025

== ENCOUNTER → 2019-08-18 | Outpatient (CLI) | payer MEDICARE ==
[~2019-08-18] VITALS: Ht 185 cm; Wt 94.0 kg
[~2019-08-18] MED LIST changes: +CATHETER FLUSH 10 ML SYR IV PRN; +REGADENOSON 0.4 MG/5 ML SYR (LEXISCAN) IV ONE
== END ==
LOC: CARD 08-11 08:02
PROVIDERS: ATTEND Internal Medicine Interventional Cardiology
DX: I25.10 Atherosclerotic heart disease of native coronary artery without angina pectoris (principal); I10 Essential (primary) hypertension; E78.5 Hyperlipidemia, unspecified
CPT/HCPCS: 78452; 93017; A9502

== ENCOUNTER → 2020-08-06 | Outpatient (CLI) | payer MEDICARE ==
[~2020-08-06] MED LIST changes: +ASPI-1238 PO; -ASPI-983 PO; -CATHETER FLUSH 10 ML SYR IV PRN; -LISI10TA2 PO; +LISI10TA25 PO; -REGADENOSON 0.4 MG/5 ML SYR (LEXISCAN) IV ONE
== END ==
LOC: CARD 12:35
PROVIDERS: ATTEND Nurse Practitioner Family
DX: I08.0 Rheumatic disorders of both mitral and aortic valves (principal)
CPT/HCPCS: 93225; 93226; 93306

== ENCOUNTER → 2020-08-10 | Outpatient (CLI) | payer MEDICARE ==
[~2020-08-10] VITALS: Ht 185 cm; Wt 95.0 kg
[~2020-08-10] MED LIST changes: +CATHETER FLUSH 10 ML SYR IV PRN; +REGADENOSON 0.4 MG/5 ML SYR (LEXISCAN) IV ONE
[2020-08-10 09:00] VITALS: BP 130/65
--- NOTE | 2020-08-10 21:57 | STRESS TEST ---
DATE OF SERVICE: 08/10/2020 RESTING AND POST REGADENOSON TECHNETIUM-99M TETROFOSMIN SPECT CT IMAGING ORDERING PHYSICIAN: Mariella Beckford APRN CLINICAL DIAGNOSIS: Chest discomfort. Baseline images were carried out after injection of 10.51 mCi of technetium-99m Tetrofosmin. This was followed by 0.4 mg regadenoson and 28.6 mCi technetium-99m Tetrofosmin for stress imaging. The electrocardiogram did not change significantly with the regadenoson infusion. It showed sinus rhythm throughout the study. The patient noted shortness of breath following regadenoson infusion, which resolved in a few minutes. Review of images at rest and following stress indicates a small transient basal inferior perfusion defect. Gated images did not show any wall motion abnormality. Left ventricular ejection fraction is calculated to be 66%. Left ventricular end diastolic volume is 92 mL. TID is absent (0.95). CONCLUSIONS: 1. This study is suggestive of a small amount of basal inferior ischemia. 2. Normal regional wall motion. 3. Normal global left ventricular systolic function with a calculated ejection fraction of 66%. Job ID: [id number] DocumentID: [id number] Dictated Date: 08/10/2020 17:23:11 Hand Inserter Operator Date: 08/10/2020 21:56:20 Dictated By: PAULO TAN MD, MA, FACP, FACC, MTDD
== END ==
LOC: CARD 07:30
PROVIDERS: ATTEND Nurse Practitioner Family
DX: R07.89 Other chest pain (principal)
CPT/HCPCS: 78452; 93017; A9502

== ENCOUNTER 2020-08-21 12:00 | Day surgery (SDC) | payer MEDICARE ==
[2020-08-21] VITALS (11 sets, daily range): BP systolic 106–140; BP diastolic 60–73
[~2020-08-21] VITALS: Ht 185 cm; Wt 98.0 kg
[2020-08-21 10:43] LABS: HEMATOCRIT 38 % (40-54); HEMOGLOBIN 12.5 g/dL (13.3-17.7); MEAN CORPUSCULAR HEMOGLOBIN 30 pg (25-34); MEAN CORPUSCULAR HGB CONC 33 g/dL (32-36); MEAN CORPUSCULAR VOLUME 93 fL (80-99); PLATELET COUNT 390 10^3/uL (130-400); WHITE BLOOD COUNT 6.7 10^3/uL (4.3-11.0)
[2020-08-21 11:04] LABS: ALANINE AMINOTRANSFERASE 34 U/L (0-55); ALBUMIN 4.6 GM/DL (3.2-4.5); ALKALINE PHOSPHATASE 40 U/L (40-136); BILIRUBIN,TOTAL 0.3 MG/DL (0.1-1.0); BUN/CREATININE RATIO 26; CALCIUM 10.1 MG/DL (8.5-10.1); CARBON DIOXIDE 27 MMOL/L (21-32); CHLORIDE 101 MMOL/L (98-107); CHOLESTEROL 241 MG/DL (< 200); GFR ESTIMATED > 60; GLUCOSE 111 MG/DL (70-105); HDL CHOLESTEROL 35 MG/DL (40-60); POTASSIUM 4.4 MMOL/L (3.6-5.0); SODIUM 138 MMOL/L (135-145); TOTAL PROTEIN 7.9 GM/DL (6.4-8.2); TRIGLYCERIDES 668 MG/DL (<150)
[2020-08-21 11:05] LABS: PROTHROMBIN TIME PATIENT 13.1 SEC (12.2-14.7)
[~2020-08-21 12:00] MED LIST changes: -CATHETER FLUSH 10 ML SYR IV PRN; +CLOP75TA28 PO; +FENO134C PO; +NS IV 1000 ML 1,000 ML IV SCH; -REGADENOSON 0.4 MG/5 ML SYR (LEXISCAN) IV ONE
[2020-08-21] MEDS ORDERED: fentaNYL INJ 100 MCG/2 ML AMP ONE (12:27)
[2020-08-21] MEDS ORDERED: MIDAZOLAM 5 MG/5 ML (VERSED) VIAL ONE (12:28)
[2020-08-21] MEDS ORDERED: HEParin 1000 UNIT/ML (10ML VIAL) FOR BOLUS ONE (13:19)
[2020-08-21] MEDS ORDERED: NITRO DRIP 25000 MCG/D5W 250 ML IV ONE (13:19)
[2020-08-21] MEDS ORDERED: EPTIFIBATIDE BOLUS 20 ML IV ONE (13:20)
[2020-08-21] MEDS ORDERED: CLOPIDOGREL 300 MG (PLAVIX) TABLET PO ONE (13:43)
[2020-08-21] MEDS ORDERED: ASPIRIN 325 MG (5 GR) TABLET ONE (13:43)
--- NOTE | 2020-08-21 13:57 | Cardiac Procedure Note-CS/ASA ---
Pre-Procedure Note Pre-Op Procedure Note H&P Reviewed The H&P was reviewed, patient examined and no changes noted. Date H&P Reviewed: Aug 21, 2020 Time H&P Reviewed: 12:50 Conscious Sedation Pre-Proced Time 12:50 ASA Score 3 For ASA 3 and 4: Consider anesthesia and medical clearance. Also, for patients with a history of failed moderate sedation consider anesthesia. Airway Lungs Heart ASA score ASA 1: a normal healthy patient ASA 2: a patient with a mild systemic disease (mid diabetes, controlled hypertension, obesity ASA 3: a patient with a severe systemic disease that limits activity (angina, COPD, prior Myocardial infarction) ASA 4: a patient with an incapacitating disease that is a constant threat to life (CHF, renal failure) ASA 5: a moribund patient not expected to survive 24 hrs. (ruptured aneurysm) ASA 6: a declared brain- patient whose organs are being harvested. For emergent operations, add the letter E after the classification Mallampati Classification Grade 2 Sedation Plan Analgesia, Amnesia, Plan communicated to team members, Discussed options with patient/fam, Discussed risks with patient/fam The patient is an appropriate candidate to undergo the planned procedure, sedation, and anesthesia. The patient immediately re-assessed prior to indication. PAULO TAN MD FACP FAC CCDS Aug 21, 2020 13:57
[2020-08-21] MEDS ORDERED: PATIENT MAY USE OWN MEDS, ALL PO SCH (14:00)
[2020-08-21] MEDS ORDERED: ACETAMINOPHEN 500 MG TAB (TYLENOL) PO PRN (14:00)
--- NOTE | 2020-08-21 14:11 | CARDIAC CATHETERIZATION ---
DATE OF SERVICE: 08/21/2020 CARDIAC CATHETERIZATION AND CORONARY INTERVENTION REPORT The patient is a 70-year-old gentleman, who is known to have coronary artery disease and who has been experiencing chest discomfort and shortness of breath that is suggestive of angina. A myocardial perfusion imaging study was indicative of inferolateral ischemia. Cardiac catheterization was carried out today after having obtained an informed consent. DESCRIPTION OF PROCEDURE: He was brought to the cardiac catheterization laboratory in a fasting state. Right groin was prepared and draped in the usual sterile fashion. Lidocaine 1% was used for local anesthesia. Modified Seldinger technique was used to advance a 5-American sheath in right femoral artery. A 5-American JL4 catheter was used for right coronary angiography, 5-American JR4 catheter for right coronary angiography, 5-American pigtail catheter was used for left heart catheterization and left ventricular angiography. Subsequently, we carried out percutaneous intervention to the left circumflex artery and it is described below. PERCUTANEOUS INTERVENTION TO THE LEFT CIRCUMFLEX ARTERY: We exchanged the sheath over a wire for a 6-American sheath. We gave 6500 units of intravenous heparin. A double bolus of Integrilin was also given during the procedure. We used a 6-American JL4 guide catheter to engage the left coronary artery. We advanced a BMW wire across the lesion and the tip was placed in the distal part of the left circumflex. We advanced Xience Cecile 3.5 x 18 mm stent to an ostial and proximal lesion in the left circumflex. This was carefully positioned and the stent was deployed at 14 atmospheres. Subsequent angiography revealed 0% residual stenosis at the previous site of approximately 80% stenosis. Flow throughout the vessel is normal. He tolerated the procedure well. HEMODYNAMICS: Left ventricular end-diastolic pressure following coronary angiography was 10 mmHg. There is no significant pressure gradient on pullback across the aortic valve. Ascending aortic pressure was 117/73 with a mean of 90 mmHg. CORONARY ANGIOGRAPHY: Left main coronary artery is free of significant disease. Left anterior descending artery does not exhibit significant disease. Left circumflex artery had 80% ostial and proximal stenosis that was successfully stented with Xience Cecile 3.5 x 18 mm stent. Right coronary artery has a patent stent in its proximal portion. This is known to be Xience Cecile 2.5 x 18 mm stent that was placed in 08/2018. Distal to the stent, there are 40% to 50% stenosis in the proximal and mid right coronary artery. Right coronary artery is dominant. LEFT VENTRICULAR ANGIOGRAPHY: Left ventricular angiography was carried out in the right anterior oblique projection. Global left ventricular systolic function is normal. No regional wall motion abnormalities seen. Left ventricular ejection fraction is approximately 55%. CONCLUSIONS: 1. Coronary artery disease primarily consisting of 80% ostial and proximal stenosis in left circumflex that was successfully stented with Xience Cecile 3.5 x 18 mm stent. The left main coronary artery and the left anterior descending do not exhibit significant obstructive disease. Right coronary artery is dominant and has a patent proximal stent that is known to be Xience Cecile 2.5 x 18 mm that was placed in 2019. The mid right coronary artery had up to 40% to 50% stenoses. 2. Left ventricular end-diastolic pressure is 10 mmHg. 3. Well preserved global left ventricular systolic function with ejection fraction approximately 55%. DISCUSSION AND RECOMMENDATIONS: Dual antiplatelet therapy is being provided. He remains hospitalized for overnight observation. Job ID: [id number] DocumentID: [id number] Dictated Date: 08/21/2020 13:52:14 [employer] Date: 08/21/2020 14:10:47 Dictated By: PAULO TAN MD, MA, FACP, FACC, MTDD
[2020-08-21] MEDS: NS IV 1000 ML 1,000 ML IV SCH (16:29)
[2020-08-21] MEDS ORDERED: AMITRIPTYLINE 50 MG (ELAVIL) TAB PO SCH (21:00)
[2020-08-21] MEDS ORDERED: NON-FORMULARY MEDICATION 1 EA EA (Omeprazole Magnesium (Prilosec Otc) 20 MG) PO SCH (21:00)
[2020-08-21] MEDS ORDERED: NON-FORMULARY MEDICATION 1 EA EA (Duloxetine HCl (Cymbalta) 60 MG) PO SCH (21:00)
[2020-08-21] MEDS: DULoxetine 30 MG (CYMBALTA) CAP PO SCH (21:09)
[2020-08-21] MEDS: PANTOPRAZOLE 20 MG TABLET (PROTONIX) PO SCH (21:10)
[2020-08-21] MEDS: morphine ER 30 MG (MS CONTIN) TAB PO SCH (21:10)
[2020-08-22] VITALS (7 sets, daily range): BP systolic 111–131; BP diastolic 51–75
[2020-08-22 03:39] LABS: BASOPHILS # (AUTO) 0.1 10^3/uL (0.0-0.1); BASOPHILS % (AUTO) 1 % (0-10); EOSINOPHILS # (AUTO) 0.3 10^3/uL (0.0-0.3); EOSINOPHILS % (AUTO) 5 % (0-10); HEMATOCRIT 34 % (40-54); HEMOGLOBIN 11.1 g/dL (13.3-17.7); LYMPHOCYTES # (AUTO) 1.8 10^3/uL (1.0-4.0); LYMPHOCYTES % (AUTO) 28 % (12-44); MEAN CORPUSCULAR HEMOGLOBIN 30 pg (25-34); MEAN CORPUSCULAR HGB CONC 32 g/dL (32-36); MEAN CORPUSCULAR VOLUME 92 fL (80-99); MEAN PLATELET VOLUME 9.1 fL (9.0-12.2); MONOCYTES # (AUTO) 0.5 10^3/uL (0.0-1.0); MONOCYTES % (AUTO) 8 % (0-12); NEUTROPHILS # (AUTO) 3.7 10^3/uL (1.8-7.8); NEUTROPHILS % (AUTO) 58 % (42-75); PLATELET COUNT 360 10^3/uL (130-400); WHITE BLOOD COUNT 6.4 10^3/uL (4.3-11.0)
[2020-08-22 03:59] LABS: BUN/CREATININE RATIO 25; CALCIUM 9.4 MG/DL (8.5-10.1); CARBON DIOXIDE 23 MMOL/L (21-32); CHLORIDE 104 MMOL/L (98-107); CREATININE SERUM 0.87 MG/DL (0.60-1.30); GFR ESTIMATED > 60; GLUCOSE 123 MG/DL (70-105); POTASSIUM 3.8 MMOL/L (3.6-5.0); SODIUM 139 MMOL/L (135-145)
[2020-08-22] MEDS: NS IV 1000 ML 1,000 ML IV SCH (04:17)
--- NOTE | 2020-08-22 07:50 | Progress Note - Cardiology ---
Cardiology SOAP Progress Note Subjective: Sitting up in bed No c/o CP or SOB No c/o palpitations No c/o right groin discomfort Objective: I&O/Vital Signs 08/21/20 08/21/20 08/21/20 08/21/20 21:00 21:00 22:00 23:28 Pulse 74 87 85 Resp 15 26 12 B/P (MAP) 106/64 (78) Pulse Ox 96 99 94 O2 Delivery Nasal Cannula Room Air Nasal Cannula Nasal Cannula O2 Flow Rate 4.00 4.00 4.00 08/22/20 08/22/20 08/22/20 08/22/20 00:00 01:00 01:00 02:00 Pulse 84 88 88 79 Resp 26 13 8 B/P (MAP) 112/60 (77) 131/60 (83) 120/51 (74) Pulse Ox 94 96 90 O2 Delivery Nasal Cannula Nasal Cannula Nasal Cannula O2 Flow Rate 4.00 4.00 4.00 08/22/20 08/22/20 08/22/20 08/22/20 03:00 04:00 05:00 06:00 Pulse 77 62 59 61 Resp 17 25 22 B/P (MAP) 126/75 (92) 111/64 (79) 115/61 (75) 122/56 (65) Pulse Ox 94 90 89 94 O2 Delivery Nasal Cannula Room Air Room Air Room Air O2 Flow Rate 4.00 08/22/20 07:44 Temp 35.8 08/22/20 00:00 Intake Total 0 ml Output Total 700 ml Balance -700 ml Weight (Pounds): 207 Weight (Ounces): 4.0 Weight (Calculated Kilograms): 94.231904 Side: right Groin site without hematoma: Yes Condition: DP/PT pulses palpable, extremity w/d/p Bruising: moderated bruising Constitutional: AAO x 3, well-developed, well-nourished Respiratory: No accessory muscle use, No respiratory distress; chest expansion is symmetric, chest is bilaterally symmetric, lungs clear to auscultation Cardiovascular: regular rate-rhythm; No JVD; S1 and S2 Gastrointestional: No tender; soft, audible bowel sounds Extremities: other (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), no lower extremity edema bilateral Neurologic/Psychiatric: grossly intact (moves all extremities) Skin: No rash on exposed areas, No ulcerations on exposed areas Results/Procedures: Labs Laboratory Tests 08/21/20 10:34: White Blood Count 6.7, Red Blood Count 4.14L, Hemoglobin 12.5L, Hematocrit 38L, Mean Corpuscular Volume 93, Mean Corpuscular Hemoglobin 30, Mean Corpuscular Hemoglobin Concent 33, Red Cell Distribution Width 13.0, Platelet Count 390, Mean Platelet Volume 9.0, Prothrombin Time 13.1, INR Comment 1.0, Activated Partial Thromboplast Time 29, Sodium Level 138, Potassium Level 4.4, Chloride Level 101, Carbon Dioxide Level 27, Anion Gap 10, Blood Urea Nitrogen 26H, Creatinine 1.00, Estimat Glomerular Filtration Rate > 60, BUN/Creatinine Ratio 26, Glucose Level 111H, Calcium Level 10.1, Corrected Calcium , Total Bilirubin 0.3, Aspartate Amino Transf (AST/SGOT) 30, Alanine Aminotransferase (ALT/SGPT) 34, Alkaline Phosphatase 40, Total Protein 7.9, Albumin 4.6H, Triglycerides Level 668H, Cholesterol Level 241H, LDL Cholesterol Direct 130H, VLDL Cholesterol , HDL Cholesterol 35L 08/22/20 03:05: White Blood Count 6.4, Red Blood Count 3.73L, Hemoglobin 11.1L, Hematocrit 34L, Mean Corpuscular Volume 92, Mean Corpuscular Hemoglobin 30, Mean Corpuscular Hemoglobin Concent 32, Red Cell Distribution Width 13.0, Platelet Count 360, Mean Platelet Volume 9.1, Sodium Level 139, Potassium Level 3.8, Chloride Level 104, Carbon Dioxide Level 23, Anion Gap 12, Blood Urea Nitrogen 22H, Creatinine 0.87, Estimat Glomerular Filtration Rate > 60, BUN/Creatinine Ratio 25, Glucose Level 123H, Calcium Level 9.4, Immature Granulocyte % (Auto) 1, Neutrophils (%) (Auto) 58, Lymphocytes (%) (Auto) 28, Monocytes (%) (Auto) 8, Eosinophils (%) (A uto) 5, Basophils (%) (Auto) 1, Neutrophils # (Auto) 3.7, Lymphocytes # (Auto) 1.8, Monocytes # (Auto) 0.5, Eosinophils # (Auto) 0.3, Basophils # (Auto) 0.1, Immature Granulocyte # (Auto) 0.1 Procedures S/P cardiac cath on 08-21-20 with successful intervention. Please refer to cardiac cath procedure note for details. A/P: Assessment: CAD: - H/o PCI to pRCA with ABBY on 09/19/[address] Gillette - Cardiac cath of 08-21-20: primarily consisting of 80% ostial and proximal stenosis in left circumflex that was successfully stented with Xience Cecile 3.5 x 18 mm stent. The left main coronary artery and the left anterior descending do not exhibit significant obstructive disease. Right coronary artery is dominant and has a patent proximal stent that is known to be Xience Cecile 2.5 x 18 mm that was placed in 2019. The mid right coronary artery had up to 40% to 50% stenoses. Left ventricular end-diastolic pressure is 10 mmHg. Well preserved global left ventricular systolic function with ejection fraction approximately 55%. Echocardiogram done on 09/18/[address] Gillette shows normal LVEF, LVH and mild diastolic dysfunction. Left atrial size of 4.4 cm. No significant valvular heart disease HTN BETI - non-compliant with CPAP (follows with Dr. Limon) HLD - followed by Dr. Jocelyn Glasgow at [facility] H/O complicated left hip replacement which following several surgeries has resulted in approx 5 inch height difference between his right and left leg requiring lift shoe Plan: S/P cardiac cath with successful intervention OK to discharge home today Continue current medication regimen including DAPT, BB and statin Advise out pt f/u in 3-4 weeks RUDY FORREST Aug 22, 2020 07:50
[2020-08-22] MEDS ORDERED: ASPI81TA64 PO (07:52)
--- NOTE | 2020-08-22 07:52 | Discharge Inst-Cardiology ---
Discharge Inst-Cardiac Discharge Medications New Medications: Aspirin (Children's Aspirin) 81 Mg Tab.chew 81 MG PO DAILY, #120 TAB 5 Refills Continued Medications: Amitriptyline HCl (Amitriptyline HCl) 50 Mg Tablet 50 MG PO HS, TAB Atorvastatin Calcium (Atorvastatin Calcium) 80 Mg Tablet 80 MG PO HS for 90 Days, #90 TAB 3 Refills Bupropion HCl (Bupropion HCl Sr) 150 Mg Tablet.er 150 MG PO DAILY, TAB Clopidogrel Bisulfate (Clopidogrel) 75 Mg Tablet 75 MG PO DAILY, TAB Duloxetine HCl (Cymbalta) 60 Mg Capsule.dr 60 MG PO BID, CAP Fenofibrate,Micronized (Fenofibrate) 134 Mg Capsule 134 MG PO DAILY, CAP Lisinopril (Lisinopril) 10 Mg Tablet 10 MG PO DAILY, TAB Metoprolol Succinate (Metoprolol Succinate) 50 Mg Tab.er.24h 50 MG PO DAILY for 90 Days, #90 TAB 3 Refills Morphine Sulfate (Morphine Sulfate ER) 30 Mg Tablet.er 30 MG PO BID, TAB Omeprazole Magnesium (Prilosec Otc) 20 Mg Tablet.dr 20 MG PO BID, TAB Turmeric/Turmeric Root Extract (Turmeric 500 mg Capsule) 1 Each Capsule 500 MG PO DAILY, CAP Discontinued Medications: Aspirin (Aspirin EC) 81 Mg Tablet.dr 81 MG PO DAILY for 90 Days, #90 TAB 3 Refills New, Converted or Re-Newed RX: Transmitted to Pharmacy Patient Instructions Patient Instructions: Please schedule follow up appointment to see Dr. Meeks in 4 weeks RUDY FORREST Aug 22, 2020 07:52
[2020-08-22] MEDS: PANTOPRAZOLE 20 MG TABLET (PROTONIX) PO SCH (08:17)
[2020-08-22] MEDS: morphine ER 30 MG (MS CONTIN) TAB PO SCH (08:17)
--- NOTE | 2020-08-22 08:17 | Tele-ICU Progress Note ---
Subjective Date Seen by a Provider: Aug 22, 2020 Time Seen by a Provider: 09:31 Subjective/Events-last exam Went ot CCL, had ABBY to LCx, on ASA, Plavix Lopressor Sepsis Event Evaluation Height, Weight, BMI Height: 6'1.00" Weight: 207lbs. 4.0oz. 94.139689hh; 28.63 BMI Method:Stated Exam Exam Patient acknowledged, consented, and participated in this virtual visit which was conducted using real time audio/video Vital Signs Date Time Temp Pulse Resp B/P (MAP) Pulse Ox O2 Delivery O2 Flow Rate FiO2 08/22/20 07:44 35.8 08/22/20 06:00 61 22 122/56 (65) 94 Room Air 08/22/20 05:00 59 26 115/61 (75) 89 Room Air 08/22/20 04:00 62 25 111/64 (79) 90 Room Air 08/22/20 03:00 77 17 126/75 (92) 94 Nasal Cannula 4.00 08/22/20 02:00 79 8 120/51 (74) 90 Nasal Cannula 4.00 08/22/20 01:00 88 08/22/20 01:00 88 13 131/60 (83) 96 Nasal Cannula 4.00 08/22/20 00:00 84 26 112/60 (77) 94 Nasal Cannula 4.00 08/21/20 23:28 85 12 106/64 (78) 94 Nasal Cannula 4.00 08/21/20 22:00 87 26 Nasal Cannula 4.00 08/21/20 21:00 99 Room Air 08/21/20 21:00 74 15 96 Nasal Cannula 4.00 08/21/20 20:00 58 11 129/69 (89) 100 Nasal Cannula 4.00 08/21/20 19:43 36.0 08/21/20 19:00 74 08/21/20 19:00 74 30 124/73 (90) 98 Nasal Cannula 4.00 08/21/20 16:06 36.3 08/21/20 16:00 58 8 119/60 (79) 95 Nasal Cannula 4.00 08/21/20 15:30 60 10 113/67 (82) 97 Nasal Cannula 4.00 08/21/20 15:15 61 8 123/65 (84) 99 Nasal Cannula 4.00 08/21/20 15:00 58 11 123/68 (86) 99 Nasal Cannula 4.00 08/21/20 14:45 56 11 110/66 (81) 98 Nasal Cannula 4.00 08/21/20 14:30 95 Nasal Cannula 4.00 08/21/20 14:30 56 12 122/65 (84) 100 Nasal Cannula 4.00 08/21/20 14:15 60 8 132/66 (88) 98 Nasal Cannula 4.00 08/21/20 14:15 62 08/21/20 10:32 35.6 69 14 140/69 (92) 96 Room Air I & O 08/22/20 07:00 Intake Total 900 ml Output Total 1600 ml Balance -700 ml Height & Weight Height: 6'1.00" Weight: 207lbs. 4.0oz. 94.722323sy; 28.63 BMI Method:Stated Capillary Refill: Less Than 3 Seconds Results Lab Laboratory Tests 08/21/20 10:34 08/22/20 03:05 Assessment/Plan Assessment/Plan CAD, s/p ABBY to LCs continue current meds, home today Time spent with patient (mins): 5 LAKESHA SANCHEZ MD Aug 22, 2020 08:17
[2020-08-22] MEDS: DULoxetine 30 MG (CYMBALTA) CAP PO SCH (08:18)
[2020-08-22] MEDS ORDERED: buPROPion SR 150 MG (WELLBUTRIN SR) TAB PO SCH (09:00)
[2020-08-22] MEDS ORDERED: FENOFIBRATE 134 MG (LOFIBRA) CAPSULE PO SCH (09:00)
[2020-08-22] MEDS ORDERED: CLOPIDOGREL 75 MG (PLAVIX) TABLET PO SCH (09:00)
[2020-08-22] MEDS ORDERED: NON-FORMULARY MEDICATION 1 EA EA (Turmeric/Turmeric Root Extract (Turmeric 500 mg Capsule) PO SCH (09:00)
[2020-08-22] MEDS ORDERED: ASPIRIN 81 MG CHEW (CHILDREN'S ASA) PO SCH (09:00)
[2020-08-22] MEDS ORDERED: lisINopril 10 MG (PRINIVIL) TABLET PO SCH (09:00)
[2020-08-22] MEDS ORDERED: meTOproloL SUCCINATE 50 MG (TOPROL XL) TAB PO SCH (09:00)
--- NOTE | 2020-08-22 12:56 | Progress Note - Cardiology ---
Cardiology SOAP Progress Note Subjective: No cp or palp or syncope or shortness of breath Gen malaise (chronic) No n/v/d No groin or leg discomfort or discoloration Wishes to go home Objective: I&O/Vital Signs 08/22/20 08/22/20 08/22/20 08/22/20 01:00 01:00 02:00 03:00 Pulse 88 88 79 77 Resp 13 8 17 B/P (MAP) 131/60 (83) 120/51 (74) 126/75 (92) Pulse Ox 96 90 94 O2 Delivery Nasal Cannula Nasal Cannula Nasal Cannula O2 Flow Rate 4.00 4.00 4.00 08/22/20 08/22/20 08/22/20 08/22/20 04:00 05:00 06:00 07:19 Pulse 62 59 61 75 Resp 25 26 22 B/P (MAP) 111/64 (79) 115/61 (75) 122/56 (65) Pulse Ox 90 89 94 O2 Delivery Room Air Room Air Room Air 08/22/20 08/22/20 07:44 09:00 Temp 35.8 Pulse Ox 99 O2 Delivery Room Air 08/21/20 23:59 Intake Total 0 ml Output Total 700 ml Balance -700 ml Weight (Pounds): 207 Weight (Ounces): 4.0 Weight (Calculated Kilograms): 94.911309 Side: right Groin site without hematoma: Yes Condition: DP/PT pulses palpable, extremity w/d/p Bruising: moderated bruising Constitutional: AAO x 3, well-developed, well-nourished Respiratory: No accessory muscle use, No respiratory distress; chest expansion is symmetric, chest is bilaterally symmetric, lungs clear to auscultation Cardiovascular: regular rate-rhythm; No JVD; S1 and S2 Gastrointestional: No tender; soft, audible bowel sounds Extremities: other (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), no lower extremity edema bilateral Neurologic/Psychiatric: oriented x 3, other (moves all limbs equally) Skin: No rash on exposed areas, No ulcerations on exposed areas Results/Procedures: Labs Laboratory Tests 08/22/20 03:05: White Blood Count 6.4, Red Blood Count 3.73L, Hemoglobin 11.1L, Hematocrit 34L, Mean Corpuscular Volume 92, Mean Corpuscular Hemoglobin 30, Mean Corpuscular H emoglobin Concent 32, Red Cell Distribution Width 13.0, Platelet Count 360, Mean Platelet Volume 9.1, Immature Granulocyte % (Auto) 1, Neutrophils (%) (Auto) 58, Lymphocytes (%) (Auto) 28, Monocytes (%) (Auto) 8, Eosinophils (%) (Auto) 5, Basophils (%) (Auto) 1, Neutrophils # (Auto) 3.7, Lymphocytes # (Auto) 1.8, Monocytes # (Auto) 0.5, Eosinophils # (Auto) 0.3, Basophils # (Auto) 0.1, Immature Granulocyte # (Auto) 0.1, Sodium Level 139, Potassium Level 3.8, Chloride Level 104, Carbon Dioxide Level 23, Anion Gap 12, Blood Urea Nitrogen 22H, Creatinine 0.87, Estimat Glomerular Filtration Rate > 60, BUN/Creatinine Ratio 25, Glucose Level 123H, Calcium Level 9.4 Microbiology 08/21/20 MRSA Screen - Final, Complete MRSA not isolated Laboratory Tests 08/21/20 10:34 08/22/20 03:05 A/P: Assessment: CAD: - H/o PCI to pRCA with ABBY on 09/19/[address] Gillette - Cardiac cath of 08-21-20: primarily consisting of 80% ostial and proximal stenosis in left circumflex that was successfully stented with Xience Cecile 3.5 x 18 mm stent. The left main coronary artery and the left anterior descending do not exhibit significant obstructive disease. Right coronary artery is dominant and has a patent proximal stent that is known to be Xience Cecile 2.5 x 18 mm that was placed in 2019. The mid right coronary artery had up to 40% to 50% stenoses. Left ventricular end-diastolic pressure is 10 mmHg. Well preserved global left ventricular systolic function with ejection fraction ap proximately 55%. Echocardiogram done on 09/18/[address] Gillette shows normal LVEF, LVH and mild diastolic dysfunction. Left atrial size of 4.4 cm. No significant valvular heart disease HTN BETI - non-compliant with CPAP (follows with Dr. Limon) HLD - followed by Dr. Jocelyn Glasgow at [facility] H/O complicated left hip replacement which following several surgeries has resulted in approx 5 inch height difference between his right and left leg requiring lift shoe Plan: I had a detailed discussion with him regarding his cath findings, interventions undertaken, and further management plan We reviewed and discussed risk factor modification Continue current medication regimen including DAPT, BB and statin Advise out pt f/u in 3-4 weeks PAULO TAN MD FACP FAC CCDS Aug 22, 2020 12:56
== END 2020-08-22 11:10 | disposition home or self-care (01) ==
LOC: CATH 12:00 → ICU 14:30 → CATH 08-22 11:10
PROVIDERS: ATTEND Internal Medicine Cardiovascular Disease
DX: I25.10 Atherosclerotic heart disease of native coronary artery without angina pectoris (principal); I10 Essential (primary) hypertension; G47.33 Obstructive sleep apnea (adult) (pediatric); E78.2 Mixed hyperlipidemia; R00.2 Palpitations; R06.09 Other forms of dyspnea; Z79.82 Long term (current) use of aspirin; Z79.899 Other long term (current) drug therapy; Z79.02 Long term (current) use of antithrombotics/antiplatelets; Z99.89 Dependence on other enabling machines and devices
CPT/HCPCS: 80048; 80053; 80061; 85025; 85027; 85610; 85730; 87081; 93005; 93458; C1769; C1874; C1887; C1894 ×2; C9600; 36415

== ENCOUNTER → 2021-02-06 | Outpatient (CLI) | payer MEDICARE ==
[~2021-02-06] MED LIST changes: +ASPI81TA64 PO; +DULO60CA7 PO; -NS IV 1000 ML 1,000 ML IV SCH
--- NOTE | 2021-02-06 16:48 | Diagnostic Imaging Report ---
INDICATION: Left leg pain with walking. FINDINGS: A noninvasive study was performed. The ankle-brachial indices were as follows: On the right side, the index is 1.29 for posterior tibial artery and 1.07 for the dorsalis pedis with a digital reading of 0.67. On the left side, the posterior tibial artery BETY was 0.96, dorsalis pedis 0.98, digital 0.66. Segmental pressures demonstrate degradation of waveforms on the left side at the digital level. IMPRESSION: Evidence of small vessel disease as described above, left greater than right. Dictated by: Dictated on workstation # [id number]
== END ==
LOC: RAD 10:56
PROVIDERS: ATTEND Pediatrics
DX: I25.118 Atherosclerotic heart disease of native coronary artery with other forms of angina pectoris (principal)
CPT/HCPCS: 93922

== ENCOUNTER → 2021-09-10 | Outpatient (CLI) | payer MEDICARE ==
[~2021-09-10] MED LIST changes: +BUPR-105 PO; -BUPR150T14 PO; -FENO134C PO; +FENO134C21 PO; +MORP30CA13 PO; -MORP30CA16 PO
--- NOTE | 2021-09-10 12:51 | Diagnostic Imaging Report ---
INDICATION: Indication: Postmenopausal screening COMPARISON: Baseline FINDINGS: AP Spine L1-L4: [BMD (g/cm2): 1.117] [T-Score: -1.0] [Z-Score: -1.1] [BMD Previous: NA] [BMD % Change: NA] LT Hip Neck: [BMD (g/cm2): NA] [T-Score: NA] [Z-Score: NA] LT Hip Total: [BMD (g/cm2):NA] [T-Score:NA] [Z-Score: NA] [BMD Previous: NA] [BMD % Change: NA] RT Hip Neck: [BMD (g/cm2):0.803] [T-Score:-2.1] [Z-Score:-1.2] RT Hip Total: [BMD (g/cm2):0.832] [T-score:-1.9] [Z-Score:-1.5] [BMD Previous:NA] [BMD % Change:NA] *Indicates significant change from prior examination based on 95% confidence level. World Health Organization criteria for BMD interpretation classify patients as Normal (T-score at or above -1.0), Osteopenic (T-score between -1.0 and -2.5) or Osteoporotic (T-score at or below -2.5). LIMITATIONS AND MODIFICATION: None. FRACTURE RISK (FRAX SCORE): The ten year probability of (%): Major Osteoporotic Fracture: [12.4] Hip Fracture: [3.3] IMPRESSION: 1. Osteopenia (Low bone mass). 2. Baseline examination. 3. See below National Osteoporosis Foundation guidelines on when to potentially initiate pharmacologic therapy. Based on the National Osteoporosis Foundation Guidelines, pharmacologic treatment should be initiated in any of the following, unless clinical conditions suggest otherwise: * Any patient with prior fragility fracture of the hip or vertebrae. A spine fracture indicates 5X risk for subsequent spine fracture and 2X risk for subsequent hip fracture. * Osteoporosis (T-score <-2.5). * Postmenopausal women and men age 50 and older with low bone mass/osteopenia (T-score between -1.0 and -2.5) by DXA and 10-year major osteoporotic fracture greater than 20% or a 10-year probability of hip fracture greater than 3%. These fracture risks are supplied above in the FRAX score, if applicable. * Clinician judgement and/or patient preferences may indicate treatment for people with 10-year fracture probabilities above or below these levels. Dictated by: Dictated on workstation # [id number]
== END ==
LOC: RAD 11:21
PROVIDERS: ATTEND Pediatrics
DX: Z13.820 Encounter for screening for osteoporosis (principal); M21.70 Unequal limb length (acquired), unspecified site; R79.89 Other specified abnormal findings of blood chemistry; M85.80 Other specified disorders of bone density and structure, unspecified site
CPT/HCPCS: 77080

== ENCOUNTER 2022-04-17 05:34 | Outpatient (CLI) | payer MEDICARE ==
[~2022-04-17] VITALS: Ht 185.4 cm; Wt 90.5 kg
[2022-04-17] MEDS ORDERED: MTP100TCR PO (16:03)
[2022-04-17] MEDS ORDERED: BUPR300T98 PO (16:03)
[2022-04-17] MEDS ORDERED: FLUT9.9S NS (16:03)
[2022-04-17] MEDS ORDERED: NALO4SPR NS (16:03)
[2022-04-17] MEDS ORDERED: GABA300C PO (16:03)
[2022-04-17] MEDS ORDERED: HYDR-700 PO (16:03)
[2022-04-17] MEDS ORDERED: FAMO20TA3 PO (16:03)
[2022-04-17] MEDS ORDERED: LISI1TAB44 PO (16:03)
[2022-04-17] MEDS ORDERED: SITA100T12 PO (16:03)
[2022-04-17] MEDS ORDERED: NABU-95 PO (16:03)
[2022-04-17] MEDS ORDERED: DAPA10TA PO (16:03)
== END 2022-04-17 16:08 | disposition home or self-care (01) ==
LOC: PREOP 05:34
PROVIDERS: ATTEND Surgery
DX: Z01.818 Encounter for other preprocedural examination (principal)

== ENCOUNTER 2022-04-24 07:03 | Day surgery (SDC) | payer MEDICARE ==
[~2022-04-24] VITALS: Ht 185.4 cm; Wt 90.5 kg
[2022-04-24] VITALS (9 sets, daily range): BP systolic 103–131; BP diastolic 58–71
[~2022-04-24 07:03] MED LIST changes: +BUPR300T98 PO; +DAPA10TA PO; +FAMO20TA3 PO; +FLUT9.9S NS; +GABA300C PO; +HYDR-700 PO; +LISI1TAB44 PO; +MTP100TCR PO; +NABU-95 PO; +NALO4SPR NS; +SITA100T12 PO
[2022-04-24] MEDS ORDERED: ceFAZolin INJECTION 2,000 MG in NS (IVPB) 50 ML IV ONE (07:15)
[2022-04-24] MEDS ORDERED: BUP/EPI 0.5% 1:200,000 (SENSORCAINE) 30 ML VIAL ONE (07:21)
[2022-04-24] MEDS ORDERED: proPOfol 200 MG/20 ML (DIPRIVAN) VIAL IV ONE (07:28)
[2022-04-24] MEDS ORDERED: fentaNYL INJ 100 MCG/2 ML AMP ONE (07:28)
[2022-04-24] MEDS ORDERED: LIDOCAINE PF 2% 5 ML (XYLOCAINE) VIAL ONE ×2 (07:28→08:21)
[2022-04-24] MEDS ORDERED: ROCURONIUM 50 MG/5 ML (ZEMURON) VIAL IV ONE (07:28)
[2022-04-24] MEDS ORDERED: ONDANSETRON 4 MG/2 ML (SDV) Z0FRAN ONE (07:28)
[2022-04-24] MEDS ORDERED: SEVOFLURANE (ULTANE) 15 ML INHAL SOLN ONE ×2 (07:29→10:05)
[2022-04-24] MEDS ORDERED: MIDAZOLAM 2 MG/2 ML (VERSED) VIAL ONE (07:29)
[2022-04-24] MEDS: LACTATED RINGERS 1,000 ML IV PRN ×2 (07:55→08:11)
[2022-04-24] MEDS ORDERED: GLYCOPYRROLATE 0.2 MG/ML (ROBINUL) 2 ML VIAL ONE (08:31)
--- NOTE | 2022-04-24 10:17 | Anesthesia-General Post-Op ---
General Patient Condition Mental Status/LOC: Same as Preop Cardiovascular: Satisfactory Nausea/Vomiting: Absent Respiratory: Satisfactory Pain: Controlled Complications: Absent Post Op Complications Complications None Follow Up Care/Instructions Patient Instructions None needed. Anesthesia/Patient Condition Patient Condition Patient is doing well, no complaints, stable vital signs, no apparent adverse anesthesia problems. No complications reported per nursing. EZEQUIEL WINSLOW CRNA Apr 24, 2022 10:17
--- NOTE | 2022-04-24 10:23 | Progress Note-Post Operative ---
Post-Operative Progess Note Surgeon (s)/Food And Beverage Intern (s) Surgeon HARRISON NUÑEZ DO Food And Beverage Intern: Molly Pre-Operative Diagnosis LEFT INGUINAL HERNIA Post-Operative Diagnosis direct,indirect left inguinal hernia Procedure & Operative Findings Date of Procedure 04/24/22 Procedure Performed/Findings robotic left inguinal hernia repair direct and indirect Anesthesia Type general Estimated Blood Loss Estimated blood loss (mL): minimal Specimens/Packing Specimens Removed na HARRISON NUÑEZ DO Apr 24, 2022 10:23
[2022-04-24] MEDS ORDERED: ACHD5005 PO (10:28)
--- NOTE | 2022-04-24 10:30 | Discharge Inst-Simple/Standard ---
Discharge Inst-Standard Discharge Medications New, Converted or Re-Newed RX: Transmitted to Pharmacy Patient Instructions/Follow Up Plan of Care/Instructions/FU: 2 weeks [place] Start plavix and aspirin in 3 days. Activity as Tolerated: No Discharge Diet: Regular Diet Other Inst to Patient Follow up Appt: Make appointment for 2 week. Instructions: No lifting greater than 10 pounds. No strenuous activity. May shower in 24 hours, no tub bath or soaking. Use incentive spirometer at home as directed. No Smoking Skin/Wound Care: You have special glue over your incision that will fall off on it's own. Symptoms to Report: Appetite Changes, Extremity Discoloration, Numbness/Tingling, Swelling Increased, Bleeding Excessive, Eyesight Changes, Pain Increased, Urine Color Change, Constipation(Persistent), Fever over 101 degree F, Pain/Pressure in chest, Urinating Difficulty, Cough Up/Vomit Blood, Heart Beat Irreg/Pounding, Pain/Pressure in jaw, Vaginal Bleeding Increase, Cramps in feet or legs, Lightheadedness, Pain/Pressure in shoulder, Diarrhea(Persistent), Memory Changes Suddenly, Questions/Concerns, Weight gain consecutive days, Dizziness/Fainting, Nausea/Vomiting, Shortness of Breath, Weight gain over 2 pounds If questions or concerns contact your physician Or seek help at emergency department. HARRISON NUÑEZ DO Apr 24, 2022 10:30
[2022-04-24] MEDS ORDERED: HYDROcodone/APAP 5 MG/325 MG (LORTAB) TAB ONE (11:11)
[2022-04-24] MEDS ORDERED: HYDROcodone/APAP 5 MG/325 MG (LORTAB) TAB PO ONE (11:15)
--- NOTE | 2022-04-25 16:47 | OPERATIVE REPORT ---
DATE OF SERVICE: 04/24/2022 PREOPERATIVE DIAGNOSIS: Left inguinal hernia. POSTOPERATIVE DIAGNOSIS: Left direct and indirect inguinal hernia. PROCEDURE: Robotic left direct and indirect left inguinal hernia repair with mesh. SURGEON: Harrison Lindo DO. SUPERVISOR WIRE ROPE FABRICATION: Dr. Barnes, assisted in retraction, dissection, and closure. ANESTHESIA: General. ESTIMATED BLOOD LOSS: Minimal. COMPLICATIONS: None. INDICATIONS: The patient is a 71-year-old male with a left inguinal hernia. He understands risks and benefits of procedure and wished to proceed. Consent was signed and in the chart. DESCRIPTION OF PROCEDURE: The patient was taken to the operating suite where he was prepped and draped in sterile fashion. Timeout was performed. Local anesthetic was infiltrated above the umbilicus. A #11 blade scalpel was used to make a small skin incision. Cautery was used to dissect down through subcutaneous tissues. The fascia was then scored and elevated, 0 Vicryl was placed in a [id number] fashion for closure at the end of the case. A balloon trocar was inserted. Pneumoperitoneum was achieved. Under direct visualization, an 8 mm robotic trocar was placed in the left side of the abdomen, also the right. The patient was placed in slight Trendelenburg position. The robot was then docked. The peritoneum was then taken down on the left area, noting a left direct and indirect inguinal hernia. The dissection was taken down to the Jorge L's ligament and then laterally was taken down the peritoneum, dissecting out the hernia contents of the direct and also dissecting out the indirect hernia sac. Continue taking the peritoneum down for mesh placement approximately 2 cm below Jorge L's ligament and laterally. An extra-large mesh was then inserted and secured to Jorge L's ligament with 3-0 Vicryl suture and on the lateral aspect on the superior portion. The peritoneum was then reapproximated using 3-0 V-Loc suture. This was done with the pressure decreased. The robot was then undocked and the trocars were removed. The 0 Vicryl placed at the beginning of the case was then closed, closing the 12 mm fascial defect. The skin was then closed using 4-0 Monocryl in subcuticular fashion. The abdomen was then washed and dried and skin Affix was placed over the incisions. The patient tolerated the procedure well, no complications, taken to recovery room in stable condition. Job ID: [id number] DocumentID: [id number] Dictated Date: 04/25/2022 10:17:37 Services Executive Date: 04/25/2022 16:45:00 Dictated By: HARRISON LINDO DO
== END 2022-04-24 12:06 | disposition home or self-care (01) ==
LOC: SDC 07:03
PROVIDERS: ATTEND Surgery
DX: K40.90 Unilateral inguinal hernia, without obstruction or gangrene, not specified as recurrent (principal); K21.9 Gastro-esophageal reflux disease without esophagitis; Z87.891 Personal history of nicotine dependence; Z79.02 Long term (current) use of antithrombotics/antiplatelets; Z79.899 Other long term (current) drug therapy
CPT/HCPCS: 49650; 82947; 87081; C1781

== ENCOUNTER → 2023-02-03 | Outpatient (CLI) | payer MEDICARE ==
[~2023-02-03] MED LIST changes: +ACHD5005 PO; +FAMO-356 PO; -FAMO20TA3 PO
== END ==
LOC: CARD 11:26
PROVIDERS: ATTEND Nurse Practitioner Family
DX: I51.7 Cardiomegaly (principal); I35.1 Nonrheumatic aortic (valve) insufficiency
CPT/HCPCS: 93306